=== PATIENT | female | born 1955 | race African-American/Black ===

== ENCOUNTER 2023-03-27 09:22 | Emergency (ER) | payer OTHER ==
--- OUTSIDE RECORDS SUMMARY | 2023-03-27 09:30 | XMS REPORT | Continuity of Care Document ---
:1955 Author Organization [facility] t Address [address]. [address] [place] [address] Care Team Providers Name Role Phone SHAAN JIMENEZ Primary Care Physician Unavailable MEGHA SARAVIA Attending Clinician Unavailable Radiology Attending Clinician Unavailable RADIOLOGY Attending Clinician Unavailable Pob, [facility] Main Attending Clinician Unavailable Gus Pham MD Attending Clinician Lab, Ang - Db Attending Clinician Unavailable Hugh Gabriel MD Attending Clinician HUGH GABRIEL Attending Clinician Unavailable HUGH GABRIEL Attending Clinician Unavailable GUS PHAM Attending Clinician Unavailable Doctor Unassigned, [place] Attending Clinician Unavailable MINI BURTON Attending Clinician Unavailable Mini Burton DO Attending Clinician Yoel Chino MD Attending Clinician OYEL CHINO Attending Clinician Unavailable 1, [facility] Attending Clinician Unavailable Clint Anderson MD Attending Clinician Payers Payer Name Policy Type Policy Number Effective Date Expiration Date S serina HOOD PLS [id number] 2022 O 00:00:00 [place]ICAID OF [place] [id number] 2011 00:00:00 Problems Condition Condition Condition Status Onset Resolution Last Treating Co mments Source Name Details Category Date Date Treatment Clinician Date Lower GI Lower GI Disease Active 2015-11 Unive rs bleeding bleeding 2-09 ity of 00:00: [place] [facility] CHF CHF Disease Active 2015-11 Univers (congestiv (congestiv 1-29 it y of e heart e heart 00:00: [place] failure) failure) 00 Medica l Branch Obesity Obesity Disease Active 2015-11 Univers (BMI (BMI 1-27 ity of 30-39.9) 30-39.9) 00:00: [place] [facility] CHF CHF Disease Active 2015-11 Univers exacerbati exacerbati 1-27 it y of on on 00:00: [place] [facility] CHF CHF Disease Active 2015-11 Univers exacerbati exacerbati 1- it y of on on 00:00: [place] [facility] Morbid Morbid Disease Active 2015-11 Univers obesity obesity 1-27 [place] with body [place] body [place] mass index 00 Me dical of 50 or of 50 or Branch higher higher Morbid Morbid Disease Active 2015-11 Univers obesity obesity -27 [place] of with body [place] body 00:[place] mass index mass index 00 Me dical of of Branch 40.0-49.9 40.0-49.9 Pneumonia Pneumonia Disease Active Uni vers 9-13 ity of 00:00: [place] [facility] COPD COPD Disease Active Univers exacerbati exacerbati 8-07 it y of on on 00:00: [place] [facility] COPD COPD Disease Active Univers (chronic (chronic 3-03 ity of obstructiv obstructiv [place] Medical pulmonary pulmonary Bran ch disease) disease) 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 U nivers s rectal s rectal 1-06 ity of polyp polyp 00:00: [place] [facility] Hematochez Hematochez Disease Active 2014-11 U pratikers ia ia 0-25 ity of 00:00: [place] [facility] DEXTER DEXTER Disease Active 2014-11 Univers (obstructi (obstructi 0-24 it y of ve sleep ve sleep 00:00: [place] apnea) apnea) 00 Medical Branch Hyperlipid Hyperlipid Disease Active 2014-11 U pratikers emia emia 0-24 ity of 00:00: [place] [facility] CVA, old, CVA, old, Disease Active 2014-11 Uni vers disturbanc disturbanc 0-24 it y of es of es of 00:00: [place] vision vision 00 Medical Branch Rectal Rectal Disease Active 2014-11 Univers bleeding bleeding 0- ity of 00:00: [place] 00 Medical Branch Hypertensi Hypertensi Disease Active U nivers on on 06-07 ity of 00:00: [place] [facility] [place] Type 2 Type 2 Disease Active Univers diabetes diabetes 06-07 ity of mellitus mellitus 00:00: [place] 00 [facility] Allergies, Adverse Reactions, Alerts Allergy Allergy Status Severity Reaction(s) Onset Inactive Treating Comm ents Source Name Type Date Date Clinician NO KNOWN Drug Active Univers ALLERGIE Class ity of S [place] [facility] Social History Social Habit Start Date Stop Date Quantity Comments Source History of tobacco Cigarette Smoker University of use [facility] Exposure to 2022-08-07 2022-08-17 Not sure [facility] SARS-CoV-2 (event) 00:00:00 09:42:00 [facility] Alcohol intake 2022-08-17 2022-08-17 0 /d University of 00:00:00 00:00:00 [facility] Tobacco use and 2016-10-10 2016-10-10 Smokeless Universit y of exposure 00:00:00 00:00:00 tobacco non-user [facility] Cigarettes smoked 2016-10-10 2016-10-10 Univers ity of current (pack per 00:00:00 00:00:00 [place] ) - Reported Branch Cigarette 2016-10-10 2016-10-10 University of pack-years 00:00:00 00:00:00 [facility] Sex Ass[birth year] At [birth year] Universit y of 00:00:00 00:00:00 [place] [facility] Smoking Status Start Date Stop Date Source Ex-smoker 2016-10-10 00:00:00 2016-10-10 00:00:00 Universi ty [facility] Medications Ordered Filled Start Stop Current Ordering Indication Dosage Frequency Signature Comments Components Source Medication Medication Date Date Medication? Clinician (SIG) Name Name ezetimibe Yes 1{tbl} Take 1 Univ ers 10 mg 9-30 tablet by ity of tablet 00:00: mouth in [place] 00 the Medical morning. Branch ezetimibe 2022-0 Yes 1{tbl} Take 1 Univ ers 10 mg 9-30 tablet by ity of tablet 00:00: mouth in [place] 00 the Medical morning. Branch ezetimibe 2021-0 Yes 1{tbl} Take 1 Univ ers 10 mg 9-30 tablet by ity of tablet 00:00: mouth in [place] 00 the Medical morning. Branch ezetimibe 2021-0 Yes 1{tbl} Take 1 Univ ers 10 mg 9-30 tablet by ity of tablet 00:00: mouth in [place] the Medical morning. Branch ezetimibe 2021-0 Yes 1{tbl} Take 1 Univ ers 10 mg 9-30 tablet by ity of tablet 00:00: mouth in [place] the Medical morning. Branch simvastatin 2021-0 Yes Univer s 10 mg 9-29 ity of tablet 00:00: [place] 00 Medical Branch simvastatin 2021-0 Yes Univer s 10 mg 9-29 ity of tablet 00:00: [place] 00 Medical Branch simvastatin 2021-0 Yes Univer s 10 mg 9-29 ity of tablet 00:00: [place] 00 Medical Branch simvastatin 2021-0 Yes Univer s 10 mg 9-29 ity of tablet 00:00: [place] [address] Medical Branch simvastatin 2021-0 Yes Univer s 10 mg 9-29 ity of tablet 00:00: [place] 00 Medical Branch levothyroxi 2021-0 Yes Univer s ne 25 mcg 9-27 ity of tablet 00:00: [place] 00 Medical Branch levothyroxi 2021-0 Yes Univer s ne 25 mcg 9-27 ity of tablet 00:00: [place] 00 Medical Branch levothyroxi 2021-0 Yes Univer s ne 25 mcg 9-27 ity of tablet 00:00: [place] 00 Medical Branch levothyroxi 2-0 Yes Univer s ne 25 mcg 9-27 ity of tablet 00:00: [place] 00 Medical Branch levothyroxi 2021-0 Yes Univer s ne 25 mcg 9-27 ity of tablet 00:00: [place] 00 Medical Branch fluticasone 2021-0 Yes 1{puff} Inhale 1 Univers furoate-cherelle 9-12 Puff. ity of anteroL 00:00: [place] (BREO 00 Medical ELLIPTA) Branch 200-25 mcg/dose DsDv fluticasone Yes 1{puff} Inhale 1 Univers furoate-cherelle 9-12 Puff. ity of anteroL 00:00: [place] ([address]) Branch 200-25 mcg/dose DsDv fluticasone Yes 1{puff} Inhale 1 Univers furoate-cherelle 9-12 Puff. ity of anteroL 00:00: [place] ([address]) Branch 200-25 mcg/dose DsDv fluticasone Yes 1{puff} Inhale 1 Univers furoate-cherelle 9-12 Puff. ity of anteroL 00:00: [place] ([address]) Branch 200-25 mcg/dose DsDv fluticasone Yes 1{puff} Inhale 1 Univers furoate-cherelle 9-12 Puff. ity of anteroL 00:00: [place] ([address]) Branch 200-25 mcg/dose DsDv FARXIGA 10 Yes TAKE 1 Unive rs mg tablet 9-09 TABLET BY ity o f 00:00: MOUTH 1 (ONE) TIME Medical EACH DAY Branch IN THE MORNING WITH PLENTY OF WATER, FOR DIABETES FARXIGA 10 Yes TAKE 1 Unive rs mg tablet 9-09 TABLET BY ity o f 00:00: MOUTH (ONE) TIME Medical EACH DAY Branch IN THE MORNING WITH PLENTY OF WATER, FOR DIABETES FARXIGA 10 Yes TAKE 1 Unive rs mg tablet 9-09 TABLET BY ity o f 00:00: MOUTH (ONE) TIME Medical EACH DAY Branch IN THE MORNING WITH PLENTY OF WATER, FOR DIABETES FARXIGA 10 Yes TAKE 1 Unive rs mg tablet 9-09 TABLET BY ity o f 00:00: MOUTH (ONE) TIME Medical EACH DAY Branch IN THE MORNING WITH PLENTY OF WATER, FOR DIABETES FARXIGA 10 Yes TAKE 1 Unive rs mg tablet 9-09 TABLET BY ity o f 00:00: MOUTH 1 [place] (ONE) TIME Medical EACH DAY Branch IN THE MORNING WITH PLENTY OF WATER, FOR DIABETES insulin 2017- Yes 24U inject 24 Unive rs glargine 2-21 Units ity of (LANTUS 19:42: under the [place] U-100) 100 05 skin at Medica l unit/mL bedtime. Branch injection Olopatadine 2016-11 Yes 1[drp] Place 1 U nivers (PATADAY) 2-21 Drop in ity of 0.2 % Drop 19:42: each eye Good as 05 daily. Medical Branch foLIC acid 2016-11 Yes 1mg Take 1 mg Un reilly (FOLATE) 1 2-21 by mouth ity o f mg tablet 19:42: daily. [address] Branch gabapentin 2016-11 Yes 100mg Take 100 Un reilly (NEURONTIN) 2-21 mg by ity of 100 mg 19:42: mouth at [place] capsule 05 bedtime. Medical Branch HYDROcodone 2016-11 Yes 1{tbl} Take 1 Un reilly -acetaminop 2-21 tablet by ity of hen 7.5-325 19:42: mouth [place] mg per 05 every 6 Medical tablet (six) Branch hours as needed for Pain. allopurinol 2016-11 Yes 200mg Take 200 U nivers 100 mg 2-21 mg by ity of tablet 19:42: mouth [place] 05 daily. Medical Branch clopidogrel 2016-11 Yes 75mg Take 75 mg Univers (PLAVIX) 75 2-21 by mouth ity of mg tablet 19:42: daily. [address] Branch furosemide 2016-11 Yes 40mg Take 40 mg U nivers 40 mg 2-21 by mouth 3 ity of tablet 19:42: (three) [place] 05 times Medical daily. Branch FERROUS 2016-11 Yes 1{tbl} Take 1 Tab Un reilly FUMARATE/FO 2-21 by mouth ity of LIC ACID 19:42: daily. [place] (HEMATINIC/ 05 Medical FOLIC ACID Branch ORAL) aspirin 81 2016-11 Yes 81mg Take 81 mg U nivers mg chewable 2-21 by mouth ity of tablet 19:42: daily. [address] Branch levocetiriz 2016-11 Yes 5mg Take 5 mg U nivers ine (XYZAL) 2-21 by mouth ity of 5 mg tablet 19:42: every [place] 05 evening. Medical Branch SERTraline 2016-11 Yes 25mg Take 25 mg U nivers (ZOLOFT) 25 2-21 by mouth ity of mg tablet 19:42: daily. [address] Branch bimatoprost 2016-11 Yes 1[drp] Place 1 U nivers (LUMIGAN) 2-21 Drop in ity of 0.01 % Drop 19:42: each eye [place] 05 daily. Medical Branch metFORMIN 2016-11 Yes 500mg Take 500 Uni vers (GLUCOPHAGE 2-21 mg by ity of ) 1,000 mg 19:42: [place] 2 [place] tablet 05 (two) Medical times Branch daily. spironolact 2016-11 Yes 25mg Take 25 mg Univers one 2-21 by mouth ity of (SPIRONOLAC 19:42: daily. [place] TONE) 25 mg 05 Medical tablet Branch sitaGLIPtin 2016-11 Yes 50mg Take 50 mg Univers (JANUVIA) 2-21 by mouth ity of 50 mg 19:42: daily. [place] tablet 05 Medical Branch atenolol 2016-11 Yes 50mg Take 50 mg Uni vers (TENORMIN) 2-21 by mouth 2 ity of 50 mg 19:42: (two) [place] tablet 05 times Medical daily. Branch nitroglycer 2016-[address] 0[address]4 U nivers in 2-21 mg under ity of (NITROSTAT) 19:42: the tongue [place] 0.4 mg 05 every 5 Medical sublingual (five) Branch tablet minutes as needed for Chest pain. fluticasone 2016-11 Yes 1{puff} Inhale 1 Univers furoate 2-21 Puff ity of (ARNUITY 19:42: daily. [place] ELLIPTA) 05 Medical 200 Branch mcg/actuati on DsDv colchicine 2016-11 Yes .6mg Take 0.6 Uni vers (COLCRYS) 2-21 mg by ity of 0.6 mg 19:42: mouth [place] tablet 05 daily. Medical Branch insulin 2016-11 Yes 24U inject 24 Unive rs glargine 2-21 Units ity of (LANTUS 19:42: under the [place] U-100) 100 05 skin at Medica l unit/mL bedtime. Branch injection Olopatadine 2016-11 Yes 1[drp] Place 1 U nivers (PATADAY) 2-21 Drop in ity of 0.2 % Drop 19:42: each eye [place] 05 daily. Medical Branch foLIC acid 2016-11 Yes 1mg Take 1 mg Un reilly (FOLATE) 1 2-21 by mouth ity o f mg tablet 19:42: daily. [place] [address] Medical Branch gabapentin 2016-11 Yes 100mg Take 100 Un reilly (NEURONTIN) 2-21 mg by ity of 100 mg 19:42: mouth at [facility] [place] 05 bedtime. Medical Branch HYDROcodone 2016-11 Yes 1{tbl} Take 1 Un reilly -acetaminop 2-21 tablet by ity of hen 7.5-325 19:42: mouth [place] mg per 05 every 6 Medical tablet (six) Branch hours as needed for Pain. allopurinol 2016-11 Yes 200mg Take 200 U nivers 100 mg 2-21 mg by ity of tablet 19:42: mouth [place] 05 daily. Medical Branch clopidogrel 2016-11 Yes 75mg Take 75 mg Univers (PLAVIX) 75 2-21 by mouth ity of mg tablet 19:42: daily. [address] Branch furosemide 2016-11 Yes 40mg Take 40 mg U nivers 40 mg 2-21 by mouth 3 ity of tablet 19:42: (three) [place] [address] times [facility] daily. Branch FERROUS 2016-11 Yes 1{tbl} Take 1 Tab Un reilly FUMARATE/FO 2-21 by mouth ity of LIC ACID 19:42: daily. [place] (HEMATINIC/ 05 Medical FOLIC ACID Branch ORAL) aspirin 81 2016-11 Yes 81mg Take 81 mg U nivers mg chewable 2-21 by mouth ity of tablet 19:42: daily. [address] Branch levocetiriz 2016-11 Yes 5mg Take 5 mg U nivers ine (XYZAL) 2-21 by mouth ity of 5 mg tablet 19:42: every [place] 05 evening. Medical Branch SERTraline 2016-11 Yes 25mg Take 25 mg U nivers (ZOLOFT) 25 2-21 by mouth ity of mg tablet 19:42: daily. [address] Branch bimatoprost 2016-11 Yes 1[drp] Place 1 U nivers (LUMIGAN) 2-21 Drop in ity of 0.01 % Drop 19:42: each eye [place] 05 daily. Medical Branch metFORMIN 2016-11 Yes 500mg Take 500 Uni vers (GLUCOPHAGE 2-21 mg by ity of ) 1,000 mg 19:42: [place] 2 [place] tablet 05 (two) Medical times Branch daily. spironolact 2016-11 Yes 25mg Take 25 mg Univers one 2-21 by mouth ity of (SPIRONOLAC 19:42: daily. [place] TONE) 25 mg 05 Medical tablet Branch sitaGLIPtin 2016-11 Yes 50mg Take 50 mg Univers (JANUVIA) 2-21 by mouth ity of 50 mg 19:42: daily. [place] tablet 05 Medical Branch atenolol 2016-11 Yes 50mg Take 50 mg Uni vers (TENORMIN) 2-21 by mouth 2 ity of 50 mg 19:42: (two) [place] tablet 05 times Medical daily. Branch nitroglycer 2016-[address] 0[address]4 U nivers in 2-21 mg under ity of (NITROSTAT) 19:42: the tongue [place] 0.4 mg 05 every 5 Medical sublingual (five) Branch tablet minutes as needed for Chest pain. fluticasone 2016-11 Yes 1{puff} Inhale 1 Univers furoate 2-21 Puff ity of (ARNUITY 19:42: daily. [place] ELLIPTA) 05 Medical 200 Branch mcg/actuati on DsDv colchicine 2016-11 Yes .6mg Take 0.6 Uni vers (COLCRYS) 2-21 mg by ity of 0.6 mg 19:42: mouth [place] tablet 05 daily. Medical Branch insulin 2016-11 Yes 24U inject 24 Unive rs glargine 2-21 Units ity of (LANTUS 19:42: under the [place] U-100) 100 05 skin at Medica l unit/mL bedtime. Branch injection Olopatadine 2016-11 Yes 1[drp] Place 1 U nivers (PATADAY) 2-21 Drop in ity of 0.2 % Drop 19:42: each eye [place] 05 daily. Medical Branch foLIC acid 2016-11 Yes 1mg Take 1 mg Un reilly (FOLATE) 1 2-21 by mouth ity o f mg tablet 19:42: daily. [place] 05 Medical Branch gabapentin 2016-11 Yes 100mg Take 100 Un reilly (NEURONTIN) 2-21 mg by ity of 100 mg 19:42: mouth at [place] capsule 05 bedtime. Medical Branch HYDROcodone 2016-11 Yes 1{tbl} Take 1 Un reilly -acetaminop 2-21 tablet by ity of hen 7.5-325 19:42: mouth [place] mg per 05 every 6 Medical tablet (six) Branch hours as needed for Pain. allopurinol 2016-11 Yes 200mg Take 200 U nivers 100 mg 2-21 mg by ity of tablet 19:42: mouth [place] [address] daily. Medical Branch clopidogrel 2016-11 Yes 75mg Take 75 mg Univers (PLAVIX) 75 2-21 by mouth ity of mg tablet 19:42: daily. [address] Branch furosemide 2016-11 Yes 40mg Take 40 mg U nivers 40 mg 2-21 by mouth 3 ity of tablet 19:42: (three) [place] [address] times Medical daily. Branch FERROUS 2016-11 Yes 1{tbl} Take 1 Tab Un reilly FUMARATE/FO 2-21 by mouth ity of LIC ACID 19:42: daily. [place] (HEMATINIC/ Medical FOLIC ACID Branch ORAL) aspirin 81 2016-11 Yes 81mg Take 81 mg U nivers mg chewable 2-21 by mouth ity of tablet 19:42: daily. [address] levocetiriz 2016-11 Yes 5mg Take 5 mg U nivers ine (XYZAL) 2-21 by mouth ity of 5 mg tablet 19:42: every [place] [address] evening. Medical Branch SERTraline 2016-11 Yes 25mg Take 25 mg U nivers (ZOLOFT) 25 2-21 by mouth ity of mg tablet 19:42: daily. [address] bimatoprost 2016-11 Yes 1[drp] Place 1 U nivers (LUMIGAN) 2-21 Drop in ity of 0.01 % Drop 19:42: each eye [place] 05 daily. Medical Branch metFORMIN 2016-11 Yes 500mg Take 500 Uni vers (GLUCOPHAGE 2-21 mg by ity of ) 1,000 mg 19:42: mouth 2 [place] tablet 05 (two) Medical times Branch daily. spironolact 2016-11 Yes 25mg Take 25 mg Univers one 2-21 by mouth ity of (SPIRONOLAC 19:42: daily. [place] TONE) 25 mg 05 Medical tablet Branch sitaGLIPtin 2016-11 Yes 50mg Take 50 mg Univers (JANUVIA) 2-21 by mouth ity of 50 mg 19:42: daily. [place] [address] Medical Branch atenolol 2016-11 Yes 50mg Take 50 mg Uni vers (TENORMIN) 2-21 by mouth 2 ity of 50 mg 19:42: (two) [place] tablet 05 times Medical daily. Branch nitroglycer 2016-[address] 0.4 U nivers in 2-21 mg under ity of (NITROSTAT) 19:42: the tongue [place] 0.4 mg 05 every 5 Medical sublingual (five) Branch tablet minutes as needed for Chest pain. fluticasone 2016-11 Yes 1{puff} Inhale 1 Univers furoate 2-21 Puff ity of (ARNUITY 19:42: daily. [place] ELLIPTA) 05 Medical 200 Branch mcg/actuati on DsDv colchicine 2016-11 Yes .6mg Take 0.6 Uni vers (COLCRYS) 2-21 mg by ity of 0.6 mg 19:42: mouth [place] tablet 05 daily. Medical Branch insulin 2016-11 Yes 24U inject 24 Unive rs glargine 2-21 Units ity of (LANTUS 19:42: under the [place] U-100) 100 05 skin at Medica l unit/mL bedtime. Branch injection Olopatadine 2016-11 Yes 1[drp] Place 1 U nivers (PATADAY) 2-21 Drop in ity of 0.2 % Drop 19:42: each eye [place] 05 daily. Medical Branch foLIC acid 2016-11 Yes 1mg Take 1 mg Un reilly (FOLATE) 1 2-21 by mouth ity o f mg tablet 19:42: daily. [place] [address] Medical Branch gabapentin 2016-11 Yes 100mg Take 100 Un reilly (NEURONTIN) 2-21 mg by ity of 100 mg 19:42: mouth at [place] capsule 05 bedtime. Medical Branch HYDROcodone 2016-11 Yes 1{tbl} Take 1 Un reilly -acetaminop 2-21 tablet by ity of hen 7.5-325 19:42: mouth [place] mg per 05 every 6 Medical tablet (six) Branch hours as needed for Pain. allopurinol 2016-11 Yes 200mg Take 200 U nivers 100 mg 2-21 mg by ity of tablet 19:42: mouth [place] 05 daily. Medical Branch clopidogrel 2016-11 Yes 75mg Take 75 mg Univers (PLAVIX) 75 2-21 by mouth ity of mg tablet 19:42: daily. [place] [address] Medical Branch furosemide 2016-11 Yes 40mg Take 40 mg U nivers 40 mg 2-21 by mouth 3 ity of tablet 19:42: (three) [place] 05 times Medical daily. Branch FERROUS 2016-11 Yes 1{tbl} Take 1 Tab Un reilly FUMARATE/FO 2-21 by mouth ity of LIC ACID 19:42: daily. [place] (HEMATINIC/ 05 Medical FOLIC ACID Branch ORAL) aspirin 81 2016-11 Yes 81mg Take 81 mg U nivers mg chewable 2-21 by mouth ity of tablet 19:42: daily. [address] Branch levocetiriz 2016-11 Yes 5mg Take 5 mg U nivers ine (XYZAL) 2-21 by mouth ity of 5 mg tablet 19:42: every [place] 05 evening. Medical Branch SERTraline 2016-11 Yes 25mg Take 25 mg U nivers (ZOLOFT) 25 2-21 by mouth ity of mg tablet 19:42: daily. [address] Branch bimatoprost 2016-11 Yes 1[drp] Place 1 U nivers (LUMIGAN) 2-21 Drop in ity of 0.01 % Drop 19:42: each eye [place] 05 daily. Medical Branch metFORMIN 2016-11 Yes 500mg Take 500 Uni vers (GLUCOPHAGE 2-21 mg by ity of ) 1,000 mg 19:42: mouth 2 [place] tablet 05 (two) Medical times Branch daily. spironolact 2016-11 Yes 25mg Take 25 mg Univers one 2-21 by mouth ity of (SPIRONOLAC 19:42: daily. [place] TONE) 25 mg 05 Medical tablet Branch sitaGLIPtin 2016-11 Yes 50mg Take 50 mg Univers (JANUVIA) 2-21 by mouth ity of 50 mg 19:42: daily. [place] tablet 05 Medical Branch atenolol 2016-11 Yes 50mg Take 50 mg Uni vers (TENORMIN) 2-21 by mouth 2 ity of 50 mg 19:42: (two) [place] tablet 05 times Medical daily. Branch nitroglycer 2016-[address] 0.4 U nivers in 2-21 mg under ity of (NITROSTAT) 19:42: the tongue [place] 0.4 mg 05 every 5 Medical sublingual (five) Branch tablet minutes as needed for Chest pain. fluticasone 2016-11 Yes 1{puff} Inhale 1 Univers furoate 2-21 Puff ity of (ARNUITY 19:42: daily. [place] ELLIPTA) 05 Medical 200 Branch mcg/actuati on DsDv colchicine 2016-11 Yes .6mg Take 0.6 Uni vers (COLCRYS) 2-21 mg by ity of 0.6 mg 19:42: mouth [place] tablet 05 daily. Medical Branch insulin 2016-11 Yes 24U inject 24 Unive rs glargine 2-21 Units ity of (LANTUS 19:42: under the [place] U-100) 100 05 skin at Medica l unit/mL bedtime. Branch injection Olopatadine 2016-11 Yes 1[drp] Place 1 U nivers (PATADAY) 2-21 Drop in ity of 0.2 % Drop 19:42: each eye [place] 05 daily. Medical Branch foLIC acid 2016-11 Yes 1mg Take 1 mg Un reilly (FOLATE) 1 2-21 by mouth ity o f mg tablet 19:42: daily. [place] [address] Medical Branch gabapentin 2016-11 Yes 100mg Take 100 Un reilly (NEURONTIN) 2-21 mg by ity of 100 mg 19:42: mouth at [place] capsule 05 bedtime. Medical Branch HYDROcodone 2016-11 Yes 1{tbl} Take 1 Un reilly -acetaminop 2-21 tablet by ity of hen 7.5-325 19:42: mouth [place] mg per 05 every 6 Medical tablet (six) Branch hours as needed for Pain. allopurinol 2016-11 Yes 200mg Take 200 U nivers 100 mg 2-21 mg by ity of tablet 19:42: mouth [place] 05 daily. Medical Branch clopidogrel 2016-11 Yes 75mg Take 75 mg Univers (PLAVIX) 75 2-21 by mouth ity of mg tablet 19:42: daily. [place] [address] Medical Branch furosemide 2016-11 Yes 40mg Take 40 mg U nivers 40 mg 2-21 by mouth 3 ity of tablet 19:42: (three) [place] 05 times Medical daily. Branch FERROUS 2016-11 Yes 1{tbl} Take 1 Tab Un reilly FUMARATE/FO 2-21 by mouth ity of LIC ACID 19:42: daily. [place] (HEMATINIC/ 05 Medical FOLIC ACID Branch ORAL) aspirin 81 2016-11 Yes 81mg Take 81 mg U nivers mg chewable 2-21 by mouth ity of tablet 19:42: daily. [place] [address] Medical Branch levocetiriz 2016-11 Yes 5mg Take 5 mg U nivers ine (XYZAL) 2-21 by mouth ity of 5 mg tablet 19:42: every [place] 05 evening. Medical Branch SERTraline 2016-11 Yes 25mg Take 25 mg U nivers (ZOLOFT) 25 2-21 by mouth ity of mg tablet 19:42: daily. [place] [address] Medical Branch bimatoprost 2016-11 Yes 1[drp] Place 1 U nivers (LUMIGAN) 2-21 Drop in ity of 0.01 % Drop 19:42: each eye [place] 05 daily. Medical Branch metFORMIN 2016-11 Yes 500mg Take 500 Uni vers (GLUCOPHAGE 2-21 mg by ity of ) 1,000 mg 19:42: mouth 2 [place] tablet 05 (two) Medical times Branch daily. spironolact 2016-11 Yes 25mg Take 25 mg Univers one 2-21 by mouth ity of (SPIRONOLAC 19:42: daily. [place] TONE) 25 mg 05 Medical tablet Branch sitaGLIPtin 2016-11 Yes 50mg Take 50 mg Univers (JANUVIA) 2-21 by mouth ity of 50 mg 19:42: daily. [place] tablet 05 Medical Branch atenolol 2016-11 Yes 50mg Take 50 mg Uni vers (TENORMIN) 2-21 by mouth 2 ity of 50 mg 19:42: (two) [place] tablet 05 times Medical daily. Branch nitroglycer 2016-[address] 0.4 U nivers in 2-21 mg under ity of (NITROSTAT) 19:42: the tongue [place] 0.4 mg 05 every 5 Medical sublingual (five) Branch tablet minutes as needed for Chest pain. fluticasone 2016-11 Yes 1{puff} Inhale 1 Univers furoate 2-21 Puff ity of (ARNUITY 19:42: daily. [place] ELLIPTA) 05 Medical 200 Branch mcg/actuati on DsDv colchicine 2016-11 Yes .6mg Take 0.6 Uni vers (COLCRYS) 2-21 mg by ity of 0.6 mg 19:42: mouth [place] tablet 05 daily. Medical Branch insulin 2016-11 Yes 24U inject 24 Unive rs glargine 2-21 Units ity of (LANTUS 19:42: under the [place] U-100) 100 05 skin at Medica l unit/mL bedtime. Branch injection Olopatadine 2016-11 Yes 1[drp] Place 1 U nivers (PATADAY) 2-21 Drop in ity of 0.2 % Drop 19:42: each eye [place] 05 daily. Medical Branch foLIC acid 2016-11 Yes 1mg Take 1 mg Un reilly (FOLATE) 1 2-21 by mouth ity o f mg tablet 19:42: daily. [place] [address] Medical Branch gabapentin 2016-11 Yes 100mg Take 100 Un reilly (NEURONTIN) 2-21 mg by ity of 100 mg 19:42: mouth at [place] capsule 05 bedtime. Medical Branch HYDROcodone 2016-11 Yes 1{tbl} Take 1 Un reilly -acetaminop 2-21 tablet by ity of hen 7.5-325 19:42: mouth [place] mg per 05 every 6 Medical tablet (six) Branch hours as needed for Pain. allopurinol 2016-11 Yes 200mg Take 200 U nivers 100 mg 2-21 mg by ity of tablet 19:42: mouth [place] 05 daily. Medical Branch clopidogrel 2016-11 Yes 75mg Take 75 mg Univers (PLAVIX) 75 2-21 by mouth ity of mg tablet 19:42: daily. [address] Branch furosemide 2016-11 Yes 40mg Take 40 mg U nivers 40 mg 2-21 by mouth 3 ity of tablet 19:42: (three) [place] 05 times Medical daily. Branch FERROUS 2016-11 Yes 1{tbl} Take 1 Tab Un reilly FUMARATE/FO 2-21 by mouth ity of LIC ACID 19:42: daily. [place] [facility] ORAL[facility] FERROUS 2016-11 Yes 1{tbl} Take 1 Tab [facility] FUMARATE/FO 2-21 by mouth ity of LIC ACID 19:42: daily. [place] (HEMATINIC/ Medical FOLIC ACID Branch ORAL) aspirin 81 2016-11 Yes 81mg Take 81 mg U n[facility] mg chewable 2-21 by mouth ity of tablet 19:42: daily. [address] Branch levocetiriz 2016-11 Yes 5mg Take 5 mg U nivers ine (XYZAL) 2-21 by mouth ity of 5 mg tablet 19:42: every [place] 05 evening. Medical Branch SERTraline 2016-11 Yes 25mg Take 25 mg U nivers (ZOLOFT) 25 2-21 by mouth ity of mg tablet 19:42: daily. [address] Branch bimatoprost 2016-11 Yes 1[drp] Place 1 U nivers (LUMIGAN) 2-21 Drop in ity of 0.01 % Drop 19:42: each eye [place] 05 daily. Medical Branch metFORMIN 2016-11 Yes 500mg Take 500 Uni vers (GLUCOPHAGE 2-21 mg by ity of ) 1,000 mg 19:42: mouth [place] 05 (two) Medical times Branch daily. spironolact 2016-11 Yes 25mg Take 25 mg [facility] one 2-21 by mouth ity of (SPIRONOLAC 19:42: [place]. [place] TONE[place] 25 mg 05 Medical tablet Branch aspirin 81 2016-11 Yes 81mg Take 81 mg U nivers mg chewable 2-21 by mouth ity of tablet 19:42: daily. [address] Branch sitaGLIPtin 2016-11 Yes 50mg Take 50 mg [facility] (JANUVIA) 2-21 by mouth ity of 50 mg 19:42: daily. [place] tablet 05 [facility] Branch atenolol 2016-11 Yes 50mg Take 50 mg Uni vers (TENORMIN) 2-21 by mouth 2 ity of 50 mg 19:42: (two) [place] tablet 05 times Medical daily. Branch nitroglycer 2016-[address] 0[address]4 U nivers in 2-21 mg under ity of (NITROSTAT) 19:42: the tongue [place] 0.4 mg 05 every 5 Medical sublingual (five) Branch tablet minutes as needed for Chest pain. fluticasone 2016-11 Yes 1{puff} Inhale 1 [facility] furoate 2-21 Puff ity of (ARNUITY 19:42: daily. [place] ELLIPTA) 05 Medical 200 Branch mcg/actuati on DsDv colchicine 2016-11 Yes .6mg Take 0.6 Uni vers (COLCRYS) 2-21 mg by ity of 0.6 mg 19:42: mouth [place] tablet 05 daily. Medical Branch insulin 2016-11 Yes 24U inject 24 Unive rs glargine 2-21 Units ity of (LANTUS 19:42: under the [place] U-100) 100 05 skin at Medica l unit/mL bedtime. Branch injection Olopatadine 2016-11 Yes 1[drp] Place 1 U nivers (PATADAY) 2-21 Drop in ity of 0.2 % Drop 19:42: each eye [place] 05 daily. Medical Branch levocetiriz 2016-11 Yes 5mg Take 5 mg U nivers ine (XYZAL) 2-21 by mouth ity of 5 mg tablet 19:42: every [place] 05 evening. Medical Branch foLIC acid 2016-11 Yes 1mg Take 1 mg [facility] (FOLATE) 1 2-21 by mouth ity o f mg tablet 19:42: daily. [place] [address] Medical Branch gabapentin 2016-11 Yes 100mg Take 100 [facility] (NEURONTIN) 2-21 mg by ity of 100 mg 19:42: mouth at [place] [facility] 05 bedtime. Medical Branch HYDROcodone 2016-11 Yes 1{tbl} Take 1 Un re[facility] -acetaminop 2-21 tablet by ity of hen 7.5-325 19:42: mouth [place] mg per 05 every 6 Medical tablet (six) Branch hours as needed for Pain. allopurinol 2016-11 Yes 200mg Take 200 U nivers 100 mg 2-21 mg by ity of tablet 19:42: mouth [place] 05 daily. Medical Branch clopidogrel 2016-11 Yes 75mg Take 75 mg [facility] (PLAVIX) 75 2-21 by mouth ity of mg tablet 19:42: daily. [place] [address] Medical Branch furosemide 2016-11 Yes 40mg Take 40 mg U nivers 40 mg 2-21 by mouth 3 ity of tablet 19:42: (three) [place] 05 times Medical daily. Branch SERTraline 2016-11 Yes 25mg Take 25 mg U nivers (ZOLOFT) 25 2-21 by mouth ity of mg tablet 19:42: daily. [place] [address] Medical Branch FERROUS 2016-11 Yes 1{tbl} Take 1 Tab [facility] FUMARATE/FO 2-21 by mouth ity of LIC ACID 19:42: daily. [place] (HEMATINIC/ 05 Medical FOLIC ACID Branch ORAL) aspirin 81 2016-11 Yes 81mg Take 81 mg U nivers mg chewable 2-21 by mouth ity of tablet 19:42: daily. [place] [address] Medical Branch levocetiriz 2016-11 Yes 5mg Take 5 mg U nivers ine (XYZAL) 2-21 by mouth ity of 5 mg tablet 19:42: every [place] 05 evening. Medical Branch SERTraline 2016-11 Yes 25mg Take 25 mg U nivers (ZOLOFT) 25 2-21 by mouth ity of mg tablet 19:42: daily. [place] 05 Medical Branch bimatoprost 2016-11 Yes 1[drp] Place 1 U nivers (LUMIGAN) 2-21 Drop in ity of 0.01 % Drop 19:42: each eye [place] 05 daily. Medical Branch metFORMIN 2016-11 Yes 500mg Take 500 Uni vers (GLUCOPHAGE 2-21 mg by ity of ) 1,000 mg 19:42: mouth 2 [place] tablet 05 (two) Medical times Branch daily. spironolact 2016-11 Yes 25mg Take 25 mg [facility] one 2-21 by mouth ity of (SPIRONOLAC 19:42: daily. [place] TONE) 25 mg 05 Medical tablet Branch bimatoprost 2016-11 Yes 1[drp] Place 1 U nivers (LUMIGAN) 2-21 Drop in ity of 0.01 % Drop 19:42: each eye [place] 05 daily. Medical Branch sitaGLIPtin 2016-11 Yes 50mg Take 50 mg [facility] (JANUVIA) 2-21 by mouth ity of 50 mg 19:42: daily. [place] tablet 05 Medical Branch atenolol 2016-11 Yes 50mg Take 50 mg Uni vers (TENORMIN) 2-21 by mouth 2 ity of 50 mg 19:42: (two) [place] tablet 05 times Medical daily. Branch nitroglycer 2016-[address] 0[address]4 U nivers in 2-21 mg under ity of (NITROSTAT) 19:42: the tongue [place] 0.4 mg 05 every 5 Medical sublingual (five) Branch tablet minutes as needed for Chest pain. fluticasone 2016-11 Yes 1{puff} Inhale 1 [facility] furoate 2-21 Puff ity of (ARNUITY 19:42: daily. [place] ELLIPTA) 05 Medical 200 Branch mcg/actuati on DsDv colchicine 2016-11 Yes .6mg Take 0.6 Uni vers (COLCRYS) 2-21 mg by ity of 0.6 mg 19:42: mouth [place] tablet 05 daily. Medical Branch insulin 2016-11 Yes 24U inject 24 Unive rs glargine 2-21 Units ity of (LANTUS 19:42: under the [place] U-100) 100 05 skin at Medica l unit/mL bedtime. Branch injection Olopatadine 2016-11 Yes 1[drp] Place 1 U nivers (PATADAY) 2-21 Drop in ity of 0.2 % Drop 19:42: each eye [place] 05 daily. Medical Branch metFORMIN 2016-11 Yes 500mg Take 500 Uni vers (GLUCOPHAGE 2-21 mg by ity of ) 1,000 mg 19:42: mouth 2 [place] tablet 05 (two) Medical times Branch daily. foLIC acid 2016-11 Yes 1mg Take 1 mg [facility] (FOLATE) 1 2-21 by mouth ity o f mg tablet 19:42: daily. [address] Branch gabapentin 2016-11 Yes 100mg Take 100 [facility] (NEURONTIN) 2-21 mg by ity of 100 mg 19:42: mouth at [place] capsule 05 bedtime. Medical Branch HYDROcodone 2016-11 Yes 1{tbl} Take 1 Un re[facility] -acetaminop 2-21 tablet by ity of hen 7.5-325 19:42: mouth [place] mg per 05 every 6 Medical tablet (six) Branch hours as needed for Pain. allopurinol 2016-11 Yes 200mg Take 200 U nivers 100 mg 2-21 mg by ity of tablet 19:42: mouth [place] 05 daily. Medical Branch clopidogrel 2016-11 Yes 75mg Take 75 mg [facility] (PLAVIX) 75 2-21 by mouth ity of mg tablet 19:42: daily. [address] Branch furosemide 2016-11 Yes 40mg Take 40 mg U nivers 40 mg 2-21 by mouth 3 ity of tablet 19:42: (three) [place] 05 times Medical daily. Branch spironolact 2016-11 Yes 25mg Take 25 mg [facility] one 2-21 by mouth ity of (SPIRONOLAC 19:42: daily. [place] TONE) 25 mg 05 Medical tablet Branch FERROUS 2016-11 Yes 1{tbl} Take 1 Tab [facility] FUMARATE/FO 2-21 by mouth ity of LIC ACID 19:42: daily. [place] (HEMATINIC/ 05 Medical FOLIC ACID Branch ORAL) aspirin 81 2016-11 Yes 81mg Take 81 mg U nivers mg chewable 2-21 by mouth ity of tablet 19:42: daily. [address] Branch sitaGLIPtin 2016-11 Yes 50mg Take 50 mg [facility] (JANUVIA) 2-21 by mouth ity of 50 mg 19:42: daily. [place] tablet 05 Medical Branch levocetiriz 2016-11 Yes 5mg Take 5 mg U nivers ine (XYZAL) 2-21 by mouth ity of 5 mg tablet 19:42: every [place] 05 evening. Medical Branch SERTraline 2016-11 Yes 25mg Take 25 mg U nivers (ZOLOFT) 25 2-21 by mouth ity of mg tablet 19:42: daily. [place] [address] Medical Branch bimatoprost 2016-11 Yes 1[drp] Place 1 U nivers (LUMIGAN) 2-21 Drop in ity of 0.01 % Drop 19:42: each eye [place] 05 daily. Medical Branch metFORMIN 2016-11 Yes 500mg Take 500 Uni vers (GLUCOPHAGE 2-21 mg by ity of ) 1,000 mg 19:42: mouth 2 [place] tablet 05 (two) Medical times Branch daily. spironolact 2016-11 Yes 25mg Take 25 mg [facility] one 2-21 by mouth ity of (SPIRONOLAC 19:42: daily. [place] TONE) 25 mg 05 Medical tablet Branch sitaGLIPtin 2016-11 Yes 50mg Take 50 mg [facility] (JANUVIA) 2-21 by mouth ity of 50 mg 19:42: daily. [place] tablet 05 Medical Branch atenolol 2016-11 Yes 50mg Take 50 mg Uni vers (TENORMIN) 2-21 by mouth 2 ity of 50 mg 19:42: (two) [place] tablet 05 times Medical daily. Branch nitroglycer 2016-[address] 0[address]4 U nivers in 2-21 mg under ity of (NITROSTAT) 19:42: the tongue [place] 0.4 mg 05 every 5 Medical sublingual (five) Branch tablet minutes as needed for Chest pain. fluticasone 2016-11 Yes 1{puff} Inhale 1 [facility] furoate 2-21 Puff ity of (ARNUITY 19:42: daily. [place] ELLIPTA) 05 Medical 200 Branch mcg/actuati on DsDv colchicine 2016-11 Yes .6mg Take 0.6 Uni vers (COLCRYS) 2-21 mg by ity of 0.6 mg 19:42: mouth [place] tablet 05 daily. Medical Branch atenolol 2016-11 Yes 50mg Take 50 mg Uni vers (TENORMIN) 2-21 by mouth 2 ity of 50 mg 19:42: (two) [place] tablet 05 times Medical daily. Branch insulin 2016-11 Yes 24U inject 24 Unive rs glargine 2-21 Units ity of (LANTUS 19:42: under the [place] U-100) 100 05 skin at Medica l unit/mL bedtime. Branch injection Olopatadine 2016-11 Yes 1[drp] Place 1 U nivers (PATADAY) 2-21 Drop in ity of 0.2 % Drop 19:42: each eye [place] 05 daily. Medical Branch foLIC acid 2016-11 Yes 1mg Take 1 mg [facility] (FOLATE) 1 2-21 by mouth ity o f mg tablet 19:42: daily. [place] [address] Medical Branch gabapentin 2016-11 Yes 100mg Take 100 Un re[facility] (NEURONTIN) 2-21 mg by ity of 100 mg 19:42: mouth at [place] capsule 05 bedtime. Medical Branch HYDROcodone 2016-11 Yes 1{tbl} Take 1 Un re[facility] -acetaminop 2-21 tablet by ity of hen 7.5-325 19:42: mouth [place] mg per 05 every 6 Medical tablet (six) Branch hours as needed for Pain. allopurinol 2016-11 Yes 200mg Take 200 U nivers 100 mg 2-21 mg by ity of tablet 19:42: mouth [place] 05 daily. Medical Branch nitroglycer 2016-[address] 0[address]4 U nivers in 2-21 mg under ity of (NITROSTAT) 19:42: the tongue [place] 0.4 mg 05 every 5 Medical sublingual (five) Branch tablet minutes as needed for Chest pain. clopidogrel 2016-11 Yes 75mg Take 75 mg Univers (PLAVIX) 75 2-21 by mouth ity of mg tablet 19:42: daily. [place] [address] Medical Branch furosemide 2016-11 Yes 40mg Take 40 mg U nivers 40 mg 2-21 by mouth 3 ity of tablet 19:42: (three) [place] 05 times Medical daily. Branch fluticasone 2016-11 Yes 1{puff} Inhale 1 [facility] furoate 2-21 Puff ity of (ARNUITY 19:42: daily. [place] ELLIPTA) 05 Medical 200 Branch mcg/actuati on DsDv FERROUS 2016-11 Yes 1{tbl} Take 1 Tab Un re[facility] FUMARATE/FO 2-21 by mouth ity of LIC ACID 19:42: daily. [place] (HEMATINIC/ 05 Medical FOLIC ACID Branch ORAL) aspirin 81 2016-11 Yes 81mg Take 81 mg U nivers mg chewable 2-21 by mouth ity of tablet 19:42: daily. [address] Branch levocetiriz 2016-11 Yes 5mg Take 5 mg U nivers ine (XYZAL) 2-21 by mouth ity of 5 mg tablet 19:42: every [place] 05 evening. Medical Branch SERTraline 2016-11 Yes 25mg Take 25 mg U nivers (ZOLOFT) 25 2-21 by mouth ity of mg tablet 19:42: daily. [address] Branch bimatoprost 2016-11 Yes 1[drp] Place 1 U nivers (LUMIGAN) 2-21 Drop in ity of 0.01 % Drop 19:42: each eye [place] 05 daily. Medical Branch metFORMIN 2016-11 Yes 500mg Take 500 Uni vers (GLUCOPHAGE 2-21 mg by ity of ) 1,000 mg 19:42: mouth 2 [place] tablet 05 (two) Medical times Branch daily. spironolact 2016-11 Yes 25mg Take 25 mg [facility] one 2-21 by mouth ity of (SPIRONOLAC 19:42: daily. [place] TONE) 25 mg 05 Medical tablet Branch colchicine 2016-11 Yes .6mg Take 0.6 Uni vers (COLCRYS) 2-21 mg by ity of 0.6 mg 19:42: mouth [place] tablet 05 daily. Medical Branch sitaGLIPtin 2016-11 Yes 50mg Take 50 mg [facility] (JANUVIA) 2-21 by mouth ity of 50 mg 19:42: daily. [place] tablet 05 Medical Branch atenolol 2016-11 Yes 50mg Take 50 mg Uni vers (TENORMIN) 2-21 by mouth 2 ity of 50 mg 19:42: (two) [place] tablet 05 times Medical daily. Branch nitroglycer 2016-[address] 0[address]4 U nivers in 2-21 mg under ity of (NITROSTAT) 19:42: the tongue [place] 0.4 mg 05 every 5 Medical sublingual (five) Branch tablet minutes as needed for Chest pain. fluticasone 2016-11 Yes 1{puff} Inhale 1 [facility] furoate 2-21 Puff ity of (ARNUITY 19:42: daily. [place] ELLIPTA) 05 Medical 200 Branch mcg/actuati on DsDv colchicine 2016-11 Yes .6mg Take 0.6 Uni vers (COLCRYS) 2-21 mg by ity of 0.6 mg 19:42: mouth [place] tablet 05 daily. Medical Branch insulin 2016-11 Yes 24U inject 24 Unive rs glargine 2-21 Units ity of (LANTUS 19:42: under the [place] U-100) 100 05 skin at Medica l unit/mL bedtime. Branch injection Olopatadine 2016-11 Yes 1[drp] Place 1 U nivers (PATADAY) 2-21 Drop in ity of 0.2 % Drop 19:42: each eye [place] 05 daily. Medical Branch insulin 2016-11 Yes 24U inject 24 Unive rs glargine 2-21 Units ity of (LANTUS 19:42: under the [place] U-100) 100 05 skin at Medica l unit/mL bedtime. Branch injection foLIC acid 2016-11 Yes 1mg Take 1 mg [facility] (FOLATE) 1 2-21 by mouth ity o f mg tablet 19:42: daily. [place] 05 Medical Branch gabapentin 2016-11 Yes 100mg Take 100 Un re[facility] (NEURONTIN) 2-21 mg by ity of 100 mg 19:42: mouth at [place] capsule 05 bedtime. Medical Branch HYDROcodone 2016-11 Yes 1{tbl} Take 1 Un re[facility] -acetaminop 2-21 tablet by ity of hen 7.5-325 19:42: mouth [place] mg per 05 every 6 Medical tablet (six) Branch hours as needed for Pain. allopurinol 2016-11 Yes 200mg Take 200 U nivers 100 mg 2-21 mg by ity of tablet 19:42: mouth [place] 05 daily. Medical Branch clopidogrel 2016-11 Yes 75mg Take 75 mg Univers (PLAVIX) 75 2-21 by mouth ity of mg tablet 19:42: daily. [place] [address] Medical Branch furosemide 2016-11 Yes 40mg Take 40 mg U nivers 40 mg 2-21 by mouth 3 ity of tablet 19:42: (three) [place] 05 times Medical daily. Branch Olopatadine 2016-11 Yes 1[drp] Place 1 U nivers (PATADAY) 2-21 Drop in ity of 0.2 % Drop 19:42: each eye [place] 05 daily. Medical Branch FERROUS 2016-11 Yes 1{tbl} Take 1 Tab Un re[facility] FUMARATE/FO 2-21 by mouth ity of LIC ACID 19:42: daily. [place] (HEMATINIC/ 05 Medical FOLIC ACID Branch ORAL) aspirin 81 2016-11 Yes 81mg Take 81 mg U nivers mg chewable 2-21 by mouth ity of tablet 19:42: daily. [place] [address] Medical Branch levocetiriz 2016-11 Yes 5mg Take 5 mg U nivers ine (XYZAL) 2-21 by mouth ity of 5 mg tablet 19:42: every [place] 05 evening. Medical Branch SERTraline 2016-11 Yes 25mg Take 25 mg U nivers (ZOLOFT) 25 2-21 by mouth ity of mg tablet 19:42: daily. [place] [address] Medical Branch bimatoprost 2016-11 Yes 1[drp] Place 1 U nivers (LUMIGAN) 2-21 Drop in ity of 0.01 % Drop 19:42: each eye [place] 05 daily. Medical Branch metFORMIN 2016-11 Yes 500mg Take 500 Uni vers (GLUCOPHAGE 2-21 mg by ity of ) 1,000 mg 19:42: mouth 2 [place] tablet 05 (two) Medical times Branch daily. spironolact 2016-11 Yes 25mg Take 25 mg [facility] one 2-21 by mouth ity of (SPIRONOLAC 19:42: daily. [place] TONE) 25 mg 05 Medical tablet Branch sitaGLIPtin 2016-11 Yes 50mg Take 50 mg [facility] (JANUVIA) 2-21 by mouth ity of 50 mg 19:42: daily. [place] tablet 05 Medical Branch atenolol 2016-11 Yes 50mg Take 50 mg Uni vers (TENORMIN) 2-21 by mouth 2 ity of 50 mg 19:42: (two) [place] tablet 05 times Medical daily. Branch nitroglycer 2016-[address] 0[address]4 U nivers in 2-21 mg under ity of (NITROSTAT) 19:42: the tongue [place] 0.4 mg 05 every 5 Medical sublingual (five) Branch tablet minutes as needed for Chest pain. fluticasone 2016-11 Yes 1{puff} Inhale 1 [facility] furoate 2-21 Puff ity of (ARNUITY 19:42: daily. [place] ELLIPTA) 05 Medical 200 Branch mcg/actuati on DsDv colchicine 2016-11 Yes .6mg Take 0.6 Uni vers (COLCRYS) 2-21 mg by ity of 0.6 mg 19:42: mouth [place] tablet 05 daily. Medical Branch insulin 2016-11 Yes 24U inject 24 Unive rs glargine 2-21 Units ity of (LANTUS 19:42: under the [place] U-100) 100 05 skin at Medica l unit/mL bedtime. Branch injection Olopatadine 2016-11 Yes 1[drp] Place 1 U nivers (PATADAY) 2-21 Drop in ity of 0.2 % Drop 19:42: each eye [place] 05 daily. Medical Branch foLIC acid 2016-11 Yes 1mg Take 1 mg Un re[facility] (FOLATE) 1 2-21 by mouth ity o f mg tablet 19:42: daily. [place] [address] Medical Branch gabapentin 2016-11 Yes 100mg Take 100 Un re[facility] (NEURONTIN) 2-21 mg by ity of 100 mg 19:42: mouth at [place] capsule 05 bedtime. Medical Branch HYDROcodone 2016-11 Yes 1{tbl} Take 1 Un re[facility] -acetaminop 2-21 tablet by ity of hen 7.5-325 19:42: mouth [place] mg per 05 every 6 Medical tablet (six) Branch hours as needed for Pain. allopurinol 2016-11 Yes 200mg Take 200 U nivers 100 mg 2-21 mg by ity of tablet 19:42: mouth [place] 05 daily. Medical Branch clopidogrel 2016-11 Yes 75mg Take 75 mg [facility] (PLAVIX) 75 2-21 by mouth ity of mg tablet 19:42: daily. [place] [address] Medical Branch furosemide 2016-11 Yes 40mg Take 40 mg U nivers 40 mg 2-21 by mouth 3 ity of tablet 19:42: (three) [place] 05 times Medical daily. Branch foLIC acid 2016-11 Yes 1mg Take 1 mg Un re[facility] (FOLATE) 1 2-21 by mouth ity o f mg tablet 19:42: daily. [place] [address] Medical Branch gabapentin 2016-11 Yes 100mg Take 100 Un re[facility] (NEURONTIN) 2-21 mg by ity of 100 mg 19:42: mouth at [place] capsule 05 bedtime. Medical Branch HYDROcodone 2016-11 Yes 1{tbl} Take 1 Un reilly -acetaminop 2-21 tablet by ity of hen 7.5-325 19:42: mouth [place] mg per 05 every 6 Medical tablet (six) Branch hours as needed for Pain. allopurinol 2016-11 Yes 200mg Take 200 U nivers 100 mg 2-21 mg by ity of tablet 19:42: mouth [place] 05 daily. Medical Branch clopidogrel 2016-11 Yes 75mg Take 75 mg [facility] (PLAVIX) 75 2-21 by mouth ity of mg tablet 19:42: daily. [address] Branch furosemide 2016-11 Yes 40mg Take 40 mg U nivers 40 mg 2-21 by mouth 3 ity of tablet 19:42: (three) [place] [address] times Medical daily. Branch FERROUS 2016-11 Yes 1{tbl} Take 1 Tab Un reilly FUMARATE/FO 2-21 by mouth ity of LIC ACID 19:42: daily. [place] (HEMATINIC/ Medical FOLIC ACID Branch ORAL) aspirin 81 2016-11 Yes 81mg Take 81 mg U nivers mg chewable 2-21 by mouth ity of tablet 19:42: daily. [address] Branch levocetiriz 2016-11 Yes 5mg Take 5 mg U nivers ine (XYZAL) 2-21 by mouth ity of 5 mg tablet 19:42: every [place] [address] evening. Medical Branch SERTraline 2016-11 Yes 25mg Take 25 mg U nivers (ZOLOFT) 25 2-21 by mouth ity of mg tablet 19:42: daily. [address] Branch bimatoprost 2016-11 Yes 1[drp] Place 1 U nivers (LUMIGAN) 2-21 Drop in ity of 0.01 % Drop 19:42: each eye [place] 05 daily. Medical Branch metFORMIN 2016-11 Yes 500mg Take 500 Uni vers (GLUCOPHAGE 2-21 mg by ity of ) 1,000 mg 19:42: mouth 2 [place] tablet 05 (two) Medical times Branch daily. spironolact 2016-11 Yes 25mg Take 25 mg [facility] one 2-21 by mouth ity of (SPIRONOLAC 19:42: daily. [place] TONE) 25 mg 05 Medical tablet Branch sitaGLIPtin 2016-11 Yes 50mg Take 50 mg [facility] (JANUVIA) 2-21 by mouth ity of 50 mg 19:42: daily. [place] tablet 05 Medical Branch atenolol 2016-11 Yes 50mg Take 50 mg Uni vers (TENORMIN) 2-21 by mouth 2 ity of 50 mg 19:42: (two) [place] tablet 05 times Medical daily. Branch nitroglycer 2016-[address] 0.4 U nivers in 2-21 mg under ity of (NITROSTAT) 19:42: the tongue [place] 0.4 mg 05 every 5 Medical sublingual (five) Branch tablet minutes as needed for Chest pain. fluticasone 2016-11 Yes 1{puff} Inhale 1 [facility] furoate 2-21 Puff ity of (ARNUITY 19:42: daily. [place] ELLIPTA) 05 Medical 200 Branch mcg/actuati on DsDv colchicine 2016-11 Yes .6mg Take 0.6 Uni vers (COLCRYS) 2-21 mg by ity of 0.6 mg 19:42: mouth [place] tablet 05 daily. Medical Branch insulin 2016-11 Yes 24U inject 24 Unive rs glargine 2-21 Units ity of (LANTUS 19:42: under the [place] U-100) 100 05 skin at Medica l unit/mL bedtime. Branch injection Olopatadine 2016-11 Yes 1[drp] Place 1 U nivers (PATADAY) 2-21 Drop in ity of 0.2 % Drop 19:42: each eye [place] 05 daily. Medical Branch foLIC acid 2016-11 Yes 1mg Take 1 mg Un re[facility] (FOLATE) 1 2-21 by mouth ity o f mg tablet 19:42: daily. [place] 05 Medical Branch gabapentin 2016-11 Yes 100mg Take 100 Un reilly (NEURONTIN) 2-21 mg by ity of 100 mg 19:42: mouth at [place] capsule 05 bedtime. Medical Branch HYDROcodone 2016-11 Yes 1{tbl} Take 1 Un reilly -acetaminop 2-21 tablet by ity of hen 7.5-325 19:42: mouth [place] mg per 05 every 6 Medical tablet (six) Branch hours as needed for Pain. allopurinol 2016-11 Yes 200mg Take 200 U nivers 100 mg 2-21 mg by ity of tablet 19:42: mouth [place] 05 daily. Medical Branch clopidogrel 2016-11 Yes 75mg Take 75 mg [facility] (PLAVIX) 75 2-21 by mouth ity of mg tablet 19:42: daily. [address] Branch furosemide 2016-11 Yes 40mg Take 40 mg U nivers 40 mg 2-21 by mouth 3 ity of tablet 19:42: (three) [place] 05 times Medical daily. Branch FERROUS 2016-11 Yes 1{tbl} Take 1 Tab Un reilly FUMARATE/FO 2-21 by mouth ity of LIC ACID 19:42: daily. [place] (HEMATINIC/ Medical FOLIC ACID Branch ORAL) aspirin 81 2016-11 Yes 81mg Take 81 mg U nivers mg chewable 2-21 by mouth ity of tablet 19:42: daily. [address] levocetiriz 2016-11 Yes 5mg Take 5 mg U nivers ine (XYZAL) 2-21 by mouth ity of 5 mg tablet 19:42: every [place] 05 evening. Medical Branch SERTraline 2016-11 Yes 25mg Take 25 mg U nivers (ZOLOFT) 25 2-21 by mouth ity of mg tablet 19:42: daily. [address] bimatoprost 2016-11 Yes 1[drp] Place 1 U nivers (LUMIGAN) 2-21 Drop in ity of 0.01 % Drop 19:42: each eye [place] 05 daily. Medical Branch metFORMIN 2016-11 Yes 500mg Take 500 Uni vers (GLUCOPHAGE 2-21 mg by ity of ) 1,000 mg 19:42: mouth 2 [place] tablet 05 (two) Medical times Branch daily. spironolact 2016-11 Yes 25mg Take 25 mg [facility] one 2-21 by mouth ity of (SPIRONOLAC 19:42: daily. [place] TONE) 25 mg 05 Medical tablet Branch sitaGLIPtin 2016-11 Yes 50mg Take 50 mg [facility] (JANUVIA) 2-21 by mouth ity of 50 mg 19:42: daily. [address] Branch atenolol 2016-11 Yes 50mg Take 50 mg Uni vers (TENORMIN) 2-21 by mouth 2 ity of 50 mg 19:42: (two) [place] tablet 05 times Medical daily. Branch nitroglycer 2016-[address] 0.4 U nivers in 2-21 mg under ity of (NITROSTAT) 19:42: the tongue [place] 0.4 mg 05 every 5 Medical sublingual (five) Branch tablet minutes as needed for Chest pain. fluticasone 2016-11 Yes 1{puff} Inhale 1 [facility] furoate 2-21 Puff ity of (ARNUITY 19:42: daily. [place] ELLIPTA) 05 Medical 200 Branch mcg/actuati on DsDv colchicine 2016-11 Yes .6mg Take 0.6 Uni vers (COLCRYS) 2-21 mg by ity of 0.6 mg 19:42: mouth [place] tablet 05 daily. Medical Branch FERROUS 2016-11 Yes 1{tbl} Take 1 Tab Un re[facility] FUMARATE/FO 2-21 by mouth ity of LIC ACID 13:42: daily. [place] (HEMATINIC/ 05 Medical FOLIC ACID Branch ORAL) aspirin 81 2016-11 Yes 81mg Take 81 mg U nivers mg chewable 2-21 by mouth ity of tablet 13:42: daily. [place] [address] Medical Branch levocetiriz 2016-11 Yes 5mg Take 5 mg U nivers ine (XYZAL) 2-21 by mouth ity of 5 mg tablet 13:42: every [place] [address] evening. Medical Branch SERTraline 2016-11 Yes 25mg Take 25 mg U nivers (ZOLOFT) 25 2-21 by mouth ity of mg tablet 13:42: daily. [address] Branch bimatoprost 2016-11 Yes 1[drp] Place 1 U nivers (LUMIGAN) 2-21 Drop in ity of 0.01 % Drop 13:42: each eye [place] 05 daily. Medical Branch metFORMIN 2016-11 Yes 500mg Take 500 Uni vers (GLUCOPHAGE 2-21 mg by ity of ) 1,000 mg 13:42: mouth 2 [place] tablet 05 (two) Medical times Branch daily. spironolact 2016-11 Yes 25mg Take 25 mg [facility] one 2-21 by mouth ity of (SPIRONOLAC 13:42: daily. [place] TONE) 25 mg 05 Medical tablet Branch sitaGLIPtin 2016-11 Yes 50mg Take 50 mg [facility] (JANUVIA) 2-21 by mouth ity of 50 mg 13:42: daily. [place] tablet 05 Medical Branch atenolol 2016-11 Yes 50mg Take 50 mg Uni vers (TENORMIN) 2-21 by mouth 2 ity of 50 mg 13:42: (two) [place] tablet 05 times Medical daily. Branch nitroglycer 2016-[address] 0[address]4 U nivers in 2-21 mg under ity of (NITROSTAT) 13:42: the tongue [place] 0.4 mg 05 every 5 Medical sublingual (five) Branch tablet minutes as needed for Chest pain. fluticasone 2016-11 Yes 1{puff} Inhale 1 [facility] furoate 2-21 Puff ity of (ARNUITY 13:42: daily. [place] ELLIPTA) 05 Medical 200 Branch mcg/actuati on DsDv colchicine 2016-11 Yes .6mg Take 0.6 Uni vers (COLCRYS) 2-21 mg by ity of 0.6 mg 13:42: mouth [place] tablet 05 daily. Medical Branch insulin 2016-11 Yes 24U inject 24 Unive rs glargine 2-21 Units ity of (LANTUS 13:42: under the [place] U-100) 100 05 skin at Medica l unit/mL bedtime. Branch injection Olopatadine 2016-11 Yes 1[drp] Place 1 U nivers (PATADAY) 2-21 Drop in ity of 0.2 % Drop 13:42: each eye [place] as 05 daily. [facility] Branch foLIC acid 2016-11 Yes 1mg Take 1 mg [facility] (FOLATE) 1 2-21 by mouth ity o f mg tablet 13:42: daily. [place] [address] Medical Branch gabapentin 2016-11 Yes 100mg Take 100 [facility] (NEURONTIN) 2-21 mg by ity of 100 mg 13:42: mouth at [place] capsule 05 bedtime. Medical Branch HYDROcodone 2016-11 Yes 1{tbl} Take 1 [facility] -acetaminop 2-21 tablet by ity of hen 7.5-325 13:42: mouth [place] mg per 05 every 6 Medical tablet (six) Branch hours as needed for Pain. allopurinol 2016-11 Yes 200mg Take 200 [facility] 100 mg 2-21 mg by ity of tablet 13:42: mouth [place] 05 daily. Medical Branch clopidogrel 2016-11 Yes 75mg Take 75 mg [facility] (PLAVIX) 75 2-21 by mouth ity of mg tablet 13:42: daily. [place] [address] Medical Branch furosemide 2016-11 Yes 40mg Take 40 mg [facility] n[facility] 40 mg 2-21 by mouth 3 ity of tablet 13:42: (three) [place] 05 times Medical daily. Branch FERROUS 2016-11 Yes 1{tbl} Take 1 Tab [facility] FUMARATE/FO 2-21 by mouth ity of LIC ACID 13:42: daily. [place] (HEMATINIC/ 05 Medical FOLIC ACID Branch ORAL) aspirin 81 2016-11 Yes 81mg Take 81 mg [facility] mg chewable 2-21 by mouth ity of tablet 13:42: daily. [place] [address] Medical Branch levocetiriz 2016-11 Yes 5mg Take 5 mg [facility] ine (XYZAL) 2-21 by mouth ity of 5 mg tablet 13:42: every [place] 05 evening. Medical Branch SERTraline 2016-11 Yes 25mg Take 25 mg [facility] (ZOLOFT) 25 2-21 by mouth ity of mg tablet 13:42: daily. [address] Branch bimatoprost 2016-11 Yes 1[drp] Place 1 [facility] (LUMIGAN) 2-21 Drop in ity of 0.01 % Drop 13:42: each eye [place] 05 daily. Medical Branch metFORMIN 2016-11 Yes 500mg Take 500 [facility] vers (GLUCOPHAGE 2-21 mg by ity of ) 1,000 mg 13:42: mouth 2 [place] tablet 05 (two) Medical times Branch daily. spironolact 2016-11 Yes 25mg Take 25 mg [facility] one 2-21 by mouth ity of (SPIRONOLAC 13:42: [place]. [place] TONE) 25 mg 05 Medical tablet Branch sitaGLIPtin 2016-11 Yes 50mg Take 50 mg [facility] (JANUVIA) 2-21 by mouth ity of 50 mg 13:42: daily. [place] tablet 05 Medical Branch atenolol 2016-11 Yes 50mg Take 50 mg [facility] vers (TENORMIN) 2-21 by mouth 2 ity of 50 mg 13:42: (two) [place] tablet 05 times Medical daily. Branch nitroglycer 2016-[address] 0[address]4 U nivers in 2-21 mg under ity of (NITROSTAT) 13:42: the tongue [place] 0.4 mg 05 every 5 Medical sublingual (five) Branch tablet minutes as needed for Chest pain. fluticasone 2016-11 Yes 1{puff} Inhale 1 [facility] furoate 2-21 Puff ity of (ARNUITY 13:42: daily. [place] ELLIPTA) Medical 200 Branch mcg/actuati on DsDv colchicine 2016-11 Yes .6mg Take 0.6 [facility] vers (COLCRYS) 2-21 mg by ity of 0.6 mg 13:42: mouth [place] tablet 05 daily. Medical Branch insulin 2016-11 Yes 24U inject 24 Unive rs glargine 2-21 Units ity of (LANTUS 13:42: under the [place] U-100) 100 05 skin at Medica l unit/mL bedtime. Branch injection Olopatadine 2016-11 Yes 1[drp] Place 1 [facility] (PATADAY) 2-21 Drop in ity of 0.2 % Drop 13:42: each eye Good as 05 daily. Medical Branch foLIC acid 2016-11 Yes 1mg Take 1 mg [facility] (FOLATE) 1 2-21 by mouth ity o f mg tablet 13:42: daily. [place] [address] Medical Branch gabapentin 2016-11 Yes 100mg Take 100 [facility] (NEURONTIN) 2-21 mg by ity of 100 mg 13:42: mouth at [place] capsule 05 bedtime. Medical Branch HYDROcodone 2016-11 Yes 1{tbl} Take 1 [facility] -acetaminop 2-21 tablet by ity of hen 7.5-325 13:42: mouth [place] mg per 05 every 6 Medical tablet (six) Branch hours as needed for Pain. allopurinol 2016-11 Yes 200mg Take 200 [facility] n[facility] 100 mg 2-21 mg by ity of tablet 13:42: mouth [place] 05 daily. Medical Branch clopidogrel 2016-11 Yes 75mg Take 75 mg [facility] (PLAVIX) 75 2-21 by mouth ity of mg tablet 13:42: daily. [place] [address] [facility] Branch furosemide 2016-11 Yes 40mg Take 40 mg [facility] 40 mg 2-21 by mouth 3 ity of tablet 13:42: (three) [place] 05 times Medical daily. Branch FERROUS 2016-11 Yes 1{tbl} Take 1 Tab [facility] FUMARATE/FO 2-21 by mouth ity of LIC ACID 13:42: daily. [place] (HEMATINIC/ 05 Medical FOLIC ACID Branch ORAL) aspirin 81 2016-11 Yes 81mg Take 81 mg [facility] mg chewable 2-21 by mouth ity of tablet 13:42: daily. [address] Branch levocetiriz 2016-11 Yes 5mg Take 5 mg [facility] ine (XYZAL) 2-21 by mouth ity of 5 mg tablet 13:42: every [place] 05 evening. Medical Branch SERTraline 2016-11 Yes 25mg Take 25 mg [facility] (ZOLOFT) 25 2-21 by mouth ity of mg tablet 13:42: daily. [place] 05 Medical Branch bimatoprost 2016-11 Yes 1[drp] Place 1 [facility] n[facility] (LUMIGAN) 2-21 Drop in ity of 0.01 % Drop 13:42: each eye [place] 05 daily. Medical Branch metFORMIN 2016-11 Yes 500mg Take 500 [facility] vers (GLUCOPHAGE 2-21 mg by ity of ) 1,000 mg 13:42: mouth 2 [place] tablet 05 (two) Medical times Branch daily. spironolact 2016-11 Yes 25mg Take 25 mg [facility] one 2-21 by mouth ity of (SPIRONOLAC 13:42: daily. [place] TONE) 25 mg 05 Medical tablet Branch sitaGLIPtin 2016-11 Yes 50mg Take 50 mg [facility] (JANUVIA) 2-21 by mouth ity of 50 mg 13:42: daily. [place] tablet 05 Medical Branch atenolol 2016-11 Yes 50mg Take 50 mg [facility] vers (TENORMIN) 2-21 by mouth 2 ity of 50 mg 13:42: (two) [place] tablet 05 times Medical daily. Branch nitroglycer 2016-[address] 0[address]4 U nivers in 2-21 mg under ity of (NITROSTAT) 13:42: the tongue [place] 0.4 mg 05 every 5 Medical sublingual (five) Branch tablet minutes as needed for Chest pain. fluticasone 2016-11 Yes 1{puff} Inhale 1 [facility] furoate 2-21 Puff ity of (ARNUITY 13:42: daily. [place] ELLIPTA) 05 Medical 200 Branch mcg/actuati on DsDv colchicine 2016-11 Yes .6mg Take 0.6 Uni vers (COLCRYS) 2-21 mg by ity of 0.6 mg 13:42: mouth [place] tablet 05 daily. Medical Branch insulin 2016-11 Yes 24U inject 24 Unive rs glargine 2-21 Units ity of (LANTUS 13:42: under the [place] U-100) 100 05 skin at Medica l unit/mL bedtime. Branch injection Olopatadine 2016-11 Yes 1[drp] Place 1 [facility] (PATADAY) 2-21 Drop in ity of 0.2 % Drop 13:42: each eye Good as 05 daily. Medical Branch foLIC acid 2016-11 Yes 1mg Take 1 mg [facility] (FOLATE) 1 2-21 by mouth ity o f mg tablet 13:42: daily. [place] [address] Medical Branch gabapentin 2016-11 Yes 100mg Take 100 [facility] (NEURONTIN) 2-21 mg by ity of 100 mg 13:42: mouth at [place] [facility] 05 bedtime. Medical Branch HYDROcodone 2016-11 Yes 1{tbl} Take 1 [facility] -acetaminop 2-21 tablet by ity of hen 7.5-325 13:42: mouth [place] mg per 05 every 6 Medical tablet (six) Branch hours as needed for Pain. allopurinol 2016-11 Yes 200mg Take 200 U nivers 100 mg 2-21 mg by ity of tablet 13:42: mouth [place] 05 daily. Medical Branch clopidogrel 2016-11 Yes 75mg Take 75 mg [facility] (PLAVIX) 75 2-21 by mouth ity of mg tablet 13:42: daily. [place] [address] Medical Branch furosemide 2016-11 Yes 40mg Take 40 mg [facility] n[facility] 40 mg 2-21 by mouth 3 ity of tablet 13:42: (three) [place] times Medical daily. Branch FERROUS 2016-11 Yes 1{tbl} Take 1 Tab [facility] FUMARATE/FO 2-21 by mouth ity of LIC ACID 13:42: daily. [place] (HEMATINIC/ 05 Medical FOLIC ACID Branch ORAL) aspirin 81 2016-11 Yes 81mg Take 81 mg [facility] mg chewable 2-21 by mouth ity of tablet 13:42: daily. [address] Branch levocetiriz 2016-11 Yes 5mg Take 5 mg U nivers ine (XYZAL) 2-21 by mouth ity of 5 mg tablet 13:42: every [place] 05 evening. Medical Branch SERTraline 2016-11 Yes 25mg Take 25 mg [facility] n[facility] (ZOLOFT) 25 2-21 by mouth ity of mg tablet 13:42: daily. [address] Branch bimatoprost 2016-11 Yes 1[drp] Place 1 U n[facility] (LUMIGAN) 2-21 Drop in ity of 0.01 % Drop 13:42: each eye [place] 05 daily. Medical Branch metFORMIN 2016-11 Yes 500mg Take 500 [facility] vers (GLUCOPHAGE 2-21 mg by ity of ) 1,000 mg 13:42: mouth 2 [place] tablet 05 (two) Medical times Branch daily. spironolact 2017 Yes 25mg Take 25 mg [facility] one 2-21 by mouth ity of (SPIRONOLAC 13:42: daily. [place] TONE) 25 mg 05 Medical tablet Branch sitaGLIPtin 2016-11 Yes 50mg Take 50 mg [facility] (JANUVIA) 2-21 by mouth ity of 50 mg 13:42: daily. [place] tablet 05 Medical Branch atenolol 2016-11 Yes 50mg Take 50 mg [facility] vers (TENORMIN) 2-21 by mouth 2 ity of 50 mg 13:42: (two) [place] tablet 05 times Medical daily. Branch nitroglycer 2016-[address] 0[address]4 U nivers in 2-21 mg under ity of (NITROSTAT) 13:42: the tongue [place] 0.4 mg 05 every 5 Medical sublingual (five) Branch tablet minutes as needed for Chest pain. fluticasone 2016-11 Yes 1{puff} Inhale 1 [facility] furoate 2-21 Puff ity of (ARNUITY 13:42: daily. [place] ELLIPTA) 05 Medical 200 Branch mcg/actuati on DsDv colchicine 2016-11 Yes .6mg Take 0.6 Uni vers (COLCRYS) 2-21 mg by ity of 0.6 mg 13:42: mouth [place] tablet 05 daily. Medical Branch insulin 2016-11 Yes 24U inject 24 Unive rs glargine 2-21 Units ity of (LANTUS 13:42: under the [place] U-100) 100 05 skin at Medica l unit/mL bedtime. Branch injection Olopatadine 2016-11 Yes 1[drp] Place 1 U nivers (PATADAY) 2-21 Drop in ity of 0.2 % Drop 13:42: each eye Good as 05 daily. Medical Branch foLIC acid 2016-11 Yes 1mg Take 1 mg [facility] (FOLATE) 1 2-21 by mouth ity o f mg tablet 13:42: daily. [place] 05 Medical Branch gabapentin 2016-11 Yes 100mg Take 100 [facility] (NEURONTIN) 2-21 mg by ity of 100 mg 13:42: mouth at [place] [facility] 05 bedtime. Medical Branch HYDROcodone 2016-11 Yes 1{tbl} Take 1 [facility] -acetaminop 2-21 tablet by ity of hen 7.5-325 13:42: mouth [place] mg per 05 every 6 Medical tablet (six) Branch hours as needed for Pain. allopurinol 2016-11 Yes 200mg Take 200 U nivers 100 mg 2-21 mg by ity of tablet 13:42: mouth [place] 05 daily. Medical Branch clopidogrel 2016-11 Yes 75mg Take 75 mg [facility] (PLAVIX) 75 2-21 by mouth ity of mg tablet 13:42: daily. [address] Branch furosemide 2016-11 Yes 40mg Take 40 mg U nivers 40 mg 2-21 by mouth 3 ity of tablet 13:42: (three) [place] [address] times [facility] daily. Branch FERROUS 2016-11 Yes 1{tbl} Take 1 Tab [facility] FUMARATE/FO 2-21 by mouth ity of LIC ACID 13:42: daily. [place] (HEMATINIC/ Medical FOLIC ACID Branch ORAL) aspirin 81 2016-11 Yes 81mg Take 81 mg U nivers mg chewable 2-21 by mouth ity of tablet 13:42: daily. [address] Branch levocetiriz 2016-11 Yes 5mg Take 5 mg U nivers ine (XYZAL) 2-21 by mouth ity of 5 mg tablet 13:42: every [place] [address] evening. Medical Branch SERTraline 2016-11 Yes 25mg Take 25 mg U nivers (ZOLOFT) 25 2-21 by mouth ity of mg tablet 13:42: daily. [address] Branch bimatoprost 2016-11 Yes 1[drp] Place 1 U nivers (LUMIGAN) 2-21 Drop in ity of 0.01 % Drop 13:42: each eye [place] 05 daily. Medical Branch metFORMIN 2016-11 Yes 500mg Take 500 [facility] vers (GLUCOPHAGE 2-21 mg by ity of ) 1,000 mg 13:42: mouth 2 [place] tablet 05 (two) Medical times Branch daily. spironolact 2016-11 Yes 25mg Take 25 mg [facility] one 2-21 by mouth ity of (SPIRONOLAC 13:42: daily. [place] TONE) 25 mg 05 Medical tablet Branch sitaGLIPtin 2017-1 Yes 50mg Take 50 mg [facility] (JANUVIA) 2-21 by mouth ity of 50 mg 13:42: daily. [place] tablet 05 Medical Branch atenolol 2016-11 Yes 50mg Take 50 mg Uni vers (TENORMIN) 2-21 by mouth 2 ity of 50 mg 13:42: (two) [place] tablet 05 times Medical daily. Branch nitroglycer 2016-[address] 0[address]4 U nivers in 2-21 mg under ity of (NITROSTAT) 13:42: the tongue [place] 0.4 mg 05 every 5 Medical sublingual (five) Branch tablet minutes as needed for Chest pain. fluticasone 2016-11 Yes 1{puff} Inhale 1 [facility] furoate 2-21 Puff ity of (ARNUITY 13:42: daily. [place] ELLIPTA) 05 Medical 200 Branch mcg/actuati on DsDv colchicine 2016-11 Yes .6mg Take 0.6 Uni vers (COLCRYS) 2-21 mg by ity of 0.6 mg 13:42: mouth [place] tablet 05 daily. Medical Branch insulin 2016-11 Yes 24U inject 24 Unive rs glargine 2-21 Units ity of (LANTUS 13:42: under the [place] U-100) 100 05 skin at Medica l unit/mL bedtime. Branch injection Olopatadine 2016-11 Yes 1[drp] Place 1 U nivers (PATADAY) 2-21 Drop in ity of 0.2 % Drop 13:42: each eye [place] as 05 daily. Medical Branch foLIC acid 2016-11 Yes 1mg Take 1 mg [facility] (FOLATE) 1 2-21 by mouth ity o f mg tablet 13:42: daily. [place] 05 Medical Branch gabapentin 2016-11 Yes 100mg Take 100 [facility] (NEURONTIN) 2-21 mg by ity of 100 mg 13:42: mouth at [place] capsule 05 bedtime. Medical Branch HYDROcodone 2016-11 Yes 1{tbl} Take 1 [facility] -acetaminop 2-21 tablet by ity of hen 7.5-325 13:42: mouth [place] mg per 05 every 6 Medical tablet (six) Branch hours as needed for Pain. allopurinol 2016-11 Yes 200mg Take 200 U nivers 100 mg 2-21 mg by ity of tablet 13:42: mouth [place] 05 daily. Medical Branch clopidogrel 2016-11 Yes 75mg Take 75 mg [facility] (PLAVIX) 75 2-21 by mouth ity of mg tablet 13:42: daily. [address] Branch furosemide 2016-11 Yes 40mg Take 40 mg U nivers 40 mg 2-21 by mouth 3 ity of tablet 13:42: (three) [place] times Medical daily. Branch FERROUS 2016-11 Yes 1{tbl} Take 1 Tab [facility] FUMARATE/FO 2-21 by mouth ity [facility] L[facility] [address] [place] [address] FOLIC ACID Branch ORAL) aspirin 81 2016-11 Yes 81mg Take 81 mg U nivers mg chewable 2-21 by mouth ity of tablet 13:42: daily. [address] Branch levocetiriz 2016-11 Yes 5mg Take 5 mg U nivers ine (XYZAL) 2-21 by mouth ity of 5 mg tablet 13:42: every [place] [address] evening. Medical Branch SERTraline 2016-11 Yes 25mg Take 25 mg U nivers (ZOLOFT) 25 2-21 by mouth ity of mg tablet 13:42: daily. [address] Branch bimatoprost 2016-11 Yes 1[drp] Place 1 U nivers (LUMIGAN) 2-21 Drop in ity of 0.01 % Drop 13:42: each eye [place] 05 daily. Medical Branch metFORMIN 2016-11 Yes 500mg Take 500 Uni vers (GLUCOPHAGE 2-21 mg by ity of ) 1,000 mg 13:42: mouth 2 [place] tablet 05 (two) Medical times Branch daily. spironolact 2016-11 Yes 25mg Take 25 mg [facility] one 2-21 by mouth ity of (SPIRONOLAC 13:42: daily. [place] TONE) 25 mg 05 Medical tablet Branch sitaGLIPtin 2016-11 Yes 50mg Take 50 mg [facility] (JANUVIA) 2-21 by mouth ity of 50 mg 13:42: daily. [place] [address] Medical Branch atenolol 2016-11 Yes 50mg Take 50 mg Uni vers (TENORMIN) 2-21 by mouth 2 ity of 50 mg 13:42: (two) [place] tablet times Medical daily. Branch nitroglycer 2016-[address] 0[address]4 U nivers in 2-21 mg under ity of (NITROSTAT) 13:42: the tongue [place] 0.4 mg 05 every 5 Medical sublingual (five) Branch tablet minutes as needed for Chest pain. fluticasone 2016-11 Yes 1{puff} Inhale 1 [facility] furoate 2-21 Puff ity of (ARNUITY 13:42: daily. [place] ELLIPTA) 05 Medical 200 Branch mcg/actuati on DsDv colchicine 2016-11 Yes .6mg Take 0.6 Uni vers (COLCRYS) 2-21 mg by ity of 0.6 mg 13:42: mouth [place] tablet 05 daily. Medical Branch insulin 2016-11 Yes 24U inject 24 Unive rs glargine 2-21 Units ity of (LANTUS 13:42: under the [place] U-100) 100 05 skin at Medica l unit/mL bedtime. Branch injection Olopatadine 2016-11 Yes 1[drp] Place 1 U nivers (PATADAY) 2-21 Drop in ity of 0.2 % Drop 13:42: each eye [place] 05 daily. Medical Branch foLIC acid 2016-11 Yes 1mg Take 1 mg [facility] (FOLATE) 1 2-21 by mouth ity o f mg tablet 13:42: daily. [place] [address] Medical Branch gabapentin 2016-11 Yes 100mg Take 100 Un [facility] (NEURONTIN) 2-21 mg by ity of 100 mg 13:42: mouth at [place] capsule 05 bedtime. Medical Branch HYDROcodone 2016-11 Yes 1{tbl} Take 1 Un re[facility] -acetaminop 2-21 tablet by ity of hen 7.5-325 13:42: mouth [place] mg per 05 every 6 Medical tablet (six) Branch hours as needed for Pain. allopurinol 2016-11 Yes 200mg Take 200 U nivers 100 mg 2-21 mg by ity of tablet 13:42: mouth [place] 05 daily. Medical Branch clopidogrel 2016-11 Yes 75mg Take 75 mg [facility] (PLAVIX) 75 2-21 by mouth ity of mg tablet 13:42: daily. [place] [address] Medical Branch furosemide 2016-11 Yes 40mg Take 40 mg U nivers 40 mg 2-21 by mouth 3 ity of tablet 13:42: (three) [place] 05 times Medical daily. Branch FERROUS 2016-11 Yes 1{tbl} Take 1 Tab [facility] FUMARATE/FO 2-21 by mouth ity of LIC ACID 13:42: daily. [place] (HEMATINIC/ 05 Medical FOLIC ACID Branch ORAL) aspirin 81 2016-11 Yes 81mg Take 81 mg U nivers mg chewable 2-21 by mouth ity of tablet 13:42: daily. [address] Branch levocetiriz 2016-11 Yes 5mg Take 5 mg U nivers ine (XYZAL) 2-21 by mouth ity of 5 mg tablet 13:42: every [place] 05 evening. Medical Branch SERTraline 2016-11 Yes 25mg Take 25 mg U nivers (ZOLOFT) 25 2-21 by mouth ity of mg tablet 13:42: daily. [address] Branch bimatoprost 2016-11 Yes 1[drp] Place 1 U nivers (LUMIGAN) 2-21 Drop in ity of 0.01 % Drop 13:42: each eye [place] 05 daily. Medical Branch metFORMIN 2016-11 Yes 500mg Take 500 Uni vers (GLUCOPHAGE 2-21 mg by ity of ) 1,000 mg 13:42: mouth 2 [place] tablet 05 (two) Medical times Branch daily. spironolact 2016-11 Yes 25mg Take 25 mg [facility] one 2-21 by mouth ity of (SPIRONOLAC 13:42: daily. [place] TONE) 25 mg 05 Medical tablet Branch sitaGLIPtin 2016-11 Yes 50mg Take 50 mg [facility] (JANUVIA) 2-21 by mouth ity of 50 mg 13:42: daily. [place] tablet 05 [facility] Branch atenolol 2016-11 Yes 50mg Take 50 mg Uni vers (TENORMIN) 2-21 by mouth 2 ity of 50 mg 13:42: (two) [place] tablet 05 times Medical daily. Branch nitroglycer 2016-[address] 0.4 U nivers in 2-21 mg under ity of (NITROSTAT) 13:42: the tongue [place] 0.4 mg 05 every 5 Medical sublingual (five) Branch tablet minutes as needed for Chest pain. fluticasone 2016-11 Yes 1{puff} Inhale 1 [facility] furoate 2-21 Puff ity of (ARNUITY 13:42: daily. [place] ELLIPTA) 05 Medical 200 Branch mcg/actuati on DsDv colchicine 2016-11 Yes .6mg Take 0.6 Uni vers (COLCRYS) 2-21 mg by ity of 0.6 mg 13:42: mouth [place] tablet 05 daily. Medical Branch insulin 2016-11 Yes 24U inject 24 Unive rs glargine 2-21 Units ity of (LANTUS 13:42: under the [place] U-100) 100 05 skin at Medica l unit/mL bedtime. Branch injection Olopatadine 2016-11 Yes 1[drp] Place 1 U nivers (PATADAY) 2-21 Drop in ity of 0.2 % Drop 13:42: each eye [place] 05 daily. Medical Branch foLIC acid 2016-11 Yes 1mg Take 1 mg [facility] (FOLATE) 1 2-21 by mouth ity o f mg tablet 13:42: daily. [place] [address] Medical Branch gabapentin 2016-11 Yes 100mg Take 100 Un re[facility] (NEURONTIN) 2-21 mg by ity of 100 mg 13:42: mouth at [place] capsule 05 bedtime. Medical Branch HYDROcodone 2016-11 Yes 1{tbl} Take 1 Un re[facility] -acetaminop 2-21 tablet by ity of hen 7.5-325 13:42: mouth [place] mg per 05 every 6 Medical tablet (six) Branch hours as needed for Pain. allopurinol 2016-11 Yes 200mg Take 200 U nivers 100 mg 2-21 mg by ity of tablet 13:42: mouth [place] 05 daily. Medical Branch clopidogrel 2016-11 Yes 75mg Take 75 mg [facility] (PLAVIX) 75 2-21 by mouth ity of mg tablet 13:42: daily. [place] [address] Medical Branch furosemide 2016-11 Yes 40mg Take 40 mg U nivers 40 mg 2-21 by mouth 3 ity of tablet 13:42: (three) [place] 05 times Medical daily. Branch FERROUS 2016-11 Yes 1{tbl} Take 1 Tab [facility] FUMARATE/FO 2-21 by mouth ity of LIC ACID 13:42: daily. [place] (HEMATINIC/ 05 Medical FOLIC ACID Branch ORAL) aspirin 81 2016-11 Yes 81mg Take 81 mg U nivers mg chewable 2-21 by mouth ity of tablet 13:42: daily. [place] [address] Medical Branch levocetiriz 2016-11 Yes 5mg Take 5 mg U nivers ine (XYZAL) 2-21 by mouth ity of 5 mg tablet 13:42: every [place] 05 evening. Medical Branch SERTraline 2016-11 Yes 25mg Take 25 mg U nivers (ZOLOFT) 25 2-21 by mouth ity of mg tablet 13:42: daily. [place] 05 Medical Branch bimatoprost 2016-11 Yes 1[drp] Place 1 U nivers (LUMIGAN) 2-21 Drop in ity of 0.01 % Drop 13:42: each eye [place] 05 daily. Medical Branch metFORMIN 2016-11 Yes 500mg Take 500 Uni vers (GLUCOPHAGE 2-21 mg by ity of ) 1,000 mg 13:42: mouth 2 [place] tablet 05 (two) Medical times Branch daily. spironolact 2016-11 Yes 25mg Take 25 mg [facility] one 2-21 by mouth ity of (SPIRONOLAC 13:42: daily. [place] TONE) 25 mg 05 Medical tablet Branch sitaGLIPtin 2016-11 Yes 50mg Take 50 mg [facility] (JANUVIA) 2-21 by mouth ity of 50 mg 13:42: daily. [place] tablet 05 Medical Branch atenolol 2016-11 Yes 50mg Take 50 mg Uni vers (TENORMIN) 2-21 by mouth 2 ity of 50 mg 13:42: (two) [place] tablet 05 times Medical daily. Branch nitroglycer 2016-[address] 0.4 U nivers in 2-21 mg under ity of (NITROSTAT) 13:42: the tongue [place] 0.4 mg 05 every 5 Medical sublingual (five) Branch tablet minutes as needed for Chest pain. fluticasone 2016-11 Yes 1{puff} Inhale 1 [facility] furoate 2-21 Puff ity of (ARNUITY 13:42: daily. [place] ELLIPTA) 05 Medical 200 Branch mcg/actuati on DsDv colchicine 2016-11 Yes .6mg Take 0.6 Uni vers (COLCRYS) 2-21 mg by ity of 0.6 mg 13:42: mouth [place] tablet 05 daily. Medical Branch insulin 2016-11 Yes 24U inject 24 Unive rs glargine 2-21 Units ity of (LANTUS 13:42: under the [place] U-100) 100 05 skin at Medica l unit/mL bedtime. Branch injection Olopatadine 2016-11 Yes 1[drp] Place 1 U nivers (PATADAY) 2-21 Drop in ity of 0.2 % Drop 13:42: each eye [place] 05 daily. Medical Branch foLIC acid 2016-11 Yes 1mg Take 1 mg Un reilly (FOLATE) 1 2-21 by mouth ity o f mg tablet 13:42: daily. [place] [address] Medical Branch gabapentin 2016-11 Yes 100mg Take 100 Un reilly (NEURONTIN) 2-21 mg by ity of 100 mg 13:42: mouth at [place] capsule 05 bedtime. Medical Branch HYDROcodone 2016-11 Yes 1{tbl} Take 1 Un reilly -acetaminop 2-21 tablet by ity of hen 7.5-325 13:42: mouth [place] mg per 05 every 6 Medical tablet (six) Branch hours as needed for Pain. allopurinol 2016-11 Yes 200mg Take 200 U nivers 100 mg 2-21 mg by ity of tablet 13:42: mouth [place] 05 daily. Medical Branch clopidogrel 2016-11 Yes 75mg Take 75 mg [facility] (PLAVIX) 75 2-21 by mouth ity of mg tablet 13:42: daily. [place] [address] Medical Branch furosemide 2016-11 Yes 40mg Take 40 mg U nivers 40 mg 2-21 by mouth 3 ity of tablet 13:42: (three) [place] 05 times Medical daily. Branch FERROUS 2016-11 Yes 1{tbl} Take 1 Tab Un re[facility] FUMARATE/FO 2-21 by mouth ity of LIC ACID 13:42: daily. [place] (HEMATINIC/ 05 Medical FOLIC ACID Branch ORAL) aspirin 81 2016-11 Yes 81mg Take 81 mg U nivers mg chewable 2-21 by mouth ity of tablet 13:42: daily. [place] [address] Medical Branch levocetiriz 2016-11 Yes 5mg Take 5 mg U nivers ine (XYZAL) 2-21 by mouth ity of 5 mg tablet 13:42: every [place] 05 evening. Medical Branch SERTraline 2016-11 Yes 25mg Take 25 mg U nivers (ZOLOFT) 25 2-21 by mouth ity of mg tablet 13:42: daily. [place] [address] Medical Branch bimatoprost 2016-11 Yes 1[drp] Place 1 U nivers (LUMIGAN) 2-21 Drop in ity of 0.01 % Drop 13:42: each eye [place] 05 daily. Medical Branch metFORMIN 2016-11 Yes 500mg Take 500 Uni vers (GLUCOPHAGE 2-21 mg by ity of ) 1,000 mg 13:42: mouth 2 [place] tablet 05 (two) Medical times Branch daily. spironolact 2016-11 Yes 25mg Take 25 mg [facility] one 2-21 by mouth ity of (SPIRONOLAC 13:42: daily. [place] TONE) 25 mg 05 Medical tablet Branch sitaGLIPtin 2016-11 Yes 50mg Take 50 mg [facility] (JANUVIA) 2-21 by mouth ity of 50 mg 13:42: daily. [place] tablet 05 Medical Branch atenolol 2016-11 Yes 50mg Take 50 mg Uni vers (TENORMIN) 2-21 by mouth 2 ity of 50 mg 13:42: (two) [place] tablet 05 times Medical daily. Branch nitroglycer 2016-[address] 0.4 U nivers in 2-21 mg under ity of (NITROSTAT) 13:42: the tongue [place] 0.4 mg 05 every 5 Medical sublingual (five) Branch tablet minutes as needed for Chest pain. fluticasone 2016-11 Yes 1{puff} Inhale 1 [facility] furoate 2-21 Puff ity of (ARNUITY 13:42: daily. [place] ELLIPTA) 05 Medical 200 Branch mcg/actuati on DsDv colchicine 2016-11 Yes .6mg Take 0.6 Uni vers (COLCRYS) 2-21 mg by ity of 0.6 mg 13:42: mouth [place] tablet 05 daily. Medical Branch insulin 2016-11 Yes 24U inject 24 Unive rs glargine 2-21 Units ity of (LANTUS 13:42: under the [place] U-100) 100 05 skin at Medica l unit/mL bedtime. Branch injection Olopatadine 2016-11 Yes 1[drp] Place 1 U nivers (PATADAY) 2-21 Drop in ity of 0.2 % Drop 13:42: each eye [place] 05 daily. Medical Branch foLIC acid 2016-11 Yes 1mg Take 1 mg Un reilly (FOLATE) 1 2-21 by mouth ity o f mg tablet 13:42: daily. [place] 05 Medical Branch gabapentin 2016-11 Yes 100mg Take 100 Un reilly (NEURONTIN) 2-21 mg by ity of 100 mg 13:42: mouth at [place] capsule 05 bedtime. Medical Branch HYDROcodone 2016-11 Yes 1{tbl} Take 1 Un reilly -acetaminop 2-21 tablet by ity of hen 7.5-325 13:42: mouth [place] mg per 05 every 6 Medical tablet (six) Branch hours as needed for Pain. allopurinol 2016-11 Yes 200mg Take 200 U nivers 100 mg 2-21 mg by ity of tablet 13:42: mouth [place] 05 daily. Medical Branch clopidogrel 2016-11 Yes 75mg Take 75 mg [facility] (PLAVIX) 75 2-21 by mouth ity of mg tablet 13:42: daily. [place] [address] Medical Branch furosemide 2016-11 Yes 40mg Take 40 mg U nivers 40 mg 2-21 by mouth 3 ity of tablet 13:42: (three) [place] times Medical daily. Branch FERROUS 2016-11 Yes 1{tbl} Take 1 Tab Un reilly FUMARATE/FO 2-21 by mouth ity of LIC ACID 13:42: daily. [place] (HEMATINIC/ 05 Medical FOLIC ACID Branch ORAL) aspirin 81 2016-11 Yes 81mg Take 81 mg U nivers mg chewable 2-21 by mouth ity of tablet 13:42: daily. [address] Branch levocetiriz 2016-11 Yes 5mg Take 5 mg U nivers ine (XYZAL) 2-21 by mouth ity of 5 mg tablet 13:42: every [place] [address] evening. Medical Branch SERTraline 2016-11 Yes 25mg Take 25 mg U nivers (ZOLOFT) 25 2-21 by mouth ity of mg tablet 13:42: daily. [address] bimatoprost 2016-11 Yes 1[drp] Place 1 U nivers (LUMIGAN) 2-21 Drop in ity of 0.01 % Drop 13:42: each eye [place] 05 daily. Medical Branch metFORMIN 2016-11 Yes 500mg Take 500 Uni vers (GLUCOPHAGE 2-21 mg by ity of ) 1,000 mg 13:42: mouth [place] 05 (two) Medical times Branch daily. spironolact 2016-11 Yes 25mg Take 25 mg [facility] one 2-21 by mouth ity of (SPIRONOLAC 13:42: daily. [place] TONE) 25 mg 05 Medical tablet Branch sitaGLIPtin 2016-11 Yes 50mg Take 50 mg [facility] (JANUVIA) 2-21 by mouth ity of 50 mg 13:42: daily. [place] tablet 05 Medical Branch atenolol 2016-11 Yes 50mg Take 50 mg [facility] vers (TENORMIN) 2-21 by mouth 2 ity of 50 mg 13:42: (two) [place] tablet 05 times Medical daily. Branch nitroglycer 2016-[address] 0[address]4 U nivers in 2-21 mg under ity of (NITROSTAT) 13:42: the tongue [place] 0.4 mg 05 every 5 Medical sublingual (five) Branch tablet minutes as needed for Chest pain. fluticasone 2016-11 Yes 1{puff} Inhale 1 [facility] furoate 2-21 Puff ity of (ARNUITY 13:42: daily. [place] ELLIPTA) 05 Medical 200 Branch mcg/actuati on DsDv colchicine 2016-11 Yes .6mg Take 0.6 [facility] vers (COLCRYS) 2-21 mg by ity of 0.6 mg 13:42: mouth [place] tablet 05 daily. Medical Branch insulin 2016-11 Yes 24U inject 24 Unive rs glargine 2-21 Units ity of (LANTUS 13:42: under the [place] U-100) 100 05 skin at Medica l unit/mL bedtime. Branch injection Olopatadine 2016-11 Yes 1[drp] Place 1 U nivers (PATADAY) 2-21 Drop in ity of 0.2 % Drop 13:42: each eye [place] 05 daily. Medical Branch foLIC acid 2016-11 Yes 1mg Take 1 mg [facility] (FOLATE) 1 2-21 by mouth ity o f mg tablet 13:42: daily. [place] 05 Medical Branch gabapentin 2016-11 Yes 100mg Take 100 [facility] (NEURONTIN) 2-21 mg by ity of 100 mg 13:42: mouth at [place] capsule 05 bedtime. Medical Branch HYDROcodone 2016-11 Yes 1{tbl} Take 1 Un [facility] -acetaminop 2-21 tablet by ity of hen 7.5-325 13:42: mouth [place] mg per 05 every 6 Medical tablet (six) Branch hours as needed for Pain. allopurinol 2016-11 Yes 200mg Take 200 U nivers 100 mg 2-21 mg by ity of tablet 13:42: mouth [place] 05 daily. Medical Branch clopidogrel 2016-11 Yes 75mg Take 75 mg [facility] (PLAVIX) 75 2-21 by mouth ity of mg tablet 13:42: daily. [address] Branch furosemide 2016-11 Yes 40mg Take 40 mg U nivers 40 mg 2-21 by mouth 3 ity of tablet 13:42: (three) [place] [address] times Medical daily. Branch FERROUS 2016-11 Yes 1{tbl} Take 1 Tab [facility] FUMARATE/FO 2-21 by mouth ity of LIC ACID 13:42: daily. [place] (HEMATINIC/ Medical FOLIC ACID Branch ORAL) aspirin 81 2016-11 Yes 81mg Take 81 mg U nivers mg chewable 2-21 by mouth ity of tablet 13:42: daily. [address] levocetiriz 2016-11 Yes 5mg Take 5 mg U nivers ine (XYZAL) 2-21 by mouth ity of 5 mg tablet 13:42: every [place] [address] evening. Medical Branch SERTraline 2016-11 Yes 25mg Take 25 mg U nivers (ZOLOFT) 25 2-21 by mouth ity of mg tablet 13:42: daily. [address] bimatoprost 2016-11 Yes 1[drp] Place 1 U nivers (LUMIGAN) 2-21 Drop in ity of 0.01 % Drop 13:42: each eye [place] 05 daily. Medical Branch metFORMIN 2016-11 Yes 500mg Take 500 [facility] vers (GLUCOPHAGE 2-21 mg by ity of ) 1,000 mg 13:42: mouth 2 [place] tablet 05 (two) Medical times [place] daily. spironolact 2016-11 Yes 25mg Take 25 mg [facility] one 2-21 by mouth ity of (SPIRONOLAC 13:42: daily. [place] TONE) 25 mg 05 Medical [facility] Branch sitaGLIPtin 2016-11 Yes 50mg Take 50 mg [facility] (JANUVIA) 2-21 by mouth ity of 50 mg 13:42: daily. [place] tablet [address] [place] [address] atenolol 2016-11 Yes 50mg Take 50 mg [facility] vers (TENORMIN) 2-21 by mouth 2 ity of 50 mg 13:42: (two) [place] tablet 05 times [facility] daily. Branch nitroglycer 2016-[address] 0[address]4 U nivers in 2-21 mg under ity of (NITROSTAT) 13:42: the tongue [place] 0.4 mg 05 every 5 Medical sublingual (five) Branch tablet minutes as needed for Chest pain. fluticasone 2016-11 Yes 1{puff} Inhale 1 [facility] furoate 2-21 Puff ity of (ARNUITY 13:42: daily. [place] ELLIPTA) 05 Medical 200 Branch mcg/actuati on DsDv colchicine 2016-11 Yes .6mg Take 0.6 Uni vers (COLCRYS) 2-21 mg by ity of 0.6 mg 13:42: mouth [place] tablet 05 daily. Medical Branch insulin 2016-11 Yes 24U inject 24 Unive rs glargine 2-21 Units ity of (LANTUS 13:42: under the [place] U-100) 100 05 skin at Medic l unit/mL bedtime. Branch injection Olopatadine 2016-11 Yes 1[drp] Place 1 U nivers (PATADAY) 2-21 Drop in ity of 0.2 % Drop 13:42: each eye [place] 05 daily. Medical Branch foLIC acid 2016-11 Yes 1mg Take 1 mg [facility] (FOLATE) 1 2-21 by mouth ity o f mg tablet 13:42: daily. [place] [address] Medical Branch gabapentin 2016-11 Yes 100mg Take 100 [facility] (NEURONTIN) 2-21 mg by ity of 100 mg 13:42: mouth at [place] capsule 05 bedtime. Medical Branch HYDROcodone 2016-11 Yes 1{tbl} Take 1 Un re[facility] -acetaminop 2-21 tablet by ity of hen 7.5-325 13:42: mouth [place] mg per 05 every 6 Medical tablet (six) Branch hours as needed for Pain. allopurinol 2016-11 Yes 200mg Take 200 U nivers 100 mg 2-21 mg by ity of tablet 13:42: mouth [place] 05 daily. Medical Branch clopidogrel 2016-11 Yes 75mg Take 75 mg [facility] (PLAVIX) 75 2-21 by mouth ity of mg tablet 13:42: daily. [place] [address] Medical Branch furosemide 2016-11 Yes 40mg Take 40 mg U nivers 40 mg 2-21 by mouth 3 ity of tablet 13:42: (three) [place] 05 times Medical daily. Branch FERROUS 2016-11 Yes 1{tbl} Take 1 Tab [facility] FUMARATE/FO 2-21 by mouth ity of LIC ACID 13:42: daily. [place] (HEMATINIC/ 05 Medical FOLIC ACID Branch ORAL) aspirin 81 2016-11 Yes 81mg Take 81 mg U nivers mg chewable 2-21 by mouth ity of tablet 13:42: daily. [place] [address] Medical Branch levocetiriz 2016-11 Yes 5mg Take 5 mg U nivers ine (XYZAL) 2-21 by mouth ity of 5 mg tablet 13:42: every [place] 05 evening. Medical Branch SERTraline 2016-11 Yes 25mg Take 25 mg U nivers (ZOLOFT) 25 2-21 by mouth ity of mg tablet 13:42: daily. [place] [address] Medical Branch bimatoprost 2016-11 Yes 1[drp] Place 1 U nivers (LUMIGAN) 2-21 Drop in ity of 0.01 % Drop 13:42: each eye [place] 05 daily. Medical Branch metFORMIN 2016-11 Yes 500mg Take 500 [facility] vers (GLUCOPHAGE 2-21 mg by ity of ) 1,000 mg 13:42: mouth 2 [place] tablet 05 (two) Medical times Branch daily. spironolact 2016-11 Yes 25mg Take 25 mg [facility] one 2-21 by mouth ity of (SPIRONOLAC 13:42: daily. [place] TONE) 25 mg 05 Medical tablet Branch sitaGLIPtin 2016-11 Yes 50mg Take 50 mg [facility] (JANUVIA) 2-21 by mouth ity of 50 mg 13:42: daily. [place] tablet 05 Medical Branch atenolol 2016-11 Yes 50mg Take 50 mg [facility] vers (TENORMIN) 2-21 by mouth 2 ity of 50 mg 13:42: (two) [place] tablet 05 times Medical daily. Branch nitroglycer 2016-[address] 0.4 U nivers in 2-21 mg under ity of (NITROSTAT) 13:42: the tongue [place] 0.4 mg 05 every 5 Medical sublingual (five) Branch tablet minutes as needed for Chest pain. fluticasone 2016-11 Yes 1{puff} Inhale 1 [facility] furoate 2-21 Puff ity of (ARNUITY 13:42: daily. [place] ELLIPTA) 05 Medical 200 Branch mcg/actuati on DsDv colchicine 2016-11 Yes .6mg Take 0.6 Uni vers (COLCRYS) 2-21 mg by ity of 0.6 mg 13:42: mouth [place] tablet 05 daily. Medical Branch insulin 2016-11 Yes 24U inject 24 Unive rs glargine 2-21 Units ity of (LANTUS 13:42: under the [place] U-100) 100 05 skin at Medica l unit/mL bedtime. Branch injection Olopatadine 2016-11 Yes 1[drp] Place 1 U nivers (PATADAY) 2-21 Drop in ity of 0.2 % Drop 13:42: each eye [place] 05 daily. Medical Branch foLIC acid 2016-11 Yes 1mg Take 1 mg Un re[facility] (FOLATE) 1 2-21 by mouth ity o f mg tablet 13:42: daily. [place] [address] Medical Branch gabapentin 2016-11 Yes 100mg Take 100 Un reilly (NEURONTIN) 2-21 mg by ity of 100 mg 13:42: mouth at [place] capsule 05 bedtime. Medical Branch HYDROcodone 2016-11 Yes 1{tbl} Take 1 Un reilly -acetaminop 2-21 tablet by ity of hen 7.5-325 13:42: mouth [place] mg per 05 every 6 Medical tablet (six) Branch hours as needed for Pain. allopurinol 2016-11 Yes 200mg Take 200 U nivers 100 mg 2-21 mg by ity of tablet 13:42: mouth [place] 05 daily. Medical Branch clopidogrel 2016-11 Yes 75mg Take 75 mg [facility] (PLAVIX) 75 2-21 by mouth ity of mg tablet 13:42: daily. [address] Branch furosemide 2016-11 Yes 40mg Take 40 mg U nivers 40 mg 2-21 by mouth 3 ity of tablet 13:42: (three) [place] 05 times Medical daily. Branch FERROUS 2016-11 Yes 1{tbl} Take 1 Tab Un reilly FUMARATE/FO 2-21 by mouth ity of LIC ACID 13:42: daily. [place] (HEMATINIC/ 05 Medical FOLIC ACID Branch ORAL) aspirin 81 2016-11 Yes 81mg Take 81 mg U nivers mg chewable 2-21 by mouth ity of tablet 13:42: daily. [address] Branch levocetiriz 2016-11 Yes 5mg Take 5 mg U nivers ine (XYZAL) 2-21 by mouth ity of 5 mg tablet 13:42: every [place] 05 evening. Medical Branch SERTraline 2016-11 Yes 25mg Take 25 mg U nivers (ZOLOFT) 25 2-21 by mouth ity of mg tablet 13:42: daily. [address] Branch bimatoprost 2016-11 Yes 1[drp] Place 1 U nivers (LUMIGAN) 2-21 Drop in ity of 0.01 % Drop 13:42: each eye [place] 05 daily. Medical Branch metFORMIN 2016-11 Yes 500mg Take 500 [facility] vers (GLUCOPHAGE 2-21 mg by ity of ) 1,000 mg 13:42: mouth 2 [place] tablet 05 (two) Medical times Branch daily. spironolact 2016-11 Yes 25mg Take 25 mg [facility] one 2-21 by mouth ity of (SPIRONOLAC 13:42: daily. [place] TONE) 25 mg 05 Medical tablet Branch sitaGLIPtin 2016-11 Yes 50mg Take 50 mg [facility] (JANUVIA) 2-21 by mouth ity of 50 mg 13:42: daily. [place] tablet 05 Medical Branch atenolol 2016-11 Yes 50mg Take 50 mg Uni vers (TENORMIN) 2-21 by mouth 2 ity of 50 mg 13:42: (two) [place] tablet 05 times Medical daily. Branch nitroglycer 2016-[address] 0[address]4 U nivers in 2-21 mg under ity of (NITROSTAT) 13:42: the tongue [place] 0.4 mg 05 every 5 Medical sublingual (five) Branch tablet minutes as needed for Chest pain. fluticasone 2016-11 Yes 1{puff} Inhale 1 [facility] furoate 2-21 Puff ity of (ARNUITY 13:42: daily. [place] ELLIPTA) 05 Medical 200 Branch mcg/actuati on DsDv colchicine 2016-11 Yes .6mg Take 0.6 Uni vers (COLCRYS) 2-21 mg by ity of 0.6 mg 13:42: mouth [place] tablet 05 daily. Medical Branch insulin 2016-11 Yes 24U inject 24 Unive rs glargine 2-21 Units ity of (LANTUS 13:42: under the [place] U-100) 100 05 skin at Medica l unit/mL bedtime. Branch injection Olopatadine 2016-11 Yes 1[drp] Place 1 U nivers (PATADAY) 2-21 Drop in ity of 0.2 % Drop 13:42: each eye [place] 05 daily. Medical Branch foLIC acid 2016-11 Yes 1mg Take 1 mg Un re[facility] (FOLATE) 1 2-21 by mouth ity o f mg tablet 13:42: daily. [place] [address] Medical Branch gabapentin 2016-11 Yes 100mg Take 100 Un reilly (NEURONTIN) 2-21 mg by ity of 100 mg 13:42: mouth at [place] [facility] 05 bedtime. Medical Branch HYDROcodone 2016-11 Yes 1{tbl} Take 1 Un reilly -acetaminop 2-21 tablet by ity of hen 7.5-325 13:42: mouth [place] mg per 05 every 6 Medical tablet (six) Branch hours as needed for Pain. allopurinol 2016-11 Yes 200mg Take 200 U nivers 100 mg 2-21 mg by ity of tablet 13:42: mouth [place] 05 daily. Medical Branch clopidogrel 2016-11 Yes 75mg Take 75 mg [facility] (PLAVIX) 75 2-21 by mouth ity of mg tablet 13:42: daily. [address] Branch furosemide 2016-11 Yes 40mg Take 40 mg U nivers 40 mg 2-21 by mouth 3 ity of tablet 13:42: (three) [place] [address] times [facility] daily. Branch FERROUS 2016-11 Yes 1{tbl} Take 1 Tab Un reilly FUMARATE/FO 2-21 by mouth ity of LIC ACID 13:42: daily. [place] (HEMATINIC/ 05 Medical FOLIC ACID Branch ORAL) aspirin 81 2016-11 Yes 81mg Take 81 mg U nivers mg chewable 2-21 by mouth ity of tablet 13:42: daily. [address] Branch levocetiriz 2016-11 Yes 5mg Take 5 mg U nivers ine (XYZAL) 2-21 by mouth ity of 5 mg tablet 13:42: every [place] 05 evening. Medical Branch SERTraline 2016-11 Yes 25mg Take 25 mg U nivers (ZOLOFT) 25 2-21 by mouth ity of mg tablet 13:42: daily. [place] [address] Medical Branch bimatoprost 2016-11 Yes 1[drp] Place 1 U nivers (LUMIGAN) 2-21 Drop in ity of 0.01 % Drop 13:42: each eye [place] 05 daily. Medical Branch metFORMIN 2016-11 Yes 500mg Take 500 Uni vers (GLUCOPHAGE 2-21 mg by ity of ) 1,000 mg 13:42: mouth 2 [place] tablet 05 (two) Medical times Branch daily. spironolact 2016-11 Yes 25mg Take 25 mg [facility] one 2-21 by mouth ity of (SPIRONOLAC 13:42: daily. [place] TONE) 25 mg 05 Medical tablet Branch sitaGLIPtin 2016-11 Yes 50mg Take 50 mg [facility] (JANUVIA) 2-21 by mouth ity of 50 mg 13:42: daily. [place] tablet 05 Medical Branch atenolol 2016-11 Yes 50mg Take 50 mg [facility] vers (TENORMIN) 2-21 by mouth 2 ity of 50 mg 13:42: (two) [place] tablet 05 times Medical daily. Branch nitroglycer 2016-[address] 0.4 U nivers in 2-21 mg under ity of (NITROSTAT) 13:42: the tongue [place] 0.4 mg 05 every 5 Medical sublingual (five) Branch tablet minutes as needed for Chest pain. fluticasone 2016-11 Yes 1{puff} Inhale 1 [facility] furoate 2-21 Puff ity of (ARNUITY 13:42: daily. [place] ELLIPTA) 05 Medical 200 Branch mcg/actuati on DsDv colchicine 2016-11 Yes .6mg Take 0.6 Uni vers (COLCRYS) 2-21 mg by ity of 0.6 mg 13:42: mouth [place] tablet 05 daily. Medical Branch insulin 2016-11 Yes 24U inject 24 Unive rs glargine 2-21 Units ity of (LANTUS 13:42: under the [place] U-100) 100 05 skin at Medica l unit/mL bedtime. Branch injection Olopatadine 2016-11 Yes 1[drp] Place 1 U nivers (PATADAY) 2-21 Drop in ity of 0.2 % Drop 13:42: each eye [place] 05 daily. Medical Branch foLIC acid 2016-11 Yes 1mg Take 1 mg Un re[facility] (FOLATE) 1 2-21 by mouth ity o f mg tablet 13:42: daily. [place] 05 Medical Branch gabapentin 2016-11 Yes 100mg Take 100 Un re[facility] (NEURONTIN) 2-21 mg by ity of 100 mg 13:42: mouth at [place] capsule 05 bedtime. Medical Branch HYDROcodone 2016-11 Yes 1{tbl} Take 1 Un reilly -acetaminop 2-21 tablet by ity of hen 7.5-325 13:42: mouth [place] mg per 05 every 6 Medical tablet (six) Branch hours as needed for Pain. allopurinol 2016-11 Yes 200mg Take 200 U nivers 100 mg 2-21 mg by ity of tablet 13:42: mouth [place] [address] daily. Medical Branch clopidogrel 2016-11 Yes 75mg Take 75 mg [facility] (PLAVIX) 75 2-21 by mouth ity of mg tablet 13:42: daily. [address] Branch furosemide 2016-11 Yes 40mg Take 40 mg U nivers 40 mg 2-21 by mouth 3 ity of tablet 13:42: (three) [place] [address] times [facility] daily. Branch FERROUS 2016-11 Yes 1{tbl} Take 1 Tab Un reilly FUMARATE/FO 2-21 by mouth ity of LIC ACID 13:42: daily. [place] (HEMATINIC/ Medical FOLIC ACID Branch ORAL) aspirin 81 2016-11 Yes 81mg Take 81 mg U nivers mg chewable 2-21 by mouth ity of tablet 13:42: daily. [address] levocetiriz 2016-11 Yes 5mg Take 5 mg U nivers ine (XYZAL) 2-21 by mouth ity of 5 mg tablet 13:42: every [place] [address] evening. Medical Branch SERTraline 2016-11 Yes 25mg Take 25 mg U nivers (ZOLOFT) 25 2-21 by mouth ity of mg tablet 13:42: daily. [address] bimatoprost 2016-11 Yes 1[drp] Place 1 U nivers (LUMIGAN) 2-21 Drop in ity of 0.01 % Drop 13:42: each eye [place] 05 daily. Medical Branch metFORMIN 2016-11 Yes 500mg Take 500 Uni vers (GLUCOPHAGE 2-21 mg by ity of ) 1,000 mg 13:42: mouth 2 [place] tablet 05 (two) Medical times Branch daily. spironolact 2016-11 Yes 25mg Take 25 mg [facility] one 2-21 by mouth ity of (SPIRONOLAC 13:42: daily. [place] TONE) 25 mg 05 Medical tablet Branch sitaGLIPtin 2016-11 Yes 50mg Take 50 mg [facility] (JANUVIA) 2-21 by mouth ity of 50 mg 13:42: daily. [place] tablet [address] [place] [address] Branch atenolol 2016-11 Yes 50mg Take 50 mg Uni vers (TENORMIN) 2-21 by mouth 2 ity of 50 mg 13:42: (two) [place] tablet 05 times Medical daily. Branch nitroglycer 2016-[address] 0.4 U nivers in 2-21 mg under ity of (NITROSTAT) 13:42: the tongue [place] 0.4 mg 05 every 5 Medical sublingual (five) Branch tablet minutes as needed for Chest pain. fluticasone 2016-11 Yes 1{puff} Inhale 1 [facility] furoate 2-21 Puff ity of (ARNUITY 13:42: daily. [place] ELLIPTA) 05 Medical 200 Branch mcg/actuati on DsDv colchicine 2016-11 Yes .6mg Take 0.6 Uni vers (COLCRYS) 2-21 mg by ity of 0.6 mg 13:42: mouth [place] tablet 05 daily. Medical Branch insulin 2016-11 Yes 24U inject 24 Unive rs glargine 2-21 Units ity of (LANTUS 13:42: under the [place] U-100) 100 05 skin at Medica l unit/mL bedtime. Branch injection Olopatadine 2016-11 Yes 1[drp] Place 1 U nivers (PATADAY) 2-21 Drop in ity of 0.2 % Drop 13:42: each eye [place] 05 daily. Medical Branch foLIC acid 2016-11 Yes 1mg Take 1 mg Un reilly (FOLATE) 1 2-21 by mouth ity o f mg tablet 13:42: daily. [place] [address] Medical Branch gabapentin 2016-11 Yes 100mg Take 100 Un reilly (NEURONTIN) 2-21 mg by ity of 100 mg 13:42: mouth at [place] capsule 05 bedtime. Medical Branch HYDROcodone 2016-11 Yes 1{tbl} Take 1 Un reilly -acetaminop 2-21 tablet by ity of hen 7.5-325 13:42: mouth [place] mg per 05 every 6 Medical tablet (six) Branch hours as needed for Pain. allopurinol 2016-11 Yes 200mg Take 200 U nivers 100 mg 2-21 mg by ity of tablet 13:42: mouth [place] 05 daily. Medical Branch clopidogrel 2016-11 Yes 75mg Take 75 mg [facility] (PLAVIX) 75 2-21 by mouth ity of mg tablet 13:42: daily. [place] [address] Medical Branch furosemide 2016-11 Yes 40mg Take 40 mg U nivers 40 mg 2-21 by mouth 3 ity of tablet 13:42: (three) [place] 05 times Medical daily. Branch albuterol 2015-11 Yes 2.5mg Inhale 3 Uni vers (PROVENTIL) 0-14 mL every 4 it y of 2.5 mg /3 00:00: (four) [place] mL (0.083 00 hours as Medica l %) needed for Branch nebulizer Wheezing solution or Shortness of Breath. albuterol 2015-11 Yes 2.5mg Inhale 3 Uni vers (PROVENTIL) 0-14 mL every 4 it y of 2.5 mg /3 00:00: (four) [place] mL (0.083 00 hours as Medica l %) needed for Branch nebulizer Wheezing solution or Shortness of Breath. albuterol 2015-11 Yes 2.5mg Inhale 3 Uni vers (PROVENTIL) 0-14 mL every 4 it y of 2.5 mg /3 00:00: (four) [place] mL (0.083 00 hours as Medica l %) needed for Branch nebulizer Wheezing solution or Shortness of Breath. albuterol 2015-11 Yes 2.5mg Inhale 3 Uni vers (PROVENTIL) 0-14 mL every 4 it y of 2.5 mg /3 00:00: (four) [place] mL (0.083 00 hours as Medica l %) needed for Branch nebulizer Wheezing solution or Shortness of Breath. albuterol 2015-11 Yes 2.5mg Inhale 3 Uni vers (PROVENTIL) 0-14 mL every 4 it y of 2.5 mg /3 00:00: (four) [place] mL (0.083 00 hours as Medica l %) needed for Branch nebulizer Wheezing solution or Shortness of Breath. albuterol 2015-11 Yes 2.5mg Inhale 3 Uni vers (PROVENTIL) 0-14 mL every 4 it y of 2.5 mg /3 00:00: (four) [place] mL (0.083 00 hours as Medica l %) needed for Branch nebulizer Wheezing solution or Shortness of Breath. albuterol 2015-11 Yes 2.5mg Inhale 3 Uni vers (PROVENTIL) 0-14 mL every 4 it y of 2.5 mg /3 00:00: (four) [place] mL (0.083 00 hours as Medica l %) needed for Branch nebulizer Wheezing solution or Shortness of Breath. albuterol 2015-11 Yes 2.5mg Inhale 3 Uni vers (PROVENTIL) 0-14 mL every 4 it y of 2.5 mg /3 00:00: (four) [place] mL (0.083 00 hours as Medica l %) needed for Branch nebulizer Wheezing solution or Shortness of Breath. albuterol 2015-11 Yes 2.5mg Inhale 3 Uni vers (PROVENTIL) 0-14 mL every 4 it y of 2.5 mg /3 00:00: (four) [place] mL (0.083 00 hours as Medica l %) needed for Branch nebulizer Wheezing solution or Shortness of Breath. albuterol 2015-11 Yes 2.5mg Inhale 3 Uni vers (PROVENTIL) 0-14 mL every 4 it y of 2.5 mg /3 00:00: (four) [place] mL (0.083 00 hours as Medica l %) needed for Branch nebulizer Wheezing solution or Shortness of Breath. albuterol 2015-11 Yes 2.5mg Inhale 3 Uni vers (PROVENTIL) 0-14 mL every 4 it y of 2.5 mg /3 00:00: (four) [place] mL (0.083 00 hours as Medica l %) needed for Branch nebulizer Wheezing solution or Shortness of Breath. albuterol 2015-11 Yes 2.5mg Inhale 3 Uni vers (PROVENTIL) 0-14 mL every 4 it y of 2.5 mg /3 00:00: (four) [place] mL (0.083 00 hours as Medica l %) needed for Branch nebulizer Wheezing solution or Shortness of Breath. albuterol 2015-11 Yes 2.5mg Inhale 3 Uni vers (PROVENTIL) 0-14 mL every 4 it y of 2.5 mg /3 00:00: (four) [place] mL (0.083 00 hours as Medica l %) needed for Branch nebulizer Wheezing solution or Shortness of Breath. albuterol 2015-11 Yes 2.5mg Inhale 3 Uni vers (PROVENTIL) 0-14 mL every 4 it y of 2.5 mg /3 00:00: (four) [place] mL (0.083 00 hours as Medica l %) needed for Branch nebulizer Wheezing solution or Shortness of Breath. albuterol 2015-11 Yes 2.5mg Inhale 3 Uni vers (PROVENTIL) 0-14 mL every 4 it y of 2.5 mg /3 00:00: (four) [place] mL (0.083 00 hours as Medica l %) needed for Branch nebulizer Wheezing solution or Shortness of Breath. albuterol 2015-11 Yes 2.5mg Inhale 3 Uni vers (PROVENTIL) 0-14 mL every 4 it y of 2.5 mg /3 00:00: (four) [place] mL (0.083 00 hours as Medica l %) needed for Branch nebulizer Wheezing solution or Shortness of Breath. albuterol 2015-11 Yes 2.5mg Inhale 3 Uni vers (PROVENTIL) 0-14 mL every 4 it y of 2.5 mg /3 00:00: (four) [place] mL (0.083 00 hours as Medica l %) needed for Branch nebulizer Wheezing solution or Shortness of Breath. albuterol 2015-11 Yes 2.5mg Inhale 3 Uni vers (PROVENTIL) 0-14 mL every 4 it y of 2.5 mg /3 00:00: (four) [place] mL (0.083 00 hours as Medica l %) needed for Branch nebulizer Wheezing solution or Shortness of Breath. albuterol 2015-11 Yes 2.5mg Inhale 3 Uni vers (PROVENTIL) 0-14 mL every 4 it y of 2.5 mg /3 00:00: (four) [place] mL (0.083 00 hours as Medica l %) needed for Branch nebulizer Wheezing solution or Shortness of Breath. albuterol 2015-11 Yes 2.5mg Inhale 3 Uni vers (PROVENTIL) 0-14 mL every 4 it y of 2.5 mg /3 00:00: (four) [place] mL (0.083 00 hours as Medica l %) needed for Branch nebulizer Wheezing solution or Shortness of Breath. albuterol 2015-11 Yes 2.5mg Inhale 3 Uni vers (PROVENTIL) 0-14 mL every 4 it y of 2.5 mg /3 00:00: (four) [place] mL (0.083 00 hours as Medica l %) needed for Branch nebulizer Wheezing solution or Shortness of Breath. albuterol 2015-11 Yes 2.5mg Inhale 3 Uni vers (PROVENTIL) 0-14 mL every 4 it y of 2.5 mg /3 00:00: (four) [place] mL (0.083 00 hours as Medica l %) needed for Branch nebulizer Wheezing solution or Shortness of Breath. albuterol 2015-11 Yes 2.5mg Inhale 3 Uni vers (PROVENTIL) 0-14 mL every 4 it y of 2.5 mg /3 00:00: (four) [place] mL (0.083 00 hours as Medica l %) needed for Branch nebulizer Wheezing solution or Shortness of Breath. albuterol 2015-11 Yes 2.5mg Inhale 3 Uni vers (PROVENTIL) 0-14 mL every 4 it y of 2.5 mg /3 00:00: (four) [place] mL (0.083 00 hours as Medica l %) needed for Branch nebulizer Wheezing solution or Shortness of Breath. albuterol 2015-11 Yes 2.5mg Inhale 3 Uni vers (PROVENTIL) 0-14 mL every 4 it y of 2.5 mg /3 00:00: (four) [place] mL (0.083 00 hours as Medica l %) needed for Branch nebulizer Wheezing solution or Shortness of Breath. albuterol 2015-11 Yes 2.5mg Inhale 3 Uni vers (PROVENTIL) 0-14 mL every 4 it y of 2.5 mg /3 00:00: (four) [place] mL (0.083 00 hours as Medica l %) needed for Branch nebulizer Wheezing solution or Shortness of Breath. albuterol 2015-11 Yes 2.5mg Inhale 3 Uni vers (PROVENTIL) 0-14 mL every 4 it y of 2.5 mg /3 00:00: (four) [place] mL (0.083 00 hours as Medica l %) needed for Branch nebulizer Wheezing solution or Shortness of Breath. albuterol 2015-11 Yes 2.5mg Inhale 3 Uni vers (PROVENTIL) 0-14 mL every 4 it y of 2.5 mg /3 00:00: (four) [place] mL (0.083 00 hours as Medica l %) needed for Branch nebulizer Wheezing solution or Shortness of Breath. atorvastati 2014-11 Yes 20mg Take 1 Tab [facility] n (LIPITOR) 0-27 by mouth ity of 20 mg 00:00: at [place] tablet 00 bedtime. [facility] Branch atorvastati 2014-11 Yes 20mg Take 1 Tab Univers n (LIPITOR) 0-27 by mouth ity of 20 mg 00:00: at [place] tablet 00 bedtime. [facility] Branch atorvastati 2014-11 Yes 20mg Take 1 Tab Univers n (LIPITOR) 0-27 by mouth ity of 20 mg 00:00: at [place] tablet 00 bedtime. [facility] Branch atorvastati 2014-11 Yes 20mg Take 1 Tab Univers n (LIPITOR) 0-27 by mouth ity of 20 mg 00:00: at [place] tablet 00 bedtime. [facility] Branch atorvastati 2014-11 Yes 20mg Take 1 Tab Univers n (LIPITOR) 0-27 by mouth ity of 20 mg 00:00: at [place] tablet 00 bedtime. [facility] Branch atorvastati 2014-11 Yes 20mg Take 1 Tab Univers n (LIPITOR) 0-27 by mouth ity of 20 mg 00:00: at [place] tablet 00 bedtime. [facility] Branch atorvastati 2014-11 Yes 20mg Take 1 Tab Univers n (LIPITOR) 0-27 by mouth ity of 20 mg 00:00: at [place] tablet 00 bedtime. [facility] Branch atorvastati 2014-11 Yes 20mg Take 1 Tab Univers n (LIPITOR) 0-27 by mouth ity of 20 mg 00:00: at [place] tablet 00 bedtime. [facility] Branch atorvastati 2014-11 Yes 20mg Take 1 Tab Univers n (LIPITOR) 0-27 by mouth ity of 20 mg 00:00: at [place] tablet 00 bedtime. [facility] Branch atorvastati 2014-11 Yes 20mg Take 1 Tab Univers n (LIPITOR) 0-27 by mouth ity of 20 mg 00:00: at [place] tablet 00 bedtime. [facility] Branch atorvastati 2014-11 Yes 20mg Take 1 Tab Univers n (LIPITOR) 0-27 by mouth ity of 20 mg 00:00: at [place] tablet 00 bedtime. [facility] Branch atorvastati 2014-11 Yes 20mg Take 1 Tab Univers n (LIPITOR) 0-27 by mouth ity of 20 mg 00:00: at [place] tablet 00 bedtime. [facility] Branch atorvastati 2014-11 Yes 20mg Take 1 Tab Univers n (LIPITOR) 0-27 by mouth ity of 20 mg 00:00: at [place] tablet 00 bedtime. [facility] Branch atorvastati 2014-11 Yes 20mg Take 1 Tab Univers n (LIPITOR) 0-27 by mouth ity of 20 mg 00:00: at [place] tablet 00 bedtime. [facility] Branch atorvastati 2014-11 Yes 20mg Take 1 Tab Univers n (LIPITOR) 0-27 by mouth ity of 20 mg 00:00: at [place] tablet 00 bedtime. [facility] Branch atorvastati 2014-11 Yes 20mg Take 1 Tab Univers n (LIPITOR) 0-27 by mouth ity of 20 mg 00:00: at [place] tablet 00 bedtime. [facility] Branch atorvastati 2014-11 Yes 20mg Take 1 Tab Univers n (LIPITOR) 0-27 by mouth ity of 20 mg 00:00: at [place] tablet 00 bedtime. [facility] Branch atorvastati 2014-11 Yes 20mg Take 1 Tab Univers n (LIPITOR) 0-27 by mouth ity of 20 mg 00:00: at [place] tablet 00 bedtime. [facility] Branch atorvastati 2014-11 Yes 20mg Take 1 Tab Univers n (LIPITOR) 0-27 by mouth ity of 20 mg 00:00: at [place] tablet 00 bedtime. [facility] Branch atorvastati 2014-11 Yes 20mg Take 1 Tab Univers n (LIPITOR) 0-27 by mouth ity of 20 mg 00:00: at [place] tablet 00 bedtime. [facility] Branch atorvastati 2014-11 Yes 20mg Take 1 Tab Univers n (LIPITOR) 0-27 by mouth ity of 20 mg 00:00: at [place] tablet 00 bedtime. [facility] Branch atorvastati 2014-11 Yes 20mg Take 1 Tab Univers n (LIPITOR) 0-27 by mouth ity of 20 mg 00:00: at [place] tablet 00 bedtime. [facility] Branch atorvastati 2014-11 Yes 20mg Take 1 Tab Univers n (LIPITOR) 0-27 by mouth ity of 20 mg 00:00: at [place] tablet 00 bedtime. [facility] Branch atorvastati 2014-11 Yes 20mg Take 1 Tab Univers n (LIPITOR) 0-27 by mouth ity of 20 mg 00:00: at [place] tablet 00 bedtime. [facility] Branch atorvastati 2014-11 Yes 20mg Take 1 Tab Univers n (LIPITOR) 0-27 by mouth ity of 20 mg 00:00: at [place] tablet 00 bedtime. [facility] Branch atorvastati 2014-11 Yes 20mg Take 1 Tab Univers n (LIPITOR) 0-27 by mouth ity of 20 mg 00:00: at [place] tablet 00 bedtime. [facility] Branch atorvastati 2014-11 Yes 20mg Take 1 Tab Univers n (LIPITOR) 0-27 by mouth ity of 20 mg 00:00: at [place] tablet 00 bedtime. [facility] Branch atorvastati 2014-11 Yes 20mg Take 1 Tab Univers n (LIPITOR) 0-27 by mouth ity of 20 mg 00:00: at [place] tablet 00 bedtime. Medical Branch BD INSULIN 2014-11 Yes Univers SYRINGE 0-08 ity of ULTRA-FINE 00:00: [place] 1/2 mL 31 x 00 Medical 5/16" Syrg Branch BD INSULIN 2014-11 Yes Univers SYRINGE 0-08 ity of ULTRA-FINE 00:00: [place] 1/2 mL 31 x 00 Medical 5/16" Syrg Branch BD INSULIN 2014-11 Yes Univers SYRINGE 0-08 ity of ULTRA-FINE 00:00: [place] 1/2 mL 31 x 00 Medical 5/16" Syrg Branch BD INSULIN 2014-11 Yes Univers SYRINGE 0-08 ity of ULTRA-FINE 00:00: [place] 1/2 mL 31 x 00 Medical 5/16" Syrg Branch BD INSULIN 2014-11 Yes Univers SYRINGE 0-08 ity of ULTRA-FINE 00:00: [place] 1/2 mL 31 x 00 Medical 5/16" Syrg Branch BD INSULIN 2014-11 Yes Univers SYRINGE 0-08 ity of ULTRA-FINE 00:00: [place] 1/2 mL 31 x 00 Medical 5/16" Syrg Branch BD INSULIN 2014-11 Yes Univers SYRINGE 0-08 ity of ULTRA-FINE 00:00: [place] 1/2 mL 31 x 00 Medical 5/16" Syrg Branch BD INSULIN 2014-11 Yes Univers SYRINGE 0-08 ity of ULTRA-FINE 00:00: [place] 1/2 mL 31 x 00 Medical 5/16" Syrg Branch BD INSULIN 2014-11 Yes Univers SYRINGE 0-08 ity of ULTRA-FINE 00:00: [place] 1/2 mL 31 x 00 Medical 5/16" Syrg Branch BD INSULIN 2014-11 Yes Univers SYRINGE 0-08 ity of ULTRA-FINE 00:00: [place] 1/2 mL 31 x 00 Medical 16" Syrg Branch BD INSULIN 2014- Yes Univers SYRINGE 0-08 ity of ULTRA-FINE 00:00: [place] 1/2 mL 31 x 00 Medical 16" Syrg Branch BD INSULIN 2014- Yes Univers SYRINGE 0-08 ity of ULTRA-FINE 00:00: [place] 1/2 mL 31 x 00 Medical 03/29" Syrg Branch BD INSULIN 2014-11 Yes Univers SYRINGE 0-08 ity of ULTRA-FINE 00:00: [place] 1/2 mL 31 x 00 Medical 16" Syrg Branch BD INSULIN 2014-11 Yes Univers SYRINGE 0-08 ity of ULTRA-FINE 00:00: [place] 1/2 mL 31 x 00 Medical 03/29" Syrg Branch BD INSULIN 2014-11 Yes Univers SYRINGE 0-08 ity of ULTRA-FINE 00:00: [place] 1/2 mL 31 x 00 Medical 03/29" Syrg Branch BD INSULIN 2014-11 Yes Univers SYRINGE 0-08 ity of ULTRA-FINE 00:00: [place] 1/2 mL 31 x 00 Medical 03/29" Syrg Branch BD INSULIN 2014-11 Yes Univers SYRINGE 0-08 ity of ULTRA-FINE 00:00: [place] 1/2 mL 31 x 00 Medical 03/29" Syrg Branch BD INSULIN 2014-11 Yes Univers SYRINGE 0-08 ity of ULTRA-FINE 00:00: [place] 1/2 mL 31 x 00 Medical 03/29" Syrg Branch BD INSULIN 2014- Yes Univers SYRINGE 0-08 ity of ULTRA-FINE 00:00: [place] 1/2 mL 31 x 00 Medical 03/29" Syrg Branch BD INSULIN 2014-11 Yes Univers SYRINGE 0-08 ity of ULTRA-FINE 00:00: [place] 1/2 mL 31 x 00 Medical 16" Syrg Branch BD INSULIN 2014- Yes Univers SYRINGE 0-08 ity of ULTRA-FINE 00:00: [place] 1/2 mL 31 x 00 Medical 16" Syrg Branch BD INSULIN 2014-11 Yes Univers SYRINGE 0-08 ity of ULTRA-FINE 00:00: [place] 1/2 mL 31 x 00 Medical 16" Syrg Branch BD INSULIN 2014-11 Yes Univers SYRINGE 0-08 ity of ULTRA-FINE 00:00: [place] 1/2 mL 31 x 00 Medical 03/29" Syrg Branch BD INSULIN 2014-11 Yes Univers SYRINGE 0-08 ity of ULTRA-FINE 00:00: [place] 1/2 mL 31 x 00 Medical 03/29" Syrg Branch BD INSULIN 2014-11 Yes Univers SYRINGE 0-08 ity of ULTRA-FINE 00:00: [place] 1/2 mL 31 x 00 Medical 03/29" Syrg Branch BD INSULIN 2014-11 Yes Univers SYRINGE 0-08 ity of ULTRA-FINE 00:00: [place] 1/2 mL 31 x 00 Medical 03/29" Syrg Branch BD INSULIN 2014-11 Yes Univers SYRINGE 0-08 ity of ULTRA-FINE 00:00: [place] 1/2 mL 31 x 00 Medical 03/29" Syrg Branch BD INSULIN 2014-11 Yes Univers SYRINGE 0-08 ity of ULTRA-FINE 00:00: [place] 1/2 mL 31 x 00 Medical 03/29" Syrg Branch ANORO Yes 1{puff} Inhale 1 Unive rs ELLIPTA 9-18 Puff ity of 62.5-25 00:00: daily. [place] mcg/actuati 00 Medical on Branch inhalation disk ANORO Yes 1{puff} Inhale 1 Unive rs ELLIPTA 9-18 Puff ity of 62.5-25 00:00: daily. [place] mcg/actuati 00 Medical on Branch inhalation disk ANORO Yes 1{puff} Inhale 1 Unive rs ELLIPTA 9-18 Puff ity of 62.5-25 00:00: daily. [place] mcg/actuati 00 Medical on Branch inhalation disk ANORO Yes 1{puff} Inhale 1 Unive rs ELLIPTA 9-18 Puff ity of 62.5-25 00:00: daily. [place] mcg/actuati 00 Medical on Branch inhalation disk ANORO Yes 1{puff} Inhale 1 Unive rs ELLIPTA 9-18 Puff ity of 62.5-25 00:00: daily. [place] mcg/actuati 00 Medical on Branch inhalation disk ANORO Yes 1{puff} Inhale 1 Unive rs ELLIPTA 9-18 Puff ity of 62.5-25 00:00: daily. [place] mcg/actuati 00 Medical on Branch inhalation disk ANORO Yes 1{puff} Inhale 1 Unive rs ELLIPTA 9-18 Puff ity of 62.5-25 00:00: daily. [place] mcg/actuati 00 Medical on Branch inhalation disk ANORO Yes 1{puff} Inhale 1 Unive rs ELLIPTA 9-18 Puff ity of 62.5-25 00:00: daily. [place] mcg/actuati 00 Medical on Branch inhalation disk ANORO Yes 1{puff} Inhale 1 Unive rs ELLIPTA 9-18 Puff ity of 62.5-25 00:00: daily. [place] mcg/actuati 00 Medical on Branch inhalation disk ANORO Yes 1{puff} Inhale 1 Unive rs ELLIPTA 9-18 Puff ity of 62.5-25 00:00: daily. [place] mcg/actuati 00 Medical on Branch inhalation disk ANORO Yes 1{puff} Inhale 1 Unive rs ELLIPTA 9-18 Puff ity of 62.5-25 00:00: daily. [place] mcg/actuati 00 Medical on Branch inhalation disk ANORO Yes 1{puff} Inhale 1 Unive rs ELLIPTA 9-18 Puff ity of 62.5-25 00:00: daily. [place] mcg/actuati 00 Medical on Branch inhalation disk ANORO Yes 1{puff} Inhale 1 Unive rs ELLIPTA 9-18 Puff ity of 62.5-25 00:00: daily. [place] mcg/actuati 00 Medical on Branch inhalation disk ANORO Yes 1{puff} Inhale 1 Unive rs ELLIPTA 9-18 Puff ity of 62.5-25 00:00: daily. [place] mcg/actuati 00 Medical on Branch inhalation disk ANORO Yes 1{puff} Inhale 1 Unive rs ELLIPTA 9-18 Puff ity of 62.5-25 00:00: daily. [place] mcg/actuati 00 Medical on Branch inhalation disk ANORO Yes 1{puff} Inhale 1 Unive rs ELLIPTA 9-18 Puff ity of 62.5-25 00:00: daily. [place] mcg/actuati 00 Medical on Branch inhalation disk ANORO 0 Yes 1{puff} Inhale 1 Unive rs ELLIPTA 9-18 Puff ity of 62.5-25 00:00: daily. [place] mcg/actuati 00 Medical on Branch inhalation disk ANORO 0 Yes 1{puff} Inhale 1 Unive rs ELLIPTA 9-18 Puff ity of 62.5-25 00:00: daily. [place] mcg/actuati 00 Medical on Branch inhalation disk ANORO 0 Yes 1{puff} Inhale 1 Unive rs ELLIPTA 9-18 Puff ity of 62.5-25 00:00: daily. [place] mcg/actuati 00 Medical on Branch inhalation disk ANORO 0 Yes 1{puff} Inhale 1 Unive rs ELLIPTA 9-18 Puff ity of 62.5-25 00:00: daily. [place] mcg/actuati 00 Medical on Branch inhalation disk ANORO 0 Yes 1{puff} Inhale 1 Unive rs ELLIPTA 9-18 Puff ity of 62.5-25 00:00: daily. [place] mcg/actuati 00 Medical on Branch inhalation disk ANORO 0 Yes 1{puff} Inhale 1 Unive rs ELLIPTA 9-18 Puff ity of 62.5-25 00:00: daily. [place] mcg/actuati 00 Medical on Branch inhalation disk ANORO 0 Yes 1{puff} Inhale 1 Unive rs ELLIPTA 9-18 Puff ity of 62.5-25 00:00: daily. [place] mcg/actuati 00 Medical on Branch inhalation disk ANORO 0 Yes 1{puff} Inhale 1 Unive rs ELLIPTA 9-18 Puff ity of 62.5-25 00:00: daily. [place] mcg/actuati 00 Medical on Branch inhalation disk ANORO 0 Yes 1{puff} Inhale 1 Unive rs ELLIPTA 9-18 Puff ity of 62.5-25 00:00: daily. [place] mcg/actuati 00 Medical on Branch inhalation disk ANORO 0 Yes 1{puff} Inhale 1 Unive rs ELLIPTA 9-18 Puff ity of 62.5-25 00:00: daily. [place] mcg/actuati 00 Medical on Branch inhalation disk ANORO 0 Yes 1{puff} Inhale 1 Unive rs ELLIPTA 9-18 Puff ity of 62.5-25 00:00: daily. [place] mcg/actuati 00 Medical on Branch inhalation disk ANORO 2015-0 Yes 1{puff} Inhale 1 Unive rs ELLIPTA 9-18 Puff ity of 62.5-25 00:00: daily. [facility]/actuati 00 Medical on Branch inhalation disk Immunizations Ordered Filled Immunization Date Status Comments [facility] e Immunization Name Name Influenza Virus 2015-09-09 Completed Universit y of Vaccine Quad IM 3+ 00:00:00 [facility] Influenza Virus 2015-09-09 Completed Universit y of Vaccine Quad IM 3+ 00:00:00 [facility] Influenza Virus 2015-09-09 Completed Universit y of Vaccine Quad IM 3+ 00:00:00 [facility] Influenza Virus 2015-09-09 Completed Universit y of Vaccine Quad IM 3+ 00:00:00 [facility] Influenza Virus 2015-09-09 Completed Universit y of Vaccine Quad IM 3+ 00:00:00 [facility] Influenza Virus 2015-09-09 Completed Universit y of Vaccine Quad IM 3+ 00:00:00 [facility] Influenza Virus 2015-09-09 Completed Universit y of Vaccine Quad IM 3+ 00:00:00 [facility] Influenza Virus 2015-09-09 Completed Universit y of Vaccine Quad IM 3+ 00:00:00 [facility] Influenza Virus 2015-09-09 Completed Universit y of Vaccine Quad IM 3+ 00:00:00 [facility] Influenza Virus 2015-09-09 Completed Universit y of Vaccine Quad IM 3+ 00:00:00 [facility] Influenza Virus 2015-09-09 Completed Universit y of Vaccine Quad IM 3+ 00:00:00 [facility] Influenza Virus 2015-09-09 Completed Universit y of Vaccine Quad IM 3+ 00:00:00 [facility] Influenza Virus 2015-09-09 Completed Universit y of Vaccine Quad IM 3+ 00:00:00 [facility] Influenza Virus 2015-09-09 Completed Universit y of Vaccine Quad IM 3+ 00:00:00 [facility] Influenza Virus 2015-09-09 Completed Universit y of Vaccine Quad IM 3+ 00:00:00 [facility] Influenza Virus 2015-09-09 Completed Universit y of Vaccine Quad IM 3+ 00:00:00 [facility] Influenza Virus 2015-09-09 Completed Universit y of Vaccine Quad IM 3+ 00:00:00 [facility] Influenza Virus 2015-09-09 Completed Universit y of Vaccine Quad IM 3+ 00:00:00 [facility] Influenza Virus 2015-09-09 Completed Universit y of Vaccine Quad IM 3+ 00:00:00 [facility] Influenza Virus 2015-09-09 Completed Universit y of Vaccine Quad IM 3+ 00:00:00 [facility] Influenza Virus 2015-09-09 Completed Universit y of Vaccine Quad IM 3+ 00:00:00 [facility] Influenza Virus 2015-09-09 Completed Universit y of Vaccine Quad IM 3+ 00:00:00 [facility] Influenza Virus 2015-09-09 Completed Universit y of Vaccine Quad IM 3+ 00:00:00 [facility] Influenza Virus 2015-09-09 Completed Universit y of Vaccine Quad IM 3+ 00:00:00 [facility] Influenza Virus 2015-09-09 Completed Universit y of Vaccine Quad IM 3+ 00:00:00 [facility] Influenza Virus 2015-09-09 Completed Universit y of Vaccine Quad IM 3+ 00:00:00 [facility] Influenza Virus 2015-09-09 Completed Universit y of Vaccine Quad IM 3+ 00:00:00 [facility] Influenza Virus 2015-09-09 Completed Universit y of Vaccine Quad IM 3+ 00:00:00 [facility] Pneumococcal 13 2015-05-14 Completed Universit y of Conjugate, PCV13 00:00:00 [facility] dical (Prevnar 13) Branch Pneumococcal 13 2015-05-14 Completed Universit y of Conjugate, PCV13 00:00:00 [facility] dical (Prevnar 13) Branch Pneumococcal 13 2015-05-14 Completed Universit y of Conjugate, PCV13 00:00:00 [facility] dical (Prevnar 13) Branch Pneumococcal 13 2015-05-14 Completed Universit y of Conjugate, PCV13 00:00:00 [facility] dical (Prevnar 13) Branch Pneumococcal 13 2015-05-14 Completed Universit y of Conjugate, PCV13 00:00:00 [facility] dical (Prevnar 13) Branch Pneumococcal 13 2015-05-14 Completed Universit y of Conjugate, PCV13 00:00:00 [facility] dical (Prevnar 13) Branch Pneumococcal 13 2015-05-14 Completed Universit y of Conjugate, PCV13 00:00:00 [place] [facility] (Prevnar 13) Branch Pneumococcal 13 2015-05-14 Completed Universit y of Conjugate, PCV13 00:00:00 [place] [facility]ical (Prevnar 13) Branch Pneumococcal 13 2015-05-14 Completed Universit y of Conjugate, PCV13 00:00:00 [place] [facility] dical (Prevnar 13) Branch Pneumococcal 13 2015-05-14 Completed Universit y of Conjugate, PCV13 00:00:00 [place] [facility] dical (Prevnar 13) Branch Pneumococcal 13 2015-05-14 Completed Universit y of Conjugate, PCV13 00:00:00 [place] [facility] dical (Prevnar 13) Branch Pneumococcal 13 2015-05-14 Completed Universit y of Conjugate, PCV13 00:00:00 [place] [facility] dical (Prevnar 13) Branch Pneumococcal 13 2015-05-14 Completed Universit y of Conjugate, PCV13 00:00:00 [place] [facility] dical (Prevnar 13) Branch Pneumococcal 13 2015-05-14 Completed Universit y of Conjugate, PCV13 00:00:00 [place] [facility] dical (Prevnar 13) Branch Pneumococcal 13 2015-05-14 Completed Universit y of Conjugate, PCV13 00:00:00 [place] [facility] dical (Prevnar 13) Branch Pneumococcal 13 2015-05-14 Completed Universit y of Conjugate, PCV13 00:00:00 [place] [facility] dical (Prevnar 13) Branch Pneumococcal 13 2015-05-14 Completed Universit y of Conjugate, PCV13 00:00:00 [place] [facility] dical (Prevnar 13) Branch Pneumococcal 13 2015-05-14 Completed Universit y of Conjugate, PCV13 00:00:00 [place] [facility] dical (Prevnar 13) Branch Pneumococcal 13 2015-05-14 Completed Universit y of Conjugate, PCV13 00:00:00 [place] [facility] dical (Prevnar 13) Branch Pneumococcal 13 2015-05-14 Completed Universit y of Conjugate, PCV13 00:00:00 [place] [facility] dical (Prevnar 13) Branch Pneumococcal 13 2015-05-14 Completed Universit y of Conjugate, PCV13 00:00:00 [place] [facility] dical (Prevnar 13) Branch Pneumococcal 13 2015-05-14 Completed Universit y of Conjugate, PCV13 00:00:00 [place] [facility] dical (Prevnar 13) Branch Pneumococcal 13 2015-05-14 Completed Universit y of Conjugate, PCV13 00:00:00 [place] [facility] dical (Prevnar 13) Branch Pneumococcal 13 2015-05-14 Completed Universit y of Conjugate, PCV13 00:00:00 [place] [facility] dical (Prevnar 13) Branch Pneumococcal 13 2015-05-14 Completed Universit y of Conjugate, PCV13 00:00:00 [place] [facility] dical (Prevnar 13) Branch Pneumococcal 13 2015-05-14 Completed Universit y of Conjugate, PCV13 00:00:00 [place] [facility] dical (Prevnar 13) Branch Pneumococcal 13 2015-05-14 Completed Universit y of Conjugate, PCV13 00:00:00 [place] [facility] dical (Prevnar 13) Branch Pneumococcal 13 2015-05-14 Completed Universit y of Conjugate, PCV13 00:00:00 [facility] dical (Prevnar 13) Branch Vital Signs Vital Name Observation Time Observation Value Comments Source Systolic blood 2022-08-17 15:11:00 119 mm[Hg] Univer [facility] Diastolic blood 2022-08-17 15:11:00 79 mm[Hg] Unive rsity [facility] Heart rate 2022-08-17 15:11:00 74 /min Universi ty [facility] Body height 2022-08-17 15:11[facility] Body weight 2022-08-17 15:11:00 [facility] BMI 2022-08-17 15:11:00 39.38 kg/m2 [facility] Oxygen saturation in 2022-08-17 15:11:00 98 /min [facility] Arterial blood by [facility] Pulse oximetry Branch Systolic blood 2019-07-11 13:42:00 107 mm[Hg] Univer [facility] Diastolic blood 2019-07-11 13:42:00 74 mm[Hg] Unive rs[facility] Heart rate 2019-07-11 13:42:00 73 /min Universi ty [facility] Respiratory rate 2019-07-11 13:42:00 18 /min Univ ers[facility] [place] [facility] Body height 2019-07-11 13:42:00 170.2 cm Universi ty [facility] Body weight 2019-07-11 13:42:00 [facility]327 [facility] BMI 2019-07-11 13:42:00 36.02 kg/m2 Universi ty [facility] Systolic blood 2019-07-11 13:42:00 107 mm[Hg] Univer sity of pressure [place] [facility] Diastolic blood 2019-07-11 13:42:00 74 mm[Hg] Unive rsity of pressure [facility] Heart rate 2019-07-11 13:42:00 73 /min [facility] Respiratory rate 2019-07-11 13:42:00 18 /min [facility] Body height 2019-07-11 13:42:00 [facility]2 [facility] Body weight 2019-07-11 13:42:00 104.327 kg [facility] BMI 2019-07-11 13:42:00 36.02 kg/m2 [facility] Procedures Procedure Date / Time Performing Clinician Source Performed CONSENT/REFUSAL FOR 2022-12-15 18:32:50 Doctor Unassigned, No Un [facility] DIAGNOSIS AND TREATMENT [facility] Medical Branch ASSIGNMENT OF BENEFITS 2022-12-15 18:32:07 Doctor Unassigned, No [facility] SEDIMENTATION RATE 2022-08-13 15:06:00 Jean Claude [facility] PHYSICIAN ORDERS 2022-08-13 05:01:00 [facility]- 2022-07-27 05:01:00 Doctor Unassigned, No [facility] REQUEST/RESPONSE [facility] Branch PHYSICIAN ORDERS 2022-07-16 05:01:00 Doctor Unassigned, No [facility] ASSIGNMENT OF BENEFITS 2022-04-14 15:02:30 Doctor Unassigned, No [facility] Medical Branch ASSIGNMENT OF BENEFITS 2021-11-24 16:35:09 Doctor Unassigned, No [facility] Medical Branch PHYSICIAN ORDERS 2021-04-14 05:01:00 Doctor Unassigned, No [facility] [place] CBC WITH DIFF 2020-11-19 16:46:00 Jean Claude [facility] ASSIGNMENT OF BENEFITS 2020-11-19 16:27:26 Doctor Unassigned, No [facility] CBC WITH DIFFERENTIAL 2020-05-06 17:03:00 [facility] 2020-05-06 05:01:00 Doctor Unassigned, No Unive rsity [facility] BI ULTRASOUND BREAST 2019-07-24 18:02:55 [facility] [place] NOTICE OF BILLING 2019-07-18 14:44:38 [facility], [facility] Name Medical [place] PATIENTS BI SCREENING MAMMOGRAM 2019-07-18 14:23:00 [facility], [facility] ASSIGNMENT OF BENEFITS 2019-07-11 13:26:02 Doctor Unassigned, No [facility] REFERRAL- 2019-05-21 05:01:00 Doctor Unassigned, No Univer [facility] REQUEST/RESPONSE [facility] Encounters Start End Encounter Admission Attending Care Care Encounter Source Date/Time Date/Time Type Type Clinicians Facility Department ID 2022-12-20 2022-12-20 Outpatient Renato SARAVIA [facility] [id number] Univers 10:30:00 10:30:00 MEGHA billingsley [facility] 2022-12-20 2022-12-20 Outpatient Renato SARAVIA [facility] [id number] Univers 10:00:00 10:00:00 MEGHA billingsley [facility] 2022-12-15 2022-12-15 Hospital Radiology [facility] [id number] Univers 12:31:44 23:59:00 [id number] [id number] [facility] 800 Branch 2022-12-15 2022-12-15 Outpatient R RADIOLOGY [facility] [id number] Univers 12:31:44 23:59:00 ity of [place] [facility] 2022-12-15 2022-12-15 Cuff Runner Elda Montiel Lab Main [facility] 1.2.8 [id number] Univers 07:30:00 07:45:00 Visit Gus Pham [id number] [facility] [id number] [id number] [place] dical NAL [address] [place] [address] 2022-08-17 2022-08-17 Cuff Runner Lab, Francisco J - Db [facility] [id number] Univers 11:45:00 12:00:[address] [facility] [id number]. 10 [facility] [id number] Good as JLUIS?BLEA [id number] Tx dichugh RAUSCH [address] [facility] OFFICE [facility] 2022-08-17 2022-08-17 Outpatient R HUGH GABRIEL [facility] [id number] Univers 10:00:00 11:05:[address] [facility] 2022-08-17 2022-08-17 [facility] [id number] Univers 10:00:00 11:05:58 Visit [facility] [id number] ity of [place] [id number] Good as JLUIS?BLEA [id number] [facility] [facility] [address] [place] [address] 2022-08-13 2022-08-13 Cuff Runner Edla Montiel Lab Main [facility] 1.2.8 40.114 [id number] Univers 09:45:00 10:00:00 Visit VeroGus AMOS [id number] [facility] [id number] [id number] [place] dichugh [address] 2022-08-13 2022-08-13 Outpatient R VERO [facility] [id number] Univers 09:45:00 09:45:00 GUS billingsley [facility] 2022-08-13 2022-08-13 Orders Doctor LITTLE [id number] Univers 00:00:00 00:00:00 Only Unassigned, HUY [id number] ity of [place] [facility] [id number] Good as [phone] [address] 2022-07-27 2022-07-27 Orders Doctor SIDNEY Méndez2.840.114 [id number] Univers 00:00:00 00:00:00 Only Unassigned, HUY 350.1.13.10 ity of [facility] 4.2.7.2.686 Good as [phone] [address] 2022-07-16 2022-07-16 Cuff Runner Dinesh, Adc Lab Main [facility] 1.2.8 40.114 [id number] Univers 15:30:00 15:45:00 Visit Gus Pham 350.1.13.10 ity of [place] [phone] [place] dic[address] 2022-07-16 2022-07-16 Outpatient Renato [facility] [id number] Univers 15:30:00 15:30:00 GUS [facility] 2022-07-16 2022-07-16 Orders Doctor SIDNEY Méndez2.840.114 [id number] Univers 00:00:00 00:00:00 Only Unassigned, HUY 350.1.13.10 ity of [facility] 4.2.7.2.686 Good as [phone] [address] 2022-06-16 2022-06-16 Outpatient Renato [facility] [id number] Univers 09:00:00 09:00:00 GUS [facility] 2022-04-14 2022-04-14 Cuff Runner Dinesh, Adc Lab Main [facility] 1.2.8 40.114 [id number] Univers 10:45:00 11:00:00 Visit Gus Pham 350.1.13.10 ity of [place] [phone] [address] 2022-04-14 2022-04-14 Outpatient Renato [facility] [id number] Univers 10:45:00 10:45:00 GUS [facility] 2022-04-14 2022-04-14 Orders Doctor SIDNEY Méndez2.840.114 [id number] Univers 00:00:00 00:00:00 Only Unassigned, HUY 350.1.13.10 ity of [facility] 4.2.7.2.686 Good as [phone] [address] 2022-02-26 2022-02-26 Outpatient R RADIOLOGY [facility] [id number] Univers 00:00:00 00:00:00 ity of [facility] 2021-11-24 2021-11-24 Cuff Runner Dinesh, Adc Lab Main [facility] 1.2.8 40.114 [id number] Univers 10:15:00 10:30:00 Visit Gus Pham 350.1.13.10 ity of [place] [phone] [place] dicwi NAL [address] [place] [address] 2021-11-24 2021-11-24 [facility] [id number] Univers 10:15:00 10:15:00 GUS [facility] 2021-11-24 2021-11-24 Orders Doctor LITTLE 1.2.840.114 [id number] Univers 00:00:00 00:00:00 Only Unassigned, HUY 350.1.13.10 ity of [facility] 4.2.7.2.686 Good as [phone] [address] 2021-04-14 2021-04-14 Cuff Runner Dinesh, Adc Lab Main [facility] 1.2.8 40.114 [id number] Univers 11:02:08 11:17:08 Visit Gus Pham 350.1.13.10 ity of [place] [phone] [place] dical nal [address] [place] [address] 2021-04-14 2021-04-14 [facility] [id number] Univers 11:00:00 11:00:00 GUS [facility] 2021-04-14 2021-04-14 Orders Doctor SIDNEY Méndez2.840.114 [id number] Univers 00:00:00 00:00:00 Only Unassigned, HUY 350.1.13.10 ity of [facility] 4.2.7.2.686 Good as [phone] [address] 2020-11-19 2020-11-19 Outpatient R MICHEAL [facility] [id number] Univers 10:45:00 10:45:00 MINI ity of [facility] 2020-11-19 2020-11-19 Cuff Runner Dinesh, Adc Lab Main [facility] 1.2.8 40.114 [id number] Univers 10:27:31 10:42:31 Visit Mini Burton 350.1.13.10 ity of [place] [phone] [address] 2020-11-19 2020-11-19 Orders Doctor SIDNEY 1.2.840.114 [id number] Univers 00:00:00 00:00:00 Only Unassigned, HUY 350.1.13.10 ity of [facility] 4.2.7.2.686 Good as [phone] [address] 2020-05-06 2020-05-06 Cuff Runner Dinesh, Adc Lab Main [facility] 1.2.8 40.114 [id number] Univers 11:23:42 11:38:42 Visit Yoel Chino 350.1.13.10 it[place] of [place] [phone] [address] 2020-05-06 2020-05-06 Outpatient R YOEL CHINO [facility] [id number] Univers 11:30:00 11:30:00 ity of [facility] 2020-05-06 2020-05-06 Orders Doctor SIDENY 1.2.840.114 [id number] Univers 00:00:00 00:00:00 Only Unassigned, HUY 350.1.13.10 ity of [facility] 4.2.7.2.686 Good as [phone] [address] 2019-07-24 2019-07-24 Hospital Radiology [facility] 1.2.840.114 [id number] 12:31:55 23:59:00 Ray Paul 350.1.13.10 [place] 4.2.7.2.686 [place] [phone] 806 2019-07-24 2019-07-24 Hospital Radiology [place] 1.2.840.114 [id number] Univers 12:31:55 23:59:00 Encounter [place] 350.1.13.10 ity [place] [phone] [facility] [address] 2019-07-18 2019-07-18 Hospital [place]iology [place] 1.2.840.114 [id number] Univers 08:55:16 23:59:00 Encounter [place] 350.1.13.10 it[place] [phone] [facility] [address] 2019-07-18 2019-07-18 Cuff Runner 1, Adc Lab [facility] 1.2.840.114 [id number] Univers 09:46:27 10:01:27 Visit Clint Anderson 350.1.13.10 it[place] of [place] [phone] [facility] [address] 2019-07-11 2019-07-11 Office Anderson, [facility] 1.2.840.114 [id number] 08:32:04 09:36:05 Visit Clint Paul 350.1.13.10 [place] 4.2.7.2.686 Professio [phone] on license of [facility] [address] [facility] 2019-07-11 2019-07-11 Office Anderson, [facility] 1.2.840.[id number] [place] [address] 08:32:04 09:36:05 Visit Clint Paul 350.1.13.10 i [place] of [place] [phone] Me dical on license of [facility] [address] [facility] 2019-07-11 2019-07-11 Orders Doctor SIDNEY 1.2.840.114 [id number] Univers 00:00:00 00:00:00 Only Unassigned, HUY 350.1.13.10 ity of [facility] 4.2.7.2.686 Good as [phone] [facility] [address] 2019-05-21 2019-05-21 Orders Doctor LITTLE 1.2.840.114 [id number] Univers 00:00:00 00:00:00 Only Unassigned, HUY 350.1.13.10 ity of [facility] 4.2.7.2.686 Good as [phone] [address] Results Test Description Test Time Test Comments Results Result Comments Source SEDIMENTATION RATE 2022-08-13 16:52:49 Test Item Value Reference Range Interpretation Comme nts ESR (test code = 10147-1) See_Comment H [ Automated message] The system which generated this result transmitted ref erence range: 0 - 20 mm/HR. The r eference range was not used to interpret this result as nicolas l/abnormal. Lab Interpretation (test code Abnormal = 82160-4) [facility] WITH [id number] 17:07:00 Test Item Value Reference Range Interpretation Comments WBC (test code = See_Comment [Automated 6190-2) message] The sy stem which generated this result transmitted reference range : 4.30 - 11.10 10*3/?L. The reference range was not used to interpret this result as normal/abnormal . RBC (test code = See_Comment [Automated 199-8) message] The sy stem which generated this result transmitted reference range : 3.93 - 5.25 10*6/?L. The reference range was not used to interpret this result as normal/abnormal . HGB (test code = 13.0 g/dL 11.6-15 718-7) HCT (test code = 42.8 % 35.7-45.2 4544-3) MCV (test code = 97.7 fL 80.6-95.5 H 787-2) MCH (test code = 29.7 pg 25.9-32.8 785-6) MCHC (test code = 30.4 g/dL 31.6-35.1 L 786-4) RDW-SD (test code = 58.0 fL 39-49.9 H 95423-9) RDW-CV (test code = 16.2 % 12-15.5 H 788-0) PLT (test code = See_Comment [Automated 777-3) message] The sy stem which generated this result transmitted reference range : 166 - 358 10*3/ ?L. The reference r sheryl was not used to interpret this result as normal/abnormal . MPV (test code = 11.4 fL 9.5-12.9 33998-2) NRBC/100 WBC (test See_Comment [Automat ed code = 4381879220) message] The system which generated this result transmitted reference range : 0.0 - 10.0 /100 WBCs. The refer ence range was not u sed to interpret th is result as normal/abnormal . NRBC x10^3 (test code <0.01 See_Comment [Auto mated = 1874273916) message] The s ystem which generated this result transmitted reference range : 10*3/?L. The reference range was not used to interpret this result as normal/abnormal . GRAN MAT (NEUT) % 58.8 % (test code = 770-8) IMM GRAN % (test code 0.50 % = 8379862867) LYMPH % (test code = 29.5 % 736-9) MONO % (test code = 7.9 % 5905-5) EOS % (test code = 2.6 % 713-8) BASO % (test code = 0.7 % 706-2) GRAN MAT x10^3(ANC) 4.45 10*3/uL 1.88-7.09 (test code = 3881942587) IMM GRAN x10^3 (test 0.04 10*3/uL 0-0.06 code = 8756588068) LYMPH x10^3 (test code 2.23 10*3/uL 1.32-3.29 = 731-0) MONO x10^3 (test code 0.60 10*3/uL 0.33-0.92 = 742-7) EOS x10^3 (test code = 0.20 10*3/uL 0.03-0.39 711-2) BASO x10^3 (test code 0.05 10*3/uL 0.01-0.07 = 704-7) Lab Interpretation Abnormal (test code = 03085-5) [facility] WITH [id number] 17:34:00 Test Item Value Reference Range Interpretation Comments WBC (test code = See_Comment [Automated 6690-2) message] The sy stem which generated this result transmitted reference range : 4.30 - 11.10 10*3/?L. The reference range was not used to interpret this result as normal/abnormal . RBC (test code = See_Comment [Automated 789-8) message] The sy stem which generated this result transmitted reference range : 3.93 - 5.25 10*6/?L. The reference range was not used to interpret this result as normal/abnormal . HGB (test code = 13.0 g/dL 11.6-15 718-7) HCT (test code = 42.7 % 35.7-45.2 4544-3) MCV (test code = 95.5 fL 80.6-95.5 787-2) MCH (test code = 29.1 pg 25.9-32.8 785-6) MCHC (test code = 30.4 g/dL 31.6-35.1 L 786-4) RDW-SD (test code = 57.5 fL 39-49.9 H 57132-7) RDW-CV (test code = 16.5 % 12-15.5 H 788-0) PLT (test code = See_Comment [Automated 777-3) message] The sy stem which generated this result transmitted reference range : 166 - 358 10*3/ ?L. The reference r sheryl was not used to interpret this result as normal/abnormal . MPV (test code = 11.5 fL 9.5-12.9 53226-6) NRBC/100 WBC (test See_Comment [Automat ed code = 6427753933) message] The system which generated this result transmitted reference range : 0.0 - 10.0 /100 WBCs. The refer ence range was not u sed to interpret th is result as normal/abnormal . NRBC x10^3 (test code <0.01 See_Comment [Auto mated = 0804430466) message] The s ystem which generated this result transmitted reference range : 10*3/?L. The reference range was not used to interpret this result as normal/abnormal . GRAN MAT (NEUT) % 64.1 % (test code = 770-8) IMM GRAN % (test code 0.60 % = 9839055820) LYMPH % (test code = 24.9 % 736-9) MONO % (test code = 8.2 % 5905-5) EOS % (test code = 1.6 % 713-8) BASO % (test code = 0.6 % 706-2) GRAN MAT x10^3(ANC) 6.46 10*3/uL 1.88-7.09 (test code = 3945231262) IMM GRAN x10^3 (test 0.06 10*3/uL 0-0.06 code = 8097716785) LYMPH x10^3 (test code 2.51 10*3/uL 1.32-3.29 = 731-0) MONO x10^3 (test code 0.83 10*3/uL 0.33-0.92 = 742-7) EOS x10^3 (test code = 0.16 10*3/uL 0.03-0.39 711-2) BASO x10^3 (test code 0.06 10*3/uL 0.01-0.07 = 704-7) Lab Interpretation Abnormal (test code = 61251-1) [facility] ULTRASOUND BREAST LIMITED [id number] 18:11:50Examination:BI ULTRASOUND BREAST LIMITED RIGHT History:Patient is 64 year old and is seen for:?Rightbreast mass.?No relevant hormone history has been documented for this patient. No relevant surgical history has been documented for this patient. No relevant medical history has been documented for this patient. Comparisons: 07/18/2019 BI SCREENING MAMMOGRAM BILATERAL HISTORY: Right breast mass. TECHNIQUE: Upper-outer quadrant of the right breast was evaluated in radial/antiradial/sagittal/coronal planes both by the technologist and by me. Female technologist was present in the room during all imaging evaluations. FINDINGS: 9.4 x 7.5 x 5.2 mm solid lesion confirmed at approximately 8:00 5 cm lateral to the nipple with features consistent with a benign intramammary lymph node. CONCLUSIONS: Mass in the right breast seen by mammography appears to be a lymph node. Annual bilateral mammography evaluation is appropriate. ACR classification: Category II. Recommendation:Annual mammographic follow-up - Ri ght? BI-RADS Category: Right [facility] [id number] 16:02:21Examination:BI SCREENING MAMMOGRAM BILATERAL History:Patient is 64 year old and is seen for:?Screening breast examination.?No relevant hormone history has been documented for this patient. No relevant surgical history has been documented for this patient. No relevant medical history has been documented for this patient. Computer-aided detection (CAD) utilized. Comparisons : None available Findings:The breasts are almost entirely fatty. RightThere is a 10 mm equal density mass with circumscribed margins seen in the upper outer quadrant of the right breast in the middle depth, 8.2 cm from the nipple.LeftThere is a 4 mm equal density, oval mass with circumscribed margins seen in the retroareolar region of the left breast in the middle depth, 4.7 cm from the nipple. BilateralThere are round and rim calcifications seen in both breasts. Impression:Ultrasound study of RIGHT breast 1 cm. Mass. Recommendation:Ultrasound - RightAnnual mammographic follow- up - LeftAnnual mammographic follow-up - Bilateral BI-RADS Category: Left: 2 - BenignRight: 0 - Incomplete: Needs Additional Imaging EvaluationOverall: 0 - Incomplete: Needs Additional [facility]
--- NOTE | 2023-03-27 11:01 | RAD REPORT ---
EXAM DESCRIPTION: RAD - Chest Single View - 03/27/2023 10:11 am CLINICAL HISTORY: Hemoptysis;Congestion;Cough Chest pain. COMPARISON: No comparisons FINDINGS: Portable technique limits examination quality. Mild interstitial pulmonary edema. The heart is enlarged with a tortuous thoracic aorta. No displaced fractures. IMPRESSION: Mild CHF.
[2023-03-27 11:04] LABS: Hematocrit 41.8 % (36.0-45.0); Lymphocytes % 22.1 % (15.3-44.8); MCV 95.8 fL (80-100); MPV 9.7 fL (7.6-11.3); RBC Red Blood Cell Count 4.37 M/uL (3.86-4.86)
[2023-03-27 11:05] LABS: Protime INR 1.22
[2023-03-27 11:21] LABS: ALT/SGPT 17 U/L (13-56); AST/SGOT 15 U/L (15-37); Albumin 3.2 g/dL (3.4-5.0); Alkaline Phosphatase 75 U/L (45-117); BUN Blood Urea Nitrogen 25 mg/dL (7-18); Bicarbonate 30 mEq/L (21-32); Bilirubin Total 0.3 mg/dL (0.2-1.0); Glomerular Filtration Rate 52 ml/min (=/>90); Glucose Level 102 mg/dL (74-106); NT PRO-BNP 64 pg/mL (<125); Potassium 3.6 mEq/L (3.5-5.1); Protein, Total 7.9 g/dL (6.4-8.2); Sodium Level 139 mEq/L (136-145); Troponin High Sensitivity 6.5 pg/mL (<58.9)
--- NOTE | 2023-03-27 11:37 | RAD REPORT ---
EXAM DESCRIPTION: RAD - Shoulder Right 2 View - 03/27/2023 11:24 am CLINICAL HISTORY: PAIN COMPARISON: No comparisons FINDINGS: Mild osteoarthritis of the right shoulder seen. No evidence of acute fracture or dislocati on.
--- NOTE | 2023-03-27 11:38 | RAD REPORT ---
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 There is evidence of a sm all to moderate elbow joint effusion. No acute fracture is seen.
[2023-03-27 11:52] LABS: Bilirubin Direct < 0.1 mg/dL (0-0.2); Bilirubin Indirect, Calculated ND (0.2-0.8)
--- NOTE | 2023-03-27 13:03 | ER ---
Nurse's Notes [facility] Name: Jia Gaines Age: 67 yrs Sex: Female : 1955 Arrival Date: 03/27/2023 Time: 09:22 Bed 7 Private MD: Diagnosis: Hemoptysis;COPD/ Chronic obstructive pulmonary disease, unspecified;Heart failure, unspecified;Chronic right upper extremity swelling (many years) unchanged;Other specified arthritis, right shoulder;Monoarthritis, not elsewhere classified, right elbow Presentation: 03/27 09:25 Chief complaint: EMS states: toned out to patient home for "Coughing up blood since ld1 this morning.". Coronavirus screen: At this time, the client does not indicate any symptoms associated with coronavirus-19. Ebola Screen: No symptoms or risks identified at this time. Initial Sepsis Screen: Does the patient meet any 2 criteria? No. Patient's initial sepsis screen is negative. Does the patient have a suspected source of infection? No. Patient's initial sepsis screen is negative. Risk Assessment: Do you want to hurt yourself or someone else? Patient reports no desire to harm self or others. Onset of symptoms was March 27, 2023. 09:25 Method Of Arrival: EMS: [facility] ld1 09:25 Acuity: BRIDGET 3 ld1 Triage Assessment: 09:26 General: Appears in no apparent distress. comfortable, Behavior is calm, cooperative, ld1 appropriate for age. Pain: Denies pain. EENT: No signs and/or symptoms were reported regarding the EENT system. Neuro: Level of Consciousness is awake, alert, obeys commands, Oriented to person, place, time, situation. Cardiovascular: Capillary refill < 3 seconds Patient's skin is warm and dry. Respiratory: Airway is patent Respiratory effort is even, unlabored. GI: Abdomen is round non-distended. : No signs and/or symptoms were reported regarding the genitourinary system. Derm: No signs and/or symptoms reported regarding the dermatologic system. Musculoskeletal: No signs and/or symptoms reported regarding the musculoskeletal system. Historical: - Allergies: 09: No Known Allergies; ld1 - Home Meds: : Albuterol Inhl [Active]; allopurinol 300 mg Oral tablet daily [Active]; aspirin 81 mg ld1 Oral capsule once [Active]; B-D Slip Tip Syringe 20 mL miscellaneous Syringe [Active]; atenolol 50 mg Oral tablet 2 times per day [Active]; Breo Ellipta 100-25 mcg/dose inhalation Blister, With Inhalation Device once [Active]; clopidogrel 75 mg oral tablet daily [Active]; ezetimibe 10 mg oral tablet once [Active]; Farxiga 10 mg oral tablet daily [Active]; folic acid 1 mg oral tablet [Active]; furosemide 80 mg Oral tablet 2 times per day [Active]; gabapentin 100 mg oral capsule once [Active]; hydrocodone-acetaminophen 7.5-325 mg/15 mL Oral solution 3 times per day [Active]; Levemir U-100 Insulin 100 unit/mL subcutaneous solution 20 units once [Active]; levothyroxine 25 mcg tablet once [Active]; Lumigan 0.01 % ophthalmic (eye) drops once [Active]; metformin 1,000 mg Oral Tablet, ER Gastric Retention 24 hr 2 times per day [Active]; sertraline 100 mg oral tablet daily [Active]; simvastatin 40 mg/5 mL (8 mg/mL) Oral suspension once [Active]; spironolactone 25 mg Oral tablet every 12 hours [Active]; Januvia 50 mg oral tablet once [Active]; - PMHx: 09:26 Hypertensive disorder; Diabetes mellitus; Congestive heart failure; Gout; ld1 Hypercholesterolemia; neuropathy; Hypothyroidism; - PSHx: 09:26 Total abdominal hysterectomy; ld1 - Immunization history:: Adult Immunizations up to date, Client reports receiving the 2nd dose of the Covid vaccine. - Social history:: Smoking status: Patient denies any tobacco usage or history of. Patient/guardian denies using alcohol. Screenin:34 [facility] ED Fall Risk Assessment (Adult) History of falling in the last 3 months, ld1 including since admission No falls in past 3 months (0 pts). Abuse screen: Denies threats or abuse. Denies injuries from another. Nutritional screening: No deficits noted. Tuberculosis screening: No symptoms or risk factors identified. Assessment: 09:34 Reassessment: See triage assessment. ld1 10:54 Reassessment: Pt notified of wait time for lab results. . Neuro: Level of Consciousness aa5 is awake, alert, obeys commands, Oriented to person, place, time, situation. Respiratory: Airway is patent Respiratory effort is even, unlabored, Respiratory pattern is regular, symmetrical. Derm: Skin is dry, Skin is normal, Skin temperature is warm. 10:56 Reassessment: Patient appears in no apparent distress at this time. Patient and/or ld1 family updated on plan of care and expected duration. Pain level reassessed. Patient is alert, oriented x 3, equal unlabored respirations, skin warm/dry/pink. 13:18 Reassessment: Patient appears in no apparent distress at this time. Patient and/or ld1 family updated on plan of care and expected duration. Pain level reassessed. Patient is alert, oriented x 3, equal unlabored respirations, skin warm/dry/pink. Vital Signs: 09:25 BP 120 / 78; Pulse 67; Resp 18; Temp 98.2(O); Pulse Ox 100% on R/A; Weight 106.59 kg; ld1 Height 5 ft. 6 in. ; Pain 0/10; 10:56 BP 110 / 50; Pulse 61; Resp 18; Pulse Ox 100% on R/A; ld1 13:00 Pulse 62; Resp 18; Pulse Ox 100% ; eh3 13:18 BP 117 / 59; Pulse 64; Resp 18; Pulse Ox 100% on R/A; ld1 09:25 Body Mass Index 37.93 (106.59 kg, 167.64 cm) ld1 09:25 Pain Scale: Adult ld1 ED Course: 09:25 Patient arrived in ED. ld1 09:25 Ramana Tafoya MD is Attending Physician. kdr 09:26 Triage completed. ld1 09:26 Arm band placed on right wrist. ld1 09:34 Patient has correct armband on for positive identification. Placed in gown. Bed in low ld1 position. Call light in reach. Side rails up X2. lmft on. Pulse ox on. NIBP on. Door closed. Noise minimized. Warm blanket given. 09:55 Kathy Paul RN is Primary Nurse. ld1 10:12 XRAY Chest (1 view) In Process Unspecified. EDMS 10:50 Missed attempt(s): 22 gauge in right antecubital area. Bleeding controlled, band aid aa5 applied, catheter tip intact. 10:54 Initial lab(s) drawn, by me, sent to lab. Inserted saline lock: 22 gauge in left aa5 antecubital area, using aseptic technique. Blood collected. 10:56 No provider procedures requiring assistance completed. Missed attempt(s): 22 gauge in ld1 right antecubital area. 11:26 Shoulder Right (2 View) XRAY In Process Unspecified. EDMS 11:26 Elbow Right 3 View XRAY In Process Unspecified. EDMS 13:19 IV discontinued, intact, bleeding controlled, No redness/swelling at site. ld1 Administered Medications: No medications were administered Medication: 13:19 VIS not applicable for this client. ld1 Outcome: 13:02 Discharge ordered by . kdr 13:18 Discharged to home ambulatory, with family. ld1 13:18 Condition: stable 13:18 Discharge instructions given to patient, family, Instructed on discharge instructions, follow up and referral plans. medication usage, Demonstrated understanding of instructions, follow-up care, medications, Prescriptions given X 1. 13:19 Patient left the ED. ld1 Signatures: Dispatcher [employer] EDMS Ramana Tafoya MD MD [facility] Elsy Saucedo, RN RN aa5 Kathy Paul RN RN ld1 Sarah Gaitan, RN RN eh3
--- NOTE | 2023-03-27 13:03 | EDPHYS ---
Physician Documentation [facility] Name: Jia Gaines Age: 67 yrs Sex: Female : 1955 Arrival Date: 03/27/2023 Time: 09: Bed 7 Private MD: ED Physician Ramana Tafoya HPI: 03/27 10:31 This 67 yrs old Female presents to ER via EMS with complaints of Coughing up blood. kdr 10:31 Patient states that she coughed up blood this morning 1 time. She is vague about the kdr density or severity of the blood. Patient states this is happened before but many months ago. She currently has no other specific complaint. She does have chronic swelling in her right upper extremity which is unchanged at this point. She also complains of not being able to bring her right arm above her head due to pain in the elbow primarily but also the shoulder. She otherwise has no focal complaints. She does have a lot of chronic aches and pains secondary to her diabetes. She denies fever, chills or any other systemic symptoms. 10:31 Onset: The symptoms/episode began/occurred suddenly, today. Severity of symptoms: At kdr their worst the symptoms were very mild in the emergency department the symptoms have resolved. The patient has experienced similar episodes in the past, a few times. The patient has not recently seen a physician. Historical: - Allergies: 09: No Known Allergies; ld1 - Home Meds: : Albuterol Inhl [Active]; allopurinol 300 mg Oral tablet daily [Active]; aspirin 81 mg ld1 Oral capsule once [Active]; B-D Slip Tip Syringe 20 mL miscellaneous Syringe [Active]; atenolol 50 mg Oral tablet 2 times per day [Active]; Breo Ellipta 100-25 mcg/dose inhalation Blister, With Inhalation Device once [Active]; clopidogrel 75 mg oral tablet daily [Active]; ezetimibe 10 mg oral tablet once [Active]; Farxiga 10 mg oral tablet daily [Active]; folic acid 1 mg oral tablet [Active]; furosemide 80 mg Oral tablet 2 times per day [Active]; gabapentin 100 mg oral capsule once [Active]; hydrocodone-acetaminophen 7.5-325 mg/15 mL Oral solution 3 times per day [Active]; Levemir U-100 Insulin 100 unit/mL subcutaneous solution 20 units once [Active]; levothyroxine 25 mcg tablet once [Active]; Lumigan 0.01 % ophthalmic (eye) drops once [Active]; metformin 1,000 mg Oral Tablet, ER Gastric Retention 24 hr 2 times per day [Active]; sertraline 100 mg oral tablet daily [Active]; simvastatin 40 mg/5 mL (8 mg/mL) Oral suspension once [Active]; spironolactone 25 mg Oral tablet every 12 hours [Active]; Januvia 50 mg oral tablet once [Active]; - PMHx: 09:26 Hypertensive disorder; Diabetes mellitus; Congestive heart failure; Gout; ld1 Hypercholesterolemia; neuropathy; Hypothyroidism; - PSHx: 09: Total abdominal hysterectomy; ld1 - Immunization history:: Adult Immunizations up to date, Client reports receiving the 2nd dose of the Covid vaccine. - Social history:: Smoking status: Patient denies any tobacco usage or history of. Patient/guardian denies using alcohol. ROS: 10:31 Constitutional: Negative for fever, chills, and weight loss, Eyes: Negative for injury, kdr pain, redness, and discharge, ENT: Negative for injury, pain, and discharge, Neck: Negative for injury, pain, and swelling, Cardiovascular: Negative for chest pain, palpitations, and edema, Abdomen/GI: Negative for abdominal pain, nausea, vomiting, diarrhea, and constipation, Back: Negative for injury and pain, : Negative for injury, bleeding, discharge, and swelling, MS/Extremity: Negative for injury and deformity, Skin: Negative for injury, rash, and discoloration, Psych: Negative for depression, anxiety, suicide ideation, homicidal ideation, and hallucinations, Allergy/Immunology: Negative for hives, rash, and allergies, Endocrine: Negative for neck swelling, polydipsia, polyuria, polyphagia, and marked weight changes, Hematologic/Lymphatic: Negative for swollen nodes, abnormal bleeding, and unusual bruising. 10:31 Respiratory: Positive for hemoptysis, Negative for cough, dyspnea on exertion, hemoptysis, shortness of breath, sputum production, wheezing. 10:31 MS/extremity: Positive for Patient has chronic swelling of her right upper extremity which is unchanged per the patient. 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 Exam: 10:31 Constitutional: This is a well developed, well nourished patient who is awake, alert, kdr and in no acute distress. Head/Face: Normocephalic, atraumatic. Eyes: Pupils equal round and reactive to light, extra-ocular motions intact. Lids and lashes normal. Conjunctiva and sclera are non-icteric and not injected. Cornea within normal limits. Periorbital areas with no swelling, redness, or edema. Neck: Trachea midline, no thyromegaly or masses palpated, and no cervical lymphadenopathy. Supple, full range of motion without nuchal rigidity, or vertebral point tenderness. No Meningismus. Chest/axilla: Normal chest wall appearance and motion. Nontender with no deformity. No lesions are appreciated. Cardiovascular: Regular rate and rhythm with a normal S1 and S2. No gallops, murmurs, or rubs. Normal PMI, no JVD. No pulse deficits. Respiratory: Lungs have equal breath sounds bilaterally, clear to auscultation and percussion. No rales, rhonchi or wheezes noted. No increased work of breathing, no retractions or nasal flaring. Abdomen/GI: Soft, non-tender, with normal bowel sounds. No distension or tympany. No guarding or rebound. No evidence of tenderness throughout. Back: No spinal tenderness. No costovertebral tenderness. Full range of motion. Skin: Warm, dry with normal turgor. Normal color with no rashes, no lesions, and no evidence of cellulitis. MS/ Extremity: Pulses equal, no cyanosis. Neurovascular intact. Full, normal range of motion. Neuro: Awake and alert, GCS 15, oriented to person, place, time, and situation. Cranial nerves II-XII grossly intact. Motor strength 5/5 in all extremities. Sensory grossly intact. Cerebellar exam normal. Normal gait. Psych: Awake, alert, with orientation to person, place and time. Behavior, mood, and affect are within normal limits. 10:31 Musculoskeletal/extremity: Chronically swollen right upper extremity. 17:19 ECG was reviewed by the Attending Physician. kdr Vital Signs: 09:25 BP 120 / 78; Pulse 67; Resp 18; Temp 98.2(O); Pulse Ox 100% on R/A; Weight 106.59 kg; ld1 Height 5 ft. 6 in. ; Pain 0/10; 10:56 BP 110 / 50; Pulse 61; Resp 18; Pulse Ox 100% on R/A; ld1 13:00 Pulse 62; Resp 18; Pulse Ox 100% ; eh3 13:18 BP 117 / 59; Pulse 64; Resp 18; Pulse Ox 100% on R/A; ld1 09:25 Body Mass Index 37.93 (106.59 kg, 167.64 cm) ld1 09:25 Pain Scale: Adult ld1 MDM: 13:02 Patient medically screened. [facility] 17:20 Data reviewed: vital signs, nurses notes, lab test result(s), radiologic studies. [facility] 03/27 09:54 Order name: Basic Metabolic Panel; Complete Time: 12:46 kdr 03/27 09:54 Order name: CBC with Diff; Complete Time: 11:50 [facility] 03/27 09:54 Order name: LFT's; Complete Time: 12:46 kdr 03/27 09:54 Order name: NT PRO-BNP; Complete Time: 12:46 [facility] 03/27 09:54 Order name: PT-INR; Complete Time: 11:50 kdr 03/27 09:54 Order name: Troponin HS; Complete Time: 12:46 kdr 03/27 09:55 Order name: Type And Screen; Complete Time: 12:46 kdr 03/27 09:54 Order name: XRAY Chest (1 view); Complete Time: 11:50 kdr 03/27 10:11 Order name: Shoulder Right (2 View) XRAY; Complete Time: 11:50 kdr 03/27 10:11 Order name: Elbow Right 3 View XRAY; Complete Time: 11:50 kdr 03/27 09:54 Order name: EKG; Complete Time: 09:55 kdr 03/27 09:54 Order name: Cardiac monitoring; Complete Time: 10:06 kdr 03/27 09:54 Order name: EKG - Nurse/Tech; Complete Time: 10:06 kdr 03/27 09:54 Order name: IV Saline Lock; Complete Time: 10:55 kdr 03/27 09:54 Order name: Labs collected and sent; Complete Time: 10:55 kdr 03/27 09:54 Order name: O2 Per Protocol; Complete Time: 09:55 kdr 03/27 09:54 Order name: O2 Sat Monitoring; Complete Time: 09:55 [facility] EC:19 Rate is 61 beats/min. Rhythm is regular, Sinus Rhythm with No ectopy. QRS [place] is kdr Normal. VA interval is normal. QRS interval is normal. QT interval is normal. Clinical impression: NSR w/ Non-specific ST/T Changes. Administered Medications: No medications were administered Disposition Summary: 03/27/23 13:02 Discharge Ordered Location: Home kdr Problem: new kdr Symptoms: have improved kdr Condition: Stable kdr Diagnosis - Hemoptysis kdr - COPD/ Chronic obstructive pulmonary disease, unspecified kdr - Heart failure, unspecified kdr - Chronic right upper extremity swelling (many years) unchanged kdr - Other specified arthritis, right shoulder kdr - Monoarthritis, not elsewhere classified, right elbow kdr Followup: kdr - With: Private Physician - When: 2 - 3 days - Reason: If symptoms return, Further diagnostic work-up, Recheck today's complaints, Continuance of care, Re-evaluation by your physician Discharge Instructions: - Discharge Summary Sheet kdr - Arthritis kdr - Heart Failure, Diagnosis kdr - Hemoptysis kdr Forms: - Medication Reconciliation Form kdr - Thank You Letter kdr Prescriptions: - Zithromax Z-Prasad 250 mg Oral Tablet - take 1 tablet by ORAL route once daily for 3 days; 3 tablet; Refills: 0, kdr Product Selection Permitted Signatures: Dispatcher [employer] Ramana Guido MD MD kdr Kathy Paul RN RN ld1
[2023-03-27 13:39] VITALS: TEMP 98.2; O2SAT 100
[2023-03-27 13:47] VITALS: BP 117/59
--- NOTE | 2023-03-27 14:43 | EKG ---
Test Date: 2023-03-27 Test Time: 10:02:24 Equipment Installation Professional: Gardenia SCHULZ MEASUREMENT RESULTS: Intervals: Rate: 61 CA: 148 QRSD: 86 QT: 420 QTc: 422 [place]: P: 14 CA: 148 QRS: -30 T: -24 INTERPRETIVE STATEMENTS: Normal sinus rhythm Left axis deviation Low voltage QRS Inferior infarct, age undetermined Abnormal ECG No previous ECG available for comparison Electronically Signed On 03-27-23 14:42:44 CDT by Robin Abarca
== END 2023-03-27 13:19 | disposition home or self-care (01) ==
LOC: ER 09:22
DX: J44.9 Chronic obstructive pulmonary disease, unspecified (principal); I50.9 Heart failure, unspecified; M13.811 Other specified arthritis, right shoulder; M13.121 Monoarthritis, not elsewhere classified, right elbow; M79.89 Other specified soft tissue disorders; E11.9 Type 2 diabetes mellitus without complications; Z79.4 Long term (current) use of insulin; I10 Essential (primary) hypertension
CPT/HCPCS: 36415; 71045; 80048; 80076; 83880; 84484; 85025; 85610; 86850; 86900; 86901; 93005; 99284

== ENCOUNTER 2023-09-30 11:53 | Day surgery (SDC) | payer OTHER ==
[2023-09-19 09:52] LABS: Absolute Lymphocytes (CBC) 1.6 K/uL (0.7-4.9); Hematocrit 41.5 % (36.0-45.0); Lymphocytes % 21.4 % (15.3-44.8); MCV 95.5 fL (80-100); MPV 9.4 fL (7.6-11.3); Platelets 224 thou/uL (152-406); RBC Red Blood Cell Count 4.35 M/uL (3.86-4.86)
[2023-09-19 09:56] LABS: Protime INR 1.16
[2023-09-19 10:08] LABS: Potassium 3.5 mEq/L (3.5-5.1)
[2023-09-30] MEDS ORDERED: NA CHLORIDE 0.9% 500 ML ONE (13:35)
[2023-09-30] MEDS ORDERED: HEPA 1000U/500MLS 2,000 UNIT/1,000 ML BAG IV ONE (14:16)
[2023-09-30] MEDS ORDERED: VERAPAMIL HCL 10 MG/4 ML VIAL IV ONE (14:16)
[2023-09-30] MEDS ORDERED: MIDAZOLAM HCL 2 MG/2 ML INJ ONE (14:16)
[2023-09-30] MEDS ORDERED: FENTANYL CITR 100 MCG/2 ML ONE (14:16)
[2023-09-30] MEDS ORDERED: LIDOCAINE 1% 20 ML MDV ONE (14:16)
[2023-09-30] MEDS ORDERED: HEPARIN 5000 UNIT/ML 1 ML VIAL ONE (14:16)
[2023-09-30 14:20] VITALS: TEMP 98
[2023-09-30 18:00] VITALS: O2SAT 95
[2023-09-30 18:10] VITALS: BP 111/72
--- NOTE | 2023-09-30 19:58 | OP ---
Date of Procedure: 09/30/2023 Surgeon: ANGIE LYLES Procedure Performed: 1.Selective coronary angiogram. 2.Left heart catheterization. Indication: Chest pain. Abnormal stress test. Access: Right radial artery 6-British, closed with TR band. Complications: None. Bleeding: Less than 20 mL. Description Of Procedure: After risks, benefits, alternatives were explained, patient agreed to proc edure and signed informed consent. Patient was brought into cardiac catheterization laboratory, prep ped and draped in the usual sterile fashion. Then, I accessed right radial artery using pediatric mi cropuncture kit, placed 6-British Slender sheath and took a 5-British [place] 4.0 catheter into the aorti c root, engaged the left main and the right coronary artery intact and then catheter was pushed over the wire into the LV, measured the LVEDP pullback, did not record any gradient. Then, removed the ca theter and sheath and placed TR band with good hemostasis. Findings: 1.Left main; large, normal. 2.LAD, large and normal. Normal diagonal branches. 3.Left circumflex, normal, moderate-size. 4.RCA, large and dominant and normal. 5.Elevated LVEDP between 20 and 25 mmHg. Conclusion: 1.Normal coronary arteries. 2.Elevated LVEDP, likely due to diastolic dysfunction. Recommendation: Medical management. /DANOL Voice ID: [id number] Report ID: [id number]
== END 2023-09-30 16:45 | disposition home or self-care (01) ==
LOC: CCL 11:53
PROVIDERS: ATTEND Internal Medicine
DX: R94.39 Abnormal result of other cardiovascular function study (principal); R07.9 Chest pain, unspecified; I10 Essential (primary) hypertension; I51.7 Cardiomegaly; I73.9 Peripheral vascular disease, unspecified; I65.29 Occlusion and stenosis of unspecified carotid artery; E11.9 Type 2 diabetes mellitus without complications; E78.5 Hyperlipidemia, unspecified; Z79.82 Long term (current) use of aspirin; Z79.84 Long term (current) use of oral hypoglycemic drugs; Z79.899 Other long term (current) drug therapy
CPT/HCPCS: 85025; 80048; 36415; 83721; 85610; 82947; 85730; 93458; 76937; C1893; Q9966; J1644; J2001; J2250; J3010; J7040

== ENCOUNTER 2024-07-02 21:21 | Inpatient (IN) | payer OTHER ==
[2024-07-02 21:50] LABS: Absolute Basophils 0.1 K/uL (0-0.5); Absolute Lymphocytes (CBC) 1.2 K/uL (0.7-4.9); Absolute Monocytes 1.2 K/uL (0.1-1.3); Absolute Neutrophil 21.4 K/uL (1.8-8.0); Basophils % 0.2 % (0-1.3); Hemoglobin 13.2 g/dL (12.0-15.0); Lymphocytes % 5.1 % (15.3-44.8); MCH 29.9 pg (27.0-35.0); MCHC 31.4 g/dL (32.0-36.0); MCV 95.3 fL (80-100); MPV 10.4 fL (7.6-11.3); Neutrophils % 89.7 % (41.7-73.7); Nucleated Red Blood Cells % 0.1 % (0-0); Platelets 199 thou/uL (152-406); RBC Red Blood Cell Count 4.41 M/uL (3.86-4.86)
[2024-07-02] MEDS ORDERED: NA CHLORIDE 0.9% 100 ML ONE (21:53)
[2024-07-02] MEDS ORDERED: LABETALOL 20 MG/4ML SYRINGE IV ONE (21:53)
[2024-07-02] MEDS ORDERED: CEFEPIME 2 GM VIAL ONE (21:53)
[2024-07-02 22:01] LABS: PT Prothrombin Time 17.4 SECONDS (9.4-12.5); PTT, Activated Partial Thromb 30.1 SECONDS (24.3-36.9); Protime INR 1.57
[2024-07-02 22:14] LABS: Albumin 2.9 g/dL (3.4-5.0); Albumin/Globulin Ratio 0.7 (1.1-1.8); Anion Gap 12.4 mEq/L (5.0-15.0); Bilirubin Total 0.9 mg/dL (0.2-1.0); Globulin 4.2 g/dL (2.3-3.5); Protein, Total 7.1 g/dL (6.4-8.2); Troponin High Sensitivity 22.6 pg/mL (<58.9)
[2024-07-02 22:15] LABS: Potassium 4.4 mEq/L (3.5-5.1)
[2024-07-02 22:16] LABS: Specific Gravity 1.018 (1.005-1.030); Sqamous Epithelial <5 /HPF (None Seen); Urine Bacteria None Seen /HPF (<20); Urine Bilirubin NEGATIVE (Negative); Urine Blood Negative (Negative); Urine Clarity Clear (Clear); Urine Color Yellow (Yellow); Urine Culture Reflex Order NOT NEEDED; Urine Glucose 4+ (Over) (Negative); Urine Ketones NEGATIVE (Negative); Urine Microscopic Reflex YN ORDER UMIC; Urine Mucus Slight /HPF (None Seen); Urine Nitrite NEGATIVE (Negative); Urine Protein NEGATIVE (Negative); Urine RBC None Seen /HPF (None Seen); Urine Urobilinogen Normal (Normal); Urine WBC <5 /HPF (<5); Urine pH 5.5 (5.0-7.0)
[2024-07-02] MEDS ORDERED: NA CHLORIDE 0.9% 500 ML ONE (22:16)
[2024-07-02] MEDS ORDERED: ALBUMIN HUMAN 25% 100 ML IV ONE (22:17)
[2024-07-02 23:00] LABS: SARS-CoV-2 Antigen CONTROL BLUE LINE VIS/BG OK; SARS-CoV-2 Antigen Rapid Res Negative (Negative)
[2024-07-02 23:20] LABS: Band Neutrophils 30 % (0-1); Differential Total Cells Count 100; Lymphocytes 8 % (15-42); Metamyelocytes 6 % (0-0); Monocytes 2 % (0-10); Segmented Neutrophils 54 % (40-80)
[2024-07-02 23:21] LABS: Blood Morphology Comment NOT SEEN (NOT SEEN); Platelet Estimate ADEQ
[2024-07-03] MEDS ORDERED: ONDANSETRON 4 MG/2 ML VIAL IV PRN (00:09)
--- NOTE | 2024-07-03 00:10 | P.HP ---
Certification for Inpatient Patient admitted to: Inpatient With expected LOS: >2 Midnights Practitioner: I am a practitioner with admitting privileges, knowledge of patient current condition, hospital course, and medical plan of care. Services: Services provided to patient in accordance with Admission requirements found in Title 42 Section 412.3 of the Code of Federal Regulations Patient History Date of Service: 07/03/24 Reason for admission: Sepsis , Pneumonia History of Present Illness: 69 yrs old Female with past medical history of hypertension, diabetes, CHF, gout, hyperlipidemia, neuropathy, hypothyroidism, CAD, COPD, depression, was brought to ER with back pain which has been worsening over the last week. Patient denies any fall or injury. Patient had worsening of the back pain and could not be able to ambulate and was brought to ER . She also complains of difficulty in breathing associated with generalized weakness and cough with productive mucoid expectoration . Denies any fever or chills but temperature noted to be 100.2. Complains of generalized body pain. No sick contacts. Denies any vomiting but associated with nausea. Denies any chest pain. Patient was assessed in the ER and was found to be having pneumonia and was admitted for further management. . Allergies No Known Allergies Allergy (Verified 07/03/24 04:09) Home medications list reviewed: Yes - Past Medical/Surgical History Past Medical History: Reviewed- Non-Contributory -: hypertension, diabetes, CHF, gout, hyperlipidemia ,CAD Past Surgical History: Reviewed- Non-Contributory - Family History Family History: Reviewed- Non-Contributory - Social History Smoking Status: Former smoker Review of Systems 10-point ROS is otherwise unremarkable Physical Examination - Vital Signs Temperature: 98.5 F Blood Pressure: 163/120 Pulse: 110 Respirations: 20 Pulse Ox (%): 94 - Physical Exam General: Alert, Oriented x3, Mild distress, Obese HEENT: Atraumatic, Normocephalic Neck: Supple, No Thyromegaly Respiratory: Diminished, Crackles/rales, Expiratory wheezes Cardiovascular: Regular rate/rhythm, Normal S1 S2 Capillary refill: <2 Seconds Gastrointestinal: Soft and benign, Non-distended, W/out hepatosplenomegaly Musculoskeletal: No clubbing, No swelling Integumentary: No rashes, No breakdown Neurological: Normal speech, Normal strength at 5/5 x4 extr, Cranial nerves 3-12 intact Lymphatics: No axilla or inguinal lymphadenopathy - Studies Laboratory Data (last 24 hrs) 07/02/24 07/02/24 07/02/24 21:25 21:25 21:25 WBC 23.90 H Hgb 13.2 Hct 42.0 Plt Count 199 PT 17.4 H INR 1.57 APTT 30.1 Sodium 137 Potassium 4.4 BUN 31 H Creatinine 1.96 H Glucose 147 H Total Bilirubin 0.9 AST 30 ALT 18 Alkaline Phosphatase 60 Microbiology Data (last 24 hrs): 07/02/24 21:58 Nasopharnyx Influenza Type A Antigen Screen - Final 07/02/24 21:58 Nasopharnyx Influenza Type B Antigen Screen - Final Assessment and Plan - Plan Sepsis due to pneumonia Leukocytosis noted Will obtain cultures IV hydration In moderation because of CHF Lactic acidosis noted Started on IV antibiotics Monitor closely Antitussives Acute kidney injury Monitor renal parameters Electrolytes monitor and replace accordingly Elevated BNP Patient has history of CHF Will obtain echocardiogram Hypertension Antihypertensives titrated Continue home medications and titrate as needed Hyperlipidemia Continue statin GI/DVT prophylaxis Advanced directive full code Discharge Plan: Home Plan to discharge in: 48 Hours - Advance Directives Does patient have a Living Will: No Does patient have a Durable POA for Healthcare: No - Code Status/Comfort Care Code Status: Full Code Time Spent Managing Pts Care (In Minutes): 48
--- NOTE | 2024-07-03 00:19 | EDPHYS ---
Physician Documentation [facility] Name: Jia Gaines Age: 69 yrs Sex: Female : 1955 Arrival Date: 07/02/2024 Time: 21:21 Bed 4 Private MD: ED Physician Vipin Graves HPI: 07/02 21:39 This 69 yrs old Unknown Female presents to ER via EMS with complaints of Back pain. rt 21:39 Patient presents to the ED with low back pain for about a week. Patient denies injury. rt Patient states that the pain worsened today, not allowing her to get up. She has not taken any of her medicines today. Reports difficulty breathing as well as productive cough. She was noted to be hypoxic to the mid 80s by EMS, was given DuoNebs prior to arrival with modest improvement. Was noted to have a temperature of 100.2. Denies other acute complaints at this time, symptoms are moderate in severity, no other aggravating or alleviating factors.. Historical: - Allergies: 21:35 No Known Allergies; vc1 - Home Meds: 22:34 atenolol 50 mg Oral tablet 2 times per day [Active]; aspirin 81 mg Oral capsule once vc1 [Active]; spironolactone 25 mg Oral tablet once [Active]; metformin 1 Oral Tablet 2 times per day [Active]; ezetimibe 10 mg Oral tablet once [Active]; sertraline 100 mg Oral tablet daily [Active]; gabapentin 300 mg oral capsule every 8 hours [Active]; Januvia 100 mg oral tablet daily [Active]; furosemide 80 mg Oral tablet 2 times per day [Active]; folic acid 1 mg Oral tablet [Active]; clopidogrel 75 mg Oral tablet daily [Active]; Vitamin D Oral 50,000 unit weekly [Active]; allopurinol 300 mg Oral tablet daily [Active]; nitroglycerin 0.4 mg sublingual Tablet, Sublingual 1 tab prn [Active]; - PMHx: 21:35 Congestive heart failure; diabetes mellitus; Gout; Hypercholesterolemia; Hypertensive vc1 disorder; Hypothyroidism; neuropathy; - PSHx: 21:35 Total abdominal hysterectomy; vc1 - Immunization history:: Adult Immunizations unknown. - Infectious Disease History:: Denies. - Social history:: Smoking status: Patient denies any tobacco usage or history of. - Family history:: not pertinent. ROS: 21:39 Cardiovascular: Negative for chest pain, palpitations, and edema, Abdomen/GI: Negative rt for abdominal pain, nausea, vomiting, diarrhea, and constipation, MS/Extremity: Negative for injury and deformity, Skin: Negative for injury, rash, and discoloration, Neuro: Negative for headache, weakness, numbness, tingling, and seizure, 21:39 Constitutional: Positive for chills, fever, 21:39 Respiratory: Positive for cough, shortness of breath, 21:39 Back: Positive for pain at rest, pain with movement, Exam: 21:39 Constitutional: This is a well developed, well nourished patient who is awake, alert, rt and in no acute distress. Head/Face: Normocephalic, atraumatic. Chest/axilla: Normal chest wall appearance and motion. Nontender with no deformity. No lesions are appreciated. Cardiovascular: Regular rate and rhythm with a normal S1 and S2. No gallops, murmurs, or rubs. Normal PMI, no JVD. No pulse deficits. Abdomen/GI: Soft, non-tender, with normal bowel sounds. No distension or tympany. No guarding or rebound. No evidence of tenderness throughout. Skin: Warm, dry with normal turgor. Normal color with no rashes, no lesions, and no evidence of cellulitis. MS/ Extremity: Pulses equal, no cyanosis. Neurovascular intact. Full, normal range of motion. Neuro: Awake and alert, GCS 15, oriented to person, place, time, and situation. Cranial nerves II-XII grossly intact. Motor strength 5/5 in all extremities. Sensory grossly intact. Cerebellar exam normal. Normal gait. 21:39 ECG was reviewed by the Attending Physician. 21:39 Respiratory: Coarse breath sounds diffusely, moderate respiratory distress, Vital Signs: 21:20 BP 156 / 145; Pulse 119; Resp 26; Pulse Ox 92% on 2 lpm NC; vc1 21:27 BP 163 / 126; Pulse 115; Resp 32; Temp 98.5; Pulse Ox 86% on R/A; Weight 92.53 kg; Pain vc1 10/10; 21:40 BP 174 / 147; Pulse 122; Resp 24; Pulse Ox 94% on 4 lpm NC; vc1 22:00 BP 81 / 50; Pulse 112; Resp 28; Pulse Ox 94% on 4 lpm NC; vc1 22:45 BP 98 / 57; Pulse 111; Resp 26; Temp 100(A); Pulse Ox 92% on 4 lpm NC; vc1 23:15 BP 96 / 66; Pulse 111; Resp 26; Pulse Ox 93% on 4 lpm NC; vc1 07/03 00:15 BP 90 / 65; Pulse 111; Resp 28; Pulse Ox 94% on 3 lpm NC; vc1 01:00 BP 117 / 64; Pulse 112; Resp 28; Pulse Ox 92% on 4 lpm NC; vc1 02:47 BP 116 / 69; Pulse 112; Resp 32; Pulse Ox 92% on 4 lpm NC; jb4 03:26 BP 113 / 57; Pulse 112; Resp 30; Pulse Ox 92% on 4 lpm NC; vc1 21:27 Pain Scale: Adult vc1 MDM: 07/02 21:30 Patient medically screened. rt 07/03 00:18 Differential Diagnosis Degenerative disc disease, pneumonia, pulmonary edema, sepsis. rt Data reviewed: vital signs, nurses notes, lab test result(s), EKG, radiologic studies. Consideration of Admission/Observation Patient was admitted/placed on observation. Management of patient was discussed with the following: Hospitalist: Agrees to admit. I considered the following discharge prescriptions or medication management in the emergency department Medications were administered in the Emergency Department. See MAR. Independent interpretation of the following test(s) in the Emergency Department X-Ray: My interpretation is Pulmonary edema and right lower lobe consolidation seen on my interpretation of x-ray images. Test considered but Not performed: CT: Low suspicion for pulmonary embolus, CT angiogram not indicated. Care significantly affected by the following chronic conditions: Congestive Heart Failure, Chronic Obstructive Pulmonary Disease. Counseling: I had a detailed discussion with the patient and/or guardian regarding the historical points, exam findings, and any diagnostic results supporting the discharge/admit diagnosis, lab results, radiology results, the need for further work-up and treatment in the hospital. Response to treatment: the patient's symptoms have markedly improved after treatment. ED course: Patient was initially hypertensive, became hypotensive after greater than expected drop from antihypertensive medications. Fluids were ordered, however, patient with pulmonary edema, CHF, high risk for worsening respiratory status from volume overload. Will stop fluid bolus at 250 cc of crystalloid. Will augment with albumin. This did improve the patient's blood pressure. She will be admitted for further care.. 07/02 21:33 Order name: Blood Culture Adult (2) rt 07/02 21:33 Order name: CBC with Diff; Complete Time: 23:21 rt 07/02 21:33 Order name: CMP; Complete Time: 22:18 rt 07/02 21:33 Order name: Lactate w/ 2H reflex if indic.; Complete Time: 22:18 rt 07/02 21:33 Order name: Protime (+inr); Complete Time: 22:18 rt 07/02 21:33 Order name: Ptt, Activated; Complete Time: 22:18 rt 07/02 21:33 Order name: Urinalysis w/ reflexes; Complete Time: 22:18 rt 07/02 21:33 Order name: SARS RAPID; Complete Time: 23:21 rt 07/02 21:33 Order name: Influenza Screen (a \T\ B); Complete Time: 23:21 rt 07/02 21:33 Order name: Troponin High Sensitivity; Complete Time: 22:18 rt 07/02 21:33 Order name: BNP; Complete Time: 22:18 rt 07/02 21:57 Order name: Glucose, Ancillary Testing; Complete Time: 22:18 EDMS 07/02 23:04 Order name: Manual Differential; Complete Time: 23:21 EDMS 07/03 00:14 Order name: Ghost Lactate-NO COLLECT Timer; Complete Time: 01:14 EDMS 07/03 00:15 Order name: Urinalysis w/ reflexes EDMS 07/03 00:15 Order name: CBC with Automated Diff EDMS 07/03 00:15 Order name: CBC with Automated Diff EDMS 07/03 00:15 Order name: Comprehensive Metabolic Panel EDMS 07/03 00:15 Order name: Comprehensive Metabolic Panel EDMS 07/03 01:20 Order name: Lactate Sepsis 2 HR Follow-up EDMS 07/02 21:33 Order name: Chest Single View XRAY rt 07/02 21:33 Order name: CT Lumbar Spine Wo Con rt 07/02 21:33 Order name: EKG; Complete Time: 21:34 rt 07/02 21:33 Order name: Accucheck; Complete Time: 21:43 rt 07/02 21:33 Order name: Cardiac monitoring; Complete Time: 21:43 rt 07/02 21:33 Order name: EKG - Nurse/Tech; Complete Time: :43 rt 07/02 21:33 Order name: IV Saline Lock - Large Bore; Complete Time: : rt 07/02 21:33 Order name: Labs collected and sent; Complete Time: : rt 07/02 21:33 Order name: O2 Per Protocol; Complete Time: :43 rt 07/02 21:33 Order name: O2 Sat Monitoring; Complete Time: : rt 07/02 21:33 Order name: Vital Signs; Complete Time: :43 rt EC/19 21:39 Rate is 121 beats/min. Rhythm is regular, Sinus tachycardia with No ectopy. Left axis rt deviation noted. GA interval is normal. QRS interval is normal. QT interval is normal. Administered Medications: 21:50 Drug: Cefepime IVPB 2 grams IVPB at 200 ml/hr once over 30 mins; (mix in NS 100 mL) vc1 Route: IVPB; Rate: 200 ml/hr; Infused Over: 30 mins; Site: left antecubital; 22:20 Follow up: IV Status: Completed infusion; IV Intake: 100ml vc1 21:50 Drug: Labetalol IV 10 mg IV at calculated rate once Route: IV; Rate: calculated rate; vc1 Site: left antecubital; 22:10 Follow up: Response: Blood pressure is lowered; IV Status: Completed infusion; IV vc1 Intake: 2ml 22:30 Drug: Albumin IVPB 25 grams 100 ml IVPB once; (Note: Albumin 25% concentration) Volume: vc1 100 ml; Route: IVPB; Site: left antecubital; 23:00 Follow up: IV Status: Completed infusion; IV Intake: 100ml vc1 22:30 Drug: NS 0.9% IV 250 ml IV at bolus once Route: IV; Rate: bolus; Site: left antecubital;vc1 22:45 Follow up: IV Status: Completed infusion; IV Intake: 250ml vc1 07/03 00:41 Drug: vancoMYCIN IVPB 1 grams IVPB once over 2 hrs Route: IVPB; Infused Over: 2 hrs; vc1 Site: left antecubital; 02:41 Follow up: IV Status: Completed infusion; IV Intake: 250ml vc1 Disposition Summary: 07/03/24 00:18 Hospitalization Ordered Notes: Hospitalization Status: Inpatient Admission rt Provider: Jasvir Turcios rt Location: Telemetry/[facility] (Inpatient) rt Condition: Serious rt Problem: new rt Symptoms: have improved rt Bed/Room Type: Standard rt Room Assignment: 412(07/03/24 02:46) kmf Diagnosis - Community-acquired pneumonia rt - Severe sepsis rt - Hypoxia rt Forms: - Medication Reconciliation Form rt - SBAR form rt - Leadership Thank You Letter rt Critical care time excluding procedures: 00:18 Critical care time: Bedside Care: 30 minutes, Consultation: 5 minutes. Total time: 35 rt minutes Signatures: Dispatcher [employer] EDMS Lois Matthews FNP-C FNP-Ckb Calcote, Vanessa, RN RN vc1 Vipin Graves MD MD rt Shannon Arita kmf Corrections: (The following items were deleted from the chart) 07/02 23:04 21:54 CBC Smear Scan ordered. EDND EDND 07/03 02:46 00:18 rt kmf
--- NOTE | 2024-07-03 00:19 | ER ---
Nurse's Notes [facility] Name: Jia Gaines Age: 69 yrs Sex: Female : 1955 Arrival Date: 07/02/2024 Time: 21:21 Bed 4 Private MD: Diagnosis: Community-acquired pneumonia;Severe sepsis;Hypoxia Presentation: 07/02 21:27 Chief complaint: EMS states: Called for lower back pain. When we arrived she had a 102. vc1 1 fever, O2 was 88% on room air. Coronavirus screen: Client denies travel out of the [place] in the last 14 days. fever, muscle pain, Client presents with at least one sign or symptom that may indicate coronavirus-19. Ebola Screen: Patient negative for fever greater than or equal to 101.5 degrees Fahrenheit, and additional compatible Ebola Virus Disease symptoms Patient denies exposure to infectious person. Patient denies travel to an Ebola-affected area in the 21 days before illness onset. No symptoms or risks identified at this time. Initial Sepsis Screen: Does the patient meet any 2 criteria? RR > 20 per min. Temp <36.0*C (96.8*F)) or > 38.3*C (100.9*F). HR > 90 bpm. Yes Does the patient have a suspected source of infection? No. Patient's initial sepsis screen is negative. Risk Assessment: Do you want to hurt yourself or someone else? Patient reports no desire to harm self or others. Onset of symptoms was July 01, 2024. Care prior to arrival: Medication(s) given: Albuterol Neb x 2, Atrovent Neb x 2. Activity prior to arrival: None. Mechanism of Injury: No Mechanism of Injury. Transition of care: patient was not received from another setting of care. 21:27 Method Of Arrival: EMS: [facility] vc1 21:27 Acuity: BRIDGET 3 vc1 Triage Assessment: 21:36 General: Appears in no apparent distress. uncomfortable, obese, unkempt, Behavior is vc1 calm, cooperative, appropriate for age. Pain: Complains of pain in low back area Pain does not radiate. Pain currently is 10 out of 10 on a pain scale. Quality of pain is described as sharp, Noted to be grimacing, resistant to movement, Also complains of incontinence. EENT: No deficits noted. No signs and/or symptoms were reported regarding the EENT system. Neuro: Level of Consciousness is awake, alert, obeys commands, Oriented to person, place, time, situation, Appropriate for age. Cardiovascular: Heart tones S1 S2 present Capillary refill < 3 seconds Patient's skin is warm and dry. Rhythm is sinus tachycardia. Respiratory: Airway is patent Respiratory effort is even, unlabored, Respiratory pattern is regular, symmetrical, Breath sounds with wheezes the patient has moderate shortness of breath. GI: Abdomen is round non-distended, Bowel sounds present X 4 quads. : Reports burning with urination, incontinence, since yesterday urinary frequency. Derm: Skin is intact, is healthy with good turgor, Skin is dry, Skin is normal, Skin temperature is warm. Musculoskeletal: No signs and/or symptoms reported regarding the musculoskeletal system. Historical: - Allergies: 21:35 No Known Allergies; vc1 - Home Meds: 22:34 atenolol 50 mg Oral tablet 2 times per day [Active]; aspirin 81 mg Oral capsule once vc1 [Active]; spironolactone 25 mg Oral tablet once [Active]; metformin 1 Oral Tablet 2 times per day [Active]; ezetimibe 10 mg Oral tablet once [Active]; sertraline 100 mg Oral tablet daily [Active]; gabapentin 300 mg oral capsule every 8 hours [Active]; Januvia 100 mg oral tablet daily [Active]; furosemide 80 mg Oral tablet 2 times per day [Active]; folic acid 1 mg Oral tablet [Active]; clopidogrel 75 mg Oral tablet daily [Active]; Vitamin D Oral 50,000 unit weekly [Active]; allopurinol 300 mg Oral tablet daily [Active]; nitroglycerin 0.4 mg sublingual Tablet, Sublingual 1 tab prn [Active]; - PMHx: 21:35 Congestive heart failure; diabetes mellitus; Gout; Hypercholesterolemia; Hypertensive vc1 disorder; Hypothyroidism; neuropathy; - PSHx: 21:35 Total abdominal hysterectomy; vc1 - Immunization history:: Adult Immunizations unknown. - Infectious Disease History:: Denies. - Social history:: Smoking status: Patient denies any tobacco usage or history of. - Family history:: not pertinent. Screenin:41 [facility] ED Fall Risk Assessment (Adult) History of falling in the last 3 months, vc1 including since admission No falls in past 3 months (0 pts) Confusion or Disorientation No (0 pts) Intoxicated or Sedated No (0 pts) Impaired Gait Yes (1 pt) Mobility Assist Device Used Yes (1 pt) Altered Elimination Yes (1 pt) Score/Fall Risk Level 3 or more points = High Risk Oriented to surroundings, Maintained a safe environment, Educated pt \T\ family on fall prevention, incl call for assistance when getting out of bed. Abuse screen: Denies threats or abuse. Nutritional screening: No deficits noted. Tuberculosis screening: No symptoms or risk factors identified. Assessment: 22:00 Reassessment: Patient appears in no apparent distress at this time. No changes from vc1 previously documented assessment. Pt blood pressure decreased, Provider notified, new orders placed. 22:51 General: DIL Sandhya [id number], significant other Howard [phone]. vc1 07/03 00:14 Reassessment: Patient appears in no apparent distress at this time. No changes from vc1 previously documented assessment. Patient and/or family updated on plan of care and expected duration. Pain level reassessed. 01:15 Reassessment: Patient appears in no apparent distress at this time. Patient and/or vc1 family updated on plan of care and expected duration. Pain level reassessed. Patient states symptoms have improved. 03:25 Reassessment: No changes from previously documented assessment. Patient and/or family vc1 updated on plan of care and expected duration. Pain level reassessed. Patient is alert, oriented x 3, equal unlabored respirations, skin warm/dry/pink. Vital Signs: 07/02 21:20 BP 156 / 145; Pulse 119; Resp 26; Pulse Ox 92% on 2 lpm NC; vc1 21:27 BP 163 / 126; Pulse 115; Resp 32; Temp 98.5; Pulse Ox 86% on R/A; Weight 92.53 kg; Pain vc1 10; 21:40 BP 174 / 147; Pulse 122; Resp 24; Pulse Ox 94% on 4 lpm NC; vc1 22:00 BP 81 / 50; Pulse 112; Resp 28; Pulse Ox 94% on 4 lpm NC; vc1 22:45 BP 98 / 57; Pulse 111; Resp 26; Temp 100(A); Pulse Ox 92% on 4 lpm NC; vc1 23:15 BP 96 / 66; Pulse 111; Resp 26; Pulse Ox 93% on 4 lpm NC; vc1 08 00:15 BP 90 / 65; Pulse 111; Resp 28; Pulse Ox 94% on 3 lpm NC; vc1 01:00 BP 117 / 64; Pulse 112; Resp 28; Pulse Ox 92% on 4 lpm NC; vc1 02:47 BP 116 / 69; Pulse 112; Resp 32; Pulse Ox 92% on 4 lpm NC; jb4 03:26 BP 113 / 57; Pulse 112; Resp 30; Pulse Ox 92% on 4 lpm NC; vc1 21:27 Pain Scale: Adult vc1 ED Course: 07/02 21:25 Inserted saline lock: 18 gauge in left antecubital area, using aseptic technique. Blood vc1 collected. Flushed with 10 mL NS. 21:26 Patient arrived in ED. gm2 21:30 Vipin Graves MD is Attending Physician. rt 21:35 Triage completed. vc1 21:35 Oxygen administration via nasal cannula \T\ 2L/min Response to oxygen therapy: symptoms vc1 improved. 21:40 Arm band placed on right wrist. vc1 21:41 Patient has correct armband on for positive identification. Bed in low position. Call vc1 light in reach. Side rails up X2. Adult w/ patient. shelter monitor on. Pulse ox on. NIBP on. 21:43 Jodie Ferrari, TOÑITO is Primary Nurse. vc1 22:13 Chest Single View XRAY In Process Unspecified. EDMS 23:19 CT Lumbar Spine Wo Con In Process Unspecified. EDMS 07/03 00:18 Jasvir Turcios MD is Hospitalizing Provider. rt 01:20 Notified the Hospitalist of a critical lab result(s), lactic 3.4, reported to Dr. Turcios.ss 03:25 No provider procedures requiring assistance completed. Patient admitted, IV remains in vc1 place. 03:26 Provided Education on: fall safety. vc1 Administered Medications: 07/02 21:50 Drug: Cefepime IVPB 2 grams IVPB at 200 ml/hr once over 30 mins; (mix in NS 100 mL) vc1 Route: IVPB; Rate: 200 ml/hr; Infused Over: 30 mins; Site: left antecubital; 22:20 Follow up: IV Status: Completed infusion; IV Intake: 100ml vc1 21:50 Drug: Labetalol IV 10 mg IV at calculated rate once Route: IV; Rate: calculated rate; vc1 Site: left antecubital; 22:10 Follow up: Response: Blood pressure is lowered; IV Status: Completed infusion; IV vc1 Intake: 2ml 22:30 Drug: Albumin IVPB 25 grams 100 ml IVPB once; (Note: Albumin 25% concentration) Volume: vc1 100 ml; Route: IVPB; Site: left antecubital; 23:00 Follow up: IV Status: Completed infusion; IV Intake: 100ml vc1 22:30 Drug: NS 0.9% IV 250 ml IV at bolus once Route: IV; Rate: bolus; Site: left antecubital;vc1 22:45 Follow up: IV Status: Completed infusion; IV Intake: 250ml vc1 07/03 00:41 Drug: vancoMYCIN IVPB 1 grams IVPB once over 2 hrs Route: IVPB; Infused Over: 2 hrs; vc1 Site: left antecubital; 02:41 Follow up: IV Status: Completed infusion; IV Intake: 250ml vc1 Medication: 07/02 21:42 VIS not applicable for this client. vc1 Intake: 22:10 IV: 2ml; Total: 2ml. vc1 22:20 IV: 100ml; Total: 102ml. vc1 22:45 IV: 250ml; Total: 352ml. vc1 23:00 IV: 100ml; Total: 452ml. vc1 07/03 02:41 IV: 250ml; Total: 702ml. vc1 Outcome: 00:18 Decision to Hospitalize by Provider. rt 03:25 Admitted to Tele accompanied by tech, via stretcher, room 412, with oxygen, with chart, vc1 03:25 Condition: good 03:25 Instructed on the need for admit, 03:45 Patient left the ED. vc1 Signatures: Dispatcher [employer] EDCollette Reeves RN RN ss Bryson, James, RN RN jb4 Jodie Ferrari RN RN vc1 Vipin Graves MD MD rt Jennie Eason 2
[2024-07-03] MEDS ORDERED: VANCOMYCIN 1 GM/VIAL ONE (00:33)
[2024-07-03] MEDS ORDERED: NA CHLORIDE 0.9% 250 ML ONE (00:33)
[2024-07-03] MEDS: NA CHLORIDE 0.9% 250 ML IV ONE (02:40)
[2024-07-03] MEDS ORDERED: GUAIFENESIN/DM 5 ML UCUP PO PRN (05:39)
[2024-07-03] MEDS: CEFTRIAXONE 1,000 MG in NA CHLORIDE 0.9% 50 ML IVPB SCH (06:49)
[2024-07-03] MEDS ORDERED: METOPROLOL TARTRATE 5 MG/5 ML INJ IV PRN (08:08)
--- NOTE | 2024-07-03 08:09 | P.PN ---
Date of Service: 07/03/24 subjective Admitted for pneumonia, leukocytosis, Infectious disease follow Review of Systems 10-point ROS is otherwise unremarkable Physical Examination - Vital Signs reviewed - Physical Exam General: Alert, Oriented x3, Mild distress, Obese HEENT: Atraumatic, Normocephalic Neck: Supple, No Thyromegaly Respiratory: Diminished, Crackles/rales, Expiratory wheezes Cardiovascular: Regular rate/rhythm, Normal S1 S2 Capillary refill: <2 Seconds Gastrointestinal: Soft and benign, Non-distended, nontender Musculoskeletal: No clubbing, No swelling Integumentary: No rashes, No breakdown Neurological: Normal speech, Normal strength at 5/5 x4 extr, Cranial nerves 3-12 intact Lymphatics: No axilla or inguinal lymphadenopathy Assessment and Plan - Plan Sepsis due to pneumonia Leukocytosis noted Lactic acidosis Will obtain cultures IV hydration In moderation because of CHF Lactic acidosis noted Started on IV antibiotics Monitor closely Antitussives Acute kidney injury Monitor renal parameters Electrolytes monitor and replace accordingly Elevated BNP Patient has history of CHF Will obtain echocardiogram Hypertension Antihypertensives titrated Continue home medications and titrate as needed Hyperlipidemia Continue statin GI/DVT prophylaxis Advanced directive full code Discharge Plan: Home Plan to discharge in: 48 Hours - Advance Directives Does patient have a Living Will: No Does patient have a Durable POA for Healthcare: No - Code Status/Comfort Care Code Status: Full Code Time Spent Managing Pts Care (In Minutes): 35 <Sol Davalos - Last Filed: 07/03/24 19:31> Chart has been reviewed. Events of the last 24 hours have been noted. Case discussed with ARRON. I performed a substantial part of the MDM during this patient's care today. I personally made or approved the documented management plan and acknowledge its risk of complications. I agree with the findings and documentation provided in the ARRON's notes Continue with antibiotic therapy. Monitor volume status closely. Patient is overall doing much better and stable for discharge home with outpatient follow- up. <Jovanna Caputo - Last Filed: 07/26/24 02:25>
[2024-07-03] MEDS: GUAIFENESIN 600 MG SA TAB PO SCH (08:12)
[2024-07-03] MEDS: ENOXAPARIN 30 MG/0.3 ML SQ SCH (08:12)
[2024-07-03] MEDS: AZITHROMYCIN IV 500 MG in NA CHLORIDE 0.9% 250 ML IVPB SCH (08:13)
[2024-07-03] MEDS: CEFEPIME 1 GM in NA CHLORIDE 0.9% 100 ML IV SCH (08:38)
[2024-07-03] MEDS: NA CHLORIDE 0.9% 1,000 ML IV SCH (08:39)
[2024-07-03] MEDS ORDERED: ENOXAPARIN 40 MG/0.4 ML SQ SCH (09:00)
[2024-07-03] MEDS: FUROSEMIDE 40 MG/4 ML VIAL IV SCH (09:00)
[2024-07-03 10:54] LABS: Absolute Basophils 0.1 K/uL (0-0.5); Absolute Lymphocytes (CBC) 1.1 K/uL (0.7-4.9); Absolute Monocytes 1.1 K/uL (0.1-1.3); Absolute Neutrophil 29.3 K/uL (1.8-8.0); Basophils % 0.4 % (0-1.3); Hematocrit 37.2 % (36.0-45.0); Hemoglobin 11.6 g/dL (12.0-15.0); Lymphocytes % 3.5 % (15.3-44.8); MCH 29.8 pg (27.0-35.0); MCHC 31.2 g/dL (32.0-36.0); MCV 95.7 fL (80-100); Monocytes % 3.5 % (3.3-12.3); Neutrophils % 92.6 % (41.7-73.7); Platelets 154 thou/uL (152-406); RBC Red Blood Cell Count 3.89 M/uL (3.86-4.86); Red Cell Distribution Width 16.8 % (12.1-15.2)
[2024-07-03 11:17] LABS: Anion Gap 11.3 mEq/L (5.0-15.0); Potassium 4.3 mEq/L (3.5-5.1)
[2024-07-03 12:24] LABS: Arterial Blood Carboxyhemoglob 1.5 % (0-1.5); Blood Gas Oxyhemoglobin 90.5 % (94-97); Blood Gas THB 12.4 g/dl (12-18); Blood O2 Saturation 93.1 % (92-98.5)
--- NOTE | 2024-07-03 12:48 | CON ---
History Of Present Illness: This is a 69-year-old female. I was consulted for evaluation of pneumon ia. The patient has a significant past medical history of hypertension, diabetes mellitus, congestiv e heart failure, gout, hyperlipidemia, neuropathy, hypothyroidism, coronary artery disease, COPD, dep ression, obesity, came to the emergency room with worsening back discomfort. Denies any headache, na usea, vomiting, chest pain, abdominal pain, constipation, and she noted to have temperature of 100.2. Past Medical History: As per HPI. Social History: Nonsmoker, nondrinker. Family History: Noncontributory. Medications: Zithromax. She was given Rocephin and cefepime. Allergies: NO KNOWN DRUG ALLERGIES. Review of Systems: A 10-point review was performed. Physical Examination: General: This is a 69-year-old female, lying in bed, not in any acute cardiopulmonary distress. Vital Signs: Temperature 98, pulse 100, respiration 18, blood pressure 101/50. HEENT: Unremarkable. Neck: Supple: Basal crackles. Heart: S1, S2. Regular. Abdomen: Soft, nontender. Bowel sounds present. Extremities: No edema. Laboratory Data: WBC 31,000, hemoglobin 11.6, platelets are 154. Chemistry shows BUN 41, creatinine 1.8. Lactic acid of 3.4, down to 2.3. Micro Data: Blood cultures are pending. Flu antigen negative. Chest x-ray pending. Assessment And Plan: A 69-year-old female with pneumonitis and leukocytosis. Get a CT chest or ches t x-ray for further evaluation. Continue cefepime and Zithromax for 7 days. Continue supportive car e. Monitor patient for signs of infection with WBC and fever trends. Leukocytosis, diabetes mellitu s, hypothyroidism, chronic obstructive pulmonary disease. Continue supportive care and respiratory c are. We will follow the patient as needed. NF/MODL Voice ID: [id number] Report ID: [id number]
--- OUTSIDE RECORDS SUMMARY | 2024-07-03 14:25 | XMS REPORT | Continuity of Care Document ---
Author Name Unknown Address [address] [place] [address] [facility] thconnect Address [address] [place] [address] Care Team Providers Care [employer] He[employer] Helper Name Role Phone JAMIA OLIVIER Primary Care Physician Unavailab BELINDA Colin Attending Clinician Unavailable Belinda Stovall MD Attending Clinician [phone] MEGHA SARAVIA Attending Clinician Unavailable Radiology Attending Clinician Unavailable RADIOLOGY Attending Clinician Unavailable Pob, [facility] Main Attending Clinician UnavailGus Gutierrez MD Attending Clinician [phone] Lab, Ang - Db Attending Clinician Unavailable Hugh Gabriel MD Attending Clinician [phone] HUGH GABRIEL Attending Clinician Unavail able HUGH GABRIEL Attending Clinician Unavail able GUS PHAM Attending Clinician Unavailkip marin Doctor Unassigned, [place] Attending Clinician U navailable MINI BURTON Attending Clinician Unavailable Mini Burton DO Attending Clinician [phone] Yoel Chino MD Attending Clinician [phone] YOEL CHINO Attending Clinician Unavailable 1, [facility] Attending Clinician Unavailable Clint Anderson MD Attending Clinician [phone] BELINDA STOVALL Admitting Clinician Unavailable Payers Payer Name Policy Type Policy Number Effective Date Expirati on Date Source PAULA HOOD PLS O [id number] 2022 00:00:00 [place] [id number] 2011 00:00:00 Problems Condition Name Condition Details Condition Category Status Onset Date Resolution Date Last Treatment Date Treating Clinician Comments Source Lower GI bleeding Lower GI bleeding Disease Active 2015-11 00:00: 00 [facility] CHF (congestiv e heart failure) CHF (congestiv e heart failure) Disease Active 2015-11 00:00: 00 [facility] Obesity (BMI 30-39.9) Obesity (BMI 30-39.9) Disease Active 2015-11 00:00: 00 [facility] CHF exacerbati on CHF exacerbati on Disease Active 2015-11 00:00: 00 [facility] CHF exacerbati on CHF exacerbati on Disease Active 2015-11 00:00: 00 [facility] Morbid obesity with body mass index of 50 or higher Morbid obesity with body mass index of 50 or higher Disease Active 2015-11 00:00: 00 [facility] Morbid obesity with body mass index of 40.0-49.9 Morbid obesity with body mass index of 40.0-49.9 Disease Active 2015-11 00:00: 00 [facility] Pneumonia Pneumonia Disease Active 07-27 00:00: 00 [facility] COPD exacerbati on COPD exacerbati on Disease Active 06-20 00:00: 00 [facility] COPD (chronic obstructiv e pulmonary disease) COPD (chronic obstructiv e pulmonary disease) Disease Active 01-14 00:00: 00 [facility] Adenomatou s rectal polyp Adenomatou s rectal polyp Disease Active 2014-11 00:00: 00 [facility] Hematochez ia Hematochez ia Disease Active 2014-11 00:00: 00 [facility] DEXTER (obstructi ve sleep apnea) DEXTER (obstructi ve sleep apnea) Disease Active 2014-11 00:00: 00 [facility] Hyperlipid emia Hyperlipid emia Disease Active 2014-11 00:00: 00 [facility] CVA, old, disturbanc es of vision CVA, old, disturbanc es of vision Disease Active 2014-11 00:00: 00 [facility] Rectal bleeding Rectal bleeding Disease Active 2014-11 00:00: 00 [facility] Hypertensi on Hypertensi on Disease Active 06-07 00:00: 00 [facility] Type 2 diabetes mellitus Type 2 diabetes mellitus Disease Active 06-07 00:00: 00 [facility] Allergies, Adverse Reactions, Alerts Allergy Name Allergy Type Status Severity Reaction(s) Onset Date Inactive Date Treating Clinician Comments Source NO KNOWN ALLERGIE S Drug Class Active [facility] Social History Social Habit Start Date Stop Date Quantity Comments Source Sexual orientation U [facility] History of tobacco use Cigarette Smoker [facility] Alcohol intake 2024-01-17 00:00:00 2024-01-17 00:00:00 0 /d [facility] History of Social function 2024-01-17 00:00:00 2024-01-17 00:00:00 [facility] Exposure to SARS-CoV-2 (event) 2022-08-07 00:00:00 2022-08-17 09:42:00 Not sure [facility] Tobacco use and exposure 2016-10-10 00:00:00 2016-10-10 00:00:00 Smokeless tobacco non-user [facility] Cigarettes smoked current (pack per day) - Reported 2016-10-10 00:00:00 2016-10-10 00:00:00 [facility] Cigarette pack-years 2016-10-10 00:00:00 2016-10-10 00:00:00 [facility] Sex Assigned At 1955 00:00:00 1955 00:00:00 [facility] Smoking Status Start Date Stop Date Source Ex-smoker 2016-10-10 00:00:00 2016-10-10 00:00:00 [facility] Medications Ordered Medication Name Filled Medication Name Start Date Stop Date Current Medication? Ordering Clinician Indication Dosage Frequency Signature (SIG) Comments Components Source ketorolac (TORADOL) injection 15 mg 01-16 17:45: 00 01-16 17:42 :00 No 15mg 15 mg, Slow IV Push, ONCE, 1 dose, On Tue01/17/24 at 1145, Routine [facility] diphenhydrA MINE (BENADRYL) injection 25 mg 01-16 17:00: 00 01-16 17:40 :00 No 25mg 25 mg, Slow IV Push, ONCE, 1 dose, On Tue01/17/24 at 1100, STAT [facility] metoclopram jose e HCl (REGLAN) injection 10 mg 01-16 17:00: 00 01-16 17:39 :00 No 10mg 10 mg, Slow IV Push, ONCE, 1 dose, On Tue01/17/24 at 1100, OC [facility] ezetimibe 10 mg tablet 08-13 00:00: 00 Yes 1{tbl} Take 1 tablet by mouth in the morning. [facility] simvastatin 10 mg tablet 08-12 00:00: 00 Yes [facility] levothyroxi ne 25 mcg tablet 08-10 00:00: 00 Yes [facility] fluticasone furoate-cherelle anteroL (BREO ELLIPTA) 200-25 mcg/dose DsDv 07-26 00:00: 00 Yes 1{puff} Inhale 1 Puff. [facility] FARXIGA 10 mg tablet 07-23 00:00: 00 Yes TAKE 1 TABLET BY MOUTH 1 (ONE) TIME EACH DAY IN THE MORNING WITH PLENTY OF WATER, FOR DIABETES [facility] insulin glargine (LANTUS U-100) 100 unit/mL injection 2016-11 19:42: 05 Yes 24U inject 24 Units under the skin at bedtime. [facility] Olopatadine (PATADAY) 0.2 % Drop 2016-11 19:42: 05 Yes 1[drp] Place 1 Drop in each eye daily. [facility] foLIC acid (FOLATE) 1 mg tablet 2016-11 19:42: 05 Yes 1mg Take 1 mg by mouth daily. [facility] gabapentin (NEURONTIN) 100 mg capsule 2016-11 19:42: 05 Yes 100mg Take 100 mg by mouth at bedtime. [facility] HYDROcodone -acetaminop hen 7.5-325 mg per tablet 2016-11 19:42: 05 Yes 1{tbl} Take 1 tablet by mouth every 6 (six) hours as needed for Pain. [facility] allopurinol 100 mg tablet 2016-11 19:42: 05 Yes 200mg Take 200 mg by mouth daily. [facility] clopidogrel (PLAVIX) 75 mg tablet 2016-11 19:42: 05 Yes 75mg Take 75 mg by mouth daily. [facility] furosemide 40 mg tablet 2016-11 19:42: 05 Yes 40mg Take 40 mg by mouth 3 (three) times daily. [facility] FERROUS FUMARATE/FO LIC ACID (HEMATINIC/ FOLIC ACID ORAL) 2016-11 19:42: 05 Yes 1{tbl} Take 1 Tab by mouth daily. [facility] aspirin 81 mg chewable tablet 2016-11 19:42: 05 Yes 81mg Take 81 mg by mouth daily. [facility] levocetiriz ine (XYZAL) 5 mg tablet 2016-11 19:42: 05 Yes 5mg Take 5 mg by mouth every evening. [facility] SERTraline (ZOLOFT) 25 mg tablet 2016-11 19:42: 05 Yes 25mg Take 25 mg by mouth daily. [facility] bimatoprost (LUMIGAN) 0.01 % Drop 2016-11 19:42: 05 Yes 1[drp] Place 1 Drop in each eye daily. [facility] metFORMIN (GLUCOPHAGE ) 1,000 mg tablet 2016-11 19:42: 05 Yes 500mg Take 500 mg by mouth 2 (two) times daily. [facility] spironolact one (SPIRONOLAC TONE) 25 mg tablet 2016-11 19:42: 05 Yes 25mg Take 25 mg by mouth daily. [facility] sitaGLIPtin (JANUVIA) 50 mg tablet 2016-11 19:42: 05 Yes 50mg Take 50 mg by mouth daily. [facility] atenolol (TENORMIN) 50 mg tablet 2016-11 19:42: 05 Yes 50mg Take 50 mg by mouth 2 (two) times daily. [facility] nitroglycer in (NITROSTAT) 0.4 mg sublingual tablet 2016-11 19:42: [address] 0.4 mg under the tongue every 5 (five) minutes as needed for Chest pain. [facility] fluticasone furoate (ARNUITY ELLIPTA) 200 mcg/actuati on DsDv 2016-11 19:42: 05 Yes 1{puff} Inhale 1 Puff daily. [facility] colchicine (COLCRYS) 0.6 mg tablet 2016-11 19:42: 05 Yes .6mg Take 0.6 mg by mouth daily. [facility] FERROUS FUMARATE/FO LIC ACID (HEMATINIC/ FOLIC ACID ORAL) 2016-11 13:42: 05 Yes 1{tbl} Take 1 Tab by mouth daily. [facility] aspirin 81 mg chewable tablet 2016-11 13:42: 05 Yes 81mg Take 81 mg by mouth daily. [facility] levocetiriz ine (XYZAL) 5 mg tablet 2016-11 13:42: 05 Yes 5mg Take 5 mg by mouth every evening. [facility] SERTraline (ZOLOFT) 25 mg tablet 2016-11 13:42: 05 Yes 25mg Take 25 mg by mouth daily. [facility] bimatoprost (LUMIGAN) 0.01 % Drop 2016-11 13:42: 05 Yes 1[drp] Place 1 Drop in each eye daily. [facility] metFORMIN (GLUCOPHAGE ) 1,000 mg tablet 2016-11 13:42: 05 Yes 500mg Take 500 mg by mouth 2 (two) times daily. [facility] spironolact one (SPIRONOLAC TONE) 25 mg tablet 2016-11 13:42: 05 Yes 25mg Take 25 mg by mouth daily. [facility] sitaGLIPtin (JANUVIA) 50 mg tablet 2016-11 13:42: 05 Yes 50mg Take 50 mg by mouth daily. [facility] atenolol (TENORMIN) 50 mg tablet 2016-11 13:42: 05 Yes 50mg Take 50 mg by mouth 2 (two) times daily. [facility] nitroglycer in (NITROSTAT) 0.4 mg sublingual tablet 2016-11 13:42: [address] 0.4 mg under the tongue every 5 (five) minutes as needed for Chest pain. [facility] fluticasone furoate (ARNUITY ELLIPTA) 200 mcg/actuati on DsDv 2016-11 13:42: 05 Yes 1{puff} Inhale 1 Puff daily. [facility] colchicine (COLCRYS) 0.6 mg tablet 2016-11 13:42: 05 Yes .6mg Take 0.6 mg by mouth daily. [facility] insulin glargine (LANTUS U-100) 100 unit/mL injection 2016-11 13:42: 05 Yes 24U inject 24 Units under the skin at bedtime. [facility] Olopatadine (PATADAY) 0.2 % Drop 2016-11 13:42: 05 Yes 1[drp] Place 1 Drop in each eye daily. [facility] foLIC acid (FOLATE) 1 mg tablet 2016-11 13:42: 05 Yes 1mg Take 1 mg by mouth daily. [facility] gabapentin (NEURONTIN) 100 mg capsule 2016-11 13:42: 05 Yes 100mg Take 100 mg by mouth at bedtime. [facility] HYDROcodone -acetaminop hen 7.5-325 mg per tablet 2016-11 13:42: 05 Yes 1{tbl} Take 1 tablet by mouth every 6 (six) hours as needed for Pain. [facility] allopurinol 100 mg tablet 2016-11 13:42: 05 Yes 200mg Take 200 mg by mouth daily. [facility] clopidogrel (PLAVIX) 75 mg tablet 2016-11 13:42: 05 Yes 75mg Take 75 mg by mouth daily. [facility] furosemide 40 mg tablet 2016-11 13:42: 05 Yes 40mg Take 40 mg by mouth 3 (three) times daily. [facility] fluticasone furoate (ARNUITY ELLIPTA) 200 mcg/actuati on DsDv 2016-11 13:42: 05 Yes 1{puff} Inhale 1 Puff daily. [facility] albuterol (PROVENTIL) 2.5 mg /3 mL (0.083 %) nebulizer solution 2015-11 00:00: 00 Yes 2.5mg Inhale 3 mL every 4 (four) hours as needed for Wheezing or Shortness of Breath. [facility] atorvastati n (LIPITOR) 20 mg tablet 2014-11 00:00: 00 Yes 20mg Take 1 Tab by mouth at bedtime. [facility] BD INSULIN SYRINGE ULTRA-FINE 1/2 mL 31 x 5/16" Syrg 2014-11 00:00: 00 Yes [facility] ANORO ELLIPTA 62.5-25 mcg/actuati on inhalation disk 08-01 00:00: 00 Yes 1{puff} Inhale 1 Puff daily. [facility] Immunizations Ordered Immunization Name Filled Immunization Name Date Status Comments Source Influenza Virus Vaccine Quad IM 3+ YRS 2015-09-09 00:00:00 [facility] Influenza Virus Vaccine Quad IM 3+ YRS 2015-09-09 00:00:00 [facility] Influenza Virus Vaccine Quad IM 3+ YRS 2015-09-09 00:00:00 [facility] Influenza Virus Vaccine Quad IM 3+ YRS 2015-09-09 00:00:00 [facility] Influenza Virus Vaccine Quad IM 3+ YRS 2015-09-09 00:00:00 [facility] Influenza Virus Vaccine Quad IM 3+ YRS 2015-09-09 00:00:00 [facility] Influenza Virus Vaccine Quad IM 3+ YRS 2015-09-09 00:00:00 [facility] Influenza Virus Vaccine Quad IM 3+ YRS 2015-09-09 00:00:00 [facility] Influenza Virus Vaccine Quad IM 3+ YRS 2015-09-09 00:00:00 [facility] Influenza Virus Vaccine Quad IM 3+ YRS 2015-09-09 00:00:00 [facility] Influenza Virus Vaccine Quad IM 3+ YRS 2015-09-09 00:00:00 [facility] Influenza Virus Vaccine Quad IM 3+ YRS 2015-09-09 00:00:00 [facility]pleted [facility] Influenza Virus Vaccine Quad IM 3+ YRS 2015-09-09 00:00:00 [facility] Influenza Virus Vaccine Quad IM 3+ YRS 2015-09-09 00:00:00 [facility]pleted [facility] Influenza Virus Vaccine Quad IM 3+ YRS 2015-09-09 00:00:00 [facility] Influenza Virus Vaccine Quad IM 3+ YRS 2015-09-09 00:00:00 [facility]pleted [facility] Influenza Virus Vaccine Quad IM 3+ YRS 2015-09-09 00:00:00 [facility]pleted [facility] Influenza Virus Vaccine Quad IM 3+ YRS 2015-09-09 00:00:00 [facility]pleted [facility] Influenza Virus Vaccine Quad IM 3+ YRS 2015-09-09 00:00:00 [facility]pleted [facility] Influenza Virus Vaccine Quad IM 3+ YRS 2015-09-09 00:00:00 [facility]pleted [facility] Influenza Virus Vaccine Quad IM 3+ YRS 2015-09-09 00:00:00 [facility]pleted [facility] Influenza Virus Vaccine Quad IM 3+ YRS 2015-09-09 00:00:00 [facility]pleted [facility] Influenza Virus Vaccine Quad IM 3+ YRS 2015-09-09 00:00:00 [facility]pleted [facility] Influenza Virus Vaccine Quad IM 3+ YRS 2015-09-09 00:00:00 [facility]pleted [facility] Influenza Virus Vaccine Quad IM 3+ YRS 2015-09-09 00:00:00 [facility]pleted [facility] Influenza Virus Vaccine Quad IM 3+ YRS 2015-09-09 00:00:00 [facility]pleted [facility] Influenza Virus Vaccine Quad IM 3+ YRS 2015-09-09 00:00:00 [facility] Influenza Virus Vaccine Quad IM 3+ YRS 2015-09-09 00:00:00 [facility] Pneumococcal 13 Conjugate, PCV13 (Prevnar 13) 2015-05-14 00:00:00 [facility] Pneumococcal 13 Conjugate, PCV13 (Prevnar 13) 2015-05-14 00:00:00 [facility]pleted [facility] Pneumococcal 13 Conjugate, PCV13 (Prevnar 13) 2015-05-14 00:00:00 [facility] Pneumococcal 13 Conjugate, PCV13 (Prevnar 13) 2015-05-14 00:00:00 [facility] Pneumococcal 13 Conjugate, PCV13 (Prevnar 13) 2015-05-14 00:00:00 [facility]pleted [facility] Pneumococcal 13 Conjugate, PCV13 (Prevnar 13) 2015-05-14 00:00:00 [facility]pleted [facility] Pneumococcal 13 Conjugate, PCV13 (Prevnar 13) 2015-05-14 00:00:00 [facility]pleted [facility] Pneumococcal 13 Conjugate, PCV13 (Prevnar 13) 2015-05-14 00:00:00 [facility]pleted [facility] Pneumococcal 13 Conjugate, PCV13 (Prevnar 13) 2015-05-14 00:00:00 [facility]pleted [facility] Pneumococcal 13 Conjugate, PCV13 (Prevnar 13) 2015-05-14 00:00:00 [facility]pleted [facility] Pneumococcal 13 Conjugate, PCV13 (Prevnar 13) 2015-05-14 00:00:00 [facility]pleted [facility] Pneumococcal 13 Conjugate, PCV13 (Prevnar 13) 2015-05-14 00:00:00 [facility]pleted [facility] Pneumococcal 13 Conjugate, PCV13 (Prevnar 13) 2015-05-14 00:00:00 [facility]pleted [facility] Pneumococcal 13 Conjugate, PCV13 (Prevnar 13) 2015-05-14 00:00:00 [facility]pleted [facility] Pneumococcal 13 Conjugate, PCV13 (Prevnar 13) 2015-05-14 00:00:00 [facility]pleted [facility] Pneumococcal 13 Conjugate, PCV13 (Prevnar 13) 2015-05-14 00:00:00 Completed [facility] Pneumococcal 13 Conjugate, PCV13 (Prevnar 13) 2015-05-14 00:00:00 Completed [facility] Pneumococcal 13 Conjugate, PCV13 (Prevnar 13) 2015-05-14 00:00:00 Completed [facility] Pneumococcal 13 Conjugate, PCV13 (Prevnar 13) 2015-05-14 00:00:00 Completed [facility] Pneumococcal 13 Conjugate, PCV13 (Prevnar 13) 2015-05-14 00:00:00 Completed [facility] Pneumococcal 13 Conjugate, PCV13 (Prevnar 13) 2015-05-14 00:00:00 Completed [facility] Pneumococcal 13 Conjugate, PCV13 (Prevnar 13) 2015-05-14 00:00:00 Completed [facility] Pneumococcal 13 Conjugate, PCV13 (Prevnar 13) 2015-05-14 00:00:00 Completed [facility] Pneumococcal 13 Conjugate, PCV13 (Prevnar 13) 2015-05-14 00:00:00 Completed [facility] Pneumococcal 13 Conjugate, PCV13 (Prevnar 13) 2015-05-14 00:00:00 Completed [facility] Pneumococcal 13 Conjugate, PCV13 (Prevnar 13) 2015-05-14 00:00:00 Completed [facility] Pneumococcal 13 Conjugate, PCV13 (Prevnar 13) 2015-05-14 00:00:00 Completed [facility] Pneumococcal 13 Conjugate, PCV13 (Prevnar 13) 2015-05-14 00:00:00 Completed [facility] Pneumococcal 13 Conjugate, PCV13 (Prevnar 13) Unknown [facility]pleted [facility] Influenza Virus Vaccine Quad IM 3+ YRS Unknown Completed [facility] Vital Signs Vital Name Observation Time Observation Value Comments S ource Systolic blood pressure 2024-01-17 17:42:00 128 mm[Hg] [facility] Diastolic blood pressure 2024-01-17 17:42:00 82 mm[Hg] [facility] Heart rate 2024-01-17 17:42:00 60 /min [facility] Respiratory rate 2024-01-17 17:42:00 12 /min [facility] Oxygen saturation in Arterial blood by Pulse oximetry 2024-01-17 17:42:00 95 /min [facility] Body temperature 2024-01-17 17:33:17 36.5 [facility] Body height 2024-01-17 16:49:00 167.6 cm [facility] Body weight 2024-01-17 16:49:00 106.595 kg [facility] BMI 2024-01-17 16:49:00 37.93 kg/m2 [facility] Systolic blood pressure 2022-08-17 15:11:00 119 mm[Hg] [facility] Diastolic blood pressure 2022-08-17 15:11:00 79 mm[Hg] [facility] Heart rate 2022-08-17 15:11:00 74 /min [facility] Body height 2022-08-17 15:11:00 167.6 cm [facility] Body weight 2022-08-17 15:11:00 110.678 kg [facility] BMI 2022-08-17 15:11:00 39.38 kg/m2 [facility] Oxygen saturation in Arterial blood by Pulse oximetry 2022-08-17 15:11:00 98 /min [facility] Systolic blood pressure 2019-07-11 13:42:00 107 mm[Hg] [facility] Diastolic blood pressure 2019-07-11 13:42:00 74 mm[Hg] [facility] Heart rate 2019-07-11 13:42:00 73 /min [facility] Respiratory rate 2019-07-11 13:42:00 18 /min [facility] Body height 2019-07-11 13:42:00 170.2 cm [facility] Body weight 2019-07-11 13:42:00 104.327 kg [facility] BMI 2019-07-11 13:42:00 36.02 kg/m2 [facility] Systolic blood pressure 2019-07-11 13:42:00 107 mm[Hg] [facility] Diastolic blood pressure 2019-07-11 13:42:00 74 mm[Hg] [facility] Heart rate 2019-07-11 13:42:00 73 /min [facility] Respiratory rate 2019-07-11 13:42:00 18 /min [facility] Body height 2019-07-11 13:42:00 170.2 cm [facility] Body weight 2019-07-11 13:42:00 104.327 kg [facility] BMI 2019-07-11 13:42:00 36.02 kg/m2 [facility] Procedures Procedure Date / Time Performed Performing Clinician Source CT HEAD WO CONTRAST 2024-01-17 17:25:00 [facility] CONSENT/REFUSAL FOR DIAGNOSIS AND TREATMENT 2024-01-17 16:10:00 Doctor Unassigned, [facility] CONSENT/REFUSAL FOR DIAGNOSIS AND TREATMENT 2022-12-15 18:32:50 Doctor Unassigned, [facility] ASSIGNMENT OF BENEFITS 2022-12-15 18:32:07 Docto r Unassigned, [facility] SEDIMENTATION RATE 2022-08-13 15:06:00 [facility] PHYSICIAN ORDERS 2022-08-13 05:01:00 Doctor Unas signed, [facility] REFERRAL- REQUEST/RESPONSE 2022-07-27 05:01:00 Doctor Unassigned, [facility] PHYSICIAN ORDERS 2022-07-16 05:01:00 Doctor Unas signed, [facility] ASSIGNMENT OF BENEFITS 2022-04-14 15:02:30 Docto r Unassigned, [facility] ASSIGNMENT OF BENEFITS 2021-11-24 16:35:09 Docto r Unassigned, [facility] PHYSICIAN ORDERS 2021-04-14 05:01:00 Doctor Unas signed, [facility] CBC WITH DIFF 2020-11-19 16:46:00 [facility] ASSIGNMENT OF BENEFITS 2020-11-19 16:27:26 Docto r Unassigned, [facility] CBC WITH DIFFERENTIAL 2020-05-06 17:03:00 [facility] PHYSICIAN ORDERS 2020-05-06 05:01:00 Doctor Unas signed, [facility] BI ULTRASOUND BREAST LIMITED RIGHT 2019-07-24 18:02:55 [facility] NOTICE OF BILLING PRACTICES FOR MEDICARE PATIENTS 2019-07-18 14:44:38 Doctor Unassigned, [facility] BI SCREENING MAMMOGRAM BILATERAL 2019-07-18 14:23:00 Requisition, [facility] ASSIGNMENT OF BENEFITS 2019-07-11 13:26:02 Docto r Unassigned, [facility] REFERRAL- REQUEST/RESPONSE 2019-05-21 05:01:00 Doctor Unassigned, [facility] Encounters Start Date/Time End Date/Time Encounter Type Admission Type Attending [facility] Care Facility Care Department Encounter ID Source 2024-01-17 10:50:00 2024-01-17 14:56:00 Emergency X BELINDA STOVALL [facility] ERT [id number] [facility] 2024-01-17 10:50:00 2024-01-17 14:56:00 Emergency Belinda Stovall [facility] [id number] [facility] 2022-12-20 10:30:00 2022-12-20 10:30:00 Outpatient MEGHA LOPEZ [facility] [id number] [facility] 2022-12-20 10:00:00 2022-12-20 10:00:00 Outpatient MEGHA LOPEZ [facility] [id number] [facility] 2022-12-15 12:31:44 2022-12-15 23:59:00 Hospital Encounter Radiology [facility] [id number] [facility] 2022-12-15 12:31:44 2022-12-15 23:59:00 Outpatient R RADIOLOGY [facility] [id number] [facility] 2022-12-15 07:30:00 2022-12-15 07:45:00 Job Training Specialist Visit Pob, [facility] Lab Main Gus Pham [facility] [id number] [facility] 2022-08-17 11:45:00 2022-08-17 12:00:00 Job Training Specialist Visit Huong, Francisco J Gabriel [facility] [place] 1.84.114 350.1.13.10 4.2.7.2.686 [id number] [facility] 2022-08-17 10:00:00 2022-08-17 11:05:58 Outpatient HUGH JAMES HUGH [facility] [id number] [facility] 2022-08-17 10:00:00 2022-08-17 11:05:58 Office Visit [facility]ugh [facility] [place] 1.84.114 350.1.13.10 4.2.7.2.686 [id number] [facility] 2022-08-13 09:45:00 2022-08-13 10:00:00 Job Training Specialist Visit Pob, Adc Lab Main [facility] BUILDING 1.84.114 350.1.13.10 4.2.7.2.686 [id number] [facility] 2022-08-13 09:45:00 2022-08-13 09:45:00 Outpatient Renato VERO GUS [facility] [id number] [facility] 2022-08-13 00:00:00 2022-08-13 00:00:00 Orders Only Doctor Unassigned, [place] [facility] 1.114 350.1.13.10 4.2.7.2.686 [id number] [facility] 2022-07-27 00:00:00 2022-07-27 00:00:00 Orders Only Doctor Unassigned, [place] [facility] 1.2.840.114 350.1.13.10 4.2.7.2.686 [id number] [facility] 2022-07-16 15:30:00 2022-07-16 15:45:00 Job Training Specialist Visit Pob, Adc Lab Main [facility] BUILDING 1.2.840.114 350.1.13.10 4.2.7.2.686 [id number] [facility] 2022-07-16 15:30:00 2022-07-16 15:30:00 Outpatient Renato PHAM [facility] [id number] [facility] 2022-07-16 00:00:00 2022-07-16 00:00:00 Orders Only Doctor Unassigned, [place] [facility] 1.2.840.114 350.1.13.10 4.2.7.2.686 [id number] [facility] 2022-06-16 09:00:00 2022-06-16 09:00:00 Outpatient Renato PHAM [facility] [id number] [facility] 2022-04-14 10:45:00 2022-04-14 11:00:00 Job Training Specialist Visit [facility], Adc Lab [facility] BUILDING 1.2.840.114 350.1.13.10 4.2.7.2.686 [id number] [facility] 2022-04-14 10:45:00 2022-04-14 10:45:00 Outpatient Renato PHAM [facility] [id number] [facility] 2022-04-14 00:00:00 2022-04-14 00:00:00 Orders Only Doctor Unassigned, [place] [facility] 1.2840.114 350.1.13.10 4.2.7.2.686 [id number] [facility] 2022-02-26 00:00:00 2022-02-26 00:00:00 Outpatient R RADIOLOGY [facility] [id number] [facility] 2021-11-24 10:15:00 2021-11-24 10:30:00 Job Training Specialist Visit Po, Adc Lab [facility] 1.840.114 350.1.13.10 4.2.7.2.686 [id number] [facility] 2021-11-24 10:15:00 2021-11-24 10:15:00 Outpatient R FABRICEHENRIETTA [facility] [id number] [facility] 2021-11-24 00:00:00 2021-11-24 00:00:00 Orders Only Doctor Unassigned, [place] [facility] 1.2840.114 350.1.13.10 4.2.7.2.686 [id number] [facility] 2021-04-14 11:02:08 2021-04-14 11:17:08 Job Training Specialist Visit [facility], Adc Lab [facility] 1.2840.114 350.1.13.10 4.2.7.2.686 [id number] [facility] 2021-04-14 11:00:00 2021-04-14 11:00:00 Outpatient R VERO [facility] [id number] [facility] 2021-04-14 00:00:00 2021-04-14 00:00:00 Orders Only Doctor Unassigned, [place] [facility] 1.2840.114 350.1.13.10 4.2.7.2.686 [id number] [facility] 2020-11-19 10:45:00 2020-11-19 10:45:00 Outpatient R SWETHAShanitaMINI [facility] [id number] [facility] 2020-11-19 10:27:31 2020-11-19 10:42:31 Job Training Specialist Visit Pob, Adc Lab Main [facility] nal Building 1.2840.114 350.1.13.10 4.2.7.2.686 [id number] [facility] 2020-11-19 00:00:00 2020-11-19 00:00:00 Orders Only Doctor Unassigned, [place] [facility] 1.2840.114 350.1.13.10 4.2.7.2.686 [id number] [facility] 2020-05-06 11:23:42 2020-05-06 11:38:42 Job Training Specialist Visit Pob, Adc Lab Main [facility] 1.20.114 350.1.13.10 4.2.7.2.686 [id number] [facility] 2020-05-06 11:30:00 2020-05-06 11:30:00 Outpatient R LULÚ YOEL [facility] [id number] [facility] 2020-05-06 00:00:00 2020-05-06 00:00:00 Orders Only Doctor Unassigned, [place] [facility] 1.20.114 350.1.13.10 4.2.7.2.686 [id number] [id number] [facility] 2019-07-24 12:31:55 2019-07-24 23:59:00 Hospital Encounter Radiology [facility] 1.20.114 350.1.13.10 4.2.7.2.686 [id number] 2019-07-24 12:31:55 2019-07-24 23:59:00 Hospital Encounter Radiology [facility] 1.2.840.114 350.1.13.10 4.2.7.2.686 [id number] [facility] 2019-07-18 08:55:16 2019-07-18 23:59:00 Hospital Encounter Radiology [facility] 1.2.840.114 350.1.13.10 4.2.7.2.686 [id number] [facility] 2019-07-18 09:46:27 2019-07-18 10:01:27 Job Training Specialist Visit 1, Adc Lab [facility] 1.2.840.114 350.1.13.10 4.2.7.2.686 [id number] [facility] 2019-07-11 08:32:04 2019-07-11 09:36:05 Office Visit [facility] 1.2.840.114 350.1.13.10 4.2.7.2.686 [id number] [facility] 2019-07-11 08:32:04 2019-07-11 09:36:05 Office Visit [facility] 1.2.840.114 350.1.13.10 4.2.7.2.686 [id number] 2019-07-11 00:00:00 2019-07-11 00:00:00 Orders Only Doctor Unassigned, [place] [facility] 1.2.840.114 350.1.13.10 4.2.7.2.686 [id number] [facility] 2019-05-21 00:00:00 2019-05-21 00:00:00 Orders Only Doctor Unassigned, [place] [facility] 1.2.840.114 350.1.13.10 4.2.7.2.686 [id number] [facility] Results Test Description Test Time Test Comments Results Result Comments Source CT HEAD WO CONTRAST 17:36:05 EXAM: CT HEAD WO CONTRAST HISTORY: 68 years-old Female; Provided indication: Mental status change,unknown cause . TECHNIQUE: Axial CT of the head was performed and reconstructed at 5 mmintervals. Coronal and sagittal reformatted images were generated. COMPARISON: None FINDINGS: The ventricles and cerebral sulci are normal in caliber and configuration.No midline shift or pathological extra-axial fluid collection is present.The basal cisterns are unremarkable. No acute intracranial hemorrhage or significant mass effect is visualized.No parenchymal attenuation abnormality is seen. The anderson-white matterdifferentiation is preserved. The mastoid air cells and visualized paranasal air sinuses are clear. Thecalvarium and central skull base are unremarkable. [facility] WITH [id number] 17:07:00* Test Item Value Reference Range Interpretation Comme nts WBC (test code = 6690-2) See_Comment [Automated [employer]] The system which generated this result transmitted reference range: 4.30 - 11.10 10*3/?L. The reference range was not used to interpret this result as normal/abnormal. RBC (test code = 789-8) See_Comment [[employer]] The system which generated this result transmitted reference range: 3.93 - 5.25 10*6/?L. The reference range was not used to interpret this result as normal/abnormal. HGB (test code = 718-7) 13.0 g/dL 11.6-15 HCT (test code = 4544-3) 42.8 % 35.7-45.2 MCV (test code = 787-2) 97.7 fL 80.6-95.5 H MCH (test code = 785-6) 29.7 pg 25.9-32.8 MCHC (test code = 786-4) 30.4 g/dL 31.6-35.1 L RDW-SD (test code = 03645-6) 58.0 fL 39-49.9 H RDW-CV (test code = 788-0) 16.2 % 12-15.5 H PLT (test code = 777-3) See_Comment [Automated messa ge] The system which generated this result transmitted reference range: 166 - 358 10*3/?L. The reference range was not used to interpret this result as normal/abnormal. MPV (test code = 32960-1) 11.4 fL 9.5-12.9 NRBC/100 WBC (test code = 7506216621) See_Comment [Automated [employer] ssage] The system which generated this result transmitted reference range: 0.0 - 10.0 /100 WBCs. The reference range was not used to interpret this result as normal/abnormal. NRBC x10^3 (test code = 8604487953) <0.01 See_Comment [Automated messa ge] The system which generated this result transmitted reference range: 10*3/?L. The reference range was not used to interpret this result as normal/abnormal. GRAN MAT (NEUT) % (test code = 770-8) 58.8 % IMM GRAN % (test code = 3281098809) 0.50 % LYMPH % (test code = 736-9) 29.5 % MONO % (test code = 5905-5) 7.9 % EOS % (test code = 713-8) 2.6 % BASO % (test code = 706-2) 0.7 % GRAN MAT x10^3(ANC) (test code = 4585113112) 4.45 10*3/uL 1.88-7.09 IMM GRAN x10^3 (test code = 1642298806) 0.04 10*3/uL 0-0.06 LYMPH x10^3 (test code = 731-0) 2.23 10*3/uL 1.32-3.29 MONO x10^3 (test code = 742-7) 0.60 10*3/uL 0.33-0.92 EOS x10^3 (test code = 711-2) 0.20 10*3/uL 0.03-0.39 BASO x10^3 (test code = 704-7) 0.05 10*3/uL 0.01-0.07 Lab Interpretation (test code = 83669-5) Abnormal [facility] WITH [id number] 17:34:00* Test Item Value Reference Range Interpretation Comme nts WBC (test code = 6690-2) See_Comment [Automated messa ge] The system which generated this result transmitted reference range: 4.30 - 11.10 10*3/?L. The reference range was not used to interpret this result as normal/abnormal. RBC (test code = 789-8) See_Comment [Automated messa ge] The system which generated this result transmitted reference range: 3.93 - 5.25 10*6/?L. The reference range was not used to interpret this result as normal/abnormal. HGB (test code = 718-7) 13.0 g/dL 11.6-15 HCT (test code = 4544-3) 42.7 % 35.7-45.2 MCV (test code = 787-2) 95.5 fL 80.6-95.5 MCH (test code = 785-6) 29.1 pg 25.9-32.8 MCHC (test code = 786-4) 30.4 g/dL 31.6-35.1 L RDW-SD (test code = 26422-8) 57.5 fL 39-49.9 H RDW-CV (test code = 788-0) 16.5 % 12-15.5 H PLT (test code = 777-3) See_Comment [Automated messa ge] The system which generated this result transmitted reference range: 166 - 358 10*3/?L. The reference range was not used to interpret this result as normal/abnormal. MPV (test code = 33906-3) 11.5 fL 9.5-12.9 NRBC/100 WBC (test code = 5125773057) See_Comment [Automated [employer] ssage] The system which generated this result transmitted reference range: 0.0 - 10.0 /100 WBCs. The reference range was not used to interpret this result as normal/abnormal. NRBC x10^3 (test code = 5292529641) <0.01 See_Comment [Automated messa ge] The system which generated this result transmitted reference range: 10*3/?L. The reference range was not used to interpret this result as normal/abnormal. GRAN MAT (NEUT) % (test code = 770-8) 64.1 % IMM GRAN % (test code = 4851177043) 0.60 % LYMPH % (test code = 736-9) 24.9 % MONO % (test code = 5905-5) 8.2 % EOS % (test code = 713-8) 1.6 % BASO % (test code = 706-2) 0.6 % GRAN MAT x10^3(ANC) (test code = 9107047789) 6.46 10*3/uL 1.88-7.09 IMM GRAN x10^3 (test code = 1758747262) 0.06 10*3/uL 0-0.06 LYMPH x10^3 (test code = 731-0) 2.51 10*3/uL 1.32-3.29 MONO x10^3 (test code = 742-7) 0.83 10*3/uL 0.33-0.92 EOS x10^3 (test code = 711-2) 0.16 10*3/uL 0.03-0.39 BASO x10^3 (test code = 704-7) 0.06 10*3/uL 0.01-0.07 Lab Interpretation (test code = 26903-6) [facility] [id number] 18:11:50Examination:BI ULTRASOUND BREAST LIMITED RIGHT History:Patient is 64 year old and is seen for:?Right breast mass.?No relevant hormone history has been documented [...] technologist was present in the room during allimaging evaluations. FINDINGS: 9.4 x 7.5 x 5.2 mm solid lesion confirmed at approximately 8:00 5 cmlateral to the nipple with features consistent with a benign intramammary lymph node. CONCLUSIONS: Mass in the right breast seen by mammography appears to be a lymph node. Annual bilateral mammography evaluation is appropriate. ACR classification: Category II. Recommendation:Annual mammographic follow-up - Right? BI-RADS Category: Right 2 - [facility]ignUniversity [facility] Medical BranchBI SCREENING MAMMOGRAM [id number] 16:02:21 Examination:BI SCREENING MAMMOGRAM BILATERAL History:Patient is 64 year [...] a 10 mm equal density mass with circumscribedmargins seen in the upper outer quadrant of the right breast in the middle depth, 8.2 cm from the nipple. LeftThere is a 4 mm equal density, oval mass with circumscribed margins seen in the retroareolar region of the left breast in the middle depth, 4.7 cm from the nipple. BilateralThere are round and rim calcifications seen in both breasts. Impression:Ultrasound study of RIGHT breast 1 cm. Mass.Recommendation:Ultrasound - RightAnnual mammographic follow-up - LeftAnnual mammographic follow-up - Bilateral BI-RADS Category: Left: 2 - BenignRight: 0 - Incomplete: Needs Additional Imaging EvaluationOverall: 0 - Incomplete: Needs Additional [facility] Date/Time Note Provider Source 2024-01-17 10:48:22 Patient states "I have been having headaches in my left eye, that's my bad eye, I'm blind in that one. I had a bad one this morning and it's still kind of nagging. I took Tylenol for it and also I think my hernia is acting up" TAL Willis RN [facility] - Health 2024-01-17 10:06:00 [facility] Emergency Department Note Patient Name: Boo Dumont Date of : 1955 68 year old female Treatment [facility] Primary Care Physician: Jamia Olivier Patient Escorted by: Family [5] Mode of Arrival: Personal means [1] EMS Treatment Prior to ED Arrival: Travel and Exposure Screening: Symptoms Does patient have any of these symptoms?: (not recorded) Exposure Screening Has patient had contact with someone with a communicable disease in the last month?: (not recorded) Diseases exposed to:: (not recorded) Is Patient ?: (not recorded) Exposure Date: (not recorded) Chief Complaint: Chief Complaint Patient presents with Headache History of Present Illness: Pt is blind in left ey and has been for years, she woke with a headache on left side andpain behind left eye She says she had a stroke She has hx of chf copd hx cad She denies chest pain She states she has gout and arms and legs swell up from time to time but everything feels better than normal She said the pain behind her left eye confused her because she is blind from a stroke She denies fever or vomiting she denies trauma She denies sinus pressure Past Medical History/Immunizations: Past Medical History: Diagnosis Date Allergic rhinitis, cause unspecified Asthma Blindness left eye, from CVA CAD (coronary artery disease) CHF (congestive heart failure) Chronic back pain COPD (chronic obstructive pulmonary disease) Depression Diabetes mellitus Dizziness Emphysema/COPD Esophageal reflux Gout HTN (hypertension) Insulin dependent diabetes mellitus Myocardial infarction Other and unspecified hyperlipidemia Pulmonary hypertension Sleep apnea Allergies: No Known Allergies Past Social History: Tobacco Use Former; 1.50 packs/day for 30.00 years; Types: Cigarettes Smokeless Tobacco: Never used smokeless tobacco. Alcohol Use No. Drug Use No. Past Surgical History: Past Surgical History: Procedure Laterality Date COLONOSCOPY N/A 07/30/2015 Surgeon: Corby Garner MD; Location: [facility] ESOPHAGOGASTRODUODENOSCOPY N/A 02/23/2017 Surgeon: Corby Garner MD; Location: [facility] OR [facility] EXAMINATION UNDER ANESTHESIA N/A 04/27/2016 Surgeon: Collin Junior MD; Location: [facility] LAPAROSCOPIC TUBAL LIGATION MA COLONOSCOPY W/BIOPSY SINGLE/MULTIPLE 07/30/2015 MA COLSC FLX W/RMVL OF TUMOR POLYP LESION SNARE TQ 07/30/2015 MA EGD TRANSORAL BIOPSY SINGLE/MULTIPLE 02/23/2017 PROCTOSCOPY N/A 11/25/2015 Surgeon: Collin Junior MD; Location: [facility] OR LOCATION TOTAL KNEE ARTHROPLASTY Bilateral 2012, 2014 TRANSANAL ENDOSCOPIC POLYP RESECTION N/A 11/25/2015 Surgeon: Collin Junior MD; Location: [facility] OR LOCATION Review of Systems: Review of Systems Constitutional: Negative for diaphoresis and fatigue. Neurological: Positive for headaches. Negative for syncope, light-headedness and numbness. All other systems reviewed and are negative. Physical Exam: ED Triage Vitals [01/17/24 1049] Weight 106.6 kg (235 lb) Actual or estimated Estimated by patient/family report Height 1.676 m (5' 6") BP (!) 139/92 Pulse 64 Resp 22 Temp 36.5 ?C (97.7 ?F) Temp source Oral SpO2 98 % Measured on Room air Physical Exam Vitals and nursing note reviewed. Constitutional: Appearance: She is normal weight. HENT: Head: Normocephalic. Right Ear: External ear normal. Left Ear: External ear normal. Nose: Nose normal. Mouth/Throat: Mouth: Mucous membranes are moist. Eyes: Comments: Left eye blind, right eye vision normal, Cardiovascular: Rate and Rhythm: Normal rate and regular rhythm. Pulmonary: Effort: Pulmonary effort is normal. Abdominal: General: Abdomen is flat. Palpations: Abdomen is soft. Musculoskeletal: General: No swelling or deformity. Normal range of motion. Cervical back: Normal range of motion. Skin: General: Skin is warm. Capillary Refill: Capillary refill takes less than 2 seconds. Neurological: General: No focal deficit present. Mental Status: She is alert and oriented to person, place, and time. Mental status is at baseline. Cranial Nerves: No cranial nerve deficit. Motor: No weakness. Radiology: No orders to display Lab Results: Lab Results - No data to display EKG: If EKG completed, see Procedure Note. 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, she woke with a headache on left side andpain behind left eye She says she had a stroke She has hx of chf copd hx cad She denies chest pain She states she has gout and arms and legs swell up from time to time but everything feels better than normal She said the pain behind her left eye confused her because she is blind from a stroke She denies fever or vomiting she denies trauma She denies sinus pressure\\ Ddx stroke ich migraine headache Ct done No hemorage or stroke Meds given Headache gone, pt feeling better and requesting discharge Hospital Encounter on 01/17/24 -CT HEAD WO CONTRAST: Narrative EXAM: CT HEAD WO CONTRAST HISTORY: 68 years-old Female; Provided indication: Mental status change, unknown cause . TECHNIQUE: Axial CT of the head was performed and reconstructed at 5 mm intervals. Coronal and sagittal reformatted images were generated. COMPARISON: None FINDINGS: The ventricles and cerebral sulci are normal in caliber and configuration. No midline shift or pathological extra-axial fluid collection is present. The basal cisterns are unremarkable. No acute intracranial hemorrhage or significant mass effect is visualized. No parenchymal attenuation abnormality is seen. The anderson-white matter differentiation is preserved. The mastoid air cells and visualized paranasal air sinuses are clear. The calvarium and central skull base are unremarkable. Impression No acute intracranial abnormality. Preliminary Report Dictated by Resident: Corey Roe, Eliseo Valles MD., have reviewed this study and agree with the above report. Problems Addressed: Headache around the eyes: Details: Ct reglan ketorlac benadryl Amount and/or Complexity of Data Reviewed Radiology: ordered. Details: No stroke or hemorage Risk Prescription drug management. Flowsheet Documentation: Scoring Tools: No data recorded Disposition/Condition: ED Disposition None Discharge Medications: Patient's Medications START taking these medications No medications on file CONTINUE taking these medications which have NOT CHANGED ALBUTEROL (PROVENTIL) 2.5 MG /3 ML (0.083 %) NEBULIZER SOLUTION Inhale 3 mL every 4 (four) hours as needed for Wheezing or Shortness of Breath. ALLOPURINOL 100 MG TABLET Take 200 mg by mouth daily. ANORO ELLIPTA 62.5-25 MCG/ACTUATION INHALATION DISK Inhale 1 Puff daily. ASPIRIN 81 MG CHEWABLE TABLET Take 81 mg by mouth daily. ATENOLOL (TENORMIN) 50 MG TABLET Take 50 mg by mouth 2 (two) times daily. ATORVASTATIN (LIPITOR) 20 MG TABLET Take 1 Tab by mouth at bedtime. BD INSULIN SYRINGE ULTRA-FINE 1/2 ML 31 X 5/16" SYRG BIMATOPROST (LUMIGAN) 0.01 % DROP Place 1 Drop in each eye daily. CLOPIDOGREL (PLAVIX) 75 MG TABLET Take 75 mg by mouth daily. COLCHICINE (COLCRYS) 0.6 MG TABLET Take 0.6 mg by mouth daily. EZETIMIBE 10 MG TABLET Take 1 tablet by mouth in the morning. FARXIGA 10 MG TABLET TAKE 1 TABLET BY MOUTH 1 (ONE) TIME EACH DAY IN THE MORNING WITH PLENTY OF WATER, FOR DIABETES FERROUS FUMARATE/FOLIC ACID (HEMATINIC/FOLIC ACID ORAL) Take 1 Tab by mouth daily. FLUTICASONE FUROATE (ARNUITY ELLIPTA) 200 MCG/ACTUATION DSDV Inhale 1 Puff daily. FLUTICASONE FUROATE-VILANTEROL (BREO ELLIPTA) 200-25 MCG/DOSE DSDV Inhale 1 Puff. FOLIC ACID (FOLATE) 1 MG TABLET Take 1 mg by mouth daily. FUROSEMIDE 40 MG TABLET Take 40 mg by mouth 3 (three) times daily. GABAPENTIN (NEURONTIN) 100 MG CAPSULE Take 100 mg by mouth at bedtime. HYDROCODONE-ACETAMINOPHEN 7.5-325 MG PER TABLET Take 1 tablet by mouth every 6 (six) hours as needed for Pain. INSULIN GLARGINE (LANTUS U-100) 100 UNIT/ML INJECTION inject 24 Units under the skin at bedtime. LEVOCETIRIZINE (XYZAL) 5 MG TABLET Take 5 mg by mouth every evening. LEVOTHYROXINE 25 MCG TABLET METFORMIN (GLUCOPHAGE) 1,000 MG TABLET Take 500 mg by mouth 2 (two) times daily. NITROGLYCERIN (NITROSTAT) 0.[address] 0.4 mg under the tongue every 5 (five) minutes as needed for Chest pain. OLOPATADINE (PATADAY) 0.2 % DROP Place 1 Drop in each eye daily. SERTRALINE (ZOLOFT) 25 MG TABLET Take 25 mg by mouth daily. SIMVASTATIN 10 MG TABLET SITAGLIPTIN (JANUVIA) 50 MG TABLET Take 50 mg by mouth daily. SPIRONOLACTONE (SPIRONOLACTONE) 25 MG TABLET Take 25 mg by mouth daily. START taking Modified Medications as Prescribed No medications on file STOP taking these medications No medications on file Follow-up: Electronically signed by: Belinda Stovall MD 01/17/24 1318 [facility]
--- NOTE | 2024-07-03 17:46 | EKG ---
Test Date: 2024-07-02 Test Time: 21:32:41 Band Booker: CATHRYN MEASUREMENT RESULTS: Intervals: Rate: 121 IN: 148 QRSD: 74 QT: 312 QTc: 443 [place]: P: 73 IN: 148 QRS: -59 T: 93 INTERPRETIVE STATEMENTS: Sinus tachycardia Left axis deviation Low voltage QRS Septal infarct, age undetermined Inferior infarct, age undetermined Abnormal ECG Compared to ECG 03/27/2023 10:02:24 Sinus rhythm no longer present Myocardial infarct finding still present Electronically Signed On 07-03-24 17:44:19 CDT by Tony Llamas
--- NOTE | 2024-07-03 19:54 | RAD REPORT ---
EXAM DESCRIPTION: CT Lumbar Spine Without Intravenous Contrast CLINICAL HISTORY: The patient is 69 years old and is Female; PAIN TECHNIQUE: Axial computed tomography images of the lumbar spine without intravenous contrast. Sagi ttal and coronal reformatted images were created and reviewed. This CT exam was performed using one or more of the following dose reduction techniques: automated exposure control, adjustment of the mA and/or kV according to patient size, and/or use of iterative reconstruction technique. COMPARISON: No relevant prior studies available. FINDINGS: VERTEBRAE: The vertebral body heights and alignment are maintained. No acute fracture. DISCS/SPINAL CANAL/NEURAL FORAMINA: Minimal vacuum disc phenomenon at L5-S1 is noted. Interverteb ral disc spaces are maintained. There is no significant canal stenosis or neural foraminal narrowing. Minimal disc bulges from L3 through S1 is present. SOFT TISSUES: The soft tissues are normal. IMPRESSION: Mild spondylosis of lumbar spine. Electronically signed by: Alis Kilgore MD 07/02/2024 11:37 PM CDT RP Due to temporary technical issues with the PACS/Fluency reporting system, reports are being signed by the in house radiologists without review as a courtesy to insure prompt reporting. The interpreting radiologist is fully responsible for the content of the report.
--- NOTE | 2024-07-03 19:55 | RAD REPORT ---
EXAM DESCRIPTION: XR Chest, 1 View CLINICAL HISTORY: The patient is 69 years old and is Female; hypoxia TECHNIQUE: Frontal view of the chest. COMPARISON: No relevant prior studies available. FINDINGS: LIMITATIONS: Suboptimal study secondary to artifact related to patient body habitus. LUNGS: Diffuse pulmonary opacities are noted throughout the lungs. Patchy opacity in the right lo wer lobe is present. PLEURAL SPACE: Unremarkable. No pneumothorax. HEART: The cardiac silhouette is enlarged. MEDIASTINUM: Unremarkable. Normal mediastinal contour. BONES/JOINTS: Multilevel degenerative change of the spine is present. No acute fracture. VASCULATURE: Atherosclerosis of the aorta is present. UPPER ABDOMEN: Unremarkable as visualized. IMPRESSION: Cardiomegaly with vascular congestion and concern for developing right lower lobe atelec tasis/infiltrate. Electronically signed by: Alis Kilgore MD 07/03/2024 12:16 AM CDT RP Due to temporary technical issues with the PACS/Fluency reporting system, reports are being signed by the in house radiologists without review as a courtesy to insure prompt reporting. The interpreting radiologist is fully responsible for the content of the report.
[2024-07-04 05:00] VITALS: BMI 38.7
[2024-07-04 06:16] LABS: Absolute Basophils 0.1 K/uL (0-0.5); Absolute Eosinophils 0.2 K/uL (0-0.5); Absolute Lymphocytes (CBC) 1.3 K/uL (0.7-4.9); Absolute Monocytes 0.9 K/uL (0.1-1.3); Absolute Neutrophil 23.3 K/uL (1.8-8.0); Basophils % 0.3 % (0-1.3); Eosinophils % 0.9 % (0-4.4); Hematocrit 36.5 % (36.0-45.0); Hemoglobin 11.8 g/dL (12.0-15.0); MCH 30.7 pg (27.0-35.0); MCHC 32.3 g/dL (32.0-36.0); MCV 95.1 fL (80-100); MPV 10.1 fL (7.6-11.3); Monocytes % 3.4 % (3.3-12.3); Neutrophils % 90.4 % (41.7-73.7); Platelets 161 thou/uL (152-406); RBC Red Blood Cell Count 3.84 M/uL (3.86-4.86); Red Cell Distribution Width 16.9 % (12.1-15.2)
[2024-07-04 06:32] LABS: Albumin 2.4 g/dL (3.4-5.0); Albumin/Globulin Ratio 0.6 (1.1-1.8); Anion Gap 6.9 mEq/L (5.0-15.0); Bilirubin Total 0.6 mg/dL (0.2-1.0); Globulin 4.2 g/dL (2.3-3.5); Potassium 3.9 mEq/L (3.5-5.1); Protein, Total 6.6 g/dL (6.4-8.2)
--- NOTE | 2024-07-04 08:13 | ECHO ---
HEIGHT: 5 ft 6 in WEIGHT: 240 lb 0 oz DATE OF STUDY: 07/03/[address]: José Turcios DO 2-DIMENSIONAL: YES M.MODE: YES DOPPLER: YES COLOR FLOW: YES TDS: PORTABLE: YES DEFINITY: BUBBLE STUDY: DIAGNOSIS: CONGESTIVE HEART FAILURE CARDIAC HISTORY: CATHERIZATION: SURGERY: PROSTHETIC VALVE: PACEMAKER: MEASUREMENTS (cm) DIASTOLIC (NORMALS) SYSTOLIC (NORMALS) IVSd 1.1 (0.6-1.2) LA Diam 4.0 (1.9-4.0) LVEF 60-65% LVIDd 3.9 (3.5-5.7) LVIDs 2.3 (2.0-3.5) %FS 42% LVPWd 1.3 (0.6-1.2) Ao Diam 2.6 (2.0-3.7) 2 DIMENSIONAL ASSESSMENT: RIGHT ATRIUM: NORMAL LEFT ATRIUM: NORMAL RIGHT VENTRICLE: NORMAL LEFT VENTRICLE: MILD LEFT VENTRICULAR HYPERTROPHY TRICUSPID VALVE: TRACE TRICUSPID REGURGITATION MITRAL VALVE: NORMAL PULMONIC VALVE: NORMAL AORTIC VALVE: NORMAL PERICARDIAL EFFUSION: NONE AORTIC ROOT: NORMAL LEFT VENTRICULAR WALL MOTION: NORMAL DOPPLER/COLOR FLOW: GRADE I DIASTOLIC DYSFUNCTION COMMENTS: 1. NORMAL LEFT VENTRICULAR SYSTOLIC FUNCTION, EJECTION FRACTION 60-65%, NORMAL WALL MOTION 2. GRADE I DIASTOLIC DYSFUNCTION 3. NORMAL FILLING PRESSURE TECHNOLOGIST: KINGSTON APARICIO
[2024-07-04] MEDS: POTASSIUM CL SA 10 MEQ TAB PO ONE (08:36)
[2024-07-05] MEDS: ALBUTEROL 2.5 MG/3 ML NEB SOL NEB PRN (02:20)
[2024-07-05] MEDS: IPRATROPIUM BROM 0.5MG/2.5ML NEB PRN (02:20)
[2024-07-05 07:06] LABS: Anion Gap 11.8 mEq/L (5.0-15.0); Potassium 3.8 mEq/L (3.5-5.1)
[2024-07-05] MEDS: POTASSIUM CL SA 10 MEQ TAB PO ONE (14:31)
[2024-07-05 15:16] LABS: Sqamous Epithelial <5 /HPF (None Seen); Urine Bacteria <20 /HPF (<20); Urine Bilirubin NEGATIVE (Negative); Urine Blood Negative (Negative); Urine Clarity Turbid (Clear); Urine Color Light-Yellow (Yellow); Urine Culture Reflex Order NOT NEEDED; Urine Glucose 1+ (Negative); Urine Ketones NEGATIVE (Negative); Urine Microscopic Reflex YN ORDER UMIC; Urine Mucus Slight /HPF (None Seen); Urine Nitrite NEGATIVE (Negative); Urine Protein NEGATIVE (Negative); Urine RBC <5 /HPF (None Seen); Urine Urobilinogen Normal (Normal); Urine WBC <5 /HPF (<5); Urine Yeast (Budding) Occasional /HPF (None Seen); Urine pH 5.5 (5.0-7.0)
[2024-07-05] MEDS: predniSONE 20 MG TAB PO SCH (20:45)
--- NOTE | 2024-07-06 07:10 | P.PN ---
Date of Service: 07/06/24 subjective Admitted for pneumonia, Breathing improved, tolerating diet 95% on room air Review of Systems 10-point ROS is otherwise unremarkable Physical Examination - Vital Signs reviewed - Physical Exam General: Alert, Oriented x3, Mild distress, Obese HEENT: Atraumatic, Normocephalic Neck: Supple, No Thyromegaly Respiratory: Diminished, unlabored Cardiovascular: Regular rate/rhythm, Normal S1 S2 Capillary refill: <2 Seconds Gastrointestinal: Soft and benign, Non-distended, nontender Musculoskeletal: No clubbing, No swelling Integumentary: No rashes, No breakdown Neurological: Normal speech, Normal strength at 5/5 x4 extr, Cranial nerves 3-12 intact Lymphatics: No axilla or inguinal lymphadenopathy Assessment and Plan - Plan Acute hypoxic respiratory failure secondary to pneumonia improved severe sepsis due to pneumonia Leukocytosis noted Lactic acidosis Will obtain cultures IV hydration In moderation because of CHF Lactic acidosis noted Started on IV antibiotics cefepime, azithromycin Monitor closely Antitussives ABG Acute kidney injury improving Monitor renal parameters Electrolytes monitor and replace accordingly Elevated BNP Patient has history of CHF Will obtain echocardiogram Hypertension Antihypertensives titrated Continue home medications and titrate as needed Hyperlipidemia Continue statin GI/DVT prophylaxis Advanced directive full code Discharge Plan: Home Plan to discharge in: 48 Hours - Advance Directives Does patient have a Living Will: No Does patient have a Durable POA for Healthcare: No - Code Status/Comfort Care Code Status: Full Code Time Spent Managing Pts Care (In Minutes): 25 <Sol Davalos - Last Filed: 07/07/24 15:13> Chart has been reviewed. Events of the last 24 hours have been noted. Case discussed with [facility]. I performed a substantial part of the MDM during this patient's care today. I personally made or approved the documented management plan and acknowledge its risk of complications. I agree with the findings and documentation provided in the [facility]RON's notes Continue with gentle diuresing. Respiratory status has improved. Dissipate discharge home in the morning. <Jovanna Caputo - Last Filed: 07/26/24 02:29>
[2024-07-06 08:06] LABS: Anion Gap 9.5 mEq/L (5.0-15.0); Magnesium 1.9 mg/dL (1.6-2.4); Potassium 4.5 mEq/L (3.5-5.1)
[2024-07-06 08:17] LABS: Absolute Basophils 0.1 K/uL (0-0.5); Absolute Lymphocytes (CBC) 0.9 K/uL (0.7-4.9); Absolute Monocytes 0.4 K/uL (0.1-1.3); Absolute Neutrophil 7.9 K/uL (1.8-8.0); Basophils % 0.7 % (0-1.3); Eosinophils % 0.2 % (0-4.4); Hematocrit 39.5 % (36.0-45.0); Hemoglobin 12.7 g/dL (12.0-15.0); Lymphocytes % 9.6 % (15.3-44.8); MCH 30.3 pg (27.0-35.0); MCHC 32.1 g/dL (32.0-36.0); MCV 94.4 fL (80-100); MPV 10.9 fL (7.6-11.3); Monocytes % 3.9 % (3.3-12.3); Neutrophils % 85.6 % (41.7-73.7); Nucleated Red Blood Cells % 0.1 % (0-0); Platelets 172 thou/uL (152-406); RBC Red Blood Cell Count 4.19 M/uL (3.86-4.86); Red Cell Distribution Width 16.9 % (12.1-15.2)
[2024-07-06 09:05] LABS: Band Neutrophils 1 % (0-1); Blood Morphology Comment NOT SEEN (NOT SEEN); Differential Total Cells Count 100; Lymphocytes 11 % (15-42); Monocytes 3 % (0-10); Platelet Estimate ADEQ; Segmented Neutrophils 85 % (40-80); Toxic Granulation 1+; White Blood Cell Scan OK (OK)
[2024-07-06] MEDS: FUROSEMIDE 40 MG TABLET PO SCH (09:09)
[2024-07-06] MEDS ORDERED: HYDROCODONE/APAP 5/325 MG TAB PO PRN (13:14)
[2024-07-06] MEDS: ACETAMINOPHEN 325 MG TABLET PO PRN (13:23)
[2024-07-06] MEDS: GABAPENTIN 300 MG CAP PO SCH (15:02)
[2024-07-06] MEDS: SERTRALINE HCL 100 MG TAB PO SCH (20:47)
[2024-07-06] MEDS: atenoloL 50 MG TAB PO SCH (20:48)
[2024-07-07] MEDS: LEVOTHYROXINE SOD 0.025 MG TAB PO SCH (06:00)
--- NOTE | 2024-07-07 07:54 | P.PN ---
Date of Service: 07/07/24 subjective Weaned to room air, 95% on room air Reports generalized weakness, Review of Systems 10-point ROS is otherwise unremarkable Physical Examination - Vital Signs reviewed - Physical Exam General: Alert, Oriented x3, no acute distress noted HEENT: Atraumatic, Normocephalic Neck: Supple, No Thyromegaly Respiratory: Diminished, equal unlabored Cardiovascular: Regular rate/rhythm, Normal S1 S2 Capillary refill: <2 Seconds Gastrointestinal: Soft and benign, Non-distended, nontender Musculoskeletal: No clubbing, No swelling Integumentary: No rashes, No breakdown Neurological: Normal speech, Normal strength at 5/5 x4 extr, Cranial nerves 3-12 intact Lymphatics: No axilla or inguinal lymphadenopathy Assessment and Plan - Plan Acute hypoxic respiratory failure secondary to pneumonia severe sepsis due to pneumonia Leukocytosis noted Lactic acidosis Will obtain cultures IV hydration In moderation because of CHF Lactic acidosis noted Started on IV antibiotics cefepime, azithromycin, as needed nebs Monitor closely Antitussives ABG Acute kidney injury improving Monitor renal parameters Electrolytes monitor and replace accordingly Elevated BNP Patient has history of CHF Will obtain echocardiogram Hypertension Antihypertensives titrated Continue home medications and titrate as needed Hyperlipidemia Continue statin GI/DVT prophylaxis Advanced directive full code Discharge Plan: Home Plan to discharge in: 48 Hours - Advance Directives Does patient have a Living Will: No Does patient have a Durable POA for Healthcare: No - Code Status/Comfort Care Code Status: Full Code Time Spent Managing Pts Care (In Minutes): 35
[2024-07-07 08:20] VITALS: O2SAT 95
[2024-07-07 08:23] LABS: Absolute Basophils 0.1 K/uL (0-0.5); Absolute Lymphocytes (CBC) 1.3 K/uL (0.7-4.9); Absolute Monocytes 0.5 K/uL (0.1-1.3); Absolute Neutrophil 8.6 K/uL (1.8-8.0); Basophils % 0.5 % (0-1.3); Eosinophils % 0.2 % (0-4.4); Hematocrit 40.9 % (36.0-45.0); Lymphocytes % 12.7 % (15.3-44.8); MCH 30.3 pg (27.0-35.0); MCHC 31.9 g/dL (32.0-36.0); MCV 94.9 fL (80-100); MPV 10.7 fL (7.6-11.3); Monocytes % 4.6 % (3.3-12.3); Platelets 187 thou/uL (152-406); RBC Red Blood Cell Count 4.31 M/uL (3.86-4.86); Red Cell Distribution Width 16.6 % (12.1-15.2)
[2024-07-07 08:37] LABS: Anion Gap 8.4 mEq/L (5.0-15.0); Magnesium 1.8 mg/dL (1.6-2.4); Potassium 4.4 mEq/L (3.5-5.1)
[2024-07-07] MEDS: SPIRONOLACTONE 25 MG TABLET PO SCH (09:00)
[2024-07-07] MEDS: EZETIMIBE 10 MG TAB PO SCH (09:14)
[2024-07-07] MEDS: FOLIC ACID 1 MG TABLET PO SCH (09:15)
[2024-07-07] MEDS: CLOPIDOGREL 75 MG TABLET PO SCH (09:17)
[2024-07-07] MEDS: MAGNESIUM SULFATE 1 gm IVPB 1 GM/100 ML BAG IV ONE (11:49)
[2024-07-07 16:20] VITALS: BP 123/82; TEMP 97.2
--- NOTE | 2024-07-08 16:26 | P.DS ---
Admission Date: 07/03/24 Discharge Date: 07/07/24 Reason for Admission: Sepsis , Pneumonia Brief History of Present Illness: 69 yrs old Female with past medical history of hypertension, diabetes, CHF, gout, hyperlipidemia, neuropathy, hypothyroidism, CAD, COPD, depression, was brought to ER with back pain which has been worsening over the last week. Patient denies any fall or injury. Patient had worsening of the back pain and could not be able to ambulate and was brought to ER . She also complains of difficulty in breathing associated with generalized weakness and cough with productive mucoid expectoration . Denies any fever or chills but temperature n oted to be 100.2. Complains of generalized body pain. No sick contacts. Denies any vomiting but associated with nausea. Denies any chest pain. Patient was assessed in the ER and was found to be having pneumonia and was admitted for further management. . - Physical Exam General: Alert, Oriented x3, Obese HEENT: Atraumatic, Normocephalic Neck: Supple, No Thyromegaly Respiratory: Diminished, Crackles/rales, Expiratory wheezes Cardiovascular: Regular rate/rhythm, Normal S1 S2 Capillary refill: <2 Seconds Gastrointestinal: Soft and benign, Non-distended, W/out hepatosplenomegaly Musculoskeletal: No clubbing, No swelling Integumentary: No rashes, No breakdown Neurological: Normal speech, Normal strength at 5/5 x4 extr, Cranial nerves 3-12 intact Lymphatics: No axilla or inguinal lymphadenopathy Hospital Course: 69 yrs old Female with past medical history of hypertension, diabetes, CHF, gout, hyperlipidemia, neuropathy, hypothyroidism, CAD, COPD, depression, was brought to ER with back pain which has been worsening over the last week. Ms. martin was noted to have pneumonia, treated with IV antibiotics, oxygen., Noted to have elevated BNP, lactic acidosis, gentle hydration, she is tolerating diet, stable to discharge home follow-up with primary care in 1 week. Weaned to room air, Assessment Pneumonia Congestive heart failure Hypertension Discharge medication nebulizer, cefdinir, azithromycin Lasix 40 daily Hydrocodone 5 mg 1 p.o. every 6 hours Prednisone 20 mg 1 p.o. twice daily 5 days, Chest x-ray IMPRESSION: Cardiomegaly with vascular congestion and concern for developing right lower lobe atelectasis/infiltrate. Lumbar spine CT IMPRESSION: Mild spondylosis of lumbar spine. 8/20 Echocardiogram OPPLER/COLOR FLOW: GRADE I DIASTOLIC DYSFUNCTION Continue home medicines as previously prescribed GOAL: Clear understanding of disease process INSTRUCTIONS: Physician Discharge Instructions: -Follow-up with cardiology in 1 to 2 weeks -Follow-up with PCP in 1 to 2 weeks -Please call Dr. Caputo at [phone] if any questions regarding hospital stay -Please call nursing station at [phone] if any nursing or medication questions -Return to the emergency room if symptoms worsen Diet: ADA, low sodium Activity: Fall precautions <Sol Davalos - Last Filed: 07/08/24 16:31> Admission Date: 07/03/24 Discharge Date: 07/07/24 Hospital Course: Chart has been reviewed. Events of the last 24 hours have been noted. Case discussed with [facility]. I performed a substantial part of the MDM during this patient's care today. I personally made or approved the documented management plan and acknowledge its risk of complications. I agree with the findings and documentation provided in the [facility]'s notes <Jovanna Caputo - Last Filed: 07/26/24 02:30> Disposition: ROUTINE DISCHARGE Discharge Condition: GOOD Vital Signs/Physical Exam: Temp Pulse Resp BP Pulse Ox 97.2 F 72 16 123/82 93 07/07/24 16:00 07/07/24 16:00 07/07/24 16:00 07/07/24 16:00 07/07/24 16:00 Laboratory Data at Discharge: WBC 10.50 thou/uL (4.3-10.9) 07/07/24 07:49 Hgb 13.0 g/dL (12.0-15.0) 07/07/24 07:49 Hct 40.9 % (36.0-45.0) 07/07/24 07:49 Plt Count 187 thou/uL (152-406) 07/07/24 07:49 PT 17.4 SECONDS (9.4-12.5) H 07/02/24 21:25 INR 1.57 07/02/24 21:25 APTT 30.1 SECONDS (24.3-36.9) 07/02/24 21:25 Sodium 139 mEq/L (136-145) 07/07/24 07:49 Potassium 4.4 mEq/L (3.5-5.1) 07/07/24 07:49 BUN 26 mg/dL (7-18) H 07/07/24 07:49 Creatinine 0.91 mg/dL (0.55-1.02) 07/07/24 07:49 Glucose 128 mg/dL (74-106) H 07/07/24 07:49 Phosphorus 2.2 mg/dL (2.5-4.9) L 07/07/24 07:49 Magnesium 1.8 mg/dL (1.6-2.4) 07/07/24 07:49 Total Bilirubin 0.6 mg/dL (0.2-1.0) 07/04/24 05:57 AST 46 U/L (15-37) H 07/04/24 05:57 ALT 21 U/L (13-56) 07/04/24 05:57 Alkaline Phosphatase 65 U/L (45-117) 07/04/24 05:57 <Sol Davalos - Last Filed: 07/08/24 16:31> Vital Signs/Physical Exam: Temp Pulse Resp BP Pulse Ox 97.2 F 72 16 123/82 93 07/07/24 16:00 07/07/24 16:00 07/07/24 16:00 07/07/24 16:00 07/07/24 16:00 General: Alert, In no apparent distress, Oriented x3 Laboratory Data at Discharge: WBC 10.50 thou/uL (4.3-10.9) 07/07/24 07:49 Hgb 13.0 g/dL (12.0-15.0) 07/07/24 07:49 Hct 40.9 % (36.0-45.0) 07/07/24 07:49 Plt Count 187 thou/uL (152-406) 07/07/24 07:49 PT 17.4 SECONDS (9.4-12.5) H 07/02/24 21:25 INR 1.57 07/02/24 21:25 APTT 30.1 SECONDS (24.3-36.9) 07/02/24 21:25 Sodium 139 mEq/L (136-145) 07/07/24 07:49 Potassium 4.4 mEq/L (3.5-5.1) 07/07/24 07:49 BUN 26 mg/dL (7-18) H 07/07/24 07:49 Creatinine 0.91 mg/dL (0.55-1.02) 07/07/24 07:49 Glucose 128 mg/dL (74-106) H 07/07/24 07:49 Phosphorus 2.2 mg/dL (2.5-4.9) L 07/07/24 07:49 Magnesium 1.8 mg/dL (1.6-2.4) 07/07/24 07:49 Total Bilirubin 0.6 mg/dL (0.2-1.0) 07/04/24 05:57 AST 46 U/L (15-37) H 07/04/24 05:57 ALT 21 U/L (13-56) 07/04/24 05:57 Alkaline Phosphatase 65 U/L (45-117) 07/04/24 05:57 <Jovanna Caputo - Last Filed: 07/26/24 02:30> Diet: AHA Activity: Fall precautions Time spent managing pt's care (in minutes): 45 <Sol Davalos - Last Filed: 07/08/24 16:31> <Jovanna Caputo - Last Filed: 07/26/24 02:30> Home Medications: Allopurinol 1 tab PO DAILY 07/03/24 Clopidogrel Bisulfate [Plavix] 75 mg PO DAILY 07/03/24 Dapagliflozin Propanediol [Farxiga] 1 tab PO DAILY 07/03/24 Ezetimibe 10 mg PO DAILY 07/03/24 Folic Acid 1 mg PO DAILY 07/03/24 Gabapentin 300 mg PO TID 07/03/24 Insulin Degludec [Tresiba Flextouch U-200] 18 units SQ BEDTIME 07/03/24 Levothyroxine Sodium 25 mcg PO DAILY 07/03/24 Metformin HCl 1,000 mg PO BID 07/03/24 Sertraline [Zoloft*] 1 tab PO BEDTIME 07/03/24 Sitagliptin Phosphate [Januvia] 100 mg PO DAILY 07/03/24 Spironolactone 25 mg PO DAILY 07/03/24 Bimatoprost [Lumigan Opthalmic Drops*] 1 drops OPTH DAILY 07/06/24 Albuterol Neb [Proventil 0.083% Neb Soln] 2.5 mg NEB Q6HP PRN #60 amp 07/07/24 Azithromycin Tab [Zithromax*] 250 mg PO DAILY #3 tab 07/07/24 Cefdinir [Cefdinir*] 300 mg PO BID #10 cap 07/07/24 Furosemide [Lasix*] 40 mg PO DAILY #30 tab 07/07/24 Hydrocodone 5/APAP 325 [[place] 5/325*] 1 tab PO Q6HP PRN #30 tab 07/07/24 Ipratropium Neb [Atrovent*] 0.5 mg NEB [id number] PRN #60 amp 07/07/24 Nebulizer 1 each MC DAILY #1 ea 07/07/24 Nebulizer Accessories [Adult Aerosol Mask] 1 each MC DAILY #1 ea 07/07/24 atenoloL [Tenormin*] 25 mg PO BID #60 tab 07/07/24 predniSONE [Prednisone*] 20 mg PO BID #11 tab 07/07/24 New Medications: Nebulizer Accessories [Adult Aerosol Mask] 1 each MC DAILY #1 ea Ipratropium Neb [Atrovent*] 0.5 mg NEB [id number] PRN #60 amp PRN Reason: Shortness Of Breath Cefdinir [Cefdinir*] 300 mg PO BID #10 cap Furosemide [Lasix*] 40 mg PO DAILY #30 tab Nebulizer 1 each MC DAILY #1 ea Hydrocodone 5/APAP 325 [[place] 5/325*] 1 tab PO Q6HP PRN #30 tab PRN Reason: Pain Scale 5-7 (Moderate) predniSONE [Prednisone*] 20 mg PO BID #11 tab Albuterol Neb [Proventil 0.083% Neb Soln] 2.5 mg NEB Q6HP PRN #60 amp PRN Reason: Shortness Of Breath atenoloL [Tenormin*] 25 mg PO BID #60 tab Azithromycin Tab [Zithromax*] 250 mg PO DAILY #3 tab Physician Discharge Instructions: -DC IV and DC home -Follow-up with PCP in 1 to 2 weeks -Follow-up with Cardiology in 1 to 2 weeks -Please call Dr. Caputo at [phone] if any questions regarding hospital stay -Please call nursing station at [phone] if any nursing or medication questions -Return to the emergency room if symptoms worsen Followup: Katarina Anthony MD [Primary Care Provider] -
--- NOTE | 2024-07-26 02:27 | P.PN ---
Date of Service: 07/04/24 Subjective Patient clinically doing well. Patient denies any new complaints. Continue with antibiotic therapy. Gentle hydration. Physical Examination - Vital Signs reviewed - Physical Exam General: Alert, Oriented x3, Mild distress, Obese Respiratory: Diminished, Crackles/rales, Expiratory wheezes Cardiovascular: Regular rate/rhythm, Normal S1 S2 Gastrointestinal: Soft and benign, Non-distended, nontender Musculoskeletal: No clubbing, No swelling Integumentary: No rashes, No breakdown Neurological: Normal speech, Normal strength at 5/5 x4 extr, Cranial nerves 3-12 intact Assessment and Plan - Assessment/Plan Sepsis due to pneumonia Leukocytosis noted Lactic acidosis Will obtain cultures IV hydration In moderation because of CHF Lactic acidosis noted Started on IV antibiotics Monitor closely Antitussives Acute kidney injury Monitor renal parameters Electrolytes monitor and replace accordingly Elevated BNP Patient has history of CHF Will obtain echocardiogram Hypertension Antihypertensives titrated Continue home medications and titrate as needed Hyperlipidemia Continue statin GI/DVT prophylaxis Advanced directive full code Discharge Plan: Home Plan to discharge in: 48 Hours - Advance Directives Does patient have a Living Will: No Does patient have a Durable POA for Healthcare: No - Code Status/Comfort Care Code Status: Full Code Time Spent Managing Pts Care (In Minutes): 35 <Sol Davalos - Last Filed: 07/03/24 19:31> Chart has been reviewed. Events of the last 24 hours have been noted. Case discussed with [facility]. I performed a substantial part of the MDM during this patient's care today. I personally made or approved the documented management plan and acknowledge its risk of complications. I agree with the findings and documentation provided in the [facility]'s notes Continue with antibiotic therapy. Monitor volume status closely. Patient is overall doing much better and stable for discharge home with outpatient follow- up. <Jovanna Caputo - Last Filed: 07/26/24 02:25>
== END 2024-07-07 16:22 | disposition home or self-care (01) | DRG 871 ==
LOC: ER 21:21 → ERHOLD 07-03 00:09 → 4TH 07-03 03:20
PROVIDERS: ADMIT Family Medicine; ATTEND Hospitalist
PROC: 4A033R1 Measurement of Arterial Saturation, Peripheral, Percutaneous Approach (ICD-10-PCS; principal; 2024-07-03)
DX: A41.9 Sepsis, unspecified organism (principal); I50.31 Acute diastolic (congestive) heart failure; J96.01 Acute respiratory failure with hypoxia; J18.9 Pneumonia, unspecified organism; J44.0 Chronic obstructive pulmonary disease with (acute) lower respiratory infection; E87.20 Acidosis, unspecified; N17.9 Acute kidney failure, unspecified; R65.20 Severe sepsis without septic shock; I11.0 Hypertensive heart disease with heart failure; E11.40 Type 2 diabetes mellitus with diabetic neuropathy, unspecified; E66.9 Obesity, unspecified; E78.00 Pure hypercholesterolemia, unspecified; E03.9 Hypothyroidism, unspecified; M10.9 Gout, unspecified; I25.10 Atherosclerotic heart disease of native coronary artery without angina pectoris; Z68.38 Body mass index [BMI] 38.0-38.9, adult; Z79.82 Long term (current) use of aspirin; Z11.52 Encounter for screening for COVID-19; Z79.84 Long term (current) use of oral hypoglycemic drugs; Z79.02 Long term (current) use of antithrombotics/antiplatelets; Z87.891 Personal history of nicotine dependence; Z79.899 Other long term (current) drug therapy; Z90.710 Acquired absence of both cervix and uterus
CPT/HCPCS: 36415; 36600; 71045; 72131; 80048; 80053; 81001; 82805; 82947; 83605; 83735; 83880; 84100; 84484; 85025; 85610; 85730; 87040; 87804; 87811; 93005; 93306; 94640; 94760; 96365; 96367; 96368; 97116; 97161; 97530; 99285; J0692; J0696; J1650; J1940; J3475; J7030; J7040; J7050; J7512; J7613; J7644; P9047

== ENCOUNTER 2024-10-15 14:43 | Inpatient (IN) | payer OTHER ==
--- OUTSIDE RECORDS SUMMARY | 2024-10-15 14:47 | XMS REPORT | Continuity of Care Document ---
Author Name Unknown Address [address] [facility] [address] [place] [address] [facility] Address [address] [facility] [address] [place] [address] Care Team Providers Care Vegetable Preparer Name Role Phone Jamia Olivier Primary Care Physician [phone] Gabbie Silverio Attending Clinician + BELINDA STOVALL Attending Clinician Unavailable Belinda Stovall MD Attending Clinician [phone] MEGHA SARAVIA Attending Clinician Unavailable Radiology Attending Clinician Unavailable RADIOLOGY Attending Clinician Unavailable Po, [facility] Main Attending Clinician UnavailGus Gutierrez MD Attending Clinician [phone] Lab, Ang - Db Attending Clinician Unavailable Hugh Gabriel MD Attending Clinician [phone] HUGH GABRIEL Attending Clinician Unavail able HUGH GABRIEL Attending Clinician Unavail able GUS PHAM Attending Clinician Unavailkip marin Doctor Unassigned, [place] Attending Clinician U MINI Yo Attending Clinician Unavailable Mini Mane DO Attending Clinician [phone] Yoel Chino MD Attending Clinician [phone] YOEL CHINO Attending Clinician Unavailable 1, [facility] Attending Clinician Unavailable Clint Anderson MD Attending Clinician BELINDA STOVALL Admitting Clinician Unavailable Payers Payer Name Policy Type Policy Number Effective Date Expirati on Date Source Problems Condition Name Condition Details Condition Category Status Onset Date Resolution Date Last Treatment Date Treating Clinician Comments Source Lower GI bleeding Lower GI bleeding Disease Active 2015-11 00:00: 00 [facility] CHF (congestiv e heart failure) CHF (congestiv e heart failure) Disease Active 2015-11 00:00: 00 [facility] Obesity (BMI 30-39.9) Obesity (BMI 30-39.9) Disease Active 2015-11 00:00: 00 [facility] CHF exacerbati on CHF exacerbati on Disease Active 2015-11 00:00: 00 [facility] CHF exacerbati on CHF exacerbati on Disease Active 2015-11 00:00: 00 [facility] Morbid obesity with body mass index of 50 or higher Morbid obesity with body mass index of 50 or higher Disease Active 2015-11 00:00: 00 [facility] Morbid obesity with body mass index of 40.0-49.9 Morbid obesity with body mass index of 40.0-49.9 Disease Active 2015-11 00:00: 00 [facility] Pneumonia Pneumonia Disease Active 13 00:00: 00 [facility] COPD exacerbati on COPD exacerbati on Disease Active 06-20 00:00: 00 [facility] COPD (chronic obstructiv e pulmonary disease) COPD (chronic obstructiv e pulmonary disease) Disease Active 303 00:00: 00 [facility] Adenomatou s rectal polyp Adenomatou s rectal polyp Disease Active 2014-11 1 00:00: 00 [facility] Hematochez ia Hematochez ia Disease Active 2014-11 00:00: 00 [facility] DEXTER (obstructi ve sleep apnea) DEXTER (obstructi ve sleep apnea) Disease Active 2014-11 0 00:00: 00 [facility] Hyperlipid emia Hyperlipid emia Disease Active 2014-11 00:00: 00 [facility] CVA, old, disturbanc es of vision CVA, old, disturbanc es of vision Disease Active 2014-11 00:00: 00 [facility] Rectal bleeding Rectal bleeding Disease Active 2014-11 00:00: 00 [facility] Hypertensi on Hypertensi on Disease Active 06-07 00:00: 00 [facility] Type 2 diabetes mellitus Type 2 diabetes mellitus Disease Active 06-07 00:00: 00 [facility] COPD exacerbati on COPD exacerbati on Disease Resolve d 05-09 00:00: 00 2015-09-06 00:00:00 2015-09-06 21:43:13 [facility] Allergies, Adverse Reactions, Alerts Allergy Name Allergy Type Status Severity Reaction(s) Onset Date Inactive Date Treating Clinician Comments Source NO KNOWN ALLERGIE S Drug Class Active [facility] Social History Social Habit Start Date Stop Date Quantity Comments Source [facility] of tobacco use Cigarette Smoker [facility] Alcohol intake 2024-01-17 00:00:00 2024-01-17 00:00:00 0 /d [facility] History of Social function 2024-01-17 00:00:00 2024-01-17 00:00:00 [facility] Alcoholic beverage intake 2024-01-17 00:00:00 2024-01-17 00:00:00 0 /d [facility] Exposure to SARS-CoV-2 (event) 2022-08-07 00:00:00 2022-08-17 09:42:00 Not sure [facility] Tobacco use and exposure 2016-10-10 00:00:00 2016-10-10 00:00:00 Smokeless tobacco non-user [facility] Cigarettes smoked current (pack per day) - Reported 2016-10-10 00:00:00 2016-10-10 00:00:00 [facility] Cigarette pack-years 2016-10-10 00:00:00 2016-10-10 00:00:00 [facility] Sex assigned at 1955 00:00:00 1955 00:00:00 [facility] Smoking Status Start Date Stop Date Source Ex-smoker 2016-10-10 00:00:00 2016-10-10 00:00:00 U [facility] Medications Ordered Medication Name Filled Medication Name Start Date Stop Date Current Medication? Ordering Clinician Indication Dosage Frequency Signature (SIG) Comments Components Source ketorolac (TORADOL) injection 15 mg 01-16 17:45: 00 01-16 17:42 :00 No 15mg 15 mg, Slow IV Push, ONCE, 1 dose, On Tue01/17/24 at 1145, Routine [facility] diphenhydrA MINE (BENADRYL) injection 25 mg 01-16 17:00: 00 01-16 17:40 :00 No 25mg 25 mg, Slow IV Push, ONCE, 1 dose, On Tue01/17/24 at 1100, STAT [facility] metoclopram jose e HCl (REGLAN) injection 10 mg 01-16 17:00: 00 01-16 17:39 :00 No 10mg 10 mg, Slow IV Push, ONCE, 1 dose, On Tue01/17/24 at 1100, OC [facility] ezetimibe 10 mg tablet 08-13 00:00: 00 Yes 1{tbl} Take 1 tablet by mouth in the morning. [facility] simvastatin 10 mg tablet 08-12 00:00: 00 Yes [facility] levothyroxi ne 25 mcg tablet 08-10 00:00: 00 Yes [facility] fluticasone furoate-cherelle anteroL (BREO ELLIPTA) 200-25 mcg/dose DsDv 07-26 00:00: 00 Yes 1{puff} Inhale 1 Puff. [facility] FARXIGA 10 mg tablet 07-23 00:00: 00 Yes TAKE 1 TABLET BY MOUTH 1 (ONE) TIME EACH DAY IN THE MORNING WITH PLENTY OF WATER, FOR DIABETES [facility] insulin glargine (LANTUS U-100) 100 unit/mL injection 2016-11 19:42: 05 Yes 24U inject 24 Units under the skin at bedtime. [facility] Olopatadine (PATADAY) 0.2 % Drop 2016-11 19:42: 05 Yes 1[drp] Place 1 Drop in each eye daily. [facility] foLIC acid (FOLATE) 1 mg tablet 2016-11 19:42: 05 Yes 1mg Take 1 mg by mouth daily. [facility] gabapentin (NEURONTIN) 100 mg capsule 2016-11 19:42: 05 Yes 100mg Take 100 mg by mouth at bedtime. [facility] HYDROcodone -acetaminop hen 7.5-325 mg per tablet 2016-11 19:42: 05 Yes 1{tbl} Take 1 tablet by mouth every 6 (six) hours as needed for Pain. [facility] allopurinol 100 mg tablet 2016-11 19:42: 05 Yes 200mg Take 200 mg by mouth daily. [facility] clopidogrel (PLAVIX) 75 mg tablet 2016-11 19:42: 05 Yes 75mg Take 75 mg by mouth daily. [facility] furosemide 40 mg tablet 2016-11 19:42: 05 Yes 40mg Take 40 mg by mouth 3 (three) times daily. [facility] FERROUS FUMARATE/FO LIC ACID (HEMATINIC/ FOLIC ACID ORAL) 2016-11 19:42: 05 Yes 1{tbl} Take 1 Tab by mouth daily. [facility] aspirin 81 mg chewable tablet 2016-11 19:42: 05 Yes 81mg Take 81 mg by mouth daily. [facility] levocetiriz ine (XYZAL) 5 mg tablet 2016-11 19:42: 05 Yes 5mg Take 5 mg by mouth every evening. [facility] SERTraline (ZOLOFT) 25 mg tablet 2016-11 19:42: 05 Yes 25mg Take 25 mg by mouth daily. [facility] bimatoprost (LUMIGAN) 0.01 % Drop 2016-11 19:42: 05 Yes 1[drp] Place 1 Drop in each eye daily. [facility] metFORMIN (GLUCOPHAGE ) 1,000 mg tablet 2016-11 19:42: 05 Yes 500mg Take 500 mg by mouth 2 (two) times daily. [facility] spironolact one (SPIRONOLAC TONE) 25 mg tablet 2016-11 19:42: 05 Yes 25mg Take 25 mg by mouth daily. [facility] sitaGLIPtin (JANUVIA) 50 mg tablet 2016-11 19:42: 05 Yes 50mg Take 50 mg by mouth daily. [facility] atenolol (TENORMIN) 50 mg tablet 2016-11 19:42: 05 Yes 50mg Take 50 mg by mouth 2 (two) times daily. [facility] nitroglycer in (NITROSTAT) 0.4 mg sublingual tablet 2016-11 19:42: [address] 0.4 mg under the tongue every 5 (five) minutes as needed for Chest pain. [facility] fluticasone furoate (ARNUITY ELLIPTA) 200 mcg/actuati on DsDv 2016-11 19:42: 05 Yes 1{puff} Inhale 1 Puff daily. [facility] colchicine (COLCRYS) 0.6 mg tablet 2016-11 19:42: 05 Yes .6mg Take 0.6 mg by mouth daily. [facility] FERROUS FUMARATE/FO LIC ACID (HEMATINIC/ FOLIC ACID ORAL) 2016-11 13:42: 05 Yes 1{tbl} Take 1 Tab by mouth daily. [facility] aspirin 81 mg chewable tablet 2016-11 13:42: 05 Yes 81mg Take 81 mg by mouth daily. [facility] levocetiriz ine (XYZAL) 5 mg tablet 2016-11 13:42: 05 Yes 5mg Take 5 mg by mouth every evening. [facility] SERTraline (ZOLOFT) 25 mg tablet 2016-11 13:42: 05 Yes 25mg Take 25 mg by mouth daily. [facility] bimatoprost (LUMIGAN) 0.01 % Drop 2016-11 13:42: 05 Yes 1[drp] Place 1 Drop in each eye daily. [facility] metFORMIN (GLUCOPHAGE ) 1,000 mg tablet 2016-11 13:42: 05 Yes 500mg Take 500 mg by mouth 2 (two) times daily. [facility] spironolact one (SPIRONOLAC TONE) 25 mg tablet 2016-11 13:42: 05 Yes 25mg Take 25 mg by mouth daily. [facility] sitaGLIPtin (JANUVIA) 50 mg tablet 2016-11 13:42: 05 Yes 50mg Take 50 mg by mouth daily. [facility] atenolol (TENORMIN) 50 mg tablet 2016-11 13:42: 05 Yes 50mg Take 50 mg by mouth 2 (two) times daily. [facility] nitroglycer in (NITROSTAT) 0.4 mg sublingual tablet 2016-11 13:42: [address] 0.4 mg under the tongue every 5 (five) minutes as needed for Chest pain. [facility] fluticasone furoate (ARNUITY ELLIPTA) 200 mcg/actuati on DsDv 2016-11 13:42: 05 Yes 1{puff} Inhale 1 Puff daily. [facility] colchicine (COLCRYS) 0.6 mg tablet 2016-11 13:42: 05 Yes .6mg Take 0.6 mg by mouth daily. [facility] insulin glargine (LANTUS U-100) 100 unit/mL injection 2016-11 13:42: 05 Yes 24U inject 24 Units under the skin at bedtime. [facility] Olopatadine (PATADAY) 0.2 % Drop 2016-11 13:42: 05 Yes 1[drp] Place 1 Drop in each eye daily. [facility] foLIC acid (FOLATE) 1 mg tablet 2016-11 13:42: 05 Yes 1mg Take 1 mg by mouth daily. [facility] gabapentin (NEURONTIN) 100 mg capsule 2016-11 13:42: 05 Yes 100mg Take 100 mg by mouth at bedtime. [facility] HYDROcodone -acetaminop hen 7.5-325 mg per tablet 2016-11 13:42: 05 Yes 1{tbl} Take 1 tablet by mouth every 6 (six) hours as needed for Pain. [facility] allopurinol 100 mg tablet 2016-11 13:42: 05 Yes 200mg Take 200 mg by mouth daily. [facility] clopidogrel (PLAVIX) 75 mg tablet 2016-11 13:42: 05 Yes 75mg Take 75 mg by mouth daily. [facility] furosemide 40 mg tablet 2016-11 13:42: 05 Yes 40mg Take 40 mg by mouth 3 (three) times daily. [facility] fluticasone furoate (ARNUITY ELLIPTA) 200 mcg/actuati on DsDv 2016-11 13:42: 05 Yes 1{puff} Inhale 1 Puff daily. [facility] albuterol (PROVENTIL) 2.5 mg /3 mL (0.083 %) nebulizer solution 2015-11 00:00: 00 Yes 2.5mg Inhale 3 mL every 4 (four) hours as needed for Wheezing or Shortness of Breath. [facility] atorvastati n (LIPITOR) 20 mg tablet 2014-11 00:00: 00 Yes 20mg Take 1 Tab by mouth at bedtime. [facility] BD INSULIN SYRINGE ULTRA-FINE 1/2 mL 31 x 5/16" Syrg 2014-11 00:00: 00 Yes [facility] ANORO ELLIPTA 62.5-25 mcg/actuati on inhalation disk 08-01 00:00: 00 Yes 1{puff} Inhale 1 Puff daily. [facility] Immunizations Ordered Immunization Name Filled Immunization Name Date Status Comments Source Influenza Virus Vaccine Quad IM 3+ YRS 2015-09-09 00:00:00 Completed [facility] Influenza Virus Vaccine Quad IM 3+ YRS 2015-09-09 00:00:00 Completed [facility] Influenza Virus Vaccine Quad IM 3+ YRS 2015-09-09 00:00:00 Completed [facility] Influenza Virus Vaccine Quad IM 3+ YRS 2015-09-09 00:00:00 Completed [facility] Influenza Virus Vaccine Quad IM 3+ YRS 2015-09-09 00:00:00 Completed [facility] Influenza Virus Vaccine Quad IM 3+ YRS 2015-09-09 00:00:00 Completed [facility] Influenza Virus Vaccine Quad IM 3+ YRS 2015-09-09 00:00:00 Completed [facility] Influenza Virus Vaccine Quad IM 3+ YRS 2015-09-09 00:00:00 Completed [facility] Influenza Virus Vaccine Quad IM 3+ YRS 2015-09-09 00:00:00 Completed [facility] Influenza Virus Vaccine Quad IM 3+ YRS 2015-09-09 00:00:00 Completed [facility] Influenza Virus Vaccine Quad IM 3+ YRS 2015-09-09 00:00:00 Completed [facility] Influenza Virus Vaccine Quad IM 3+ YRS 2015-09-09 00:00:00 Completed [facility] Influenza Virus Vaccine Quad IM 3+ YRS 2015-09-09 00:00:00 Completed [facility] Influenza Virus Vaccine Quad IM 3+ YRS 2015-09-09 00:00:00 Completed [facility] Influenza Virus Vaccine Quad IM 3+ YRS 2015-09-09 00:00:00 Completed [facility] Influenza Virus Vaccine Quad IM 3+ YRS 2015-09-09 00:00:00 Completed [facility] Influenza Virus Vaccine Quad IM 3+ YRS 2015-09-09 00:00:00 Completed [facility] Influenza Virus Vaccine Quad IM 3+ YRS 2015-09-09 00:00:00 Completed [facility] Influenza Virus Vaccine Quad IM 3+ YRS 2015-09-09 00:00:00 Completed [facility] Influenza Virus Vaccine Quad IM 3+ YRS 2015-09-09 00:00:00 Completed [facility] Influenza Virus Vaccine Quad IM 3+ YRS 2015-09-09 00:00:00 Completed [facility] Influenza Virus Vaccine Quad IM 3+ YRS 2015-09-09 00:00:00 Completed [facility] Influenza Virus Vaccine Quad IM 3+ YRS 2015-09-09 00:00:00 Completed [facility] Influenza Virus Vaccine Quad IM 3+ YRS 2015-09-09 00:00:00 Completed [facility] Influenza Virus Vaccine Quad IM 3+ YRS 2015-09-09 00:00:00 Completed [facility] Pneumococcal 13 Conjugate, PCV13 (Prevnar 13) 2015-05-14 00:00:00 Completed [facility] Pneumococcal 13 Conjugate, PCV13 (Prevnar 13) 2015-05-14 00:00:00 Completed [facility] Pneumococcal 13 Conjugate, PCV13 (Prevnar 13) 2015-05-14 00:00:00 Completed [facility] Pneumococcal 13 Conjugate, PCV13 (Prevnar 13) 2015-05-14 00:00:00 Completed [facility] Pneumococcal 13 Conjugate, PCV13 (Prevnar 13) 2015-05-14 00:00:00 Completed [facility] Pneumococcal 13 Conjugate, PCV13 (Prevnar 13) 2015-05-14 00:00:00 Completed [facility] Pneumococcal 13 Conjugate, PCV13 (Prevnar 13) 2015-05-14 00:00:00 Completed [facility] Pneumococcal 13 Conjugate, PCV13 (Prevnar 13) 2015-05-14 00:00:00 Completed [facility] Pneumococcal 13 Conjugate, PCV13 (Prevnar 13) 2015-05-14 00:00:00 Completed [facility] Pneumococcal 13 Conjugate, PCV13 (Prevnar 13) 2015-05-14 00:00:00 Completed [facility] Pneumococcal 13 Conjugate, PCV13 (Prevnar 13) 2015-05-14 00:00:00 Completed [facility] Pneumococcal 13 Conjugate, PCV13 (Prevnar 13) 2015-05-14 00:00:00 Completed [facility] Pneumococcal 13 Conjugate, PCV13 (Prevnar 13) 2015-05-14 00:00:00 Completed [facility] Pneumococcal 13 Conjugate, PCV13 (Prevnar 13) 2015-05-14 00:00:00 Completed [facility] Pneumococcal 13 Conjugate, PCV13 (Prevnar 13) 2015-05-14 00:00:00 Completed [facility] Pneumococcal 13 Conjugate, PCV13 (Prevnar 13) 2015-05-14 00:00:00 Completed [facility] Pneumococcal 13 Conjugate, PCV13 (Prevnar 13) 2015-05-14 00:00:00 Completed [facility] Pneumococcal 13 Conjugate, PCV13 (Prevnar 13) 2015-05-14 00:00:00 Completed [facility] Pneumococcal 13 Conjugate, PCV13 (Prevnar 13) 2015-05-14 00:00:00 Completed [facility] Pneumococcal 13 Conjugate, PCV13 (Prevnar 13) 2015-05-14 00:00:00 Completed [facility] Pneumococcal 13 Conjugate, PCV13 (Prevnar 13) 2015-05-14 00:00:00 Completed [facility] Pneumococcal 13 Conjugate, PCV13 (Prevnar 13) 2015-05-14 00:00:00 Completed [facility] Pneumococcal 13 Conjugate, PCV13 (Prevnar 13) 2015-05-14 00:00:00 Completed [facility] Pneumococcal 13 Conjugate, PCV13 (Prevnar 13) 2015-05-14 00:00:00 Completed [facility] Pneumococcal 13 Conjugate, PCV13 (Prevnar 13) 2015-05-14 00:00:00 Completed [facility] Pneumococcal 13 Conjugate, PCV13 (Prevnar 13) Unknown Completed [facility] Influenza Virus Vaccine Quad IM 3+ YRS Unknown Completed [facility] Pneumococcal 13 Conjugate, PCV13 (Prevnar 13) Unknown Completed [facility] Influenza Virus Vaccine Quad IM 3+ YRS Unknown Completed [facility] Vital Signs Vital Name Observation Time Observation Value Comments S ource Systolic blood pressure 2024-01-17 17:42:00 128 mm[Hg] [facility] Diastolic blood pressure 2024-01-17 17:42:00 82 mm[Hg] [facility] Heart rate 2024-01-17 17:42:00 60 /min [facility] Respiratory rate 2024-01-17 17:42:00 12 /min [facility] Oxygen saturation in Arterial blood by Pulse oximetry 2024-01-17 17:42:00 95 /min [facility] Body temperature 2024-01-17 17:33:17 36.5 Shira [facility] Body height 2024-01-17 16:49:00 167.6 cm [facility] Body weight 2024-01-17 16:49:00 106.595 kg [facility] BMI 2024-01-17 16:49:00 37.93 kg/m2 [facility] Systolic blood pressure 2022-08-17 15:11:00 119 mm[Hg] [facility] Diastolic blood pressure 2022-08-17 15:11:00 79 mm[Hg] [facility] Heart rate 2022-08-17 15:11:00 74 /min [facility] Body height 2022-08-17 15:11:00 167.6 cm [facility] Body weight 2022-08-17 15:11:00 110.678 kg [facility] BMI 2022-08-17 15:11:00 39.38 kg/m2 [facility] Oxygen saturation in Arterial blood by Pulse oximetry 2022-08-17 15:11:00 98 /min [facility] Systolic blood pressure 2019-07-11 13:42:00 107 mm[Hg] [facility] Diastolic blood pressure 2019-07-11 13:42:00 74 mm[Hg] [facility] Heart rate 2019-07-11 13:42:00 73 /min [facility] Respiratory rate 2019-07-11 13:42:00 18 /min [facility] Body height 2019-07-11 13:42:00 170.2 cm [facility] Body weight 2019-07-11 13:42:00 104.327 kg [facility] BMI 2019-07-11 13:42:00 36.02 kg/m2 [facility] Systolic blood pressure 2019-07-11 13:42:00 107 mm[Hg] [facility] Diastolic blood pressure 2019-07-11 13:42:00 74 mm[Hg] [facility] Heart rate 2019-07-11 13:42:00 73 /min [facility] Respiratory rate 2019-07-11 13:42:00 18 /min [facility] Body height 2019-07-11 13:42:00 170.2 cm [facility] Body weight 2019-07-11 13:42:00 104.327 kg [facility] BMI 2019-07-11 13:42:00 36.02 kg/m2 [facility] Procedures Procedure Date / Time Performed Performing Clinician Source CT HEAD WO CONTRAST 2024-01-17 17:25:00 Belinda Stovall [facility] CONSENT/REFUSAL FOR DIAGNOSIS AND TREATMENT 2024-01-17 16:10:00 Doctor Unassigned, [place] [facility] CONSENT/REFUSAL FOR DIAGNOSIS AND TREATMENT 2022-12-15 18:32:50 Doctor Unassigned, [place] [facility] ASSIGNMENT OF BENEFITS 2022-12-15 18:32:07 Docto r Unassigned, [place] [facility] SEDIMENTATION RATE 2022-08-13 15:06:00 Gabbie Love [facility] PHYSICIAN ORDERS 2022-08-13 05:01:00 Doctor Leny signed, [place] [facility] REFERRAL- REQUEST/RESPONSE 2022-07-27 05:01:00 Doctor Unassigned, [place] [facility] PHYSICIAN ORDERS 2022-07-16 05:01:00 Doctor Leny signed, [place] [facility] ASSIGNMENT OF BENEFITS 2022-04-14 15:02:30 Docto r Unassigned, [place] [facility] ASSIGNMENT OF BENEFITS 2021-11-24 16:35:09 Docto r Unassigned, [place] [facility] PHYSICIAN ORDERS 2021-04-14 05:01:00 Doctor Leny signed, [place] [facility] CBC WITH DIFF 2020-11-19 16:46:00 Gabbie Weinberg [facility] ASSIGNMENT OF BENEFITS 2020-11-19 16:27:26 Docto r Unassigned, [place] [facility] CBC WITH DIFFERENTIAL 2020-05-06 17:03:00 Gabbie Olivarez [facility] PHYSICIAN ORDERS 2020-05-06 05:01:00 Doctor Leny signed, [place] [facility] BI ULTRASOUND BREAST LIMITED RIGHT 2019-07-24 18:02:55 Requisition, Paper [facility] NOTICE OF BILLING PRACTICES FOR MEDICARE PATIENTS 2019-07-18 14:44:38 Doctor Unassigned, [place] [facility] BI SCREENING MAMMOGRAM BILATERAL 2019-07-18 14:23:00 Requisition, Paper [facility] ASSIGNMENT OF BENEFITS 2019-07-11 13:26:02 Docto r Unassigned, [place] [facility] REFERRAL- REQUEST/RESPONSE 2019-05-21 05:01:00 Doctor Unassigned, [place] [facility] Encounters Start Date/Time End Date/Time Encounter Type Admission Type Attending [facility] Care Department Encounter ID Source 2024-07-13 00:00:00 2024-07-13 08:55:36 Letter (Out) Gabbie Baires [facility] [id number] [facility] 2024-01-17 10:50:00 2024-01-17 14:56:00 Emergency X BELINDA STOVALL [facility] ERT [id number] [facility] 2024-01-17 10:50:00 2024-01-17 14:56:00 Emergency Belinda Stovall [facility] [id number] 4.2.7.2.686 [id number] [facility] 2022-12-20 10:30:00 2022-12-20 10:30:00 Outpatient MEGHA LOPEZ [facility] [id number] [facility] 2022-12-20 10:00:00 2022-12-20 10:00:00 Outpatient MEGHA LOPEZ [facility] [id number] [facility] 2022-12-15 12:31:44 2022-12-15 23:59:00 Hospital Encounter Radiology [facility] 1.2.840.114 350.1.13.10 4.2.7.2.686 [id number] [facility] 2022-12-15 12:31:44 2022-12-15 23:59:00 Outpatient R RADIOLOGY [facility] [id number] [facility] 2022-12-15 07:30:00 2022-12-15 07:45:00 Windows Administrator Visit Dinesh, Elda Lab Main Gus Pham [facility] N[facility] BU[facility] 1.2.840.114 350.1.13.10 4.2.7.2.686 [id number] [facility] 2022-08-17 11:45:00 2022-08-17 12:00:00 Windows Administrator Visit Huong, Francisco J Wagner [facility] 1.2.840.114 350.1.13.10 4.2.7.2.686 [id number] [facility] 2022-08-17 10:00:00 2022-08-17 11:05:58 Outpatient HUGH JAMES HUGH [facility] [id number] [facility] 2022-08-17 10:00:00 2022-08-17 11:05:58 [facility] 1.2.840.114 350.1.13.10 4.2.7.2.686 [id number] [facility] 2022-08-13 09:45:00 2022-08-13 10:00:00 Windows Administrator Visit Dinesh, Elda Lab Gus Orantes [facility] BUILDING 1.2.840.114 350.1.13.10 4.2.7.2.686 [id number] [facility] 2022-08-13 09:45:00 2022-08-13 09:45:00 Outpatient Renato VEROGUS [facility] [id number] [facility] 2022-08-13 00:00:00 2022-08-13 00:00:00 Orders Only Doctor Unassigned, [place] [facility] 1.2840.114 350.1.13.10 4.2.7.2.686 [id number] [facility] 2022-07-27 00:00:00 2022-07-27 00:00:00 Orders Only Doctor Unassigned, [place] [facility] 1.2840.114 350.1.13.10 4.2.7.2.686 [id number] [facility] 2022-07-16 15:30:00 2022-07-16 15:45:00 Windows Administrator Visit Dinesh, Adc Lab [facility] 1..840.114 350.1.13.10 4.2.7.2.686 [id number] [facility] 2022-07-16 15:30:00 2022-07-16 15:30:00 Outpatient GUS PARSONS [facility] [id number] [facility] 2022-07-16 00:00:00 2022-07-16 00:00:00 Orders Only Doctor Unassigned, [place] [facility] 1.2840.114 350.1.13.10 4.2.7.2.686 [id number] [facility] 2022-06-16 09:00:00 2022-06-16 09:00:00 Outpatient GUS PARSONS [facility] [id number] [facility] 2022-04-14 10:45:00 2022-04-14 11:00:00 Windows Administrator Visit Dinesh, Adc Lab [facility] 1..840.114 350.1.13.10 4.2.7.2.686 [id number] [facility] 2022-04-14 10:45:00 2022-04-14 10:45:00 Outpatient GUS PARSONS [facility] [id number] [facility] 2022-04-14 00:00:00 2022-04-14 00:00:00 Orders Only Doctor Unassigned, [place] [facility] 1.2.840.114 350.1.13.10 4.2.7.2.686 [id number] [facility] 2022-02-26 00:00:00 2022-02-26 00:00:00 Outpatient R RADIOLOGY [facility] [id number] [facility] 2021-11-24 10:15:00 2021-11-24 10:30:00 Windows Administrator Visit Pob, Adc Lab [facility] 1.2.840.114 350.1.13.10 4.2.7.2.686 [id number] [facility] 2021-11-24 10:15:00 2021-11-24 10:15:00 Outpatient Renato AVINAHENRIETTA [facility] [id number] [facility] 2021-11-24 00:00:00 2021-11-24 00:00:00 Orders Only Doctor Unassigned, [place] [facility] 1.2.840.114 350.1.13.10 4.2.7.2.686 [id number] [facility] 2021-04-14 11:02:08 2021-04-14 11:17:08 Windows Administrator Visit Pob[facility] 1.2.840.114 350.1.13.10 4.2.7.2.686 [id number] [facility] 2021-04-14 11:00:00 2021-04-14 11:00:00 Outpatient Renato SHARADANA [facility] [id number] [facility] 2021-04-14 00:00:00 2021-04-14 00:00:00 Orders Only Doctor Unassigned, [place] [facility] 1.2840.114 350.1.13.10 4.2.7.2.686 [id number] [facility] 2020-11-19 10:45:00 2020-11-19 10:45:00 Outpatient R ALEXANDRAWILFREDOShanita MINI [facility] [id number] [facility] 2020-11-19 10:27:31 2020-11-19 10:42:31 Windows Administrator Visit Pob, Adc Lab Main [facility] Building 1.840.114 350.1.13.10 4.2.7.2.686 [id number] [facility] 2020-11-19 00:00:00 2020-11-19 00:00:00 Orders Only Doctor Unassigned, [place] [facility] 1.2840.114 350.1.13.10 4.2.7.2.686 [id number] [facility] 2020-05-06 11:23:42 2020-05-06 11:38:42 Windows Administrator Visit Po, Adc Lab Main Lul[facility] 1..840.114 350.1.13.10 4.2.7.2.686 [id number] [facility] 2020-05-06 11:30:00 2020-05-06 11:30:00 Outpatient R LUL[facility] [id number] [facility] 2020-05-06 00:00:00 2020-05-06 00:00:00 Orders Only Doctor Unassigned, [place] [facility] 1.2840.114 350.1.13.10 4.2.7.2.686 [id number] [facility] 2019-07-24 12:31:55 2019-07-24 23:59:00 Hospital Encounter Radiology [facility] 1.2.840.114 350.1.13.10 4.2.7.2.686 [id number] 2019-07-24 12:31:55 2019-07-24 23:59:00 Hospital Encounter Radiology [facility] 1.2.840.114 350.1.13.10 4.2.7.2.686 [id number] [facility] 2019-07-18 08:55:16 2019-07-18 23:59:00 Hospital Encounter Radiology [facility] 1.2.840.114 350.1.13.10 4.2.7.2.686 [id number] [facility] 2019-07-18 09:46:27 2019-07-18 10:01:27 Windows Administrator Visit 1, Adc Lab [facility] 1.2.840.114 350.1.13.10 4.2.7.2.686 [id number] [facility] 2019-07-11 08:32:04 2019-07-11 09:36:05 Office Visit [facility] 1.2.840.114 350.1.13.10 4.2.7.2.686 [id number] [facility] 2019-07-11 08:32:04 2019-07-11 09:36:05 Office Visit [facility] 1.2.840.114 350.1.13.10 4.2.7.2.686 [id number] 2019-07-11 00:00:00 2019-07-11 00:00:00 Orders Only Doctor Unassigned, [place] [facility] 1.2.840.114 350.1.13.10 4.2.7.2.686 [id number] [facility] 2019-05-21 00:00:00 2019-05-21 00:00:00 Orders Only Doctor Unassigned, [place] [facility] 1.2.840.114 350.1.13.10 4.2.7.2.686 [id number] [facility] Results Test Description Test Time Test [...] Thecalvarium and central skull base are unremarkable. [id number] 17:07:00* Test Item Value Reference Range Interpretation Comme nts WBC (test code = 6690-2) See_Comment [[employer] (P)] The system which generated this result transmitted reference range: 4.30 - 11.10 10*3/?L. The reference range was not used to interpret this result as normal/abnormal. RBC (test code = 789-8) See_Comment [[employer] (P)] The system which generated this result transmitted [...] g/dL 31.6-35.1 L RDW-SD (test code = 66083-4) 58.0 fL 39-49.9 H RDW-CV (test code = 788-0) 16.2 % 12-15.5 H PLT (test code = 777-3) See_Comment [Automated messa ge] The system which generated this result transmitted reference range: 166 - 358 10*3/?L. The reference range was not used to interpret this result as normal/abnormal. MPV (test code = 11205-0) 11.4 fL 9.5-12.9 NRBC/100 WBC (test code = 8659020310) See_Comment [Automated me ssage] The system which generated this result transmitted reference range: 0.0 - 10.0 /100 WBCs. The reference range was not used to interpret this result as normal/abnormal. NRBC x10^3 (test code = 3218560814) <0.01 See_Comment [Automated messa ge] The system which generated this result transmitted reference range: 10*3/?L. The reference range was not used to interpret this result as normal/abnormal. GRAN MAT (NEUT) % (test code = 770-8) 58.8 % IMM GRAN % (test code = 1834694423) 0.50 % LYMPH % (test code = 736-9) 29.5 % MONO % (test code = 5905-5) 7.9 % EOS % (test code = 713-8) 2.6 % BASO % (test code = 706-2) 0.7 % GRAN MAT x10^3(ANC) (test code = 4011709930) 4.45 10*3/uL 1.88-7.09 IMM GRAN x10^3 (test code = 0473422664) 0.04 10*3/uL 0-0.06 LYMPH x10^3 (test code = 731-0) 2.23 10*3/uL 1.32-3.29 MONO x10^3 (test code = 742-7) 0.60 10*3/uL 0.33-0.92 EOS x10^3 (test code = 711-2) 0.20 10*3/uL 0.03-0.39 BASO x10^3 (test code = 704-7) 0.05 10*3/uL 0.01-0.07 Lab Interpretation (test code = 47720-1) Abnormal [facility] WITH [id number] 17:34:00* Test Item Value Reference Range Interpretation [...] g/dL 31.6-35.1 L RDW-SD (test code = 24330-5) 57.5 fL 39-49.9 H RDW-CV (test code = 788-0) 16.5 % 12-15.5 H PLT (test code = 777-3) See_Comment [Automated messa ge] The system which generated this result transmitted reference range: 166 - 358 10*3/?L. The reference range was not used to interpret this result as normal/abnormal. MPV (test code = 68569-8) 11.5 fL 9.5-12.9 NRBC/100 WBC (test code = 5582598077) See_Comment [Automated [employer] ssage] The system which generated this result transmitted reference range: 0.0 - 10.0 /100 WBCs. The reference range was not used to interpret this result as normal/abnormal. NRBC x10^3 (test code = 5103477216) <0.01 See_Comment [Automated messa ge] The system which generated this result transmitted reference range: 10*3/?L. The reference range was not used to interpret this result as normal/abnormal. GRAN MAT (NEUT) % (test code = 770-8) 64.1 % IMM GRAN % (test code = 6349907538) 0.60 % LYMPH % (test code = 736-9) 24.9 % MONO % (test code = 5905-5) 8.2 % EOS % (test code = 713-8) 1.6 % BASO % (test code = 706-2) 0.6 % GRAN MAT x10^3(ANC) (test code = 3820377405) 6.46 10*3/uL 1.88-7.09 IMM GRAN x10^3 (test code = 9484269845) 0.06 10*3/uL 0-0.06 LYMPH x10^3 (test code = 731-0) 2.51 10*3/uL 1.32-3.29 MONO x10^3 (test code = 742-7) 0.83 10*3/uL 0.33-0.92 EOS x10^3 (test code = 711-2) 0.16 10*3/uL 0.03-0.39 BASO x10^3 (test code = 704-7) 0.06 10*3/uL 0.01-0.07 Lab Interpretation (test code = 92692-6) [facility] [id number] 18:11:50Examination:BI ULTRASOUND BREAST LIMITED RIGHT History:Patient is [...] - Right? BI-RADS Category: Right 2 - [facility]ennial[facility] SCREENING MAMMOGRAM [id number] 16:02:21 Examination:BI SCREENING MAMMOGRAM BILATERAL History:Patient is [...] EvaluationOverall: 0 - Incomplete: Needs Additional Imaging EvaluationUnB[facility] Notes Date/Time Note Provider Source 2024-01-17 10:48:22 Patient states "I have been having headaches in my left eye, that's my bad eye, I'm blind in that one. I had a bad one this morning and it's still kind of nagging. I took Tylenol for it and also I think my hernia is acting up" TAL Willis RN [facility] - Health 2024-01-17 10:06:00 [facility] Emergency Department Note Patient Name: Boo Gaines Date of : 1955 68 year old female Treatment Room: [facility] ED [facility] HOA/LELIA Primary Care Physician: Jamia Olivier Patient Escorted [...] N/A 07/30/2015 Surgeon: Corby Garner MD; Location: [facility] OR [facility] ESOPHAGOGASTRODUODENOSCOPY N/A 02/23/2017 Surgeon: Corby Garner MD; Location: [facility] OR [facility] EXAMINATION UNDER ANESTHESIA N/A 04/27/2016 Surgeon: Collin Junior MD; Location: [facility] LAPAROSCOPIC TUBAL LIGATION DC COLONOSCOPY W/BIOPSY SINGLE/MULTIPLE 07/30/2015 DC COLSC FLX W/RMVL OF TUMOR POLYP LESION SNARE TQ 07/30/2015 DC EGD TRANSORAL BIOPSY SINGLE/MULTIPLE 02/23/2017 PROCTOSCOPY N/A 11/25/2015 Surgeon: Collin Junior MD; [facility] TOTAL KNEE ARTHROPLASTY Bilateral 2012, 2014 TRANSANAL ENDOSCOPIC POLYP RESECTION N/A 11/25/2015 Surgeon: Collin Junior MD; Location: [facility] Review of Systems: Review of Systems Constitutional: [...] signed by: Belinda Stovall MD 01/17/24 1318 [facility]
[2024-10-15 15:39] LABS: Absolute Eosinophils 0.1 K/uL (0-0.5); Absolute Lymphocytes (CBC) 0.8 K/uL (0.7-4.9); Absolute Monocytes 1.3 K/uL (0.1-1.3); Absolute Neutrophil 10.4 K/uL (1.8-8.0); Basophils % 0.2 % (0-1.3); Eosinophils % 1.1 % (0-4.4); Hematocrit 41.7 % (36.0-45.0); Hemoglobin 13.4 g/dL (12.0-15.0); Lymphocytes % 6.2 % (15.3-44.8); MCV 93.8 fL (80-100); MPV 10.2 fL (7.6-11.3); Neutrophils % 82.5 % (41.7-73.7); Platelets 226 thou/uL (152-406); RBC Red Blood Cell Count 4.45 M/uL (3.86-4.86); Red Cell Distribution Width 15.9 % (12.1-15.2)
[2024-10-15 15:59] LABS: Anion Gap 9.7 mEq/L (5.0-15.0); Magnesium 1.8 mg/dL (1.6-2.4); Potassium 3.7 mEq/L (3.5-5.1); Troponin High Sensitivity 17.9 pg/mL (<58.9)
--- NOTE | 2024-10-15 16:09 | EDPHYS ---
Physician Documentation [facility] Name: Anahi Ramires Age: 69 yrs Sex: Female : 1955 Arrival Date: 10/15/2024 Time: 14:43 Bed 23 Private MD: ED Physician Shyam Paul HPI: 10/15 19:02 This 69 yrs old Black Female presents to ER via EMS with complaints of Shortness Of ms3 Breath. 19:02 Anahi Ramires is a 69-year-old female who presented to the Emergency Department with ms3 shortness of breath following a fall that occurred on Tuesday. Since the fall, she has experienced persistent shortness of breath accompanied by audible crackles. Despite receiving breathing treatments at home, her symptoms have not improved. She was found to have an oxygen saturation of 91% on room air and received an albuterol and ipratropium (A\T\A) treatment from EMS. She reports no significant pain currently, although she has experienced a decrease in pain compared to the past. She is unable to get out of bed and relies on a walker for mobility. 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 Historical: - Allergies: 14:50 No Known Allergies; me1 - PMHx: 14:50 Congestive heart failure; diabetes mellitus; Gout; Hypercholesterolemia; Hypertensive me1 disorder; Hypothyroidism; neuropathy; - PSHx: 14:50 Total abdominal hysterectomy; me1 - Immunization history:: Adult Immunizations up to date. - Infectious Disease History:: Denies. - Social history:: Smoking status: Patient/guardian denies using tobacco, but has a distant history of tobacco abuse. ROS: 19:02 Constitutional: Negative for fever, and chills. Cardiovascular: Negative for chest ms3 pain, and palpitations. 19:02 Abdomen/GI: Negative for abdominal pain, nausea, vomiting, diarrhea, and constipation, MS/Extremity: Negative for injury and deformity, Skin: Negative for injury, rash, and discoloration, 19:02 Respiratory: Positive for shortness of breath, Exam: 19:02 Constitutional: This is a well developed, well nourished patient who is awake, alert, ms3 and in no acute distress. Chest/axilla: Normal chest wall appearance and motion. Nontender with no deformity. Cardiovascular: Regular rate and rhythm with a normal S1 and S2. No gallops, murmurs, or rubs. Normal PMI, no JVD. No pulse deficits. 19:02 ECG was reviewed by the Attending Physician. 19:02 Respiratory: mild respiratory distress is noted, Breath sounds: rales, are scattered, Vital Signs: 14:46 BP 119 / 72; Pulse 97; Resp 22; Temp 97.8; Pulse Ox 94% on 2 lpm NC; Weight 112.94 kg; me1 Height 5 ft. 6 in. ; Pain 0/10; 16:00 BP 116 / 74; Pulse 99; Resp 22; Pulse Ox 95% on 2 lpm NC; me1 17:00 BP 120 / 72; Pulse 90; Resp 24; Pulse Ox 95% on 2 lpm NC; me1 18:00 BP 129 / 67; Pulse 92; Resp 24; Pulse Ox 97% 2 lpm ; me1 14:46 Body Mass Index 40.19 (112.94 kg, 167.64 cm) me1 14:46 Pain Scale: Adult me1 MDM: 15:08 Medical Screening Exam initiated ms3 19:02 Differential diagnosis: CHF exacerbation, Chronic Obstructive Pulmonary Disease ms3 pneumonia, pulmonary edema. Antibiotic administration: Not indicated, the patient does not have an appreciated infiltrate. Data reviewed: vital signs, nurses notes, lab test result(s), EKG, radiologic studies, and as a result, I will admit patient. Consideration of Admission/Observation Patient was admitted/placed on observation. Management of patient was discussed with the following: Hospitalist: . I considered the following discharge prescriptions or medication management in the emergency department Medications were administered in the Emergency Department. See MAR. Independent interpretation of the following test(s) in the Emergency Department EKG: See my EKG interpretation above. Independent interpretation of the following test(s) in the Emergency Department X-Ray: My interpretation is CXR image reviewed by me reveals pulmonary edema. Counseling: I had a detailed discussion with the patient and/or guardian regarding the historical points, exam findings, and any diagnostic results supporting the discharge/admit diagnosis, lab results, radiology results, the need for further work-up and treatment in the hospital. ED course: Discussed case with Dr. Castañeda and he accepts patient. All questions were answered. Return precautions discussed include worsening symptoms discussed necessity for admission with patient and her family. They understand and agree with plan. Patient remains in stable condition in the emergency department.. 10/15 15:07 Order name: Basic Metabolic Panel; Complete Time: 16:05 ms3 10/15 15:07 Order name: CBC with Diff; Complete Time: 16:05 ms3 10/15 15:07 Order name: Magnesium; Complete Time: 16:05 ms3 10/15 15:07 Order name: NT PRO-BNP; Complete Time: 16:05 ms3 10/15 15:07 Order name: Troponin HS; Complete Time: 16:05 ms3 10/15 21:15 Order name: Glucose, Ancillary Testing EDMS 10/16 05:11 Order name: CBC with Automated Diff EDMS 10/16 05:20 Order name: Basic Metabolic Panel EDMS 10/16 05:20 Order name: Phosphorus EDMS 10/16 05:20 Order name: Troponin High Sensitivity EDMS 10/16 05:20 Order name: Lipid Profile EDMS 10/16 05:20 Order name: Magnesium EDMS 10/16 07:30 Order name: Glucose, Ancillary Testing EDMS 10/16 12:26 Order name: Glucose, Ancillary Testing EDMS 10/16 13:40 Order name: Troponin High Sensitivity EDMS 10/15 15:07 Order name: XRAY Chest (1 view) ms3 10/15 15:07 Order name: EKG; Complete Time: 15:08 ms3 10/15 15:07 Order name: Cardiac monitoring; Complete Time: 15:42 ms3 10/15 15:07 Order name: EKG - Nurse/Tech; Complete Time: 15:42 ms3 10/15 15:07 Order name: IV Saline Lock; Complete Time: 15:18 ms3 10/15 15:07 Order name: Labs collected and sent; Complete Time: 15:32 ms3 10/15 15:07 Order name: O2 Per Protocol; Complete Time: 15:18 ms3 10/15 15:07 Order name: O2 Sat Monitoring; Complete Time: 15:18 ms3 EC:02 Rate is 94 beats/min. Rhythm is regular. Left axis deviation noted. [place] interval is ms3 normal. QRS interval is normal. Clinical impression: NSR w/ Non-specific ST/T Changes. Interpreted by me. Reviewed by me. Administered Medications: 16:36 Drug: Furosemide IVP 40 mg IVP once; give over 2 minutes Route: IVP; Site: right me1 antecubital; 18:10 Follow up: Response: No adverse reaction me1 Disposition Summary: 10/15/24 16:09 Hospitalization Ordered Notes: Hospitalization Status: Inpatient Admission ms3 Provider: Luisito Castañeda ms3 Condition: Stable ms3 Problem: new ms3 Symptoms: are unchanged ms3 Bed/Room Type: Standard ms3 Location: Telemetry/MedSurg (Inpatient)(10/16/24 12:39) bd Room Assignment: 406(10/16/24 12:43) bd Diagnosis - Heart failure, unspecified ms3 - Respiratory failure, unspecified with hypoxia ms3 - Acute pulmonary edema ms3 - Shortness of breath ms3 Forms: - Medication Reconciliation Form ms3 - SBAR form ms3 - Leadership Thank You Letter ms3 Signatures: Dispatcher [employer] EDMS Luz Maria Sidhu Marcus, DO DO ms3 Yolanda Verde rv1 Amanda Messer, RN RN me1 Corrections: (The following items were deleted from the chart) 20:09 16:09 Telemetry/MedSurg (Inpatient) ms3 rv1 20:09 16:09 ms3 rv1 10/16 12:39 12 20:09 [facility] ER HOLD rv1 bd 10/16 12:39 12/02 20:09 ERHOLD- rv1 bd 10/16 12:43 12:39 413 bd
--- NOTE | 2024-10-15 16:09 | ER ---
Nurse's Notes [facility] Name: Anahi Ramires Age: 69 yrs Sex: Female : 1955 Arrival Date: 10/15/2024 Time: 14:43 Bed 23 Private MD: Diagnosis: Heart failure, unspecified;Respiratory failure, unspecified with hypoxia;Acute pulmonary edema;Shortness of breath Presentation: 10/15 14:46 Chief complaint: EMS states: toned out for SOB. States she fell on Tuesday and has been me1 sob since. Went to the clinic today and they called EMS for 91% room air sat. EMS got 93% on room air. Gave an A\T\A neb tx and administered o2 at 2 lpm via nc, established 20g to LAC. Coronavirus screen: Vaccine status: Patient reports receiving the 2nd dose of the covid vaccine. Ebola Screen: No symptoms or risks identified at this time. Initial Sepsis Screen: Does the patient meet any 2 criteria? No. Patient's initial sepsis screen is negative. Risk Assessment: Do you want to hurt yourself or someone else? Patient reports no desire to harm self or others. Onset of symptoms was October 12, 2024. Care prior to arrival: IV initiated. 20 GA, in the left antecubital area, Med neb given. Oxygen administered. via nasal cannula. 14:46 Method Of [place] [facility] 14:[place] Acuity: BRIDGET 3 me1 Triage Assessment: 14:50 General: Appears ill, well groomed, well developed, well nourished, Behavior is calm, me1 cooperative, appropriate for age. Pain: Denies pain. EENT: No signs and/or symptoms were reported regarding the EENT system. Neuro: Level of Consciousness is awake, alert, obeys commands, Oriented to person, place, time, situation, Appropriate for age. Cardiovascular: Patient's skin is warm and dry. Respiratory: Reports shortness of breath at rest on exertion since Tuesday Airway is patent Trachea midline Respiratory effort is even, unlabored, Respiratory pattern is regular, tachypnea Onset: The symptoms/episode began/occurred gradually, the patient has moderate shortness of breath. GI: No signs and/or symptoms were reported involving the gastrointestinal system. : No signs and/or symptoms were reported regarding the genitourinary system. Derm: Skin is intact, is healthy with good turgor, Skin is pink, warm \T\ dry. Musculoskeletal: No signs and/or symptoms reported regarding the musculoskeletal system. Historical: - Allergies: 14:50 No Known Allergies; me1 - PMHx: 14:50 Congestive heart failure; diabetes mellitus; Gout; Hypercholesterolemia; Hypertensive me1 disorder; Hypothyroidism; neuropathy; - PSHx: 14:50 Total abdominal hysterectomy; me1 - Immunization history:: Adult Immunizations up to date. - Infectious Disease History:: Denies. - Social history:: Smoking status: Patient/guardian denies using tobacco, but has a distant history of tobacco abuse. Screenin:52 [facility] ED Fall Risk Assessment (Adult) History of falling in the last 3 months, me1 including since admission No falls in past 3 months (0 pts) Confusion or Disorientation No (0 pts) Intoxicated or Sedated No (0 pts) Impaired Gait Yes (1 pt) Mobility Assist Device Used Yes (1 pt) Altered Elimination Yes (1 pt) Score/Fall Risk Level 0 - 2 = Low Risk Maintained a safe environment, Provided non-skid footwear, Hourly rounding (assess needs \T\ fall precautionary measures) done. Abuse screen: Denies threats or abuse. Nutritional screening: No deficits noted. Tuberculosis screening: No symptoms or risk factors identified. Assessment: 14:52 General: See triage assessment. . Cardiovascular:. Respiratory: Airway is patent me1 Respiratory effort is even, unlabored, Respiratory pattern is regular, tachypnea Breath sounds with crackles bilaterally. 22:00 Cardiovascular: Rhythm is sinus rhythm. pr1 03 13:00 General: Report faxed to 4th floor, receipt confirmed with Mateo. . me1 Vital Signs: 12/ 14:46 BP 119 / 72; Pulse 97; Resp 22; Temp 97.8; Pulse Ox 94% on 2 lpm NC; Weight 112.94 kg; me1 Height 5 ft. 6 in. ; Pain 0/10; 16:00 BP 116 / 74; Pulse 99; Resp 22; Pulse Ox 95% on 2 lpm NC; me1 17:00 BP 120 / 72; Pulse 90; Resp 24; Pulse Ox 95% on 2 lpm NC; me1 18:00 BP 129 / 67; Pulse 92; Resp 24; Pulse Ox 97% 2 lpm ; me1 14:46 Body Mass Index 40.19 (112.94 kg, 167.64 cm) me1 14:46 Pain Scale: Adult me1 ED Course: 14:46 Patient arrived in ED. me1 14:47 Shyam Paul DO is Attending Physician. ms3 14:50 Triage completed. me1 14:50 Arm band placed on Patient placed in an exam room. me1 14:52 Patient has correct armband on for positive identification. Bed in low position. Call me1 light in reach. Side rails up X2. Provided Education on: POC. Verbalized understanding. . Client placed on continuous cardiac and pulse oximetry monitoring. NIBP monitoring applied. bench assembler battery on. Pulse ox on. NIBP on. 14:52 No provider procedures requiring assistance completed. Maintain EMS IV. Dressing me1 intact. Good blood return noted. Site clean \T\ dry. Gauge \T\ site: 20g LAC. Flushed with 10 mL NS. 15:18 Amanda Messer, RN is Primary Nurse. me1 15:31 IV discontinued, intact, bleeding controlled, No redness/swelling at site. Pressure me1 dressing applied. 15:31 Initial lab(s) drawn, by pr, sent to lab. Inserted saline lock: 22 gauge in right me1 antecubital area, using aseptic technique. 15:32 Basic Metabolic Panel Sent. me1 15:32 CBC with Diff Sent. me1 15:32 Magnesium Sent. me1 15:32 NT PRO-BNP Sent. me1 15:32 Troponin HS Sent. me1 15:36 XRAY Chest (1 view) In Process Unspecified. EDMS 15:42 EKG done, by ED staff, reviewed by Shyam Paul DO. me1 16:08 Luisito Castañeda is Hospitalizing Provider. ms3 Administered Medications: 16:36 Drug: Furosemide IVP 40 mg IVP once; give over 2 minutes Route: IVP; Site: right me1 antecubital; 18:10 Follow up: Response: No adverse reaction me1 Medication: 14:52 VIS not applicable for this client. me1 Outcome: 16:09 Decision to Hospitalize by Provider. ms3 21:00 Admitted to ER Hold. Please see [facility] for further documentation. me1 21:00 Condition: stable 21:00 Instructed on the need for admit, 10/16 14:01 Admitted to Tele accompanied by tech, via stretcher, room 406, with chart, Report me1 called to faxed, receipt confirmed with Mateo. Condition: stable Instructed on the need for admit, 14:02 Patient left the ED. me1 Signatures: Dispatcher [employer] Shyam Zamudio DO DO ms3 Aamnda Messer, RN RN me1
[2024-10-15] MEDS ORDERED: FUROSEMIDE 40 MG/4 ML VIAL ONE (16:23)
--- NOTE | 2024-10-15 16:45 | RAD REPORT ---
EXAMINATION: ONE VIEW CHEST XR CLINICAL INDICATION: Female, 69 years old.,DYSPNEA TECHNIQUE: Frontal chest projection is submitted. Examination is limited by patient positioning and t echnique. COMPARISON: 07/02/2024 FINDINGS: Essentially stable burden of central and basilar patchy opacities although some of these may be fleet ing. Partial improvement of left costophrenic angle opacification which may relate to improving effusion or atelectasis. Central interstitial prominence again seen suggesting central congestion/CHF . No pneumothorax or sizable effusion. The heart is again mildly enlarged. Mediastinal contours are unremarkable. IMPRESSION: Essentially stable findings which may relate to central congestion or edema.
--- NOTE | 2024-10-15 17:13 | P.HP ---
Certification for Inpatient Patient admitted to: Inpatient With expected LOS: >2 Midnights Practitioner: I am a practitioner with admitting privileges, knowledge of patient current condition, hospital course, and medical plan of care. Services: Services provided to patient in accordance with Admission requirements found in Title 42 Section 412.3 of the Code of Federal Regulations Patient History Date of Service: 10/15/24 Reason for admission: Shortness of breath History of Present Illness: 69-year-old woman with a history of chronic diastolic heart failure, COPD and diabetes mellitus presented to the emergency department due to progressive shortness of breath of about 3 days duration. Patient reports that she fell while she was in the bathroom 3 days ago and since then has been experiencing progressive shortness of breath. She denies any chest pain, she reports fatigue. She denied any palpitation. Chest x-ray done in the emergency department shows pulmonary edema, initial troponin negative, EKG showed sinus tachycardia. Patient is hospitalized for further management of CHF exacerbation. , Allergies No Known Allergies Allergy (Verified 07/03/24 04:09) Home Medications: Allopurinol 1 tab PO DAILY 07/03/24 Clopidogrel Bisulfate [Plavix] 75 mg PO DAILY 07/03/24 Dapagliflozin Propanediol [Farxiga] 1 tab PO DAILY 07/03/24 Ezetimibe 10 mg PO DAILY 07/03/24 Folic Acid 1 mg PO DAILY 07/03/24 Gabapentin 300 mg PO TID 07/03/24 Insulin Degludec [Tresiba Flextouch U-200] 18 units SQ BEDTIME 07/03/24 Levothyroxine Sodium 25 mcg PO DAILY 07/03/24 Metformin HCl 1,000 mg PO BID 07/03/24 Sertraline [Zoloft*] 1 tab PO BEDTIME 07/03/24 Sitagliptin Phosphate [Januvia] 100 mg PO DAILY 07/03/24 Spironolactone 25 mg PO DAILY 07/03/24 Bimatoprost [Lumigan Opthalmic Drops*] 1 drops OPTH DAILY 07/06/24 Albuterol Neb [Proventil 0.083% Neb Soln] 2.5 mg NEB Q6HP PRN #60 amp 07/07/24 Azithromycin Tab [Zithromax*] 250 mg PO DAILY #3 tab 07/07/24 Cefdinir [Cefdinir*] 300 mg PO BID #10 cap 07/07/24 Furosemide [Lasix*] 40 mg PO DAILY #30 tab 07/07/24 Hydrocodone 5/APAP 325 [[place] 5/325*] 1 tab PO Q6HP PRN #30 tab 07/07/24 Ipratropium Neb [Atrovent*] 0.5 mg NEB [id number] PRN #60 amp 07/07/24 Nebulizer 1 each MC DAILY #1 ea 07/07/24 Nebulizer Accessories [Adult Aerosol Mask] 1 each MC DAILY #1 ea 07/07/24 atenoloL [Tenormin*] 25 mg PO BID #60 tab 07/07/24 predniSONE [Prednisone*] 20 mg PO BID #11 tab 07/07/24 - Past Medical/Surgical History Diabetic: Yes -: hypertension, diabetes, CHF, gout, hyperlipidemia ,CAD -: DM -: CHF -: gout -: CAD -: hyperlididemia -: total abdominal hysterectomy - Family History Mother -: Heart disease, Hypertension - Social History Alcohol use: No CD- Drugs: No Caffeine use: Yes Place of Residence: Home Review of Systems Other: Patient denies any fever, reports intermittent cough. Patient denies any nausea or vomiting. She denies any limb pain. Except as documented, all other systems reviewed and negative. Physical Examination - Physical Exam General: Alert, In no apparent distress, Oriented x3 HEENT: Normocephalic, PERRLA, EOMI, Sclerae nonicteric Neck: Supple, JVD not distended Respiratory: Normal air movement, Crackles/rales (Mild bibasilar crackle) Cardiovascular: No edema, Regular rate/rhythm, Normal S1 S2 Capillary refill: <2 Seconds Gastrointestinal: Normal bowel sounds, Soft and benign, Non-distended, No ascites Musculoskeletal: No swelling, No tenderness Integumentary: No rashes, No erythema, No cyanosis Neurological: Normal speech, Normal strength at 5/5 x4 extr, Cranial nerves 3-12 intact, Normal affect Lymphatics: No axilla or inguinal lymphadenopathy - Studies Laboratory Data (last 24 hrs) 10/15/24 10/15/24 15:30 15:30 WBC 12.60 H Hgb 13.4 Hct 41.7 Plt Count 226 Sodium 137 Potassium 3.7 BUN 14 Creatinine 1.20 H Glucose 110 H Magnesium 1.8 Assessment and Plan - Problems (Diagnosis) (1) Acute on chronic diastolic heart failure Current Visit: Yes Status: Acute (2) COPD (chronic obstructive pulmonary disease) Current Visit: Yes Status: Acute (3) Type 2 diabetes mellitus Current Visit: Yes Status: Acute - Plan Acute on chronic diastolic heart failure Admit patient to the medical floor. Start IV Lasix Monitor intake and output Daily weight Initial troponin negative. Continue to trend troponin. Low-salt diet. Diabetes mellitus type 2 Continue Farxiga. Validate and resume home dose Lantus insulin Insulin sliding scale. COPD Without acute exacerbation. Bronchodilators.. Gout Continue home medications. Fall PT consult. DVT prophylaxis: Heparin SQ Advanced directive: Full code - Advance Directives Does patient have a Living Will: No Does patient have a Durable POA for Healthcare: No
[2024-10-15] MEDS: ALBUTEROL 2.5 MG/3 ML NEB SOL NEB SCH (20:10)
[2024-10-15] MEDS: IPRATROPIUM BROM 0.5MG/2.5ML NEB SCH (20:10)
[2024-10-15] MEDS ORDERED: ALBUTEROL 2.5 MG/3 ML NEB SOL ONE (20:15)
[2024-10-15] MEDS ORDERED: IPRATROPIUM BROM 0.5MG/2.5ML ONE (20:15)
[2024-10-16] MEDS: HEPARIN 5000 UNIT/ML 1 ML VIAL SQ SCH (00:47)
[2024-10-16] MEDS ORDERED: HEPARIN 5000 UNIT/ML 1 ML VIAL ONE ×2 (00:48→07:50)
[2024-10-16] MEDS ORDERED: ALBUTEROL 2.5 MG/3 ML NEB SOL ONE ×3 (02:21→07:50)
[2024-10-16] MEDS ORDERED: IPRATROPIUM BROM 0.5MG/2.5ML ONE ×3 (02:21→07:50)
[2024-10-16 05:05] LABS: Absolute Basophils 0.1 K/uL (0-0.5); Absolute Lymphocytes (CBC) 0.9 K/uL (0.7-4.9); Absolute Monocytes 1.6 K/uL (0.1-1.3); Absolute Neutrophil 11.1 K/uL (1.8-8.0); Basophils % 0.5 % (0-1.3); Eosinophils % 0.2 % (0-4.4); Lymphocytes % 6.7 % (15.3-44.8); MCH 30.1 pg (27.0-35.0); MCHC 31.7 g/dL (32.0-36.0); MCV 94.8 fL (80-100); MPV 10.7 fL (7.6-11.3); Monocytes % 11.9 % (3.3-12.3); Neutrophils % 80.7 % (41.7-73.7); Platelets 222 thou/uL (152-406); RBC Red Blood Cell Count 4.33 M/uL (3.86-4.86); Red Cell Distribution Width 15.6 % (12.1-15.2)
[2024-10-16 05:20] LABS: Anion Gap 13.4 mEq/L (5.0-15.0); Magnesium 1.7 mg/dL (1.6-2.4); Phosphorus 3.3 mg/dL (2.5-4.9); Potassium 3.4 mEq/L (3.5-5.1); Troponin High Sensitivity 11.9 pg/mL (<58.9)
--- NOTE | 2024-10-16 07:02 | P.PN ---
Date of Service: 10/16/24 Subjective: been feeling weak, short of breath for last few days feels ~same since coming to ED reports compliance with all her home meds does report subjective fever and chills since that started yesterday ROS: 10 point ROS as noted above, otherwise negative Physical Exam: GEN: Alert, NAD, fatigued HEENT: Normal conjunctiva, sclera anicteric CV: Regular rate and rhythm, no edema Pulm: Nonlabored respirations on 2L NC, mild bibasilar crackles ABD: soft, nontender, nondistended Neuro: Normal speech, normal affect Problem List: Acute on chronic COPD exacerbation Acute on chronic diastolic CHF exacerbation s/p recent fall IDDM2 Hypertension Hyperlipidemia Gout Hx CAD Acute on chronic COPD exacerbation Acute on chronic diastolic CHF exacerbation s/p recent fall Patient presented with worsening shortness of breath for ~3 days. Sating ~90-92% on RA at clinic prior to ER arrival She reports having recent fall in the bathroom ~3 days ago. Denies chest pain / palpitations trend Troponin's, negative x2 so far CXR 10/15 suggestive of congestion/edema. Mild Cardiomegaly. echo ordered to eval EF / stenosis Start IV lasix 40 mg BID Monitor on telemetry [facility] PT consult felt some improvement after nebulizer treatment start prednisone 10 mg BID IDDM2 accu-cheks, SSI confirm home insulin regimen Hypertension Hyperlipidemia Gout Hx CAD confirm home meds, restart as appropriate VTE: heparin sq Code: Full Dispo: home Time Spent Managing Pts Care (In Minutes): 55
[2024-10-16] MEDS ORDERED: FUROSEMIDE 40 MG/4 ML VIAL ONE (07:50)
[2024-10-16] MEDS: LEVOTHYROXINE SOD 0.025 MG TAB PO SCH (09:00)
[2024-10-16] MEDS: HOME MED (Dapagliflozin Propanediol [Farxiga] 10 MG Tablet) PO SCH (09:00)
[2024-10-16] MEDS: FUROSEMIDE 40 MG/4 ML VIAL IV SCH (09:00)
[2024-10-16] MEDS: BIMATOPROST OPHTH DROPS/2.5 ML BTL OPTH SCH (09:00)
[2024-10-16] MEDS: allopurinoL 300 MG TAB PO SCH (09:00)
[2024-10-16] MEDS ORDERED: predniSONE 10 MG TAB ONE (10:58)
[2024-10-16] MEDS: predniSONE 10 MG TAB PO SCH (11:00)
[2024-10-17 07:28] LABS: Anion Gap 10.2 mEq/L (5.0-15.0); Magnesium 2.2 mg/dL (1.6-2.4); Potassium 3.2 mEq/L (3.5-5.1)
[2024-10-17] MEDS: POTASSIUM CL SA 10 MEQ TAB PO ONE ×2 (08:16→16:28)
[2024-10-17] MEDS: BIMATOPROST OPTH SCH (08:24)
--- NOTE | 2024-10-17 08:55 | P.PN ---
Date of Service: 10/17/24 Subjective: feels some improvement today breathing feels much easier today per patient but still gets SOB with activity/talking doesn't use oxygen at home no further nose bleeds ROS: 10 point ROS as noted above, otherwise negative Physical Exam: GEN: Alert, NAD, fatigued HEENT: Normal conjunctiva, sclera anicteric CV: Regular rate and rhythm, 1+ bilateral lower extremity edema Pulm: Nonlabored respirations on 2L NC, mild bibasilar crackles ABD: soft, nontender, nondistended Neuro: Normal speech, normal affect Problem List: acute hypoxemic respiratory failure secondary to COPD exacerbation Acute on chronic COPD exacerbation Acute on chronic diastolic CHF exacerbation s/p recent fall IDDM2 Hypertension Hyperlipidemia Gout Hx CAD Acute on chronic COPD exacerbation Acute on chronic diastolic CHF exacerbation s/p recent fall Patient presented with worsening shortness of breath for ~3 days. Sating ~90-92% on RA at clinic prior to ER arrival She reports having recent fall in the bathroom ~3 days ago. Denies chest pain / palpitations. Doesn't use oxygen at home. troponins negative x3. Monitor on telemetry CXR 10/15 suggestive of congestion/edema. Mild Cardiomegaly. echo (10/16): 65% EF with normal wall motion. Grade 1 diastolic dysfunction, mild pulm htn, normal filling pressure, trace TR. continue IV lasix 40 mg BID continue prednisone [address] Koch, pulm consulted continue PT Duonebs Epistaxis, resolved resolved. No further episodes. IDDM2 accu-cheks, SSI confirm home insulin regimen Hypertension Hyperlipidemia Gout Hx CAD confirm home meds, restart as appropriate VTE: heparin sq Code: Full Dispo: home, ~ 2 days wean oxygen, breathing improves Time Spent Managing Pts Care (In Minutes): 55
--- NOTE | 2024-10-17 10:48 | ECHO ---
HEIGHT: 5 ft 6 in WEIGHT: 248 lb 15.841 oz DATE OF STUDY: 10/16/[address]: Luisito Castañeda MD 2-DIMENSIONAL: YES M.MODE: YES DOPPLER: YES COLOR FLOW: YES TDS: NO PORTABLE: YES DEFINITY: NO BUBBLE STUDY: NO DIAGNOSIS: CONGESTIVE HEART FAILURE EXACERBATION CARDIAC HISTORY: CATHERIZATION: SURGERY: PROSTHETIC VALVE: PACEMAKER: MEASUREMENTS (cm) DIASTOLIC (NORMALS) SYSTOLIC (NORMALS) IVSd 1.0 (0.6-1.2) LA Diam (1.9-4.0) LVEF 65% LVIDd 3.5 (3.5-5.7) LVIDs 2.1 (2.0-3.5) %FS 40% LVPWd 1.1 (0.6-1.2) Ao Diam 2.8 (2.0-3.7) 2 DIMENSIONAL ASSESSMENT: RIGHT ATRIUM: NORMAL LEFT ATRIUM: NORMAL RIGHT VENTRICLE: NORMAL LEFT VENTRICLE: NORMAL TRICUSPID VALVE: TRACE TRICUSPID REGURGITATION MITRAL VALVE: NORMAL PULMONIC VALVE: NORMAL AORTIC VALVE: NORMAL PERICARDIAL EFFUSION: NONE AORTIC ROOT: NORMAL LEFT VENTRICULAR WALL MOTION: NORMAL. DOPPLER/COLOR FLOW: GRADE I DIASTOLIC DYSFUNTION. COMMENTS: 1. NORMAL LEFT VENTRICULAR SYSTOLIC FUNCTION. LEFT VENTRICULAR EJECTION FRACTION 65% mmHg. NORMAL WALL MOTION. 2. GRADE I DIASTOLIC DYSFUNTION. 3. MILD PULMONARY HYPERTENSION. RIGHT VENTRICULAR SYSTOLIC PRESSURE 40-45 mmHg. 4. NORMAL FILLING PRESSURE. TECHNOLOGIST: KINGSTON APARICIO
[2024-10-17] MEDS: CEFTRIAXONE 1,000 MG in NA CHLORIDE 0.9% 50 ML IVPB SCH (13:08)
[2024-10-17] MEDS: IPRATROPIUM BROM 0.5MG/2.5ML NEB SCH (14:11)
--- NOTE | 2024-10-17 15:05 | RAD REPORT ---
EXAM:Thorax Wo Con CLINICAL INDICATION: Shortness of breath. TECHNIQUE: CT chest performed.. Axial, sagittal and coronal reconstructions were obtained. One or mor e of the following dose reduction techniques were used: Automated exposure control, adjustment of the mA and/or kV according to the patient size, and/or iterative reconstruction. Unless otherwise specified, incidental findings do not require dedicated imaging follow-up. [id number]. COMPARISON: None FINDINGS: Moderate tree-in-bud opacities throughout the right lung with peribronchial thickening and mild addit ional patchy opacities. Mild to moderate tree-in-bud opacities left lung with peribronchial thickening and mild additional pa tchy opacities. No mediastinal or hilar lymphadenopathy. Calcified left hilar lymph nodes. No pleural effusion. Small pericardial effusion [id number] hiatal hernia. IMPRESSION: Bilateral pulmonary opacities right greater than left likely pneumonia.
--- NOTE | 2024-10-17 15:38 | P.CNS ---
Date of Consult: 10/17/24 Reason for Consult: Shortness of breath possible pneumonia Chief Complaint: Shortness of breath History of Present Illness: Patient is 69 years of age she fell on Tuesday became acutely dyspneic ended up here in the hospital with his her nebulizers at home she has albuterol and complaining of cough x-ray shows bilateral infiltrates with elevated white count patient is a diabetic 1 Allergies No Known Allergies Allergy (Verified 07/03/24 04:09) Home Medications: Allopurinol 1 tab PO DAILY 07/03/24 Clopidogrel Bisulfate [Plavix] 75 mg PO DAILY 07/03/24 Dapagliflozin Propanediol [Farxiga] 1 tab PO DAILY 07/03/24 Ezetimibe 10 mg PO DAILY 07/03/24 Folic Acid 1 mg PO DAILY 07/03/24 Gabapentin 300 mg PO TID 07/03/24 Insulin Degludec [Tresiba Flextouch U-200] 18 units SQ BEDTIME 07/03/24 Levothyroxine Sodium 25 mcg PO DAILY 07/03/24 Metformin HCl 1,000 mg PO BID 07/03/24 Sertraline [Zoloft*] 1 tab PO BEDTIME 07/03/24 Sitagliptin Phosphate [Januvia] 100 mg PO DAILY 07/03/24 Spironolactone 25 mg PO DAILY 07/03/24 Bimatoprost [Lumigan Opthalmic Drops*] 1 drops OPTH DAILY 07/06/24 Albuterol Neb [Proventil 0.083% Neb Soln] 2.5 mg NEB Q6HP PRN #60 amp 07/07/24 Azithromycin Tab [Zithromax*] 250 mg PO DAILY #3 tab 07/07/24 Cefdinir [Cefdinir*] 300 mg PO BID #10 cap 07/07/24 Furosemide [Lasix*] 40 mg PO DAILY #30 tab 07/07/24 Hydrocodone 5/APAP 325 [[place] 5/325*] 1 tab PO Q6HP PRN #30 tab 07/07/24 Ipratropium Neb [Atrovent*] 0.5 mg NEB [id number] PRN #60 amp 07/07/24 Nebulizer 1 each MC DAILY #1 ea 07/07/24 Nebulizer Accessories [Adult Aerosol Mask] 1 each MC DAILY #1 ea 08/24/24 atenoloL [Tenormin*] 25 mg PO BID #60 tab 07/07/24 predniSONE [Prednisone*] 20 mg PO BID #11 tab 07/07/24 - Past Medical/Surgical History Diabetic: Yes -: hypertension, diabetes, CHF, gout, hyperlipidemia ,CAD -: DM -: CHF -: gout -: CAD -: hyperlididemia -: total abdominal hysterectomy - Family History Mother Medical History: Heart disease, Hypertension - Social History Smoking Status: Former smoker Alcohol use: No CD- Drugs: No Caffeine use: Yes Place of Residence: Home Review of Systems 10-point ROS is otherwise unremarkable General: Weakness Respiratory: Cough, Shortness of Breath Physical Examination Temp Pulse Resp BP Pulse Ox 98.8 F 96 H 16 119/88 93 10/17/24 12:00 10/17/24 12:00 10/17/24 12:00 10/17/24 12:00 10/17/24 12:00 General: Alert, Oriented x3 Respiratory: Clear to auscultation bilaterally, Diminished Cardiovascular: No edema, Regular rate/rhythm, Normal S1 S2 Gastrointestinal: Normal bowel sounds, Soft and benign - Problems (1) Pneumonia Current Visit: Yes Status: Acute Plan: Patient is 69 years of age admitted with acute shortness of breath probably has bilateral pneumonia more prominent on the CAT scan the chest x-ray is also abnormal white count is elevated labs and diagnostic data reviewed I have added Rocephin and azithromycin for now and also has a history of COPD vital signs oxygenation satisfactory scan chest x-rays reviewed patient is on spironolactone DC IV Lasix Echocardiogram NORMAL LEFT VENTRICULAR SYSTOLIC FUNCTION. LEFT VENTRICULAR EJECTION FRACTION 65% mmHg. NORMAL WALL MOTION. 2. GRADE I DIASTOLIC DYSFUNTION. 3. MILD PULMONARY HYPERTENSION. RIGHT VENTRICULAR SYSTOLIC PRESSURE 40-45 mmHg. 4. NORMAL FILLING PRESSURE. Patient's BNP was also elevated Qualifiers: Pneumonia type: due to unspecified organism Laterality: bilateral
[2024-10-17] MEDS: AZITHROMYCIN 250 MG TAB PO SCH (16:28)
[2024-10-17] MEDS: DULERA 200/5 (MOMETASONE/FORMOTEROL) INHALER IH SCH (21:42)
[2024-10-18 05:51] LABS: Absolute Basophils 0.1 K/uL (0-0.5); Absolute Lymphocytes (CBC) 1.4 K/uL (0.7-4.9); Absolute Monocytes 1.2 K/uL (0.1-1.3); Absolute Neutrophil 8.6 K/uL (1.8-8.0); Basophils % 0.5 % (0-1.3); Eosinophils % 0.3 % (0-4.4); Hematocrit 39.2 % (36.0-45.0); Hemoglobin 12.4 g/dL (12.0-15.0); Lymphocytes % 12.2 % (15.3-44.8); MCH 29.9 pg (27.0-35.0); MCHC 31.6 g/dL (32.0-36.0); MCV 94.7 fL (80-100); MPV 10.4 fL (7.6-11.3); Monocytes % 10.6 % (3.3-12.3); Neutrophils % 76.4 % (41.7-73.7); Platelets 257 thou/uL (152-406); RBC Red Blood Cell Count 4.15 M/uL (3.86-4.86); Red Cell Distribution Width 15.5 % (12.1-15.2)
[2024-10-18 06:06] LABS: Anion Gap 9.5 mEq/L (5.0-15.0); Magnesium 2.2 mg/dL (1.6-2.4); Potassium 3.5 mEq/L (3.5-5.1)
[2024-10-18 07:58] LABS: Band Neutrophils 1 % (0-1); Blood Morphology Comment NOT SEEN (NOT SEEN); Differential Total Cells Count 100; Lymphocytes 14 % (15-42); Monocytes 12 % (0-10); Platelet Estimate ADEQ; Segmented Neutrophils 73 % (40-80); Toxic Granulation 1+
--- NOTE | 2024-10-18 08:31 | P.PN ---
Date of Service: 10/18/24 Subjective: feeling better overall today breathing slowly improving no events overnight afebrile ROS: 10 point ROS as noted above, otherwise negative Physical Exam: GEN: Alert, NAD, fatigued HEENT: Normal conjunctiva, sclera anicteric CV: Regular rate and rhythm, no edema Pulm: Nonlabored respirations on 2L NC, mild bibasilar crackles ABD: soft, nontender, nondistended Neuro: Normal speech, normal affect Problem List: Acute hypoxemic respiratory failure secondary to COPD exacerbation / bilateral pneumonia s/p recent fall Chronic diastolic CHF (HFpEF 65%) Epistaxis, resolved IDDM2 Hypertension Hyperlipidemia Gout Hx CAD Acute hypoxemic respiratory failure secondary to COPD exacerbation / bilateral pneumonia s/p recent fall Patient presented with worsening shortness of breath for ~3 days. Sating ~90-92% on RA at clinic prior to ER arrival She reports having recent fall in the bathroom ~3 days prior to admission. Denies chest pain / palpitations. Doesn't use oxygen at home. troponins negative x3. Monitor on telemetry CT chest (10/17): bilateral pulmonary opacities R > L likely pneumonia Azithromycin/rocephin added 10/[address] results continue empiric Azithromycin/rocephin (10/17-) continue prednisone [address] Koch, pulm is following continue PT Duonebs chronic diastolic CHF (HFpEF 65%) CXR 10/15 suggestive of congestion/edema. Mild Cardiomegaly. echo (10/16): 65% EF with normal wall motion. Grade 1 diastolic dysfunction, mild pulm htn, normal filling pressure, trace TR. s/p IV lasix; dc'd 10/17 resume home spironolactone 10/18 Epistaxis, resolved resolved. No further episodes. IDDM2 accu-cheks, SSI confirm home insulin regimen Hypertension Hyperlipidemia Gout Hx CAD confirm home meds, restart as appropriate VTE: heparin sq Code: Full Dispo: home, ~ 2 days wean oxygen, breathing improves Time Spent Managing Pts Care (In Minutes): 45
[2024-10-18] MEDS: SPIRONOLACTONE 25 MG TABLET PO SCH ×2 (09:00→09:55)
[2024-10-18] MEDS: POTASSIUM CL SA 10 MEQ TAB PO ONE (09:56)
--- NOTE | 2024-10-18 13:41 | P.PN ---
Subjective Date of Service: 10/18/24 Chief Complaint: pneumonia Subjective: Improving (Doign better Dyspnea has improved) Review of Systems General: Weakness Respiratory: Shortness of Breath Physical Examination - Vital Signs Temperature: 98.0 F Blood Pressure: 141/74 Pulse: 93 Respirations: 18 Pulse Ox (%): 95 - Physical Exam General: In no apparent distress Neck: Supple Respiratory: Clear to auscultation bilaterally, Diminished Assessment And Plan - Current Problems (Diagnosis) (1) Pneumonia Current Visit: Yes Status: Acute Plan: Doing better . WBC has improved. PFT mild COPD / Change to Po levaquin D/C planing Usng Breo hat home/ Change to PO levaquin. Compliant with CPAP / LAbs reviewed/ Hx of diastolic heart failure resume Spironolactone NORMAL LEFT VENTRICULAR SYSTOLIC FUNCTION. LEFT VENTRICULAR EJECTION FRACTION 65% mmHg. NORMAL WALL MOTION. 2. GRADE I DIASTOLIC DYSFUNTION. 3. MILD PULMONARY HYPERTENSION. RIGHT VENTRICULAR SYSTOLIC PRESSURE 40-45 mmHg. 4. NORMAL FILLING PRESSURE. Patient's BNP was also elevated Qualifiers: Pneumonia type: due to unspecified organism Laterality: bilateral
[2024-10-18 17:13] VITALS: BMI 40.0
[2024-10-18] MEDS: GABAPENTIN 300 MG CAP PO SCH (20:26)
[2024-10-18] MEDS: atenoloL 25 MG TAB PO SCH (20:26)
[2024-10-18] MEDS: SERTRALINE HCL 100 MG TAB PO SCH (20:26)
[2024-10-19 06:23] LABS: Absolute Lymphocytes (CBC) 1.2 K/uL (0.7-4.9); Absolute Neutrophil 6.8 K/uL (1.8-8.0); Basophils % 0.5 % (0-1.3); Eosinophils % 0.3 % (0-4.4); Hematocrit 41.8 % (36.0-45.0); Hemoglobin 12.9 g/dL (12.0-15.0); Lymphocytes % 13.7 % (15.3-44.8); MCH 29.4 pg (27.0-35.0); MCHC 30.9 g/dL (32.0-36.0); MCV 95.4 fL (80-100); MPV 10.5 fL (7.6-11.3); Neutrophils % 74.5 % (41.7-73.7); Platelets 286 thou/uL (152-406); RBC Red Blood Cell Count 4.38 M/uL (3.86-4.86); Red Cell Distribution Width 16.1 % (12.1-15.2)
[2024-10-19 06:31] LABS: Anion Gap 7.1 mEq/L (5.0-15.0); Magnesium 2.3 mg/dL (1.6-2.4); Potassium 4.1 mEq/L (3.5-5.1)
[2024-10-19] MEDS: FOLIC ACID 1 MG TABLET PO SCH (08:48)
[2024-10-19] MEDS: CLOPIDOGREL 75 MG TABLET PO SCH (08:48)
[2024-10-19] MEDS: levoFLOXacin 750 MG TAB PO SCH (08:48)
[2024-10-19] MEDS: EZETIMIBE 10 MG TAB PO SCH (08:48)
--- NOTE | 2024-10-19 10:21 | P.PN ---
Date of Service: 10/19/24 Subjective: per report, had 3 sec run of a-fib last night, HR 120s . then back to sinus rhythm patient denies any prior history denies any symptoms overnight states she has sleep apnea, and did wake up at times, but nothing unusual Denied chest pain or palpitations at the time otherwise breathing feels easier placed back on O2 ROS: 10 point ROS as noted above, otherwise negative Physical Exam: GEN: Alert, NAD, oriented CV: Regular rate and rhythm, no edema Pulm: Nonlabored respirations on 2L NC, mild bibasilar crackles ABD: soft, nontender, nondistended Neuro: Normal speech, normal affect Problem List: Acute hypoxemic respiratory failure secondary to COPD exacerbation / bilateral pneumonia s/p recent fall ?questionable a-fib Chronic diastolic CHF (HFpEF 65%) Epistaxis, resolved IDDM2 Hypertension Hyperlipidemia Gout Hx CAD Obstructive sleep apnea Acute hypoxemic respiratory failure secondary to COPD exacerbation s/p recent fall Patient presented with worsening shortness of breath for ~3 days. Sating ~90-92% on RA at clinic prior to ER arrival She reports having recent fall in the bathroom ~3 days prior to admission. Denies chest pain / palpitations. Doesn't use oxygen at home. troponins negative x3. Monitor on telemetry CT chest (10/17): bilateral pulmonary opacities R > L likely pneumonia Azithromycin/rocephin added 10/[address] results IV Azithromycin/rocephin (10/17-) deescalated to oral levaquin 10/19 levaquin switched to Augmentin 10/19 given concern for a-fib, QTc prolongation continue prednisone [address] Koch, pulm is following continue PT Duonebs ?questionable a-fib per report, had ?3 sec run of a-fib overnight, HR 120s denies any prior history of a-fib Asymptomatic. Denies chest pain or palpitations. back in normal sinus rhythm Monitor on telemetry check EKG dc levaquin change to augmentin given ?afib / QTc prolongation risk chronic diastolic CHF (HFpEF 65%) CXR 10/15 suggestive of congestion/edema. Mild Cardiomegaly. echo (10/16): 65% EF with normal wall motion. Grade 1 diastolic dysfunction, mild pulm htn, normal filling pressure, trace TR. s/p IV lasix; dc'd 10/17 continue home spironolactone 10/18 Epistaxis, resolved resolved. No further episodes. IDDM2 accu-cheks, SSI confirm home insulin regimen Hypertension Hyperlipidemia Gout Hx CAD confirm home meds, restart as appropriate VTE: heparin sq Code: Full Dispo: home, ~1-2 days wean oxygen, breathing improves Time Spent Managing Pts Care (In Minutes): 45
[2024-10-19] MEDS: AMOX/K CLAV 875 MG TAB PO SCH (11:18)
[2024-10-19] MEDS: ONDANSETRON 4 MG/2 ML VIAL IV PRN (21:40)
[2024-10-19] MEDS: GUAIFENESIN/DM 5 ML UCUP PO PRN (22:13)
[2024-10-19] MEDS: ZOLPIDEM TARTRATE 10 MG TABLET PO ONE (22:13)
[2024-10-20 07:19] LABS: Anion Gap 7.4 mEq/L (5.0-15.0); Magnesium 2.2 mg/dL (1.6-2.4); Potassium 4.4 mEq/L (3.5-5.1)
[2024-10-20 09:55] VITALS: O2SAT 91
--- NOTE | 2024-10-20 11:32 | P.PN ---
Date of Service: 10/20/24 Subjective: ROS: 10 point ROS as noted above, otherwise negative Physical Exam: GEN: Alert, NAD, oriented CV: Regular rate and rhythm, no edema Pulm: Nonlabored respirations on room air, mild bibasilar crackles ABD: soft, nontender, nondistended Neuro: Normal speech, normal affect Problem List: Acute hypoxemic respiratory failure secondary to COPD exacerbation / bilateral pneumonia s/p recent fall ?questionable a-fib Chronic diastolic CHF (HFpEF 65%) Epistaxis, resolved IDDM2 Hypertension Hyperlipidemia Gout Hx CAD Obstructive sleep apnea Acute hypoxemic respiratory failure secondary to COPD exacerbation s/p recent fall Patient presented with worsening shortness of breath for ~3 days. Sating ~90-92% on RA at clinic prior to ER arrival She reports having recent fall in the bathroom ~3 days prior to admission. Denies chest pain / palpitations. Doesn't use oxygen at home. troponins negative x3. Monitor on telemetry CT chest (10/17): bilateral pulmonary opacities R > L likely pneumonia Azithromycin/rocephin added 10/[address] results IV Azithromycin/rocephin (10/17-) deescalated to oral levaquin 10/19 levaquin switched to Augmentin 10/19 given concern for a-fib, QTc prolongation continue prednisone [address] Koch, pulm is following continue PT Duonebs ?questionable a-fib per report, had 3 sec run of a-fib overnight, HR 120s denies any prior history of a-fib Asymptomatic. Denies chest pain or palpitations. back in normal sinus rhythm Monitor on telemetry levaquin changed to augmentin (10/19) given ?afib / QTc prolongation risk chronic diastolic CHF (HFpEF 65%) CXR 10/15 suggestive of congestion/edema. Mild Cardiomegaly. echo (10/16): 65% EF with normal wall motion. Grade 1 diastolic dysfunction, mild pulm htn, normal filling pressure, trace TR. s/p IV lasix; dc'd 10/17 continue home spironolactone 10/18 Epistaxis, resolved resolved. No further episodes. IDDM2 accu-cheks, SSI confirm home insulin regimen Hypertension Hyperlipidemia Gout Hx CAD confirm home meds, restart as appropriate VTE: heparin sq Code: Full Dispo: home, ~1-2 days wean oxygen, breathing improves Time Spent Managing Pts Care (In Minutes): 45
[2024-10-20 12:56] VITALS: BP 108/68; TEMP 98.2
--- NOTE | 2024-10-21 12:03 | P.DS ---
Admission Date: 10/15/24 Discharge Date: 10/20/24 Disposition: ROUTINE DISCHARGE Discharge Condition: GOOD Reason for Admission: pneumonia Consultations: Pulmonology - Dr. Koch Brief History of Present Illness: 69yo F, PMH: chronic diastolic heart failure, COPD and diabetes mellitus Patient presented to the emergency department due to progressive shortness of breath of about 3 days duration. Patient reports that she fell while she was in the bathroom 3 days ago and since then has been experiencing progressive shortness of breath. She denies any chest pain, she reports fatigue. She denied any palpitation. Chest x-ray done in the emergency department shows pulmonary edema, initial troponin negative, EKG showed sinus tachycardia. Patient is hospitalized for further management of CHF exacerbation. Hospital Course: Problem List: Acute hypoxemic respiratory failure secondary to COPD exacerbation / bilateral pneumonia s/p recent fall ?questionable a-fib Chronic diastolic CHF (HFpEF 65%) Epistaxis, resolved IDDM2 Hypertension Hyperlipidemia Gout Hx CAD Obstructive sleep apnea Patient presented with worsening shortness of breath for ~3 days. Sating ~90-92% on RA at clinic prior to ER arrival. Found to be in acute on chronic copd exacerbation secondary to pneumonia. Dr. Koch, pulmonology was consulted. CT chest (10/17) noted bilateral pulmonary opacities R > L likely pneumonia Antibiotics transitioned to oral augmentin. Symptoms improved and oxygen supplementation was weaned to room air. Continue a few more days of augmentin and prednisone. Otherwise continue other home medications as prescribed. Overnight 10/18 to 10/19, while sleeping, she was noted to have 3 seconds of fast heart rate that had some appearance of afib. Patient denied any prior history of afib, but did report long history of sleep apnea. Her CPAP machine broke / stopped working a while back, and has been unable to get it replaced. She does state her PCP is working on it now. Given that it was for a brief 3 seconds and difficult to definitively say it was afib - and she was taking levaquin at the time. She was not started on any new medications for possible paroxysmal afib. She did not have any further episodes. Recommend follow up with PCP for CPAP machine, and consideration of holter monitor to rule out afib. She was on telemetry throughout hospitalization and except for those 3 seconds, was in sinus rhythm. echo (10/16): 65% EF with normal wall motion. Grade 1 diastolic dysfunction, mild pulm htn, normal filling pressure, trace TR. Follow up: PCP within 1 week Pulmonology in ~2-3 weeks Physical Exam: GEN: Alert, NAD, oriented CV: Regular rate and rhythm, no edema Pulm: Nonlabored respirations on room air, mild bibasilar crackles ABD: soft, nontender, nondistended Neuro: Normal speech, normal affect Vital Signs/Physical Exam: Temp Pulse Resp BP Pulse Ox 98.2 F 81 14 108/68 91 10/20/24 12:00 10/20/24 12:00 10/20/24 12:00 10/20/24 12:00 10/20/24 12:00 Laboratory Data at Discharge: WBC 9.10 thou/uL (4.3-10.9) 10/19/24 05:42 Hgb 12.9 g/dL (12.0-15.0) 10/19/24 05:42 Hct 41.8 % (36.0-45.0) 10/19/24 05:42 Plt Count 286 thou/uL (152-406) 10/19/24 05:42 Sodium 136 mEq/L (136-145) 10/20/24 06:35 Potassium 4.4 mEq/L (3.5-5.1) 10/20/24 06:35 BUN 25 mg/dL (7-18) H 10/20/24 06:35 Creatinine 1.03 mg/dL (0.55-1.02) H 10/20/24 06:35 Glucose 105 mg/dL (74-106) 10/20/24 06:35 Phosphorus 3.3 mg/dL (2.5-4.9) 10/16/24 04:18 Magnesium 2.2 mg/dL (1.6-2.4) 10/20/24 06:35 Triglycerides 114 mg/dL (<150) 10/16/24 04:18 Cholesterol 169 mg/dL (<200) 10/16/24 04:18 HDL Cholesterol 39 mg/dL (40-60) L 10/16/24 04:18 Cholesterol/HDL Ratio 4.33 10/16/24 04:18 Home Medications: Allopurinol 1 tab PO DAILY 07/03/24 Clopidogrel Bisulfate [Plavix] 75 mg PO DAILY 07/03/24 Dapagliflozin Propanediol [Farxiga] 1 tab PO DAILY 07/03/24 Ezetimibe 10 mg PO DAILY 07/03/24 Folic Acid 1 mg PO DAILY 07/03/24 Gabapentin 300 mg PO TID 07/03/24 Insulin Degludec [Tresiba Flextouch U-200] 18 units SQ BEDTIME 07/03/24 Levothyroxine Sodium 25 mcg PO DAILY 07/03/24 Metformin HCl 1,000 mg PO BID 07/03/24 Sertraline [Zoloft*] 1 tab PO BEDTIME 07/03/24 Sitagliptin Phosphate [Januvia] 100 mg PO DAILY 07/03/24 Spironolactone 25 mg PO DAILY 07/03/24 Bimatoprost [Lumigan Opthalmic Drops*] 1 drops OPTH DAILY 07/06/24 Albuterol Neb [Proventil 0.083% Neb Soln] 2.5 mg NEB Q6HP PRN #60 amp 07/07/24 Furosemide [Lasix*] 40 mg PO DAILY #30 tab 07/07/24 Hydrocodone 5/APAP 325 [[place] 5/325*] 1 tab PO Q6HP PRN #30 tab 07/07/24 Ipratropium Neb [Atrovent*] 0.5 mg NEB [id number] PRN #60 amp 07/07/24 Nebulizer 1 each DAILY #1 ea 07/07/24 Nebulizer Accessories [Adult Aerosol Mask] 1 each DAILY #1 ea 07/07/24 atenoloL [Tenormin*] 25 mg PO BID #60 tab 07/07/24 Amox/Clavulanate [Augmentin 875-125 Tab*] 875 mg PO BID 5 Days #10 tab 10/20/24 Mometasone/Formoterol [Dulera 200 Mcg/5 Mcg Inhaler] 2 puff IH BID inhaler 10/20/24 predniSONE [Deltasone*] 10 mg PO BIDL 5 Days #10 tab 10/20/24 traMADol HCL [Ultram*] 50 mg PO Q8H PRN #10 tab 10/20/24 New Medications: Amox/Clavulanate [Augmentin 875-125 Tab*] 875 mg PO BID 5 Days #10 tab predniSONE [Deltasone*] 10 mg PO BIDL 5 Days #10 tab traMADol HCL [Ultram*] 50 mg PO Q8H PRN #10 tab PRN Reason: Pain Physician Discharge Instructions: Patient presented with worsening shortness of breath for ~3 days. Sating ~90-92% on RA at clinic prior to ER arrival. Found to be in acute on chronic copd exacerbation secondary to pneumonia. Dr. Koch, pulmonology was consulted. CT chest (10/17) noted bilateral pulmonary opacities R > L likely pneumonia Antibiotics transitioned to oral augmentin. Symptoms improved and oxygen supplementation was weaned to room air. Continue a few more days of augmentin and prednisone. Otherwise continue other home medications as prescribed. Overnight 10/18 to 10/19, while sleeping, she was noted to have 3 seconds of fast heart rate that had some appearance of afib. Patient denied any prior history of afib, but did report long history of sleep apnea. Her CPAP machine broke / stopped working a while back, and has been unable to get it replaced. She does state her PCP is working on it now. Given that it was for a brief 3 seconds and difficult to definitively say it was afib - and she was taking levaquin at the time. She was not started on any new medications for possible paroxysmal afib. She did not have any further episodes. Recommend follow up with PCP for CPAP machine, and consideration of holter monitor to rule out afib. She was on telemetry throughout hospitalization and except for those 3 seconds, was in sinus rhythm. echo (10/16): 65% EF with normal wall motion. Grade 1 diastolic dysfunction, mild pulm htn, normal filling pressure, trace TR. Follow up: PCP within 1 week Pulmonology in ~2-3 weeks Followup: Naresh Koch MD [ACTIVE - CAN ADMIT] - (follow up in 2-3 weeks) Gabbie Veliz PAC [Primary Care Provider] - 1 Week (call to schedule an appointment) Time spent managing pt's care (in minutes): 45
--- NOTE | 2024-10-30 12:13 | EKG ---
Test Date: 2024-10-15 Test Time: 15:38:11 Salvager: MEASUREMENT RESULTS: Intervals: Rate: 94 OR: 146 QRSD: 74 QT: 350 QTc: 437 [place]: P: 47 OR: 146 QRS: -58 T: 79 INTERPRETIVE STATEMENTS: Normal sinus rhythm Biatrial enlargement Left axis deviation Inferior infarct, age undetermined Anterior infarct, age undetermined Abnormal ECG No previous ECG available for comparison Electronically Signed On 10-30-24 12:08:01 HAND[employer] ASSEM[employer]ER by Tony Llamas
== END 2024-10-20 17:25 | disposition home or self-care (01) | DRG 193 ==
LOC: ER 14:43 → ERHOLD 17:02 → 4TH 10-16 13:04
PROVIDERS: ADMIT Internal Medicine; ATTEND Hospitalist
DX: J18.9 Pneumonia, unspecified organism (principal); I50.33 Acute on chronic diastolic (congestive) heart failure; J96.01 Acute respiratory failure with hypoxia; J44.1 Chronic obstructive pulmonary disease with (acute) exacerbation; J44.0 Chronic obstructive pulmonary disease with (acute) lower respiratory infection; I11.0 Hypertensive heart disease with heart failure; E11.40 Type 2 diabetes mellitus with diabetic neuropathy, unspecified; M10.9 Gout, unspecified; E03.9 Hypothyroidism, unspecified; I25.10 Atherosclerotic heart disease of native coronary artery without angina pectoris; E78.5 Hyperlipidemia, unspecified; I27.20 Pulmonary hypertension, unspecified; R04.0 Epistaxis; I48.0 Paroxysmal atrial fibrillation; Z79.01 Long term (current) use of anticoagulants
CPT/HCPCS: 36415; 71045; 71250; 80048; 80061; 82947; 83735; 83880; 84100; 84132; 84484; 85025; 93005; 93306; 94640; 96374; 97116; 97161; 97530; 99285; J0696; J1644; J1940; J2405; J3535; J7512; J7613; J7644